=== PATIENT | female | born 1955 | race Caucasian/White ===

== ENCOUNTER → 2017-07-21 | Outpatient (CLI) | payer OTHER ==
--- NOTE | 2017-07-22 08:09 | CT ---
EXAMINATION TYPE: CT chest w con DATE OF EXAM: 07/21/2017 COMPARISON: NONE HISTORY: Abnormal findings (ground glass appearance) on diagnostic imaging. CT DLP: 189.10 mGycm. Automated Exposure Control for Dose Reduction was Utilized. TECHNIQUE: CT scan of the thorax is performed following with IV Contrast, patient injected with 100 mL of Omnipaque 300. FINDINGS: LUNGS: The lungs are grossly clear other than persistent subsegmental lingular atelectasis, there is no concerning parenchymal mass or nodule identified. 2 mm focal pleural thickening is seen along the posterior medial inferior left lower lobe on series 4 image 38. There is no pleural effusion or pneu mothorax seen. The tracheobronchial tree is patent. MEDIASTINUM: There are no greater than 1 cm hilar or mediastinal lymph nodes. No pericardial effusi on is seen. Moderate coronary artery calcifications are seen of the left main coronary artery, right coronary artery and left anterior descending coronary artery. Incidental note of bovine aortic arch, normal variant. OTHER: Unchanged mild degenerative changes of the thoracic spine demonstrated as endplate sclerosis, intervertebral disc space narrowing and small anterior osteophytes. IMPRESSION: 1. No pulmonary nodule or mass. 2. Unchanged subsegmental lingular atelectasis. 3. Redemonstration of moderate burden coronary artery disease.
== END | disposition home or self-care (01) ==
LOC: RADCTMAIN 16:02
PROVIDERS: ATTEND Internal Medicine
DX: J98.11 Atelectasis (principal); I25.10 Atherosclerotic heart disease of native coronary artery without angina pectoris
CPT/HCPCS: 71260; Q9967

== ENCOUNTER 2020-06-07 12:34 | Emergency (ER) | payer OTHER ==
[2020-06-07 12:55] VITALS: TEMP 99.1
[2020-06-07] MEDS ORDERED: KETOROLAC 15 MG/ML 1 ML VIAL IM STA (13:15)
--- NOTE | 2020-06-07 13:18 | ED ---
General Adult HPI - General Chief complaint: Fall Stated complaint: Fall, R Hip Pain Time Seen by Provider: 06/07/20 13:07 Source: patient, family, RN notes reviewed Mode of arrival: wheelchair Limitations: no limitations - History of Present Illness Initial comments: Patient is a pleasant [age]-year-old female presenting to the emergency department following a fall. Incident occurred around 10:00 this morning. Patient tripped over a cord. Patient did land on her right hip. Patient has moderate to severe discomfort of her right hip. Patient also landed on her right ribs and does have moderate discomfort there as well. Patient is only able to ambulate using crutches. Patient denies any difficulty in breathing. No neck or back pain. No head injury or loss of consciousness. No abdominal discomfort. No history of significant discomfort is areas previously. - Related Data Previous Rx's Medication Instructions Recorded Hydrocodone/Acetaminophen [[place] 1 each PO Q4HR PRN #15 tab 06/07/20 5-325] Allergies Allergy/AdvReac Type Severity Reaction Status Date / Time morphine Allergy Unknown Verified 06/07/20 12:55 Penicillins Allergy Unknown Verified 06/07/20 12:55 Sulfa (Sulfonamide Allergy Unknown Verified 06/07/20 12:55 Antibiotics) Review of Systems ROS Statement: Those systems with pertinent positive or pertinent negative responses have been documented in the HPI. ROS Other: All systems not noted in ROS Statement are negative. Constitutional: Denies: fever Eyes: Denies: eye pain ENT: Denies: ear pain Respiratory: Denies: cough, dyspnea Cardiovascular: Reports: as per HPI Endocrine: Denies: fatigue Gastrointestinal: Denies: abdominal pain Genitourinary: Denies: dysuria Musculoskeletal: Reports: as per HPI, arthralgia (Right hip). Denies: back pain Skin: Denies: rash Neurological: Denies: headache, weakness, confusion Past Medical History Past Medical History: Hypertension Additional Past Medical History / Comment(s): Lupus. Sjogorens Disease History of Any Multi-Drug Resistant Organisms: None Reported Past Surgical History: Cholecystectomy, Hysterectomy Past Psychological History: No Psychological Hx Reported Smoking Status: Never smoker Past Alcohol Use History: None Reported Past Drug Use History: None Reported General Exam Limitations: no limitations General appearance: alert, in no apparent distress Head exam: Present: atraumatic, normocephalic Eye exam: Present: normal appearance Neck exam: Present: normal inspection. Absent: tenderness Respiratory exam: Present: normal lung sounds bilaterally, other (Tenderness right lateral mid ribs). Absent: respiratory distress, decreased breath sounds Cardiovascular Exam: Present: regular rate, normal rhythm Expanded Peripheral pulses: 2+: Dorsalis Pedis (R), Dorsalis Pedis (L) GI/Abdominal exam: Present: soft. Absent: tenderness Extremities exam: Present: tenderness (Moderate tenderness diffuse right anterior lateral hip), other (Pain with attempted range of motion right hip limits exam). Absent: calf tenderness Back exam: Present: normal inspection. Absent: vertebral tenderness Neurological exam: Present: alert. Absent: motor sensory deficit Expanded Sensory exam: Lower Extremity Light Touch: Normal Motor strength exam: RLE: 5 Psychiatric exam: Present: normal affect, normal mood Skin exam: Present: normal color Course Vital Signs 06/07/20 12:49 Temperature 99.1 F Pulse Rate 65 Respiratory 16 Rate Blood Pressure 100/63 O2 Sat by Pulse 99 Oximetry - Reevaluation(s) Reevaluation #1: 06/07/20 15:00 Case was discussed with practitioner branch who also discuss case with Dr. Romano and review the films. They do request computed tomography scan. They state this will depend if patient will need surgical repair. 06/07/20 15:54 Case again discussed with practitioner neck branch who did review the films with Dr. Romano and would like patient to be nonsurgical option at this time. They will follow up with Wednesday and recommends walker per patient. Patient is comfortable with discharge if she receives pain medication. Patient will be prescribed walker Medical Decision Making - Radiology Data Radiology results: report reviewed (Computed tomography scan right hip shows greater trochanter fracture.), image reviewed (Chest x-ray shows possible fifth rib nondisplaced fracture. X-ray of right hip and pelvis shows nondisplaced fracture greater trochanter.) Disposition Clinical Impression: Fall, Rib fracture, Hip fracture Disposition: HOME SELF-CARE Condition: Stable Additional Instructions: Please follow-up Wednesday with Dr. Romano with orthopedics, number provided. Please also follow-up primary care physician in the next couple days for recheck. Return for any difficulty breathing, weakness, uncontrolled pain, worsening symptoms or other concerns. Prescription for pain medication has been sent to pharmacy. Please use walker and never used more than 50% of weight onto the right hip. Prescriptions: Hydrocodone/Acetaminophen [[place] 5-325] 1 each PO Q4HR PRN #15 tab PRN Reason: Pain Is patient prescribed a controlled substance at d/c from ED?: Yes When asked, does pt state using other controlled substances?: No If prescribed controlled substance>3 days was MAPS reviewed?: Prescribed <3 Days If opioid is for acute pain is fill amount 7 days or less?: Yes If Rx opioid, was Start Talking consent form obtained?: Yes Referrals: Shashank Gilmore MD [Primary Care Provider] - 1-2 days Abrahan Clifton MD [STAFF PHYSICIAN] - 1-2 days Time of Disposition: 15:56
--- NOTE | 2020-06-07 14:14 | XR ---
EXAMINATION TYPE: AP view pelvis and 2 views right hip DATE OF EXAM: 06/07/2020 COMPARISON: NONE HISTORY: 64-year-old female pain after fall FINDINGS: Unable to fully visualize the left femoral neck due to external rotation hip. On the right, there is a subtle lucency at the greater trochanter. No clear intertrochanteric extensi on. IMPRESSION: Nondisplaced fracture at the right greater trochanter. No definite intertrochanteric extension identi fied radiographically.
--- NOTE | 2020-06-07 14:17 | XR ---
EXAMINATION TYPE: XR ribs RT w pa chest xray DATE OF EXAM: 06/07/2020 COMPARISON: Correlation CT chest 07/21/2017 HISTORY: 64-year-old female with fall and right-sided pain TECHNIQUE: AP and lateral views FINDINGS: Heart upper limits of normal in size. Slight tortuosity of the thoracic aorta. There is opacity at th e cardiac apex, suspected epicardial fat pad, unchanged from the CT of 2017. There is some cortical i rregularity along the lateral right fifth rib. Cholecystectomy clips. IMPRESSION: 1. No acute cardiopulmonary process. 2. Slight cortical irregularity along the lateral right fifth rib. Correlate for point tenderness her e to exclude a subtle nondisplaced fracture.
[2020-06-07] MEDS ORDERED: HYDROmorphone 1 MG/ML 1 ML SYRINGE IM STA (15:03)
--- NOTE | 2020-06-07 15:41 | CT ---
EXAMINATION TYPE: CT hip RT wo con DATE OF EXAM: 06/07/2020 COMPARISON: Radiograph same day HISTORY: 64-year-old female Fall with right hip pain. TECHNIQUE: Contiguous axial scanning of the right hip without IV contrast. Coronal and sagittal recon structions performed. CT DLP: 389.3 mGycm Automated exposure control for dose reduction was used. FINDINGS: Osteopenia. Anteriorly, there is a comminuted transverse component to the fracture of the greater tro chanter with mild displacement. Along the mid to posterior aspect, there appears to be a prominent ve rtical component extending to nearly the level with associated intramedullary hemorrhage. No clear fr acture extension seen to the medial cortex. There is fracture involvement along the posterior cortex at the basicervical level. Some thickening and heterotopic ossification at the hamstrings origin. Fin dings suggest either sequela of old injury or chronic tendinopathy. IMPRESSION: 1. OSTEOPENIA LIMITS THE ASSESSMENT. 2. COMMINUTED FRACTURE OF THE GREATER TROCHANTER. ALONG THE MID TO POSTERIOR ASPECT, THERE SEEMS TO B E VERTICAL EXTENSION OF FRACTURE NEARLY TO THE SUBTROCHANTERIC LEVEL. 3. THERE IS ADDITIONAL EXTENSION TO INVOLVE THE POSTERIOR CORTEX OF THE BASICERVICAL FEMORAL NECK REG ION. NO MEDIAL FRACTURE EXTENSION IS IDENTIFIED. GIVEN OSTEOPENIA, CONSIDER MRI FOR BETTER DELINEATIO N OF FRACTURE EXTEN
[2020-06-07 16:44] VITALS: BP 137/64; PULSE 72; RESP 18
== END 2020-06-07 16:44 | disposition home or self-care (01) ==
LOC: EC 12:34
DX: S72.114A Nondisplaced fracture of greater trochanter of right femur, initial encounter for closed fracture (principal); S22.39XA Fracture of one rib, unspecified side, initial encounter for closed fracture; Z88.5 Allergy status to narcotic agent; Z88.0 Allergy status to penicillin; Z88.2 Allergy status to sulfonamides; W01.0XXA Fall on same level from slipping, tripping and stumbling without subsequent striking against object, initial encounter; Y92.009 Unspecified place in unspecified non-institutional (private) residence as the place of occurrence of the external cause
CPT/HCPCS: 71101; 73502; 73700; 99284; 96372 ×2; J1170; J1885

== ENCOUNTER → 2021-08-04 | Outpatient (CLI) | payer OTHER ==
--- NOTE | 2021-08-05 04:36 | MR ---
EXAMINATION TYPE: MR brain wo con DATE OF EXAM: 08/04/2021 COMPARISON: Prior MRI brain March 10, 2011 HISTORY: Headaches, chronic migraine, and dizziness. TECHNIQUE: Multiplanar, multisequence imaging of the brain and brainstem is performed without IV cont rast. FINDINGS: Diffusion weighted images demonstrate no evidence of a recent infarct or other diffusion abnormality. There is mild ventricular and sulcal prominence identified more prominent from prior study. Scattered foci of T2 hyperintensity are seen throughout the white matter bilaterally. Approximately 60-70 scat tered lesions are seen on current study increased in number from 2011 MRI. Lesions are nonspecific in appearance and distribution Midline structures demonstrate normal morphology. The craniocervical junction appears within normal limits. There is however no grade 1 anterolisthesis C3 on C4 with spinal canal effacement or stenosis sagittal image 14. This can be better evaluated with dedicated cervical spine MRI follow-up. Normal vascular flow voids are present. Dominant right vertebral artery demonstrated. Artifact distorts the level of the globes on current study. Visualized paranasal sinuses are clear. IMPRESSION: Mild diffuse age-related cerebral atrophy and moderate to advanced nonspecific white sofia er changes likely on the basis of altered vascular mechanics related to product of chronic migraine h eadaches and combination of chronic small vessel ischemic change in patient of this age. Interval pro gression from 2011 MRI noted.
== END | disposition home or self-care (01) ==
LOC: RADMRIMAIN 08-02 12:16
PROVIDERS: ATTEND Physician Assistant
DX: G43.909 Migraine, unspecified, not intractable, without status migrainosus (principal); G31.9 Degenerative disease of nervous system, unspecified
CPT/HCPCS: 70551

== ENCOUNTER 2022-05-27 11:03 | Inpatient (IN) | payer MEDICARE ==
--- NOTE | 2022-05-27 15:42 | P.GSCN ---
History of Present Illness Consult date: 05/27/22 Reason for Consult: Coronary artery disease Requesting physician: Suleman Sosa History of present illness: This is a 66-year-old female patient who follows on an outpatient basis with Dr. Snowden for primary care. She has a previous medical history of hypertension, lupus, Sjogren's, asthma (she has seen Dr. Olivas in the past), remote pneumonia, never smoker. She presented to [facility] yesterday with complaints of chest heaviness and shortness of breath. When questioned she states this has really been going on for more than a year and she dismissed it is inconsequential, however her episodes were becoming more frequent and started to include nausea and diaphoresis. At [facility] yesterday she was ruled in for non-STEMI and was recommended to undergo heart catheterization which was completed today by Dr. Sosa and which demonstrated ostial/proximal LAD stenosis 90%, ramus intermedius stenosis 95%, and proximal RCA stenosis 85% with no gradient across the aortic valve. Transthoracic echocardiogram was also completed demonstrating low-normal systolic function with EF 50%, normal diastolic function, focal apical and lateral hypokinesis, trace mitral and tricuspid regurgitation with mild to moderate aortic insufficiency. Due to findings on heart catheterization the patient was transferred to [facility] with consultation placed to cardiothoracic surgery for surgical revascularization recommendations. Review of Systems Review of systems was completed and was negative except as noted - Cardiovascular Reports as per HPI, Reports chest pain, Reports shortness of breath - Gastrointestinal Reports as per HPI, Reports nausea Past Medical History Past Medical History: Asthma, Chest Pain / Angina, Hypertension, Pneumonia Additional Past Medical History / Comment(s): Lupus. Sjogorens Disease History of Any Multi-Drug Resistant Organisms: None Reported Past Surgical History: Appendectomy, Cholecystectomy, Hysterectomy Additional Past Surgical History / Comment(s): Knee scope Past Psychological History: No Psychological Hx Reported Smoking Status: Never smoker Past Alcohol Use History: None Reported Past Drug Use History: None Reported - Past Family History Mother Family Medical History: Cancer Additional Family Medical History / Comment(s): from throat cancer Father Family Medical History: Cancer Additional Family Medical History / Comment(s): from bowel cancer Medications and Allergies Home Medications Medication Instructions Recorded Confirmed Type Amitriptyline HCl [Elavil] 150 mg PO HS 05/27/22 05/27/22 History Ascorbic Acid [Vitamin C] 500 mg PO DAILY 05/27/22 05/27/22 History Budesonide-Formot 160-4.5 Mcg 2 puff INHALATION RT-BID 05/27/22 05/27/22 History [Symbicort 160-4.5 Mcg Inhaler] Butalb/Acetaminophen/Caffeine 1 tab PO Q4H PRN 05/27/22 05/27/22 History [Esgic 50-325-40 mg Tablet] Calcium Carbonate [Calcium] 600 mg PO BID 05/27/22 05/27/22 History Cevimeline [Evoxac] 30 mg PO TID 05/27/22 05/27/22 History Esomeprazole Magnesium [NexIUM 20 mg PO DAILY 05/27/22 05/27/22 History 24Hr] Estradiol Cream [Estrace Cream 2 gm VAGINAL DIRECTED 05/27/22 05/27/22 History 0.01%] Ferrous Sulfate [Slow Fe] 142 mg PO DAILY 05/27/22 05/27/22 History Fremanezumab-Vfrm [Ajovy 225 mg SQ Q30D 05/27/22 05/27/22 History Autoinjector] Furosemide [Lasix] 20 mg PO DAILY 05/27/22 05/27/22 History Hydroxychloroquine Sulfate 200 mg PO BID 05/27/22 05/27/22 History [Plaquenil] L.acidoph,Paracasei, B.lactis 1 cap PO DAILY 05/27/22 05/27/22 History [Probiotic] Labetalol HCl 200 mg PO BID 05/27/22 05/27/22 History Lisdexamfetamine Dimesylate 70 mg PO DAILY 05/27/22 05/27/22 History [Vyvanse] Losartan Potassium 50 mg PO BID 05/27/22 05/27/22 History Magnesium Oxide [Magox 400] 400 mg PO DAILY 05/27/22 05/27/22 History Multivitamins, Thera [Multivitamin 1 tab PO DAILY 05/27/22 05/27/22 History (formulary)] Dexter-3 Fatty Acids [Dexter-3] 1,000 mg PO DAILY 05/27/22 05/27/22 History Turmeric Root Extract [Turmeric] 1,500 mg PO DAILY 05/27/22 05/27/22 History Verapamil HCl [Verapamil Sr] 360 mg PO DAILY 05/27/22 05/27/22 History Vitamin B Complex 1 cap PO DAILY 05/27/22 05/27/22 History Vitamin E 400 unit PO DAILY 05/27/22 05/27/22 History cycloSPORINE 0.05% OPHTH SOLN 1 drop BOTH EYES BID 05/27/22 05/27/22 History [Restasis] Allergies Allergy/AdvReac Type Severity Reaction Status Date / Time morphine Allergy Unknown Verified 05/27/22 16:23 Penicillins Allergy Unknown Verified 05/27/22 16:23 Childhood Sulfa (Sulfonamide Allergy Unknown Verified 05/27/22 16:23 Antibiotics) Surgical - Exam Vital Signs Temp Pulse Resp BP Pulse Ox 98.4 F 59 L 16 149/72 97 05/27/22 14:53 05/27/22 14:53 05/27/22 14:53 05/27/22 14:53 05/27/22 14:53 CONSTITUTIONAL: Awake and alert, appears comfortable, cooperative, well- developed, well-nourished, no pain, no acute distress EYES: Pupils equal, round, reactive to light, normal ocular movement ENT: Moist mucous membranes without oral lesions present NECK: No masses, no bruits, trachea midline RESPIRATORY: Lungs sounds clear to auscultation bilaterally. Respirations even, nonlabored. Currently on room air with oxygen saturation 96%. Strong cough. No chest wall deformities. No clubbing or cyanosis present CARDIOVASCULAR: S1, S2 present. Regular rate and rhythm, sinus rhythm on telemetry. Palpable peripheral pulses bilaterally. No edema present. No calf pain or tenderness noted. No significant lower extremity varicosities noted. Left radial Manjinder's test less than 8 seconds. GASTROINTESTINAL: Abdomen soft, nontender, nondistended without masses or organomegaly noted. There is no rebound or guarding present. Active bowel sounds present 4 quadrants. GENITOURINARY: Deferred INTEGUMENTARY: Skin is warm and dry with evidence of good perfusion. NEUROLOGIC: Cranial nerves II through XII intact, normal coordination, no obvious motor or sensory deficits, speech is normal MUSKULOSKELETAL: Able to move all extremities, strength equal bilaterally, normal posture PSYCHIATRIC: Alert and oriented to person place and time, appropriate affect, intact judgment and insight Results - Imaging Additional studies: Heart catheterization and echocardiogram films from [facility] reviewed Assessment and Plan Assessment: 1. Coronary artery disease, non-STEMI this admission 2. Hypertension 3. Lupus, Sjogren's 4. Remote pneumonia history 5. Never smoker Plan: The patient was seen and examined sitting up in bed on the cardiac stepdown unit in no acute distress. She currently denies any chest pain or shortness of breath. The case was discussed with Dr. Kellogg who will examine the patient today. The usual perioperative course of coronary artery bypass surgery was discussed in detail with the patient, risks and benefits were reviewed, all questions were answered. The patient does consent to surgery. Preoperative testing was initiated, once completed will calculate STS risk score and discuss with the patient. We will complete 5 m walk test. Recommend aspirin, statin, beta rajan therapy. Will consult pulmonology once bedside spirometry has been completed. Medical management of other comorbidities per primary care service. Thank you Dr. Sosa for this consult. More recommendations to follow I have personally seen and examined the patient, performed the documentation and the assessment and plan as written. Number of minutes spent on the visit: 30. SRIKANTH Nunes The patient was seen and examined with the nurse practitioner, I agree with the documentation of assessment and plan as written. We will plan for surgical revascularization early next week pending outcome of all preoperative testing. This was discussed with Dr. Sosa. Number of minutes spent on this consultation 45 min.
[2022-05-27] MEDS ORDERED: HEPARIN SODIUM 1,000 UN/ML (10ML VL) IV PRN (16:37)
--- NOTE | 2022-05-27 16:41 | US ---
EXAMINATION TYPE: US carotid duplex BILAT DATE OF EXAM: 05/27/2022 COMPARISON: NONE CLINICAL HISTORY: preop cardiac surgery. Pre op cardiac surgery TECHNIQUE: Carotid duplex ultrasound examination. Indirect Doppler criteria was utilized. FINDINGS: EXAM MEASUREMENTS: RIGHT: Peak Systolic Velocity (PSV) cm/sec ----- Right CCA: 45.8 ----- Right ICA: 74.5 ----- Right ECA: 58.8 ICA/CCA ratio: 1.6 RIGHT: End Diastole cm/sec ----- Right CCA: 10.9 ----- Right ICA: 26.5 ----- Right ECA: 5.5 LEFT: Peak Systolic Velocity (PSV) cm/sec ----- Left CCA: 53.8 ----- Left ICA: 71.0 ----- Left ECA: 56.3 ICA/CCA ratio: 1.3 LEFT: End Diastole cm/sec ----- Left CCA: 13.4 ----- Left ICA: 24.1 ----- Left ECA: 5.8 VERTEBRALS (direction of flow): Right Vertebral: Antegrade Left Vertebral: Antegrade Rhythm: Normal No significant stenosis IMPRESSION: There is antegrade flow in the vertebral arteries. The images and measurements suggest less than 10% stenosis in both internal carotid arteries. Criteria for Assigning % of Stenosis / Diameter reduction (Estimation based on the indirect measurements of the internal carotid artery velocities (ICA PSV). 1. Normal (no stenosis)=ICA PSV < 125 cm/s: ratio < 2.0: ICA EDV<40 cm/s. 2. Less than 50% stenosis=ICA PSV < 125 cm/s: ratio < 2.0: ICA EDV<40 cm/s. 3. 50 to 69% stenosis=ICA PSV of 125 to 230 cm/s: ration 2.0 ? 4.0: ICA EDV 40-100 cm/s. 4. Greater than 70% stenosis to near occlusion= ICA PSV > 230 cm/s: ratio > 4.0: ICA EDV > 100 cm/s. 5. Near occlusion= ICA PSV velocities may be low or undetectable: variable ratio and ICA EDV. 6. Total occlusion=unable to detect flow.
[2022-05-27] MEDS: SODIUM CHLORIDE 0.9% 1,000 ML IV SCH (17:34)
[2022-05-27 18:07] LABS: Basophils # (A) 0.1 k/uL (0-0.2); Basophils % (A) 1 %; Eosinophils # (A) 0.2 k/uL (0-0.7); Eosinophils % (A) 3 %; HCT 35.9 % (34.0-46.0); Lymphocytes # (A) 1.8 k/uL (1.0-4.8); Lymphocytes % (A) 41 %; MCH 33.2 pg (25.0-35.0); MCHC 33.5 g/dL (31.0-37.0); MCV 99.2 fL (80.0-100.0); Mean Platelet Volume 7.2; Monocytes # (A) 0.3 k/uL (0-1.0); Monocytes % (A) 7 %; Neutrophils % (A) 46 %; Platelet Count 257 k/uL (150-450); RBC 3.62 m/uL (3.80-5.40); RDW 12.3 % (11.5-15.5); WBC 4.5 k/uL (3.8-10.6)
[2022-05-27 18:15] LABS: Prothrombin Time 10.9 sec (9.0-12.0)
[2022-05-27 18:21] LABS: ALT 19 U/L (4-34); AST 31 U/L (14-36); African American GFR (CKD) 84 (>60 ml/min/1.73 sqM); Albumin 3.5 g/dL (3.5-5.0); Alkaline Phosphatase 68 U/L (38-126); Anion Gap 4 mmol/L; Blood Urea Nitrogen 13 mg/dL (7-17); Calcium 8.7 mg/dL (8.4-10.2); Carbon Dioxide 26 mmol/L (22-30); Chloride 100 mmol/L (98-107); Glucose 79 mg/dL (74-99); Magnesium 1.7 mg/dL (1.6-2.3); Non-African American GFR(CKD) 72 (>60 ml/min/1.73 sqM); Potassium 3.9 mmol/L (3.5-5.1); Sodium 130 mmol/L (137-145); Total Bilirubin 0.2 mg/dL (0.2-1.3)
[2022-05-27] MEDS: HEPARIN SOD,PORK IN 0.45% NACL 25,000 UNIT in 0.45% NACL 1 250ML.BAG IV SCH (18:52)
[2022-05-27] MEDS: SYMBICORT 160-4.5 MCG INHALER INHALATION SCH (19:33)
[2022-05-27 19:40] LABS: T4, Free (Free Thyroxine) 1.17 ng/dL (0.78-2.19)
[2022-05-27 20:06] LABS: Appearance,Urine Clear (Clear); Bilirubin,Urine Negative (Negative); Blood,Urine Negative (Negative); Color,Urine Light Yellow; Glucose,Urine (UA) Negative (Negative); Ketones,Urine Negative (Negative); Leukocyte Esterase,Urine Negative (Negative); Nitrite,Urine Negative (Negative); PH, Urine 6.5 (5.0-8.0); Protein,Urine Negative (Negative); Specific Gravity,Urine 1.017 (1.001-1.035); Urobilinogen,Urine <2.0 mg/dL (<2.0)
[2022-05-27] MEDS ORDERED: HYDROXYCHLOROQUINE SULFATE 200 MG TAB PO SCH (21:00)
[2022-05-27] MEDS: cycloSPORINE 0.05% OPHTH 0.4 ML DROPERETTE BOTH EYES SCH (21:13)
[2022-05-27] MEDS: CEVIMELINE 30 MG CAP PO SCH (21:13)
[2022-05-27] MEDS: AMITRIPTYLINE HCL 50 MG TAB PO SCH (21:14)
[2022-05-27] MEDS: METOPROLOL TARTRATE 50 MG TAB PO SCH (21:14)
[2022-05-27] MEDS: BUTALB/APAP/CAFF 50-325-40MG TAB PO PRN (21:14)
[2022-05-27] MEDS: CALCIUM CARBONATE 500 MG CHEWABLE PO SCH (21:16)
[2022-05-28 00:21] LABS: Hepatitis A Antibody IgM Nonreactive (Nonreactive); Hepatitis B Core IgM Nonreactive (Nonreactive); Hepatitis B Surface Antigen Nonreactive (Nonreactive); Hepatitis C IgG Antibody Nonreactive (Nonreactive)
[2022-05-28 02:18] LABS: Chol/HDL Ratio 2.51 Ratio; LDL Cholesterol,Calculated 93.5 mg/dL (0.0-131.0); VLDL Calculation 14.68 mg/dL (5.00-40.00)
[2022-05-28] MEDS: PANTOPRAZOLE 40 MG TABLET PO SCH (07:00)
[2022-05-28] MEDS: SODIUM CHLORIDE 0.9% 1,000 ML IV SCH (07:00)
[2022-05-28] MEDS: SYMBICORT 160-4.5 MCG INHALER INHALATION SCH ×2 (07:25→20:31)
[2022-05-28] MEDS ORDERED: NON FORMULARY DRUG (Vitamin B Complex [Vitamin B Complex] 1 EACH Capsule) PO SCH (09:00)
[2022-05-28] MEDS ORDERED: FUROSEMIDE 20 MG TAB PO SCH (09:00)
[2022-05-28] MEDS: FERROUS SULFATE 325 MG TAB PO SCH (09:07)
[2022-05-28] MEDS: LOSARTAN 50 MG TAB PO SCH (09:07)
[2022-05-28] MEDS: VITAMIN E (DL,TOCOPHERYL ACET) 400 UNIT (180 MG) CAP PO SCH (09:07)
[2022-05-28] MEDS: ATORVASTATIN 80 MG TAB PO SCH (09:07)
[2022-05-28] MEDS: METOPROLOL TARTRATE 50 MG TAB PO SCH ×2 (09:07→20:49)
[2022-05-28] MEDS: MULTIVITAMINS, THERA 1 EACH TAB PO SCH (09:07)
[2022-05-28] MEDS: CALCIUM CARBONATE 500 MG CHEWABLE PO SCH ×2 (09:07→20:48)
[2022-05-28] MEDS: ASCORBIC ACID 500 MG TAB PO SCH (09:07)
[2022-05-28] MEDS: MAGNESIUM OXIDE 400 MG TAB PO SCH (09:07)
[2022-05-28] MEDS: LACTOBACILLUS ACIDOPH & BULGAR 1 EACH PACKET PO SCH (09:07)
[2022-05-28] MEDS: ASPIRIN 81 MG PO SCH (09:07)
[2022-05-28] MEDS: cycloSPORINE 0.05% OPHTH 0.4 ML DROPERETTE BOTH EYES SCH ×2 (09:08→20:49)
[2022-05-28] MEDS: CEVIMELINE 30 MG CAP PO SCH ×3 (09:08→20:50)
--- NOTE | 2022-05-28 09:29 | US ---
EXAMINATION TYPE: US vein mapping BILAT DATE OF EXAM: 05/27/2022 4:29 PM COMPARISON: NONE CLINICAL HISTORY: preop cardiac surgery. Pre op cardiac surgery SIDE PERFORMED: Bilateral TECHNIQUE: Lower extremity saphenous vein is examined and measured utilizing real time linear array sonography. DUPLEX FINDINGS: Greater Saphenous: Color flow seen Measurements in mm: Right Greater Saphenous: Groin: 5.9 x 6.8 mm High Thigh: 4.3 x 4.6 mm Mid Thigh: 3.0 x 3.4 mm Above Knee: 3.3 x 3.8 mm Knee: 3.5 x 4.1 mm Below Knee: 2.9 x 3.3 mm Mid Calf: 2.2 x 2.3 mm At Ankle: 1.8 x 1.7 mm Left Greater Saphenous: Groin: 9.2 x 9.3 mm High Thigh: 4.9 x 5.0 mm Mid Thigh: 3.6 x 3.9 mm Above Knee: 3.1 x 3.8 mm Knee: 2.9 x 3.0 mm Below Knee: 2.5 x 2.8 mm Mid Calf: 2.1 x 2.3 mm At Ankle: 1.4 x 1.6 mm IMPRESSION: 1. Bilateral GSV measurements listed above. 2. Performing surgeon to determine viability as conduit.
--- NOTE | 2022-05-28 09:30 | US ---
EXAMINATION TYPE: Pre-Operative Non-Invasive Evaluation of the hand for Potential Radial Artery Jaelyn colon, Measurements only DATE OF EXAM: 05/27/2022 4:28 PM CLINICAL HISTORY: Pre op cardiac surgery SIDE PERFORMED: Left TECHNIQUE: Radial artery is measured utilizing real time linear array sonography. Duplex Findings: Radial Artery: Color flow seen Measurements in mm, transverse view: Left Radial: Proximal: 3.9 x 4.3 mm Mid: 2.4 x 2.6 mm Distal: 2.1 x 2.6 mm IMPRESSION: 1. Left radial artery measurements listed above. 2. Performing surgeon to determine viability as conduit.
[2022-05-28] MEDS: NON FORMULARY DRUG (Lisdexamfetamine Dimesylate [Vyvanse] 70 MG Capsule) PO SCH (09:39)
[2022-05-28 10:27] LABS: Basophils # (A) 0.1 k/uL (0-0.2); Basophils % (A) 1 %; Eosinophils # (A) 0.2 k/uL (0-0.7); Eosinophils % (A) 5 %; HCT 37.4 % (34.0-46.0); HGB 12.6 gm/dL (11.4-16.0); Lymphocytes # (A) 1.8 k/uL (1.0-4.8); Lymphocytes % (A) 34 %; MCH 34.2 pg (25.0-35.0); MCHC 33.7 g/dL (31.0-37.0); MCV 101.6 fL (80.0-100.0); Mean Platelet Volume 7.2; Monocytes # (A) 0.3 k/uL (0-1.0); Monocytes % (A) 6 %; Neutrophils # (A) 2.6 k/uL (1.3-7.7); Neutrophils % (A) 50 %; Platelet Count 246 k/uL (150-450); RBC 3.68 m/uL (3.80-5.40); RDW 12.8 % (11.5-15.5); WBC 5.2 k/uL (3.8-10.6)
[2022-05-28 10:32] LABS: Partial Thromboplastin Time 77.7 sec (22.0-30.0)
--- NOTE | 2022-05-28 10:35 | P.HPIM ---
History of Present Illness 66-year-old pleasant female was transferred from [facility] after she was found to have three-vessel disease and patient is transferred here for coronary artery bypass grafting which was scheduled for Wednesday. Patient is undergoing workup for that at this time. Patient had non-ST elevation microinfarction and patient had 90% stenosis in LAD ramus intermedius stenosis 95% proximal RCA stenosis 80%. Patient had normal ejection fraction now diastolic function with apical lateral hypokinesis. A she is hyponatremic and patient does take Lasix at home which is being held at this time because of the hyponatremia. History of lupus and Sjogren syndrome. REVIEW OF SYSTEMS: CONSTITUTIONAL: No fever, no malaise, no fatigue. HEENT: No recent visual problems or hearing problems. Denied any sore throat. CARDIOVASCULAR: No chest pain, orthopnea, PND, no palpitations, no syncope. PULMONARY: No shortness of breath, no cough, no hemoptysis. GASTROINTESTINAL: No diarrhea, no nausea, no vomiting, no abdominal pain. NEUROLOGICAL: No headaches, no weakness, no numbness. HEMATOLOGICAL: Denies any bleeding or petechiae. GENITOURINARY: Denies any burning micturition, frequency, or urgency. MUSCULOSKELETAL/RHEUMATOLOGICAL: Denies any joint pain, swelling, or any muscle pain. ENDOCRINE: Denies any polyuria or polydipsia. The rest of the 14-point review of systems is negative. PHYSICAL EXAMINATION: GENERAL: The patient is alert and oriented x3, not in any acute distress. Well developed, well nourished. HEENT: Pupils are round and equally reacting to light. EOMI. No scleral icterus. No conjunctival pallor. Normocephalic, atraumatic. No pharyngeal erythema. No thyromegaly. CARDIOVASCULAR: S1 and S2 present. No murmurs, rubs, or gallops. PULMONARY: Chest is clear to auscultation, no wheezing or crackles. ABDOMEN: Soft, nontender, nondistended, normoactive bowel sounds. No palpable organomegaly. MUSCULOSKELETAL: No joint swelling or deformity. EXTREMITIES: No cyanosis, clubbing, or pedal edema. NEUROLOGICAL: Gross neurological examination did not reveal any focal deficits. SKIN: No rashes. Assessment and plan Acute non-ST elevation microinfarction patient is scheduled for coronary artery bypass grafting, continue with anti-platelet therapy and the statins at this time. -Lupus and Sjogren's disease fairly stable without any acute exacerbation is -hypovolemic hyponatremia hold off on Lasix. -Hypertension DVT prophylaxisAmbulation as tolerated Past Medical History Past Medical History: Asthma, Chest Pain / Angina, Hypertension, Pneumonia Additional Past Medical History / Comment(s): Lupus. Sjogorens Disease History of Any Multi-Drug Resistant Organisms: None Reported Past Surgical History: Appendectomy, Cholecystectomy, Hysterectomy Additional Past Surgical History / Comment(s): Knee scope Past Anesthesia/Blood Transfusion Reactions: No Reported Reaction Past Psychological History: No Psychological Hx Reported Smoking Status: Never smoker Past Alcohol Use History: None Reported Past Drug Use History: None Reported - Past Family History Mother Family Medical History: Cancer Additional Family Medical History / Comment(s): from throat cancer Father Family Medical History: Cancer Additional Family Medical History / Comment(s): from bowel cancer Medications and Allergies Home Medications Medication Instructions Recorded Confirmed Type Amitriptyline HCl [Elavil] 150 mg PO HS 05/27/22 05/27/22 History Ascorbic Acid [Vitamin C] 500 mg PO DAILY 05/27/22 05/27/22 History Budesonide-Formot 160-4.5 Mcg 2 puff INHALATION RT-BID 05/27/22 05/27/22 History [Symbicort 160-4.5 Mcg Inhaler] Butalb/Acetaminophen/Caffeine 1 tab PO Q4H PRN 05/27/22 05/27/22 History [Esgic 50-325-40 mg Tablet] Calcium Carbonate [Calcium] 600 mg PO BID 05/27/22 05/27/22 History Cevimeline [Evoxac] 30 mg PO TID 05/27/22 05/27/22 History Esomeprazole Magnesium [NexIUM 20 mg PO DAILY 05/27/22 05/27/22 History 24Hr] Estradiol Cream [Estrace Cream 2 gm VAGINAL DIRECTED 05/27/22 05/27/22 History 0.01%] Ferrous Sulfate [Slow Fe] 142 mg PO DAILY 05/27/22 05/27/22 History Fremanezumab-Vfrm [Ajovy 225 mg SQ Q30D 05/27/22 05/27/22 History Autoinjector] Furosemide [Lasix] 20 mg PO DAILY 05/27/22 05/27/22 History Hydroxychloroquine Sulfate 200 mg PO BID 05/27/22 05/27/22 History [Plaquenil] L.acidoph,Paracasei, B.lactis 1 cap PO DAILY 05/27/22 05/27/22 History [Probiotic] Labetalol HCl 200 mg PO BID 05/27/22 05/27/22 History Lisdexamfetamine Dimesylate 70 mg PO DAILY 05/27/22 05/27/22 History [Vyvanse] Losartan Potassium 50 mg PO BID 05/27/22 05/27/22 History Magnesium Oxide [Magox 400] 400 mg PO DAILY 05/27/22 05/27/22 History Multivitamins, Thera [Multivitamin 1 tab PO DAILY 05/27/22 05/27/22 History (formulary)] [place]-3 Fatty Acids [[place]-3] 1,000 mg PO DAILY 05/27/22 05/27/22 History Turmeric Root Extract [Turmeric] 1,500 mg PO DAILY 05/27/22 05/27/22 History Verapamil HCl [Verapamil Sr] 360 mg PO DAILY 05/27/22 05/27/22 History Vitamin B Complex 1 cap PO DAILY 05/27/22 05/27/22 History Vitamin E 400 unit PO DAILY 05/27/22 05/27/22 History cycloSPORINE 0.05% OPHTH SOLN 1 drop BOTH EYES BID 05/27/22 05/27/22 History [Restasis] Allergies Allergy/AdvReac Type Severity Reaction Status Date / Time morphine Allergy Unknown Verified 05/27/22 16:23 Penicillins Allergy Unknown Verified 05/27/22 16:23 Childhood Sulfa (Sulfonamide Allergy Unknown Verified 05/27/22 16:23 Antibiotics) Physical Exam Vitals: Vital Signs Temp Pulse Resp BP Pulse Ox 05/28/22 09:01 98.1 F 73 16 160/77 100 05/28/22 04:00 97.9 F 69 18 148/63 97 05/28/22 02:00 16 05/28/22 00:00 98.0 F 63 16 176/64 95 05/27/22 20:00 16 05/27/22 19:48 98.9 F 62 16 162/80 99 05/27/22 14:53 98.4 F 59 L 16 149/72 97 Intake and Output 05/27/22 05/28/22 05/28/22 22:59 06:59 14:59 Intake Total 46.359 118 Output Total 150 Balance -150 46.359 118 Intake: Intake, IV Titration 46.359 Amount Heparin Sod,Pork in 0.45% 46.359 NaCl 25,000 unit In 0.45 % NaCl 1 250ml.bag @ 12 UNITS/KG/HR 6.06 mls/hr IV .Q24H [facility] Rx#: [id number] Oral 118 Output: Urine 150 Other: # Voids 1 Weight 50.5 kg 58.9 kg Results CBC & Chem 7: 05/28/22 09:26 05/27/22 17:40 Labs: Abnormal Lab Results - Last 24 Hours (Table) 05/27/22 05/27/22 05/28/22 Range/Units 17:40 17:40 01:31 RBC 3.62 L (3.80-5.40) m/uL MCV (80.0-100.0) fL APTT 41.0 H (22.0-30.0) sec Sodium 130 L (137-145) mmol/L Total Protein 6.0 L (6.3-8.2) g/dL HDL Cholesterol 71.80 H (40.00-60.00) mg/dL TSH 0.336 L (0.465-4.680) mIU/L 05/28/22 05/28/22 Range/Units 09:26 09:26 RBC 3.68 L (3.80-5.40) m/uL MCV 101.6 H (80.0-100.0) fL APTT 77.7 H (22.0-30.0) sec Sodium (137-145) mmol/L Total Protein (6.3-8.2) g/dL HDL Cholesterol (40.00-60.00) mg/dL TSH (0.465-4.680) mIU/L Microbiology - Last 24 Hours (Table) 05/27/22 17:44 Nasal Screen MRSA/MSSA - Preliminary Nasal Swab Thrombosis Risk Factor Assmnt - Choose All That Apply Each Risk Factor Represents 2 Points: Age 61-74 years Thrombosis Risk Factor Assessment Total Risk Factor Score: 2 Thrombosis Risk Factor Assessment Level: Low Risk
--- NOTE | 2022-05-28 10:39 | P.PN ---
Subjective Progress Note Date: 05/28/22 Principal diagnosis: Coronary artery disease, non-STEMI this admission. Previous medical history of hypertension, lupus, Sjogren's, asthma, remote pneumonia history, and never smo ker The patient was seen and examined sitting up in bed in the cardiac stepdown unit in no acute distress. Denies any chest pain or shortness of breath although she does complain of some back pain. Patient and met with Dr. Kellogg yesterday, all options were answered. We plan to proceed with CABG on Wednesday, this was discussed between Dr. Kellogg and Dr. Sosa. Objective - Vital Signs Vital signs: Vital Signs Temp 98.1 F 05/28/22 09:01 Pulse 73 05/28/22 09:01 Resp 16 05/28/22 09:01 BP 160/77 05/28/22 09:01 Pulse Ox 100 05/28/22 09:01 FiO2 Intake & Output 05/27/22 05/28/22 05/28/22 18:59 06:59 18:59 Intake Total 46.359 118 Output Total 150 Balance -103.641 118 Weight 50.5 kg 58.9 kg Intake: Intake, IV Titration 46.359 Amount Heparin Sod,Pork in 0.45% 46.359 NaCl 25,000 unit In 0.45 % NaCl 1 250ml.bag @ 12 UNITS/KG/HR 6.06 mls/hr IV .Q24H [facility] Rx#: [id number] Oral 118 Output: Urine 150 Other: # Voids 1 - Exam CONSTITUTIONAL: Appears comfortable, cooperative, no acute distress RESPIRATORY: Lungs sounds diminished bilaterally. Respirations even, nonlabored. Currently on room air with oxygen saturation 100%. Able to achieve 1750 mL on incentive spirometry. Strong cough. CARDIOVASCULAR: S1, S2 present. Regular rate and rhythm, sinus rhythm on telemetry. Palpable peripheral pulses bilaterally. No edema present. No calf pain or tenderness noted. GASTROINTESTINAL: Abdomen soft, nontender, nondistended. Active bowel sounds present 4 quadrants. Tolerating diet. GENITOURINARY: Continues to void INTEGUMENTARY: Skin is warm and dry with evidence of good perfusion. NEUROLOGIC: Cranial nerves II through XII intact MUSKULOSKELETAL: Able to move all extremities, strength equal bilaterally, gait normal PSYCHIATRIC: Alert and oriented to person place and time, appropriate affect, intact judgment and insight - Allied health notes Allied health notes reviewed: nursing - Labs CBC & Chem 7: 05/28/22 09:26 05/27/22 17:40 Labs: Abnormal Lab Results - Last 24 Hours (Table) 05/27/22 05/27/22 05/28/22 Range/Units 17:40 17:40 01:31 RBC 3.62 L (3.80-5.40) m/uL MCV (80.0-100.0) fL APTT 41.0 H (22.0-30.0) sec Sodium 130 L (137-145) mmol/L Total Protein 6.0 L (6.3-8.2) g/dL HDL Cholesterol 71.80 H (40.00-60.00) mg/dL TSH 0.336 L (0.465-4.680) mIU/L 05/28/22 Range/Units 09:26 RBC 3.68 L (3.80-5.40) m/uL MCV 101.6 H (80.0-100.0) fL APTT (22.0-30.0) sec Sodium (137-145) mmol/L Total Protein (6.3-8.2) g/dL HDL Cholesterol (40.00-60.00) mg/dL TSH (0.465-4.680) mIU/L Microbiology - Last 24 Hours (Table) 05/27/22 17:44 Nasal Screen MRSA/MSSA - Preliminary Nasal Swab Assessment and Plan Assessment: 1. Coronary artery disease, non-STEMI this admission 2. Hypertension 3. Lupus, Sjogren's 4. History of asthma, current FEV1 101% of predicted 5. Remote pneumonia history 6. Never smoker Plan: 1. Continue aspirin, statin, beta rajan therapy. Recommend discontinuing Cozaar to prevent intra/postoperative vasoplegia 2. Plaquenal discontinued due to its immunosuppressive effect, will restart after surgery 3. Our plan is for surgical myocardial revascularization with left internal mammary artery, left radial artery harvest, endovascular vein harvest, and ligation of the left atrial appendage with Dr. Awad on 06/01/2022 4. Continue preoperative teaching 5. STS risk score was calculated, felt to be low risk, this was discussed with the patient 6. Medical management for comorbidities per primary care service 7. More recommendations to follow
--- NOTE | 2022-05-28 11:44 | P.CNPUL ---
History of Present Illness Consult date: 05/28/22 Requesting physician: Etelvina Pang Reason for consult: other Chief complaint: Preoperative clearance. History of present illness: Pulmonary consultation dated 05/28/2022. 66-year-old female with a history of coronary disease, and non-ST segment elevation myocardial infarction. 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 Her lung function were excellent. She apparently did have a history of asthma, but no longer has the disease. She does carry with her diagnosis of hypertension, lupus, Sjogren's syndrome, and pneumonia. She is a lifelong nonsmoker. She apparently is going to have a bypass grafting on June 01. Laboratory data includes a white count 5.2, hemoglobin 12.6, hematocrit 37.4, with a normal platelet count. PTT is 77.7. The rest of the labs look pretty good. No chest x-ray. She apparently had her cardiac catheterization at [facility]. She was found to have three-vessel coronary disease. Review of Systems REVIEW OF SYSTEMS: CONSTITUTIONAL: [Negative.] NEUROLOGIC: [ Negative.] HEENT: [ Negative.] CARDIAC: Chest pain. PULMONARY: [Negative.] GI: [Negative.] : [Negative.] RHEUMATOLOGIC: [ Negative.] IMMUNOLOGIC: [ Negative.] ENDOCRINE: [Negative. ] DERMATOLOGIC: [Negative.] Past Medical History Past Medical History: Asthma, Chest Pain / Angina, Hypertension, Pneumonia Additional Past Medical History / Comment(s): Lupus. Sjogorens Disease History of Any Multi-Drug Resistant Organisms: None Reported Past Surgical History: Appendectomy, Cholecystectomy, Hysterectomy Additional Past Surgical History / Comment(s): Knee scope Past Anesthesia/Blood Transfusion Reactions: No Reported Reaction Past Psychological History: No Psychological Hx Reported Smoking Status: Never smoker Past Alcohol Use History: None Reported Past Drug Use History: None Reported - Past Family History Mother Family Medical History: Cancer Additional Family Medical History / Comment(s): from throat cancer Father Family Medical History: Cancer Additional Family Medical History / Comment(s): from bowel cancer Medications and Allergies Home Medications Medication Instructions Recorded Confirmed Type Amitriptyline HCl [Elavil] 150 mg PO HS 05/27/22 05/27/22 History Ascorbic Acid [Vitamin C] 500 mg PO DAILY 05/27/22 05/27/22 History Budesonide-Formot 160-4.5 Mcg 2 puff INHALATION RT-BID 05/27/22 05/27/22 History [Symbicort 160-4.5 Mcg Inhaler] Butalb/Acetaminophen/Caffeine 1 tab PO Q4H PRN 05/27/22 05/27/22 History [Esgic 50-325-40 mg Tablet] Calcium Carbonate [Calcium] 600 mg PO BID 05/27/22 05/27/22 History Cevimeline [Evoxac] 30 mg PO TID 05/27/22 05/27/22 History Esomeprazole Magnesium [NexIUM 20 mg PO DAILY 05/27/22 05/27/22 History 24Hr] Estradiol Cream [Estrace Cream 2 gm VAGINAL DIRECTED 05/27/22 05/27/22 History 0.01%] Ferrous Sulfate [Slow Fe] 142 mg PO DAILY 05/27/22 05/27/22 History Fremanezumab-Vfrm [Ajovy 225 mg SQ Q30D 05/27/22 05/27/22 History Autoinjector] Furosemide [Lasix] 20 mg PO DAILY 05/27/22 05/27/22 History Hydroxychloroquine Sulfate 200 mg PO BID 05/27/22 05/27/22 History [Plaquenil] L.acidoph,Paracasei, B.lactis 1 cap PO DAILY 05/27/22 05/27/22 History [Probiotic] Labetalol HCl 200 mg PO BID 05/27/22 05/27/22 History Lisdexamfetamine Dimesylate 70 mg PO DAILY 05/27/22 05/27/22 History [Vyvanse] Losartan Potassium 50 mg PO BID 05/27/22 05/27/22 History Magnesium Oxide [Magox 400] 400 mg PO DAILY 05/27/22 05/27/22 History Multivitamins, Thera [Multivitamin 1 tab PO DAILY 05/27/22 05/27/22 History (formulary)] [place]-3 Fatty Acids [[place]-3] 1,000 mg PO DAILY 05/27/22 05/27/22 History Turmeric Root Extract [Turmeric] 1,500 mg PO DAILY 05/27/22 05/27/22 History Verapamil HCl [Verapamil Sr] 360 mg PO DAILY 05/27/22 05/27/22 History Vitamin B Complex 1 cap PO DAILY 05/27/22 05/27/22 History Vitamin E 400 unit PO DAILY 05/27/22 05/27/22 History cycloSPORINE 0.05% OPHTH SOLN 1 drop BOTH EYES BID 05/27/22 05/27/22 History [Restasis] Allergies Allergy/AdvReac Type Severity Reaction Status Date / Time morphine Allergy Unknown Verified 05/27/22 16:23 Penicillins Allergy Unknown Verified 05/27/22 16:23 Childhood Sulfa (Sulfonamide Allergy Unknown Verified 05/27/22 16:23 Antibiotics) Physical Exam Osteopathic Statement: *. No significant issues noted on an osteopathic structural exam other than those noted in the History and Physical/Consult. Vitals: Vital Signs Temp Pulse Resp BP Pulse Ox 05/28/22 11:32 75 16 175/90 98 05/28/22 09:01 98.1 F 73 16 160/77 100 05/28/22 04:00 97.9 F 69 18 148/63 97 05/28/22 02:00 16 05/28/22 00:00 98.0 F 63 16 176/64 95 05/27/22 20:00 16 05/27/22 19:48 98.9 F 62 16 162/80 99 05/27/22 14:53 98.4 F 59 L 16 149/72 97 Intake and Output 05/27/22 05/28/22 05/28/22 22:59 06:59 14:59 Intake Total 46.359 178.566 Output Total 150 Balance -150 46.359 178.566 Intake: Intake, IV Titration 46.359 60.566 Amount Heparin Sod,Pork in 0.45% 46.359 60.566 NaCl 25,000 unit In 0.45 % NaCl 1 250ml.bag @ 12 UNITS/KG/HR 6.06 mls/hr IV .Q24H [facility] Rx#: [id number] Oral 118 Output: Urine 150 Other: # Voids 1 Weight 50.5 kg 58.9 kg No acute distress, oriented 3. Room air saturation 98%. HEENT examination is grossly unremarkable. Neck supple. Full range of motion. No adenopathy thyromegaly or neck vein distention. Cardiovascular examination reveals regular rhythm rate. S1-S2 normal. No S3 or S4. No discernible murmur noted. Heart rate 75 bpm. Lungs reveal clear breath sounds. Breath sounds are equal bilaterally. No adventitious lung sounds including wheezes rhonchi or crackles. Abdomen soft bowel sounds are heard. No masses or tenderness. Extremities are intact. No cyanosis clubbing or edema. Skin is without rash or lesion. Neurologic examination is brief but nonfocal. Results - Laboratory Findings CBC and BMP: 05/28/22 09:26 05/27/22 17:40 PT/INR, D-dimer PT 11.0 sec (9.0-12.0) 05/28/22 09: INR 1.0 (<1.2) 05/28/22 09:26 Abnormal lab findings: Abnormal Labs 05/27/22 05/27/22 05/28/22 17:40 17:40 01:31 RBC 3.62 L MCV APTT 41.0 H Sodium 130 L Total Protein 6.0 L HDL Cholesterol 71.80 H TSH 0.336 L 05/28/22 05/28/22 09:26 09:26 RBC 3.68 L MCV 101.6 H APTT 77.7 H Sodium Total Protein HDL Cholesterol TSH Assessment and Plan Assessment: Non-ST segment elevation myocardial infarction, with three-vessel coronary artery disease. Patient is to have bypass grafting, June 01. History of asthma, not active at this time. History of lupus. History of Sjogren's syndrome. History of hypertension. Lifelong nonsmoker. Remote history of pneumonia. Plan: Plan dated 05/28/2022. The patient is stable from the pulmonary standpoint. She is a lifelong nonsmoker. She did have a history of remote pneumonia. She also has a previous history of asthma, not currently active. The patient's lung function were excellent. Based on the patient's FEV1, and her MVV, the patient's at no increased operative risk. The patient is currently on IV heparin, and saline at 20 mL an hour. Labs, x-rays, and medications are all reviewed. Time with Patient: Greater than 30
[2022-05-28] MEDS: amLODIPine 5 MG TAB PO SCH (12:26)
[2022-05-28] MEDS ORDERED: IPRATROPIUM-ALBUTEROL 3 ML NEB ONE (15:07)
[2022-05-28] MEDS: BUTALB/APAP/CAFF 50-325-40MG TAB PO PRN ×2 (16:38→23:52)
[2022-05-28] MEDS: HEPARIN SOD,PORK IN 0.45% NACL 25,000 UNIT in 0.45% NACL 1 250ML.BAG IV SCH (17:48)
[2022-05-28] MEDS: AMITRIPTYLINE HCL 50 MG TAB PO SCH (20:49)
[2022-05-29] MEDS: PANTOPRAZOLE 40 MG TABLET PO SCH (06:11)
[2022-05-29] MEDS: SYMBICORT 160-4.5 MCG INHALER INHALATION SCH ×2 (07:29→20:47)
[2022-05-29] MEDS: CEVIMELINE 30 MG CAP PO SCH ×4 (08:55→20:39)
[2022-05-29] MEDS: amLODIPine 5 MG TAB PO SCH (08:55)
[2022-05-29] MEDS: ASPIRIN 81 MG PO SCH (08:55)
[2022-05-29] MEDS: CALCIUM CARBONATE 500 MG CHEWABLE PO SCH ×2 (08:55→20:38)
[2022-05-29] MEDS: VITAMIN E (DL,TOCOPHERYL ACET) 400 UNIT (180 MG) CAP PO SCH (08:56)
[2022-05-29] MEDS: ATORVASTATIN 80 MG TAB PO SCH (08:56)
[2022-05-29] MEDS: ASCORBIC ACID 500 MG TAB PO SCH (08:56)
[2022-05-29] MEDS: LACTOBACILLUS ACIDOPH & BULGAR 1 EACH PACKET PO SCH (08:56)
[2022-05-29] MEDS: FERROUS SULFATE 325 MG TAB PO SCH (08:56)
[2022-05-29] MEDS: MULTIVITAMINS, THERA 1 EACH TAB PO SCH (08:56)
[2022-05-29] MEDS: cycloSPORINE 0.05% OPHTH 0.4 ML DROPERETTE BOTH EYES SCH ×2 (08:56→20:38)
[2022-05-29] MEDS: LOSARTAN 50 MG TAB PO SCH (08:56)
[2022-05-29] MEDS: MAGNESIUM OXIDE 400 MG TAB PO SCH (08:56)
[2022-05-29] MEDS: METOPROLOL TARTRATE 50 MG TAB PO SCH ×2 (08:56→20:38)
[2022-05-29] MEDS: NON FORMULARY DRUG (Lisdexamfetamine Dimesylate [Vyvanse] 70 MG Capsule) PO SCH (09:08)
[2022-05-29] MEDS: HEPARIN SOD,PORK IN 0.45% NACL 25,000 UNIT in 0.45% NACL 1 250ML.BAG IV SCH (11:48)
[2022-05-29 12:19] LABS: Calcium 8.8 mg/dL (8.4-10.2); Potassium 4.2 mmol/L (3.5-5.1)
--- NOTE | 2022-05-29 13:01 | P.PN ---
Subjective Progress Note Date: 05/29/22 Principal diagnosis: Coronary artery disease. Pulmonary consultation dated 05/28/2022. 66-year-old female with a history of coronary disease, and non-ST segment elevation myocardial infarction. 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 Her lung function were excellent. She apparently did have a history of asthma, but no longer has the disease. She does carry with her diagnosis of hypertension, lupus, Sjogren's syndrome, and pneumonia. She is a lifelong nonsmoker. She apparently is going to have a bypass grafting on June 01. Laboratory data includes a white count 5.2, hemoglobin 12.6, hematocrit 37.4, with a normal platelet count. PTT is 77.7. The rest of the labs look pretty good. No chest x-ray. She apparently had her cardiac catheterization at [facility]. She was found to have three-vessel coronary disease. Progress note dated 05/29/2022. 66-year-old female seen in consultation yesterday. She has a history of recently discovered coronary disease, and non-ST segment elevation myocardial infarction. The patient is scheduled to undergo bypass grafting, on May. Clinically, the patient stable. Currently, she is not on any supplemental oxygen. She's getting saline at 20 mL an hour. The patient's getting heparin via protocol. She has no complaints today including chest pain, off, wheezing, shortness of breath, or phlegm production. Labs today include a PTT of 52.7, sodium 131, potassium 4.2, chlorides 100, CO2 26, BUN 13, and creatinine 0.91. Objective - Vital Signs Vital signs: Vital Signs Temp 98.2 F 05/29/22 12:33 Pulse 67 05/29/22 12:33 Resp 16 05/29/22 12:33 BP 161/80 05/29/22 12:33 Pulse Ox 96 05/29/22 12:33 FiO2 Intake & Output 05/28/22 05/29/22 05/29/22 18:59 06:59 18:59 Intake Total 463.566 320 261.075 Balance 463.566 320 261.075 Intake: IV 49 20 Heparin Sod,Pork in 0.45% 49 20 NaCl 25,000 unit In 0.45 % NaCl 1 250ml.bag @ 12 UNITS/KG/HR 6.06 mls/hr IV .Q24H [facility] Rx#: [id number] Intake, IV Titration 60.566 143.075 Amount Heparin Sod,Pork in 0.45% 60.566 143.075 NaCl 25,000 unit In 0.45 % NaCl 1 250ml.bag @ 12 UNITS/KG/HR 6.06 mls/hr IV .Q24H [facility] Rx#: [id number] Oral 354 300 118 Other: Voiding Method Toilet # Voids 1 - Exam No acute distress, oriented 3. Room air saturation 96 %. HEENT examination is grossly unremarkable. Neck supple. Full range of motion. No adenopathy thyromegaly or neck vein distention. Cardiovascular examination reveals regular rhythm rate. S1-S2 normal. No S3 or S4. No discernible murmur noted. Heart rate 67 bpm. Lungs reveal clear breath sounds. Breath sounds are equal bilaterally. No adventitious lung sounds including wheezes rhonchi or crackles. Abdomen soft bowel sounds are heard. No masses or tenderness. Extremities are intact. No cyanosis clubbing or edema. Skin is without rash or lesion. Neurologic examination is brief but nonfocal. - Labs CBC & Chem 7: 05/28/22 09:26 05/29/22 11:09 Labs: Abnormal Lab Results - Last 24 Hours (Table) 05/28/22 05/29/22 05/29/22 Range/Units 16:55 11:09 11:09 APTT 51.3 H 52.7 H (22.0-30.0) sec Sodium 131 L (137-145) mmol/L Microbiology - Last 24 Hours (Table) 05/27/22 17:44 Nasal Screen MRSA/MSSA - Final Nasal Swab Assessment and Plan Assessment: Non-ST segment elevation myocardial infarction, with three-vessel coronary margarette ry disease. Patient is to have bypass grafting, June 01. History of asthma, not active at this time. History of lupus. History of Sjogren's syndrome. History of hypertension. Lifelong nonsmoker. Remote history of pneumonia. Plan: Plan dated 05/28/2022. The patient is stable from the pulmonary standpoint. She is a lifelong nonsmoker. She did have a history of remote pneumonia. She also has a previous history of asthma, not currently active. The patient's lung function were excellent. Based on the patient's FEV1, and her MVV, the patient's at no increased operative risk. The patient is currently on IV heparin, and saline at 20 mL an hour. Labs, x-rays, and medications are all reviewed. Plan dated 05/29/2022. The patient is very stable. She'll stay in the hospital over the weekend, for bypass grafting on June 01. She's on room air. She remains on IV heparin. Her lung function were excellent. She does have a history of mild asthma, not currently active. We will continue to follow make recommendations along the way. Time with Patient: Less than 30
--- NOTE | 2022-05-29 13:50 | P.PN ---
Subjective This is a 66-year-old female with a past medical history of hypertension, lupus, asthma, pneumonia, Sjogren's. 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 We're following the patient for an NSTEMI. She initially presented to [facility] 05/26/2022 with complaints of chest heaviness and shortness of breath. At [facility], workup was concerning for NSTEMI and was recommended to undergo cardiac catheterization. She underwent cardiac catheterization with Dr. Sosa which revealed triple-vessel coronary artery disease with ostial/proximal LAD stenosis 90%, ramus intermedius stenosis 95%, and proximal RCA stenosis 85% with no gradient across the aortic valve. She underwent a Echocardiogram, TTE which revealed EF 50%, normal diastolic function, focal apical and lateral hypokinesis, trace mitral and tricuspid regurgitation with mild to moderate aortic insufficiency. It was recommended patient be transferred to [facility] with consultation placed to CT surgery for surgical revascularization recommendations. 05/29/2022 Patient seen and examined at bedside, no acute distress. She is feeling well, endorses tired. Her BP has improved. She is maintaining sinus mechanism. No c hest pain or shortness of breath. GENERAL: Well-appearing, well-nourished and in no acute distress. NECK: Supple without JVD or thyromegaly. LUNGS: Breath sounds clear to auscultation bilaterally. Respiration equal and unlabored. No wheezes, rales or rhonchi. HEART: Regular rate and rhythm without murmurs, rubs or gallops. S1 and S2 heard. EXTREMITIES: Normal range of motion, no edema. No clubbing or cyanosis. Peripheral pulses intact. ASSESSMENT NSTEMI Coronary artery disease History of lupus History of asthma Hypertension PLAN Continue aspirin, statin, beta rajan therapy Currently on Amlodipine and Losartan, BP has improved Plan for CABG with Dr. Awad on 06/01/2022 We will continue to follow Nurse Practitioner note has been reviewed, I agree with a documented findings and plan of care. Patient was seen and examined. Objective - Vital Signs Vital signs: Vital Signs Temp 98.1 F 05/28/22 09:01 Pulse 75 05/28/22 11:32 Resp 16 05/28/22 11:32 BP 175/90 05/28/22 11:32 Pulse Ox 98 05/28/22 11:32 FiO2 Intake & Output 05/27/22 05/28/22 05/28/22 18:59 06:59 18:59 Intake Total 46.359 178.566 Output Total 150 Balance -103.641 178.566 Weight 50.5 kg 58.9 kg Intake: Intake, IV Titration 46.359 60.566 Amount Heparin Sod,Pork in 0.45% 46.359 60.566 NaCl 25,000 unit In 0.45 % NaCl 1 250ml.bag @ 12 UNITS/KG/HR 6.06 mls/hr IV .Q24H WILL Rx#: [id number] Oral 118 Output: Urine 150 Other: # Voids 1 - Labs CBC & Chem 7: 05/28/22 09:26 05/29/22 11:09 Labs: Abnormal Lab Results - Last 24 Hours (Table) 05/27/22 05/27/22 05/28/22 Range/Units 17:40 17:40 01:31 RBC 3.62 L (3.80-5.40) m/uL MCV (80.0-100.0) fL APTT 41.0 H (22.0-30.0) sec Sodium 130 L (137-145) mmol/L Total Protein 6.0 L (6.3-8.2) g/dL HDL Cholesterol 71.80 H (40.00-60.00) mg/dL TSH 0.336 L (0.465-4.680) mIU/L 05/28/22 05/28/22 Range/Units 09:26 09:26 RBC 3.68 L (3.80-5.40) m/uL MCV 101.6 H (80.0-100.0) fL APTT 77.7 H (22.0-30.0) sec Sodium (137-145) mmol/L Total Protein (6.3-8.2) g/dL HDL Cholesterol (40.00-60.00) mg/dL TSH (0.465-4.680) mIU/L Microbiology - Last 24 Hours (Table) 05/27/22 17:44 Nasal Screen MRSA/MSSA - Preliminary Nasal Swab
--- NOTE | 2022-05-29 16:15 | P.PN ---
Subjective Progress Note Date: 05/29/22 66-year-old pleasant female was transferred from [facility] after she was found to have three-vessel disease and patient is transferred here for coronary artery bypass grafting which was scheduled for Wednesday. Patient is undergoing workup for that at this time. Patient had non-ST elevation microinfarction and patient had 90% stenosis in LAD ramus intermedius stenosis 95% proximal RCA stenosis 80%. Patient had normal ejection fraction now diastolic function with apical lateral hypokinesis. A she is hyponatremic and patient does take Lasix at home which is being held at this time because of the hyponatremia. History of lupus and Sjogren syndrome. 05/29/2022 Patient evaluated on cardiac unit. She has been evaluated by cardiothoracic services and plan is for coronary artery bypass grafting on Wednesday. Metabolic panel today shows sodium level of 131, creatinine stable. She remains afebrile, heart rate 67, blood pressure 161/80, 96% room air. No acute events overnight. She continues on heparin gtt. Continue to hold home lasix. Review of Systems Constitutional: Denied any fatigue denied any fever. Cardio vascular: denied any chest pain, palpitations Gastrointestinal: denied any nausea, vomiting, diarrhea Pulmonary: Denied any shortness of breath cough Neurologic denied any new focal deficits All inpatient medications were reviewed and appropriate changes in these medications as dictated in the interval history and assessment and plan. PHYSICAL EXAMINATION: GENERAL: The patient is alert and oriented x3, not in any acute distress. Well developed, well nourished. HEENT: Pupils are round and equally reacting to light. EOMI. No scleral icterus. No conjunctival pallor. Normocephalic, atraumatic. No pharyngeal erythema. No thyromegaly. CARDIOVASCULAR: S1 and S2 present. No murmurs, rubs, or gallops. PULMONARY: Chest is clear to auscultation, no wheezing or crackles. ABDOMEN: Soft, nontender, nondistended, normoactive bowel sounds. No palpable organomegaly. MUSCULOSKELETAL: No joint swelling or deformity. EXTREMITIES: No cyanosis, clubbing, or pedal edema. NEUROLOGICAL: Gross neurological examination did not reveal any focal deficits. SKIN: No rashes. Assessment and plan Acute non-ST elevation myocardial infarction patient is scheduled for coronary artery bypass grafting on Wednesday -Lupus and Sjogren's disease fairly stable without any acute exacerbation -hypovolemic hyponatremia, sodium 131 today -Hypertension -History asthma, stable -Low TSH, with T4 in normal limits DVT prophylaxis: Patient is on IV heparin GI Prophylaxis:Protonix The impression and plan of care has been dictated by Dary Moser, Nurse Practitioner as directed. Dr. Suresh MD I have performed a history and physical examination and medical decision making of this patient, discussed the same with the dictator, and agree with the dictators assessment and plan as written, documented as a scribe. Based on total visit time, I have performed more than 50% of this visit. Objective - Vital Signs Vital signs: Vital Signs Temp 97.8 F 05/29/22 03:16 Pulse 61 05/29/22 03:16 Resp 16 05/29/22 03:16 BP 158/72 05/29/22 03:16 Pulse Ox 98 05/29/22 03:16 FiO2 Intake & Output 05/28/22 05/29/22 05/29/22 18:59 06:59 18:59 Intake Total 463.566 320 118 Balance 463.566 320 118 Intake: IV 49 20 Heparin Sod,Pork in 0.45% 49 20 NaCl 25,000 unit In 0.45 % NaCl 1 250ml.bag @ 12 UNITS/KG/HR 6.06 mls/hr IV .Q24H WILL Rx#: [id number] Intake, IV Titration 60.566 Amount Heparin Sod,Pork in 0.45% 60.566 NaCl 25,000 unit In 0.45 % NaCl 1 250ml.bag @ 12 UNITS/KG/HR 6.06 mls/hr IV .Q24H WILL Rx#: [id number] Oral 354 300 118 Other: Voiding Method Toilet # Voids 1 - Labs CBC & Chem 7: 05/28/22 09:26 05/29/22 11:09 Labs: Abnormal Lab Results - Last 24 Hours (Table) 05/28/22 05/28/22 05/28/22 Range/Units 09:26 09:26 16:55 RBC 3.68 L (3.80-5.40) m/uL MCV 101.6 H (80.0-100.0) fL APTT 77.7 H 51.3 H (22.0-30.0) sec Microbiology - Last 24 Hours (Table) 05/27/22 17:44 Nasal Screen MRSA/MSSA - Final Nasal Swab Assessment and Plan Time with Patient: Less than 30
[2022-05-29] MEDS: AMITRIPTYLINE HCL 50 MG TAB PO SCH (20:38)
[2022-05-29] MEDS: BUTALB/APAP/CAFF 50-325-40MG TAB PO PRN (23:33)
[2022-05-30] MEDS: PANTOPRAZOLE 40 MG TABLET PO SCH (06:21)
[2022-05-30] MEDS: SYMBICORT 160-4.5 MCG INHALER INHALATION SCH ×2 (08:28→19:43)
--- NOTE | 2022-05-30 08:45 | P.PN ---
Subjective Progress Note Date: 05/30/22 Principal diagnosis: CAD The patient is a 66-year-old female patient with a past medical history significant for hypertension and dyslipidemia was admitted initially to [facility] was chest discomfort which she underwent a heart catheterization which revealed severe triple-vessel CAD. She was seen by the surgical team and the plan is to pursue coronary artery that was grafting in the next 24-48 hours. The patient was seen this morning and she is asymptomatic. She's hemodynamics is stable. She was sitting and resting in bed which is on [facility] tr eatment consistent of aspirin and high intensity statin as well as beta rajan and calcium channel rajan. From the cardiac vascular standpoint of view, we'll continue the current medical regimen and follow-up with the patient. Objective - Vital Signs Vital signs: Vital Signs Temp 97.7 F 05/30/22 03:35 Pulse 64 05/30/22 03:35 Resp 14 05/30/22 03:35 BP 120/71 05/30/22 03:35 Pulse Ox 97 05/30/22 03:35 FiO2 Intake & Output 05/29/22 05/30/22 05/30/22 18:59 06:59 18:59 Intake Total 482.075 Balance 482.075 Intake: Intake, IV Titration 143.075 Amount Heparin Sod,Pork in 0.45% 143.075 NaCl 25,000 unit In 0.45 % NaCl 1 250ml.bag @ 12 UNITS/KG/HR 6.06 mls/hr IV .Q24H WILL Rx#: [id number] Oral 339 Other: Voiding Method Toilet # Voids 1 # Bowel Movements 0 - Constitutional General appearance: Present: no acute distress - Respiratory Respiratory: bilateral: CTA - Cardiovascular Rhythm: regular Heart sounds: normal: S1, S2 - Labs CBC & Chem 7: 05/28/22 09:26 05/29/22 11:09 Labs: Abnormal Lab Results - Last 24 Hours (Table) 05/29/22 05/29/22 Range/Units 11:09 11:09 APTT 52.7 H (22.0-30.0) sec Sodium 131 L (137-145) mmol/L Assessment and Plan Assessment: Assessment #1 acute coronary syndrome #2 severe triple-vessel CAD #3 hypertension #4 dyslipidemia Plan #1 continue the current medical regimen beach she is on [facility] treatment #2 follow-up with the patient
[2022-05-30] MEDS: ASPIRIN 81 MG PO SCH (09:12)
[2022-05-30] MEDS: ATORVASTATIN 80 MG TAB PO SCH (09:13)
[2022-05-30] MEDS: amLODIPine 5 MG TAB PO SCH (09:13)
[2022-05-30] MEDS: ASCORBIC ACID 500 MG TAB PO SCH (09:13)
[2022-05-30] MEDS: METOPROLOL TARTRATE 50 MG TAB PO SCH ×2 (09:13→20:49)
[2022-05-30] MEDS: CEVIMELINE 30 MG CAP PO SCH ×3 (09:13→20:49)
[2022-05-30] MEDS: MULTIVITAMINS, THERA 1 EACH TAB PO SCH (09:13)
[2022-05-30] MEDS: LOSARTAN 50 MG TAB PO SCH (09:13)
[2022-05-30] MEDS: CALCIUM CARBONATE 500 MG CHEWABLE PO SCH ×2 (09:13→20:49)
[2022-05-30] MEDS: LACTOBACILLUS ACIDOPH & BULGAR 1 EACH PACKET PO SCH (09:13)
[2022-05-30] MEDS: MAGNESIUM OXIDE 400 MG TAB PO SCH (09:13)
[2022-05-30] MEDS: FERROUS SULFATE 325 MG TAB PO SCH (09:13)
[2022-05-30] MEDS: VITAMIN E (DL,TOCOPHERYL ACET) 400 UNIT (180 MG) CAP PO SCH (09:14)
[2022-05-30] MEDS: cycloSPORINE 0.05% OPHTH 0.4 ML DROPERETTE BOTH EYES SCH ×2 (09:14→20:49)
--- NOTE | 2022-05-30 11:32 | P.PN ---
Subjective Progress Note Date: 05/30/22 Principal diagnosis: Coronary artery disease, non-STEMI this admission. Previous medical history of hypertension, lupus, Sjogren's, asthma, remote pneumonia history, and never smo ker The patient was seen and examined this morning with Dr. Awad sitting up in bed in the cardiac stepdown unit in no acute distress. Denies any chest pain or shortness of breath. We plan to proceed with CABG on Wednesday, no further questions at this time. Objective - Vital Signs Vital signs: Vital Signs Temp 98.2 F 05/30/22 09:10 Pulse 57 L 05/30/22 09:10 Resp 16 05/30/22 09:10 BP 115/67 05/30/22 09:10 Pulse Ox 100 05/30/22 09:10 FiO2 Intake & Output 05/29/22 05/30/22 05/30/22 18:59 06:59 18:59 Intake Total 482.075 382.006 Balance 482.075 382.006 Intake: Intake, IV Titration 143.075 142.006 Amount Heparin Sod,Pork in 0.45% 143.075 142.006 NaCl 25,000 unit In 0.45 % NaCl 1 250ml.bag @ 12 UNITS/KG/HR 6.06 mls/hr IV .Q24H WILL Rx#: [id number] Oral 339 240 Other: Voiding Method Toilet Toilet # Voids 1 # Bowel Movements 0 - Exam CONSTITUTIONAL: Appears comfortable, cooperative, no acute distress RESPIRATORY: Lungs sounds diminished bilaterally. Respirations even, nonlabored. Currently on room air with oxygen saturation 100%. Able to achieve 2000 mL on incentive spirometry. Strong cough. CARDIOVASCULAR: S1, S2 present. Regular rate and rhythm, sinus rhythm on telemetry. Palpable peripheral pulses bilaterally. No edema present. No calf pain or tenderness noted. GASTROINTESTINAL: Abdomen soft, nontender, nondistended. Active bowel sounds present 4 quadrants. Tolerating diet. GENITOURINARY: Continues to void INTEGUMENTARY: Skin is warm and dry with evidence of good perfusion. NEUROLOGIC: Cranial nerves II through XII intact MUSKULOSKELETAL: Able to move all extremities, strength equal bilaterally, gait normal PSYCHIATRIC: Alert and oriented to person place and time, appropriate affect, intact judgment and insight - Labs CBC & Chem 7: 05/28/22 09:26 05/29/22 11:09 Labs: Abnormal Lab Results - Last 24 Hours (Table) 05/29/22 05/29/22 05/30/22 Range/Units 11:09 11:09 09:14 APTT 52.7 H 45.7 H (22.0-30.0) sec Sodium 131 L (137-145) mmol/L - Imaging and Cardiology Heart catheterization and echocardiogram films as well as all preoperative testing reviewed with Dr. Awad Assessment and Plan Assessment: 1. Coronary artery disease, non-STEMI this admission 2. Hypertension 3. Lupus, Sjogren's 4. History of asthma, current FEV1 101% of predicted 5. Remote pneumonia history 6. Never smoker Plan: 1. Continue aspirin, statin, beta rajan therapy. Recommend discontinuing Cozaar to prevent intra/postoperative vasoplegia 2. Plaquenal discontinued due to its immunosuppressive effect, will restart after surgery 3. Our plan is for surgical myocardial revascularization with left internal mammary artery, left radial artery harvest, endovascular vein harvest, and ligation of the left atrial appendage with Dr. Awad on 06/01/2022 4. Continue to reinforce preoperative teaching 5. STS risk score was calculated, felt to be low risk, this was discussed with the patient 6. Medical management of other comorbidities per primary care service 7. More recommendations to follow
--- NOTE | 2022-05-30 12:19 | P.PN ---
Subjective Progress Note Date: 05/30/22 Principal diagnosis: Coronary artery disease. Pulmonary consultation dated 05/28/2022. 66-year-old female with a history of coronary disease, and non-ST segment elevation myocardial infarction. 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 Her lung function were excellent. She apparently did have a history of asthma, but no longer has the disease. She does carry with her diagnosis of hypertension, lupus, Sjogren's syndrome, and pneumonia. She is a lifelong nonsmoker. She apparently is going to have a bypass grafting on June 01. Laboratory data includes a white count 5.2, hemoglobin 12.6, hematocrit 37.4, with a normal platelet count. PTT is 77.7. The rest of the labs look pretty good. No chest x-ray. She apparently had her cardiac catheterization at [facility]. She was found to have three-vessel coronary disease. Progress note dated 05/29/2022. 66-year-old female seen in consultation yesterday. She has a history of recently discovered coronary disease, and non-ST segment elevation myocardial infarction. The patient is scheduled to undergo bypass grafting, on May. Clinically, the patient stable. Currently, she is not on any supplemental oxygen. She's getting saline at 20 mL an hour. The patient's getting heparin via protocol. She has no complaints today including chest pain, off, wheezing, shortness of breath, or phlegm production. Labs today include a PTT of 52.7, sodium 131, potassium 4.2, chlorides 100, CO2 26, BUN 13, and creatinine 0.91. Progress note dated 05/30/2022. 66-year-old female with anticipated bypass grafting, on June 01Wednesday. The patient's currently on saline IV, and IV heparin. Clinically she stable. Lung function were excellent. She does have a history of mild asthma, which is not currently active. PTT is 45.7. Objective - Vital Signs Vital signs: Vital Signs Temp 98.2 F 05/30/22 09:10 Pulse 57 L 05/30/22 09:10 Resp 16 05/30/22 09:10 BP 115/67 05/30/22 09:10 Pulse Ox 100 05/30/22 09:10 FiO2 Intake & Output 05/29/22 05/30/22 05/30/22 18:59 06:59 18:59 Intake Total 482.075 382.006 Balance 482.075 382.006 Intake: Intake, IV Titration 143.075 142.006 Amount Heparin Sod,Pork in 0.45% 143.075 142.006 NaCl 25,000 unit In 0.45 % NaCl 1 250ml.bag @ 12 UNITS/KG/HR 6.06 mls/hr IV .Q24H WILL Rx#: [id number] Oral 339 240 Other: Voiding Method Toilet Toilet # Voids 1 # Bowel Movements 0 - Exam No acute distress, oriented 3. Room air saturation 97 %. HEENT examination is grossly unremarkable. Neck supple. Full range of motion. No adenopathy thyromegaly or neck vein distention. Cardiovascular examination reveals regular rhythm rate. S1-S2 normal. No S3 or S4. No discernible murmur noted. Heart rate 72 bpm. Lungs reveal clear breath sounds. Breath sounds are equal bilaterally. No adventitious lung sounds including wheezes rhonchi or crackles. Abdomen soft bowel sounds are heard. No masses or tenderness. Extremities are intact. No cyanosis clubbing or edema. Skin is without rash or lesion. Neurologic examination is brief but nonfocal. - Labs CBC & Chem 7: 05/28/22 09:26 05/29/22 11:09 Labs: Abnormal Lab Results - Last 24 Hours (Table) 05/29/22 05/29/22 05/30/22 Range/Units 11:09 11:09 09:14 APTT 52.7 H 45.7 H (22.0-30.0) sec Sodium 131 L (137-145) mmol/L Assessment and Plan Assessment: Non-ST segment elevation myocardial infarction, with three-vessel coronary artery disease. Patient is to have bypass grafting, June 01. History of asthma, not active at this time. History of lupus. History of Sjogren's syndrome. History of hypertension. Lifelong nonsmoker. Remote history of pneumonia. Plan: Plan dated 05/28/2022. The patient is stable from the pulmonary standpoint. She is a lifelong nonsmoker. She did have a history of remote pneumonia. She also has a previous history of asthma, not currently active. The patient's lung function were excellent. Based on the patient's FEV1, and her MVV, the patient's at no increa sed operative risk. The patient is currently on IV heparin, and saline at 20 mL an hour. Labs, x-rays, and medications are all reviewed. Plan dated 05/29/2022. The patient is very stable. She'll stay in the hospital over the weekend, for bypass grafting on June 01. She's on room air. She remains on IV heparin. Her lung function were excellent. She does have a history of mild asthma, not currently active. We will continue to follow make recommendations along the way. Plan dated 05/30/2022. The patient appears to be doing relatively well. She remains on room air. She is on an IV, and IV heparin. The patient is scheduled to have bypass grafting on June 01. She does have a history of asthma, which is not currently active. Her lung function were excellent. Time with Patient: Less than 30
[2022-05-30] MEDS: BUTALB/APAP/CAFF 50-325-40MG TAB PO PRN ×2 (12:56→20:48)
[2022-05-30] MEDS: NON FORMULARY DRUG (Lisdexamfetamine Dimesylate [Vyvanse] 70 MG Capsule) PO SCH (15:48)
[2022-05-30] MEDS: AMITRIPTYLINE HCL 50 MG TAB PO SCH (20:48)
[2022-05-31] MEDS: HEPARIN SOD,PORK IN 0.45% NACL 25,000 UNIT in 0.45% NACL 1 250ML.BAG IV SCH (03:55)
--- NOTE | 2022-05-31 05:01 | P.PN ---
Subjective Progress Note Date: 05/30/22 Subjective Progress Note Date: 05/29/22 66-year-old pleasant female was transferred from [facility] after she was found to have three-vessel disease and patient is transferred here for coronary artery bypass grafting which was scheduled for Wednesday. Patient is undergoing workup for that at this time. Patient had non-ST elevation microinfarction and patient had 90% stenosis in LAD ramus intermedius stenosis 95% proximal RCA stenosis 80%. Patient had normal ejection fraction now diastolic function with apical lateral hypokinesis. A she is hyponatremic and patient does take Lasix at home which is being held at this time because of the hyponatremia. History of lupus and Sjogren syndrome. 05/29/2022 Patient evaluated on cardiac unit. She has been evaluated by cardiothoracic services and plan is for coronary artery bypass grafting on Wednesday. Metabolic panel today shows sodium level of 131, creatinine stable. She remains afebrile, heart rate 67, blood pressure 161/80, 96% room air. No acute events overnight. She continues on heparin gtt. Continue to hold home lasix. 05/30/2022 Patient is seen and evaluated in follow-up this morning with family at the bedside and reports to feeling well. Patient has been up and walking multiple ti mes. Plan is for CABG on Wednesday with CT surgery, cardiology, and pulmonary following closely. No labs available today and recommend am labs. Patient is continued on IV heparin. Patient denies chest pain or shortness of breath. Patient is afebrile and denies any nausea or vomiting. Review of Systems Constitutional: Denied any fatigue denied any fever. Cardio vascular: denied any chest pain, palpitations Gastrointestinal: denied any nausea, vomiting, diarrhea Pulmonary: Denied any shortness of breath cough Neurologic denied any new focal deficits All inpatient medications were reviewed and appropriate changes in these medications as dictated in the interval history and assessment and plan. PHYSICAL EXAMINATION: GENERAL: The patient is alert and oriented x3, not in any acute distress. Well developed, well nourished. HEENT: Pupils are round and equally reacting to light. EOMI. No scleral icterus. No conjunctival pallor. Normocephalic, atraumatic. No pharyngeal erythema. No thyromegaly. CARDIOVASCULAR: S1 and S2 present. No murmurs, rubs, or gallops. PULMONARY: Chest is clear to auscultation, no wheezing or crackles. ABDOMEN: Soft, nontender, nondistended, normoactive bowel sounds. No palpable organomegaly. MUSCULOSKELETAL: No joint swelling or deformity. EXTREMITIES: No cyanosis, clubbing, or pedal edema. NEUROLOGICAL: Gross neurological examination did not reveal any focal deficits. SKIN: No rashes. Assessment and plan: -Acute non-ST elevation myocardial infarction -three-vessel coronary artery disease, patient is scheduled for coronary artery bypass grafting on Wednesday -Lupus and Sjogren's disease fairly stable without any acute exacerbation -hypovolemic hyponatremia -Hypertension -History asthma, stable -Low TSH, with T4 in normal limits -DVT prophylaxis: Patient is on IV heparin -GI Prophylaxis:Protonix The impression and plan of care has been dictated by Ijeoma Woods, Nurse Practitioner as directed. Dr. Suresh MD I have performed a history and examination and MDM of this patient, discussed the same with the dictator, and agree with the dictator's assessment and plan as written ,documented as a scribe. Based on total visit time, I have performed more than 50% of the visit. Objective - Vital Signs Vital signs: Vital Signs Temp 98.2 F 05/30/22 09:10 Pulse 57 L 05/30/22 09:10 Resp 16 05/30/22 09:10 BP 115/67 05/30/22 09:10 Pulse Ox 100 05/30/22 09:10 FiO2 Intake & Output 05/29/22 05/30/22 05/30/22 18:59 06:59 18:59 Intake Total 482.075 Balance 482.075 Intake: Intake, IV Titration 143.075 Amount Heparin Sod,Pork in 0.45% 143.075 NaCl 25,000 unit In 0.45 % NaCl 1 250ml.bag @ 12 UNITS/KG/HR 6.06 mls/hr IV .Q24H WILL Rx#: [id number] Oral 339 Other: Voiding Method Toilet # Voids 1 # Bowel Movements 0 - Labs CBC & Chem 7: 05/28/22 09:26 05/29/22 11:09 Labs: Abnormal Lab Results - Last 24 Hours (Table) 05/29/22 05/29/22 Range/Units 11:09 11:09 APTT 52.7 H (22.0-30.0) sec Sodium 131 L (137-145) mmol/L
[2022-05-31] MEDS: PANTOPRAZOLE 40 MG TABLET PO SCH (06:25)
--- NOTE | 2022-05-31 06:48 | P.PN ---
Subjective Progress Note Date: 05/31/22 Principal diagnosis: CAD The patient is a 66-year-old female patient with a past medical history significant for hypertension and dyslipidemia was admitted initially to [facility] was chest discomfort which she underwent a heart catheterization which revealed severe triple-vessel CAD. She was seen by the surgical team and the plan is to pursue coronary artery that was grafting in the next 24-48 hours. The patient was seen this morning. She is asymptomatic. She is hemodynamically stable as well. She is on maximize medical treatment including aspirin and high intensity statin and beta rajan and ARB. Also she is on heparin IV for now. The surgery is tomorrow morning. Objective - Vital Signs Vital signs: Vital Signs Temp 97.6 F 05/31/22 03:49 Pulse 64 05/31/22 03:49 Resp 14 05/31/22 03:49 BP 128/53 05/31/22 03:49 Pulse Ox 98 05/31/22 03:49 FiO2 Intake & Output 05/30/22 05/30/22 05/31/22 06:59 18:59 06:59 Intake Total 6207.347 3979.101 Balance 4059.751 0395.101 Intake: IV 200 Heparin Sod,Pork in 0.45% 200 NaCl 25,000 unit In 0.45 % NaCl 1 250ml.bag @ 12 UNITS/KG/HR 6.06 mls/hr IV .Q24H WILL Rx#: [id number] Intake, IV Titration 142.006 101.101 Amount Heparin Sod,Pork in 0.45% 142.006 101.101 NaCl 25,000 unit In 0.45 % NaCl 1 250ml.bag @ 12 UNITS/KG/HR 6.06 mls/hr IV .Q24H WILL Rx#: [id number] Oral 942 740 Other: Voiding Method Toilet Toilet Toilet # Voids 1 3 2 - Constitutional General appearance: Present: no acute distress - Respiratory Respiratory: bilateral: CTA - Cardiovascular Rhythm: regular Heart sounds: normal: S1, S2 - Labs CBC & Chem 7: 05/28/22 09:26 05/29/22 11:09 Labs: Abnormal Lab Results - Last 24 Hours (Table) 05/30/22 Range/Units 09:14 APTT 45.7 H (22.0-30.0) sec Assessment and Plan Assessment: Assessment #1 acute coronary syndrome #2 severe triple-vessel CAD #3 hypertension #4 dyslipidemia Plan #1 continue the current medical regimen beach she is on maximize medical treatment #2 the patient is going to undergo an open heart surgery tomorrow morning #3 follow-up with the patient
--- NOTE | 2022-05-31 07:28 | XR ---
EXAMINATION TYPE: XR chest 2V DATE OF EXAM: 05/31/2022 7:10 AM COMPARISON: Chest radiographs from 06/07/2020 TECHNIQUE: XR chest 2V Frontal and lateral views of the chest. CLINICAL INDICATION:Female, 66 years old with history of preop cabg; FINDINGS: Lungs/Pleura: There is no evidence of pleural effusion, focal consolidation, or pneumothorax. Pulmonary vascularity: Unremarkable. Heart/mediastinum: Cardiomediastinal silhouette is unremarkable. Musculoskeletal: No acute osseous pathology. IMPRESSION: No acute cardiopulmonary disease/process.
[2022-05-31] MEDS: SYMBICORT 160-4.5 MCG INHALER INHALATION SCH ×2 (07:51→21:15)
[2022-05-31] MEDS ORDERED: MD COMMUNICATION TO PHARMACY 1 EACH MISC PO ONE (08:27)
--- NOTE | 2022-05-31 09:08 | P.PN ---
Subjective Progress Note Date: 05/31/22 Principal diagnosis: Coronary artery disease, non-STEMI this admission. Previous medical history of hypertension, lupus, Sjogren's, asthma, remote pneumonia history, and never smo ker The patient was seen and examined this morning sitting up in bed on the cardiac stepdown unit in no acute distress. Denies any chest pain or shortness of breath. We plan to proceed with CABG tomorrow, no further questions at this time. Objective - Vital Signs Vital signs: Vital Signs Temp 97.6 F 05/31/22 03:49 Pulse 64 05/31/22 03:49 Resp 14 05/31/22 03:49 BP 128/53 05/31/22 03:49 Pulse Ox 98 05/31/22 03:49 FiO2 Intake & Output 05/30/22 05/31/22 05/31/22 18:59 06:59 18:59 Intake Total 1319.306 0130.101 Balance 0580.936 6250.101 Intake: IV 200 Heparin Sod,Pork in 0.45% 200 NaCl 25,000 unit In 0.45 % NaCl 1 250ml.bag @ 12 UNITS/KG/HR 6.06 mls/hr IV .Q24H WILL Rx#: [id number] Intake, IV Titration 142.006 101.101 Amount Heparin Sod,Pork in 0.45% 142.006 101.101 NaCl 25,000 unit In 0.45 % NaCl 1 250ml.bag @ 12 UNITS/KG/HR 6.06 mls/hr IV .Q24H WILL Rx#: [id number] Oral 942 740 Other: Voiding Method Toilet Toilet # Voids 3 2 - Exam CONSTITUTIONAL: Appears comfortable, cooperative, no acute distress RESPIRATORY: Lungs sounds diminished bilaterally. Respirations even, nonlabored. Currently on room air with oxygen saturation 98%. Able to achieve 2000 mL on incentive spirometry. Strong cough. CARDIOVASCULAR: S1, S2 present. Regular rate and rhythm, sinus rhythm on telemetry. Palpable peripheral pulses bilaterally. No edema present. No calf pain or tenderness noted. GASTROINTESTINAL: Abdomen soft, nontender, nondistended. Active bowel sounds present 4 quadrants. Tolerating diet. GENITOURINARY: Continues to void INTEGUMENTARY: Skin is warm and dry with evidence of good perfusion. NEUROLOGIC: Cranial nerves II through XII intact MUSKULOSKELETAL: Able to move all extremities, strength equal bilaterally, gait normal PSYCHIATRIC: Alert and oriented to person place and time, appropriate affect, intact judgment and insight - Labs CBC & Chem 7: 05/31/22 08:58 05/31/22 08:58 Labs: Abnormal Lab Results - Last 24 Hours (Table) 05/30/22 Range/Units 09:14 APTT 45.7 H (22.0-30.0) sec - Imaging and Cardiology Chest x-ray: report reviewed, image reviewed Assessment and Plan Assessment: 1. Coronary artery disease, non-STEMI this admission 2. Hypertension 3. Lupus, Sjogren's 4. History of asthma, current FEV1 101% of predicted 5. Remote pneumonia history 6. Never smoker Plan: 1. Continue aspirin, statin, beta rajan therapy. Recommend discontinuing Cozaar to prevent intra/postoperative vasoplegia 2. Plaquenal discontinued due to its immunosuppressive effect, will restart after surgery 3. Our plan is for surgical myocardial revascularization with left internal mammary artery, left radial artery harvest, endovascular vein harvest, and ligation of the left atrial appendage with Dr. Awad tomorrow, NPO after midnight 4. Continue to reinforce preoperative teaching 5. STS risk score was calculated, felt to be low risk, this was discussed with the patient 6. Medical management of other comorbidities per primary care service 7. More recommendations to follow
[2022-05-31 09:41] LABS: Basophils # (A) 0.1 k/uL (0-0.2); Basophils % (A) 1 %; Eosinophils # (A) 0.3 k/uL (0-0.7); Eosinophils % (A) 6 %; HCT 35.2 % (34.0-46.0); HGB 11.9 gm/dL (11.4-16.0); Lymphocytes # (A) 1.9 k/uL (1.0-4.8); Lymphocytes % (A) 35 %; MCH 33.3 pg (25.0-35.0); MCHC 33.7 g/dL (31.0-37.0); MCV 98.6 fL (80.0-100.0); Mean Platelet Volume 7.5; Monocytes # (A) 0.4 k/uL (0-1.0); Monocytes % (A) 7 %; Neutrophils # (A) 2.6 k/uL (1.3-7.7); Neutrophils % (A) 48 %; Platelet Count 237 k/uL (150-450); RBC 3.57 m/uL (3.80-5.40); RDW 12.2 % (11.5-15.5); WBC 5.5 k/uL (3.8-10.6)
[2022-05-31] MEDS: MAGNESIUM OXIDE 400 MG TAB PO SCH (09:43)
[2022-05-31] MEDS: CALCIUM CARBONATE 500 MG CHEWABLE PO SCH ×2 (09:43→20:50)
[2022-05-31] MEDS: NON FORMULARY DRUG (Lisdexamfetamine Dimesylate [Vyvanse] 70 MG Capsule) PO SCH (09:43)
[2022-05-31] MEDS: LACTOBACILLUS ACIDOPH & BULGAR 1 EACH PACKET PO SCH (09:43)
[2022-05-31] MEDS: FERROUS SULFATE 325 MG TAB PO SCH (09:43)
[2022-05-31] MEDS: METOPROLOL TARTRATE 50 MG TAB PO SCH ×2 (09:43→20:50)
[2022-05-31] MEDS: ATORVASTATIN 80 MG TAB PO SCH (09:43)
[2022-05-31] MEDS: amLODIPine 5 MG TAB PO SCH (09:43)
[2022-05-31] MEDS: ASPIRIN 81 MG PO SCH (09:43)
[2022-05-31] MEDS: MULTIVITAMINS, THERA 1 EACH TAB PO SCH (09:43)
[2022-05-31] MEDS: ASCORBIC ACID 500 MG TAB PO SCH (09:44)
[2022-05-31] MEDS: CEVIMELINE 30 MG CAP PO SCH ×3 (09:44→22:42)
[2022-05-31] MEDS: cycloSPORINE 0.05% OPHTH 0.4 ML DROPERETTE BOTH EYES SCH ×2 (09:44→22:42)
[2022-05-31] MEDS: VITAMIN E (DL,TOCOPHERYL ACET) 400 UNIT (180 MG) CAP PO SCH (09:45)
[2022-05-31] MEDS: LOSARTAN 50 MG TAB PO SCH (09:46)
[2022-05-31 09:55] LABS: Albumin 3.6 g/dL (3.5-5.0); Calcium 8.9 mg/dL (8.4-10.2); Magnesium 1.7 mg/dL (1.6-2.3); Potassium 4.4 mmol/L (3.5-5.1); Total Bilirubin 0.3 mg/dL (0.2-1.3); Total Protein 6.1 g/dL (6.3-8.2)
[2022-05-31 09:56] LABS: Partial Thromboplastin Time 48.6 sec (22.0-30.0); Prothrombin Time 10.5 sec (9.0-12.0)
--- NOTE | 2022-05-31 10:37 | P.PN ---
Subjective Progress Note Date: 05/31/22 Principal diagnosis: Coronary artery disease. Pulmonary consultation dated 05/28/2022. 66-year-old female with a history of coronary disease, and non-ST segment elevation myocardial infarction. 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 Her lung function were excellent. She apparently did have a history of asthma, but no longer has the disease. She does carry with her diagnosis of hypertension, lupus, Sjogren's syndrome, and pneumonia. She is a lifelong nonsmoker. She apparently is going to have a bypass grafting on June 01. Laboratory data includes a white count 5.2, hemoglobin 12.6, hematocrit 37.4, with a normal platelet count. PTT is 77.7. The rest of the labs look pretty good. No chest x-ray. She apparently had her cardiac catheterization at [facility]. She was found to have three-vessel coronary disease. Progress note dated 05/29/2022. 66-year-old female seen in consultation yesterday. She has a history of recently discovered coronary disease, and non-ST segment elevation myocardial infarction. The patient is scheduled to undergo bypass grafting, on May. Clinically, the patient stable. Currently, she is not on any supplemental oxygen. She's getting saline at 20 mL an hour. The patient's getting heparin via protocol. She has no complaints today including chest pain, off, wheezing, shortness of breath, or phlegm production. Labs today include a PTT of 52.7, sodium 131, potassium 4.2, chlorides 100, CO2 26, BUN 13, and creatinine 0.91. Progress note dated 05/30/2022. 66-year-old female with anticipated bypass grafting, on June 01Wednesday. The patient's currently on saline IV, and IV heparin. Clinically she stable. Lung function were excellent. She does have a history of mild asthma, which is not currently active. PTT is 45.7. Progress note dated 05/31/2022. 66-year-old female who remains on room air, saline at 20 mL an hour, and IV heparin. The patient is scheduled for bypass grafting tomorrow, June 01. She is clinically very stable. Her lung function were excellent. She does have a history of mild asthma, which is not currently active. Lab data includes a white count 5.5, hemoglobin 11.9, hematocrit 35.2, and a normal platelet count. 131, potassium 4.4, chlorides 101, CO2 26, within normal BUN and creatinine. AST is 57 with an ALT of 42. A chest x-ray shows no acute cardiopulmonary disease. Objective - Vital Signs Vital signs: Vital Signs Temp 98.2 F 05/31/22 09:25 Pulse 59 L 05/31/22 09:25 Resp 14 05/31/22 09:25 BP 147/78 05/31/22 09:25 Pulse Ox 96 05/31/22 09:25 FiO2 Intake & Output 05/30/22 05/31/22 05/31/22 18:59 06:59 18:59 Intake Total 7840.091 0590.101 37.774 Balance 4677.924 4833.101 37.774 Intake: IV 200 Heparin Sod,Pork in 0.45% 200 NaCl 25,000 unit In 0.45 % NaCl 1 250ml.bag @ 12 UNITS/KG/HR 6.06 mls/hr IV .Q24H WILL Rx#: [id number] Intake, IV Titration 142.006 101.101 37.774 Amount Heparin Sod,Pork in 0.45% 142.006 101.101 37.774 NaCl 25,000 unit In 0.45 % NaCl 1 250ml.bag @ 12 UNITS/KG/HR 6.06 mls/hr IV .Q24H WILL Rx#: [id number] Oral 942 740 Other: Voiding Method Toilet Toilet Toilet # Voids 3 2 - Exam No acute distress, oriented 3. Room air saturation 96 %. HEENT examination is grossly unremarkable. Neck supple. Full range of motion. No adenopathy thyromegaly or neck vein distention. Cardiovascular examination reveals regular rhythm rate. S1-S2 normal. No S3 or S4. No discernible murmur noted. Heart rate 59 bpm. Lungs reveal clear breath sounds. Breath sounds are equal bilaterally. No adventitious lung sounds including wheezes rhonchi or crackles. Abdomen soft bowel sounds are heard. No masses or tenderness. Extremities are intact. No cyanosis clubbing or edema. Skin is without rash or lesion. Neurologic examination is brief but nonfocal. - Labs CBC & Chem 7: 05/31/22 08:58 08 08:58 Labs: Abnormal Lab Results - Last 24 Hours (Table) 05/31/22 05/31/22 05/31/22 Range/Units 08:58 08:58 08:58 RBC 3.57 L (3.80-5.40) m/uL APTT 48.6 H (22.0-30.0) sec Sodium 131 L (137-145) mmol/L AST 57 H (14-36) U/L ALT 42 H (4-34) U/L Total Protein 6.1 L (6.3-8.2) g/dL Assessment and Plan Assessment: Non-ST segment elevation myocardial infarction, with three-vessel coronary artery disease. Patient is to have bypass grafting, June 01. History of asthma, not active at this time. History of lupus. History of Sjogren's syndrome. History of hypertension. Lifelong nonsmoker. Remote history of pneumonia. Plan: Plan dated 05/28/2022. The patient is stable from the pulmonary standpoint. She is a lifelong nonsmoker. She did have a history of remote pneumonia. She also has a previous history of asthma, not currently active. The patient's lung function were excellent. Based on the patient's FEV1, and her MVV, the patient's at no increased operative risk. The patient is currently on IV heparin, and saline at 20 mL an hour. Labs, x-rays, and medications are all reviewed. Plan dated 05/29/2022. The patient is very stable. She'll stay in the hospital over the weekend, for bypass grafting on June 01. She's on room air. She remains on IV heparin. Her lung function were excellent. She does have a history of mild asthma, not currently active. We will continue to follow make recommendations along the way. Plan dated 05/30/2022. The patient appears to be doing relatively well. She remains on room air. She is on an IV, and IV heparin. The patient is scheduled to have bypass grafting on June 01. She does have a history of asthma, which is not currently active. Her lung function were excellent. Plan dated 05/31/2022. The patient's doing very well. We will continue to follow the patient, and make recommendations. The patient is scheduled for bypass surgery tomorrow, June 01. She does have a history of asthma. It's very mild and not active at this time. Pulmonary function testing were excellent. She should do well with surgery. We will continue to follow. Labs, x-rays, and medications are all reviewed. Time with Patient: Less than 30
--- NOTE | 2022-05-31 13:48 | P.PN ---
Subjective Progress Note Date: 05/31/22 Subjective Progress Note Date: 05/29/22 66-year-old pleasant female was transferred from [facility] after she was found to have three-vessel disease and patient is transferred here for coronary artery bypass grafting which was scheduled for Wednesday. Patient is undergoing workup for that at this time. Patient had non-ST elevation microinfarction and patient had 90% stenosis in LAD ramus intermedius stenosis 95% proximal RCA stenosis 80%. Patient had normal ejection fraction now diastolic function with apical lateral hypokinesis. A she is hyponatremic and patient does take Lasix at home which is being held at this time because of the hyponatremia. History of lupus and Sjogren syndrome. 05/29/2022 Patient evaluated on cardiac unit. She has been evaluated by cardiothoracic services and plan is for coronary artery bypass grafting on Wednesday. Metabolic panel today shows sodium level of 131, creatinine stable. She remains afebrile, heart rate 67, blood pressure 161/80, 96% room air. No acute events overnight. She continues on heparin gtt. Continue to hold home lasix. 05/30/2022 Patient is seen and evaluated in follow-up this morning with family at the bedside and reports to feeling well. Patient has been up and walking multiple ti mes. Plan is for CABG on Wednesday with CT surgery, cardiology, and pulmonary following closely. No labs available today and recommend am labs. Patient is continued on IV heparin. Patient denies chest pain or shortness of breath. Patient is afebrile and denies any nausea or vomiting. 05/31/2022 Patient is seen this morning with cardiothoracic surgery following closely as there is plans for CABG in the a.m. chest x-ray this morning shows no acute cardiopulmonary process. Patient to continue current diet and will be made nothing by mouth at midnight and plan is to proceed with CABG with cardiot horacic surgery and patient is anxious and looking forward to getting this done and working on rehab and going home. Heart rate in the high 50s to low 60s and blood pressure currently controlled and patient is on room air at 96% saturation. Patient denies chest pain or palpitations. Patient is afebrile. Patient is tolerating diet with no reports of nausea or vomiting noted. Labs: WBC is 5.5, hemoglobin is 11.9, platelets are 237 and INR is 1.0, sodium is 131, potassium 4.4, current creatinine is 0.81, magnesium is 1.7, total bili is 0.3, AST 57, ALT 42 Review of Systems Constitutional: Denied any fatigue denied any fever. Cardio vascular: denied any chest pain, palpitations Gastrointestinal: denied any nausea, vomiting, diarrhea Pulmonary: Denied any shortness of breath cough Neurologic denied any new focal deficits All inpatient medications were reviewed and appropriate changes in these medications as dictated in the interval history and assessment and plan. PHYSICAL EXAMINATION: GENERAL: The patient is alert and oriented x3, not in any acute distress. Well developed, well nourished. HEENT: Pupils are round and equally reacting to light. EOMI. No scleral icterus. No conjunctival pallor. Normocephalic, atraumatic. No pharyngeal erythema. No thyromegaly. CARDIOVASCULAR: S1 and S2 present. No murmurs, rubs, or gallops. PULMONARY: Chest is clear to auscultation, no wheezing or crackles. ABDOMEN: Soft, nontender, nondistended, normoactive bowel sounds. No palpable organomegaly. MUSCULOSKELETAL: No joint swelling or deformity. EXTREMITIES: No cyanosis, clubbing, or pedal edema. NEUROLOGICAL: Gross neurological examination did not reveal any focal deficits. SKIN: No rashes. Assessment: -Acute non-ST elevation myocardial infarction -three-vessel coronary artery disease, patient is scheduled for coronary artery bypass grafting on Wednesday -Lupus and Sjogren's disease fairly stable without any acute exacerbation -hypovolemic hyponatremia -Hypertension -History asthma, stable -Low TSH, with T4 in normal limits -DVT prophylaxis: Patient is on IV heparin -GI Prophylaxis:Protonix Plan: Recommend continue with current medications and management with cardio thoracic surgery along with cardiology following closely. Pulmonary shot hole driller following as well as plan is for CABG in the a.m. and will await report. Recommend repeat a.m. labs and close monitoring of vital signs and continue with telemetry monitoring. Sodium remains 131 and will monitor closely as patient continues to have hypovolemic hyponatremia Recommend continue with IV heparin for now Plan is for coronary artery bypass grafting on 06/01/2022 Prognosis is guarded The impression and plan of care has been dictated by Ijeoma Woods, Nurse Practitioner as directed. Dr. Suresh MD I have performed a history and examination and MDM of this patient, discussed the same with the dictator, and agree with the dictator's assessment and plan as written ,documented as a scribe. Based on total visit time, I have performed more than 50% of the visit. Objective - Vital Signs Vital signs: Vital Signs Temp 97.6 F 05/31/22 03:49 Pulse 64 05/31/22 03:49 Resp 14 05/31/22 03:49 BP 128/53 05/31/22 03:49 Pulse Ox 98 05/31/22 03:49 FiO2 Intake & Output 05/30/22 05/31/22 05/31/22 18:59 06:59 18:59 Intake Total 3110.440 7330.101 Balance 6339.848 3667.101 Intake: IV 200 Heparin Sod,Pork in 0.45% 200 NaCl 25,000 unit In 0.45 % NaCl 1 250ml.bag @ 12 UNITS/KG/HR 6.06 mls/hr IV .Q24H WILL Rx#: [id number] Intake, IV Titration 142.006 101.101 Amount Heparin Sod,Pork in 0.45% 142.006 101.101 NaCl 25,000 unit In 0.45 % NaCl 1 250ml.bag @ 12 UNITS/KG/HR 6.06 mls/hr IV .Q24H WILL Rx#: [id number] Oral 942 740 Other: Voiding Method Toilet Toilet # Voids 3 2 - Labs CBC & Chem 7: 05/31/22 08:58 05/31/22 08:58 Labs: Abnormal Lab Results - Last 24 Hours (Table) 05/30/22 Range/Units 09:14 APTT 45.7 H (22.0-30.0) sec
[2022-05-31] MEDS ORDERED: hydrALAZINE HCL 20 MG/ML 1 ML VIAL IVP STA (16:49)
[2022-05-31] MEDS: BUTALB/APAP/CAFF 50-325-40MG TAB PO PRN ×2 (18:01→22:42)
[2022-05-31] MEDS: AMITRIPTYLINE HCL 50 MG TAB PO SCH (20:50)
[2022-06-01] MEDS ORDERED: CALCIUM CHLORIDE 100 MG/ML 10 ML SYRINGE IVP ONE (05:00)
[2022-06-01] MEDS ORDERED: PHENYLEPHRINE 40 MG in SODIUM CHLORIDE 0.9% 250 ML IV ONE (05:00)
[2022-06-01] MEDS ORDERED: METOPROLOL TARTRATE 12.5 MG TAB PO ONE (05:00)
[2022-06-01] MEDS ORDERED: ALBUMIN HUMAN 25% 50 ML in EMPTY BAG 1 BAG IVPB ONE (05:00)
[2022-06-01] MEDS ORDERED: PHENYLEPHRINE 10 MG/ML VIAL IV ONE (05:00)
[2022-06-01] MEDS ORDERED: ELECTROLYTE-A SOLUTION 1,000 ML with POTASSIUM CHLORIDE 40 MEQ, MAGNESIUM SULFATE 16 ME... IV SCH ×5 (05:00)
[2022-06-01] MEDS ORDERED: NITROGLYCERIN-D5W PMX 50 MG in DEXTROSE/WATER 1 250ML.BAG IV SCH ×2 (05:00→13:32)
[2022-06-01] MEDS ORDERED: ELECTROLYTE-A SOLUTION 1,000 ML with POTASSIUM CHLORIDE 100 MEQ, MAGNESIUM SULFATE 16 M... IV SCH ×5 (05:00)
[2022-06-01] MEDS ORDERED: CHLORHEXIDINE GLUCONATE 15 ML CUP MUCOUS MEM ONE (05:00)
[2022-06-01] MEDS ORDERED: MAGNESIUM SULFATE 16.24 MEQ in EMPTY SYRINGE 1 SYR IV ONE (05:00)
[2022-06-01] MEDS ORDERED: NOREPINEPHRINE 4 MG in SODIUM CHLORIDE 0.9% 250 ML IV SCH (05:00)
[2022-06-01] MEDS ORDERED: MANNITOL 25% 12.5 GM/50 ML VIAL IV ONE ×2 (05:00)
[2022-06-01] MEDS ORDERED: HEPARIN SODIUM,PORCINE 5,000 UNIT in SODIUM CHLORIDE 0.9% 500 ML 500 ML IV ONE (05:00)
[2022-06-01] MEDS ORDERED: SODIUM BICARB 8.4% 50 ML SYR (1 MEQ/ML) IV ONE (05:00)
[2022-06-01] MEDS ORDERED: DILTIAZEM 125 MG in SODIUM CHLORIDE 0.9% 100 ML IV SCH (05:00)
[2022-06-01] MEDS ORDERED: HEPARIN SODIUM 1,000 UN/ML (10ML VL) IV ONE (05:00)
[2022-06-01] MEDS ORDERED: ALBUMIN HUMAN 5% 500 ML in EMPTY BAG 1 BAG IVPB ONE ×6 (05:00)
[2022-06-01] MEDS ORDERED: ceFAZolin 1,000 MG in SODIUM CHLORIDE 0.9% IRRIGATIO 1,000 ML IRRIGATION ONE (05:00)
[2022-06-01] MEDS ORDERED: PROTAMINE SULFATE 10 MG/ML 25 ML VIAL IV ONE (05:00)
[2022-06-01] MEDS ORDERED: LACTATED RINGERS 1,000 ML IV SCH (05:00)
[2022-06-01] MEDS ORDERED: PROTAMINE SULFATE 250 MG in EMPTY BAG 1 BAG IV ONE (05:00)
[2022-06-01] MEDS ORDERED: ATORVASTATIN 10 MG TAB PO ONE (05:00)
[2022-06-01] MEDS ORDERED: INSULIN REGULAR 100 UNIT in SODIUM CHLORIDE 0.9% 100 ML IV SCH ×2 (05:00→13:32)
[2022-06-01] MEDS ORDERED: TRANEXAMIC ACID 2,000 MG in SODIUM CHLORIDE 0.9% 80 ML IV ONE (05:00)
[2022-06-01] MEDS ORDERED: PAPAVERINE 360 MG in SODIUM CHLORIDE 0.9% 90 ML IV ONE ×2 (05:00→10:09)
[2022-06-01] MEDS ORDERED: CLEVIDIPINE BUTYRATE 25 MG in EMPTY BAG 1 BAG IV SCH ×2 (05:00→13:32)
[2022-06-01] MEDS ORDERED: ASPIRIN 325 MG TAB PO ONE (05:00)
[2022-06-01] MEDS ORDERED: NITROGLYCERIN-D5W PMX 25 MG/250 ML BTL IV ONE (05:00)
[2022-06-01 06:29] LABS: Glucose,Whole Blood 101 mg/dL (70-110)
[2022-06-01] MEDS ORDERED: LACTATED RINGERS 1,000 ML IV ONE (06:39)
[2022-06-01] MEDS ORDERED: PROPOFOL 10 MG/ML 20 ML VIAL IV ONE (08:03)
[2022-06-01] MEDS ORDERED: VECURONIUM 10 MG VIAL IV ONE (08:03)
[2022-06-01] MEDS ORDERED: SODIUM CHLORIDE 0.9% (PF) 10 ML VIAL ONE (08:03)
[2022-06-01] MEDS ORDERED: SODIUM CHLORIDE 0.9% IRRIG 1,000 ML BTL IRRIGATION ONE (08:03)
[2022-06-01] MEDS ORDERED: fentaNYL (PF) 50 MCG/ML 50 ML VIAL ONE (08:03)
[2022-06-01] MEDS ORDERED: MIDAZOLAM 2 MG/2 ML VIAL ONE (08:03)
[2022-06-01] MEDS ORDERED: MAGNESIUM SULFATE 4 MEQ/ML 10ML VIAL ONE (08:03)
[2022-06-01] MEDS ORDERED: SODIUM CHLORIDE 0.9% 100 ML BAG ONE (08:03)
[2022-06-01] MEDS ORDERED: ELECTROLYTE-R (PH 7.4) 1,000 ML IV.SOLN IV ONE (08:03)
[2022-06-01] MEDS ORDERED: ceFAZolin 1,000 MG VIAL ONE (08:03)
[2022-06-01] MEDS ORDERED: LIDOCAINE 2% SYG (PF) 100 MG/5 ML ONE (08:03)
[2022-06-01] MEDS ORDERED: CALCIUM CHLORIDE 100 MG/ML 10 ML SYRINGE ONE (08:03)
[2022-06-01] MEDS ORDERED: TRANEXAMIC ACID IN NACL,ISO-OS 1,000 MG/100 ML BAG ONE (08:03)
[2022-06-01] MEDS ORDERED: PHENYLEPHRINE-0.9% NACL SYG 1,000 MCG/10 ML SYRINGE ONE (08:03)
[2022-06-01] MEDS ORDERED: HEPARIN SODIUM,PORCINE 10,000 UNIT/ML 1 ML VIAL ONE (08:03)
[2022-06-01] MEDS ORDERED: ePHEDrine 50 MG/ML 1 ML VIAL ONE (08:03)
[2022-06-01] MEDS ORDERED: ALBUMIN HUMAN 5% (25gm) 500 ML VIAL IVPB ONE (08:03)
[2022-06-01] MEDS ORDERED: SODIUM CHLORIDE 0.9% 100 ML with ceFAZolin 2,000 MG IV ONE ×2 (08:30)
[2022-06-01 08:36] LABS: ABG Base Excess -0.2 mmol/L; ABG Glucose Whole Blood 84 mg/dL (75-99); ABG HCO3 24 mmol/L (21-25); ABG Hematocrit 32 % (34.0-46.0); ABG Ionized Calcium 4.8 mg/dL (4.5-5.3); ABG Lactic Acid Whole Blood 1.2 mmol/L (0.5-1.6); ABG PCO2 38 mmHg (35-45); ABG PH 7.42 (7.35-7.45); ABG PO2 323 mmHg (83-108); ABG Potassium Whole Blood 4.1 mmol/L (3.4-4.5); ABG Sodium Whole Blood 130 mmol/L (135-146); ABG TCO2 25 mmol/L (19-24)
[2022-06-01 09:47] LABS: ABG Base Excess -2.2 mmol/L; ABG Glucose Whole Blood 110 mg/dL (75-99); ABG HCO3 24 mmol/L (21-25); ABG Hematocrit 27 % (34.0-46.0); ABG Ionized Calcium 4.7 mg/dL (4.5-5.3); ABG Oxygen Saturation 99.7 % (94-97); ABG PCO2 44 mmHg (35-45); ABG PH 7.34 (7.35-7.45); ABG Potassium Whole Blood 4.1 mmol/L (3.4-4.5); ABG Sodium Whole Blood 130 mmol/L (135-146); ABG TCO2 25 mmol/L (19-24)
[2022-06-01] MEDS ORDERED: SODIUM CHLORIDE 0.9% 500 ML 500 ML with HEPARIN SODIUM,PORCINE 5,000 UNIT IV ONE ×2 (10:09)
[2022-06-01 10:50] LABS: ABG Base Excess -1.1 mmol/L; ABG Glucose Whole Blood 100 mg/dL (75-99); ABG HCO3 23 mmol/L (21-25); ABG Lactic Acid Whole Blood 0.9 mmol/L (0.5-1.6); ABG PCO2 35 mmHg (35-45); ABG PH 7.43 (7.35-7.45); ABG PO2 344 mmHg (83-108); ABG Potassium Whole Blood 5.2 mmol/L (3.4-4.5); ABG Sodium Whole Blood 127 mmol/L (135-146); ABG TCO2 24 mmol/L (19-24)
[2022-06-01 11:21] LABS: ABG Base Excess -0.8 mmol/L; ABG Glucose Whole Blood 104 mg/dL (75-99); ABG HCO3 24 mmol/L (21-25); ABG Ionized Calcium 4.2 mg/dL (4.5-5.3); ABG Lactic Acid Whole Blood 0.8 mmol/L (0.5-1.6); ABG Oxygen Saturation 99.7 % (94-97); ABG PCO2 39 mmHg (35-45); ABG PO2 298 mmHg (83-108); ABG Potassium Whole Blood 5.4 mmol/L (3.4-4.5); ABG Sodium Whole Blood 130 mmol/L (135-146); ABG TCO2 25 mmol/L (19-24)
[2022-06-01 11:52] LABS: ABG Base Excess -0.4 mmol/L; ABG Glucose Whole Blood 108 mg/dL (75-99); ABG HCO3 25 mmol/L (21-25); ABG Ionized Calcium 4.2 mg/dL (4.5-5.3); ABG Lactic Acid Whole Blood 0.9 mmol/L (0.5-1.6); ABG PCO2 41 mmHg (35-45); ABG PH 7.39 (7.35-7.45); ABG PO2 405 mmHg (83-108); ABG Potassium Whole Blood 5.1 mmol/L (3.4-4.5); ABG Sodium Whole Blood 130 mmol/L (135-146); ABG TCO2 26 mmol/L (19-24)
[2022-06-01 12:56] LABS: ABG Base Excess -0.4 mmol/L; ABG Glucose Whole Blood 98 mg/dL (75-99); ABG HCO3 24 mmol/L (21-25); ABG Ionized Calcium 4.4 mg/dL (4.5-5.3); ABG Lactic Acid Whole Blood 1.7 mmol/L (0.5-1.6); ABG Oxygen Saturation 99.9 % (94-97); ABG PCO2 34 mmHg (35-45); ABG PH 7.45 (7.35-7.45); ABG PO2 376 mmHg (83-108); ABG Potassium Whole Blood 4.1 mmol/L (3.4-4.5); ABG Sodium Whole Blood 131 mmol/L (135-146); ABG TCO2 25 mmol/L (19-24)
--- NOTE | 2022-06-01 13:02 | P.PN ---
Subjective Progress Note Date: 06/01/22 66-year-old pleasant female was transferred from [facility] after she was found to have three-vessel disease and patient is transferred here for coronary artery bypass grafting which was scheduled for Wednesday. Patient is undergoing workup for that at this time. Patient had non-ST elevation microinfarction and patient had 90% stenosis in LAD ramus intermedius stenosis 95% proximal RCA stenosis 80%. Patient had normal ejection fraction now diastolic function with apical lateral hypokinesis. A she is hyponatremic and patient does take Lasix at home which is being held at this time because of the hyponatremia. History of lupus and Sjogren syndrome. 05/29/2022 Patient evaluated on cardiac unit. She has been evaluated by cardiothoracic services and plan is for coronary artery bypass grafting on Wednesday. Metabolic panel today shows sodium level of 131, creatinine stable. She remains afebrile, heart rate 67, blood pressure 161/80, 96% room air. No acute events overnight. She continues on heparin gtt. Continue to hold home lasix. 05/30/2022 Patient is seen and evaluated in follow-up this morning with family at the bedside and reports to feeling well. Patient has been up and walking multiple times. Plan is for CABG on Wednesday with CT surgery, cardiology, and pulmonary following closely. No labs available today and recommend am labs. Patient is continued on IV heparin. Patient denies chest pain or shortness of breath. Patient is afebrile and denies any nausea or vomiting. 05/31/2022 Patient is seen this morning with cardiothoracic surgery following closely as there is plans for CABG in the a.m. chest x-ray this morning shows no acute cardiopulmonary process. Patient to continue current diet and will be made nothing by mouth at midnight and plan is to proceed with CABG with cardiothoracic surgery and patient is anxious and looking forward to getting this done and working on rehab and going home. Heart rate in the high 50s to low 60s and blood pressure currently controlled and patient is on room air at 96% saturation. Patient denies chest pain or palpitations. Patient is afebrile. Patient is tolerating diet with no reports of nausea or vomiting noted. Labs: WBC is 5.5, hemoglobin is 11.9, platelets are 237 and INR is 1.0, sodium is 131, potassium 4.4, current creatinine is 0.81, magnesium is 1.7, total bili is 0.3, AST 57, ALT 42 06/01/2022 Patient scheduled for CABG today with cardiothoracic surgery and will be monitored in intensive care unit post procedure. Blood glucose today 101. Preoperative vitals include temperature of 97.5, heart rate 60, blood pressure 158/60, 100% room air. Patient not in room to examine, has gone to the OR to undergo coronary artery bypass grafting. Assessment and plan Acute non-ST elevation myocardial infarction patient is scheduled for coronary artery bypass grafting on 06/01/22 -Lupus and Sjogren's disease fairly stable without any acute exacerbation -hypovolemic hyponatremia, sodium 131 today -Hypertension -History asthma, stable -Low TSH, with T4 in normal limits -Mild elevated transaminases DVT prophylaxis: Patient is on IV heparin GI Prophylaxis:Protonix The impression and plan of care has been dictated by Dary Moser Nurse Practitioner as directed. Dr. Suresh MD I have performed a history and physical examination and medical decision making of this patient, discussed the same with the dictator, and agree with the dictators assessment and plan as written, documented as a scribe. Based on total visit time, I have performed more than 50% of this visit. Objective - Vital Signs Vital signs: Vital Signs Temp 97.5 F L 06/01/22 06:48 Pulse 60 06/01/22 06:48 Resp 16 06/01/22 06:48 BP 158/6 06/01/22 06:48 Pulse Ox 100 06/01/22 06:48 FiO2 Intake & Output 05/31/22 06/01/22 06/01/22 18:59 06:59 18:59 Intake Total 1976.774 359.786 103 Balance 1976.774 359.786 103 Intake: IV 103 Intake, IV Titration 37.774 119.786 Amount Heparin Sod,Pork in 0.45% 37.774 119.786 NaCl 25,000 unit In 0.45 % NaCl 1 250ml.bag @ 12 UNITS/KG/HR 6.06 mls/hr IV .Q24H WILL Rx#: [id number] Oral 1940 240 Other: Voiding Method Toilet Toilet # Voids 3 1 - Labs CBC & Chem 7: 05/31/22 08:58 05/31/22 08:58 Labs: Abnormal Lab Results - Last 24 Hours (Table) 05/31/22 Range/Units 08:58 Crossmatch See Detail Assessment and Plan Time with Patient: Less than 30
[2022-06-01 13:03] LABS: ABG PO2 >420 mmHg (83-108)
[2022-06-01 13:05] LABS: ABG Hematocrit 19 % (34.0-46.0)
[2022-06-01 13:06] LABS: ABG Hematocrit 19 % (34.0-46.0)
[2022-06-01 13:07] LABS: ABG Hematocrit 19 % (34.0-46.0)
[2022-06-01 13:08] LABS: ABG Hematocrit 22 % (34.0-46.0)
[2022-06-01] MEDS ORDERED: Magnesium Replacement Protocol 1 EACH MISC MISCELLANE PRN (13:32)
[2022-06-01] MEDS ORDERED: METOCLOPRAMIDE 5 MG/ML 2 ML VIAL IVP PRN (13:32)
[2022-06-01] MEDS ORDERED: DEXMEDETOMIDINE/0.9% NACL(PMX) 400 MCG in EMPTY BAG 1 BAG IV SCH (13:32)
[2022-06-01] MEDS ORDERED: Potassium Replacement Protocol 1 EACH MISC MISCELLANE PRN (13:32)
[2022-06-01] MEDS ORDERED: DEXTROSE 5% IN WATER 100 ML with AMIODARONE 150 MG IV PRN (13:32)
[2022-06-01] MEDS ORDERED: BENZOCAINE/MENTHOL LOZENG 1 EACH LOZENGE MUCOUS MEM PRN (13:32)
[2022-06-01] MEDS ORDERED: ONDANSETRON 4 MG/2 ML VIAL IVP PRN (13:32)
[2022-06-01] MEDS ORDERED: AMIODARONE 450 MG in DEXTROSE 5% IN WATER 250 ML IV PRN ×2 (13:32)
[2022-06-01] MEDS ORDERED: AMIODARONE 360 MG in DEXTROSE 5% IN WATER 200 ML IV PRN ×2 (13:32)
[2022-06-01] MEDS ORDERED: IPRATROPIUM-ALBUTEROL 3 ML NEB INHALATION PRN (13:32)
[2022-06-01] MEDS ORDERED: hydrALAZINE HCL 20 MG/ML 1 ML VIAL IVP PRN (13:32)
[2022-06-01] MEDS ORDERED: DEXTROSE 50% SYRINGE 50 ML IVP PRN ×2 (13:32)
[2022-06-01] MEDS: SYMBICORT 160-4.5 MCG INHALER INHALATION SCH ×2 (13:42→19:44)
[2022-06-01 13:44] LABS: Glucose,Whole Blood 102 mg/dL (70-110)
--- NOTE | 2022-06-01 14:01 | XR ---
EXAMINATION TYPE: XR chest 1V portable DATE OF EXAM: 06/01/2022 COMPARISON: 05/31/2022 HISTORY: Postop surgical TECHNIQUE: Single frontal view of the chest is obtained. FINDINGS: Postoperative changes seen. ET tube approximately 3.5 cm above diana. NG tube extends in the left upper quadrant. Surgical clips right upper quadrant. Mediastinal drain and left-sided chest tube with no sizable pneumothorax. Left apical pleural thickening. [place]-Jaren catheter with tip overly ing the proximal pulmonary outflow tract. Left-sided consolidation and small pleural effusion. IMPRESSION: 1. Postsurgical changes with left-sided consolidation and small pleural effusion.
[2022-06-01 14:07] LABS: Ionized Calcium 4.9 mg/dL (4.5-5.3)
[2022-06-01 14:09] LABS: Basophils % (A) 0 %; Eosinophils # (A) 0.2 k/uL (0-0.7); Eosinophils % (A) 2 %; HCT 22.6 % (34.0-46.0); Lymphocytes % (A) 11 %; MCH 34.4 pg (25.0-35.0); MCHC 34.8 g/dL (31.0-37.0); MCV 98.8 fL (80.0-100.0); Mean Platelet Volume 7.7; Monocytes # (A) 0.3 k/uL (0-1.0); Monocytes % (A) 4 %; Neutrophils # (A) 7.2 k/uL (1.3-7.7); Neutrophils % (A) 83 %; RBC 2.29 m/uL (3.80-5.40); RDW 12.6 % (11.5-15.5); WBC 8.7 k/uL (3.8-10.6)
[2022-06-01 14:10] LABS: ABG Base Excess -2.1 mmol/L; ABG HCO3 23 mmol/L (21-25); ABG PCO2 37 mmHg (35-45); ABG PO2 299 mmHg (83-108); ABG TCO2 24 mmol/L (19-24); Allen Test Performed? Yes
[2022-06-01 14:20] LABS: HGB 7.9 gm/dL (11.4-16.0)
[2022-06-01 14:21] LABS: ALT 29 U/L (4-34); AST 60 U/L (14-36); African American GFR (CKD) >90 (>60 ml/min/1.73 sqM); Albumin 2.2 g/dL (3.5-5.0); Alkaline Phosphatase 40 U/L (38-126); Anion Gap 1 mmol/L; Blood Urea Nitrogen 11 mg/dL (7-17); Carbon Dioxide 25 mmol/L (22-30); Chloride 104 mmol/L (98-107); Glucose 85 mg/dL (74-99); Magnesium 2.6 mg/dL (1.6-2.3); Non-African American GFR(CKD) >90 (>60 ml/min/1.73 sqM); Potassium 4.2 mmol/L (3.5-5.1); Sodium 130 mmol/L (137-145); Total Bilirubin 0.2 mg/dL (0.2-1.3); Total Protein 3.8 g/dL (6.3-8.2)
[2022-06-01 14:22] LABS: INR 1.2 (<1.2); Partial Thromboplastin Time 33.1 sec (22.0-30.0); Prothrombin Time 12.4 sec (9.0-12.0)
[2022-06-01] MEDS: ASCORBIC ACID 500 MG TAB PO SCH (14:23)
[2022-06-01] MEDS: ATORVASTATIN 80 MG TAB PO SCH (14:23)
[2022-06-01] MEDS: VITAMIN E (DL,TOCOPHERYL ACET) 400 UNIT (180 MG) CAP PO SCH (14:24)
[2022-06-01] MEDS: MULTIVITAMINS, THERA 1 EACH TAB PO SCH (14:24)
[2022-06-01] MEDS: LACTOBACILLUS ACIDOPH & BULGAR 1 EACH PACKET PO SCH (14:24)
[2022-06-01] MEDS: LACTATED RINGERS 1,000 ML IV SCH (14:24)
[2022-06-01] MEDS: FERROUS SULFATE 325 MG TAB PO SCH (14:24)
[2022-06-01] MEDS: cycloSPORINE 0.05% OPHTH 0.4 ML DROPERETTE BOTH EYES SCH ×2 (14:24→21:11)
[2022-06-01] MEDS: DILTIAZEM 125 MG in SODIUM CHLORIDE 0.9% 100 ML IV SCH (14:26)
[2022-06-01 14:44] LABS: Platelet Count 122 k/uL (150-450)
[2022-06-01 15:04] LABS: Glucose,Whole Blood 122 mg/dL (70-110)
[2022-06-01] MEDS ORDERED: IPRATROPIUM-ALBUTEROL 3 ML NEB INHALATION SCH (16:00)
[2022-06-01 16:07] LABS: Glucose,Whole Blood 127 mg/dL (70-110)
--- NOTE | 2022-06-01 16:35 | P.PN ---
Subjective Progress Note Date: 06/01/22 66-year-old male patient is being seen in the intensive care unit following her cardiac surgery. The patient underwent coronary artery bypass surgery and currently she is postop day #0. I saw this patient immediately after she arrived to the intensive care unit and the patient was on propofol running at 35 mcg/kg per minute. The patient underwent three-vessel bypass surgery including SHARMA to LAD and saphenous vein grafts to PDA and radial 2 ramus. The patient is currently comfortable hemodynamically stable. Cardiac output is at 4.0 with an index of 2.5. The patient has a pulmonary artery pressure of 31/16. The patient is currently on no pressors. She is on Cardizem drip at 5 mg an hour. The patient is paced at the rate of 80. Underlying cardiac rhythm is sinus bradycardia at the rate of 50. The patient is currently synchronous with the mechanical ventilator lesions she is an assist-control mode at the rate of 14 with a tidal volume of 400 and FiO2 of 40% with a PEEP of 5. Chest x-ray showed adequate positioning of the ET tube. The patient has some atelectatic changes and small effusion the left lung base. Right lung essentially clear. In terms of tubes, the patient has a mediastinal and left pleural chest tube. Output from the left pleural has been in the order of 50 mL since she had output from the operating room after the mediastinum has been approximately 60 mL. No evidence of any air leak. No evidence of any pneumothorax. The blood gas showed adequate oxygenation. The patient had a pO2 of 376 with a pCO2 of 34 and pH of 7.44. This was on FiO2 of 100% and FiO2 has been drop down to 50% and currently is down to 40%. IV fluids are in the form of lactated Ringer at the rate of 50 mL an hour. The patient is producing adequate amount of urine output. No other significant events otherwise for now. Objective - Vital Signs Vital signs: Vital Signs Temp 95.9 F L 06/01/22 14:00 Pulse 80 06/01/22 15:33 Resp 14 06/01/22 15:00 BP 158/6 06/01/22 06:48 Pulse Ox 98 06/01/22 15:00 FiO2 40 06/01/22 15:45 Intake & Output 05/31/22 06/01/22 06/01/22 18:59 06:59 18:59 Intake Total 1977.774 359.786 123.939 Output Total 2300 Balance 1976.774 359.786 -2176.061 Intake: IV 103 Intake, IV Titration 37.774 119.786 20.939 Amount Heparin Sod,Pork in 0.45% 37.774 119.786 NaCl 25,000 unit In 0.45 % NaCl 1 250ml.bag @ 12 UNITS/KG/HR 6.06 mls/hr IV .Q24H WILL Rx#: [id number] propofoL 1,000 mg In 20.939 Empty Bag 1 bag @ Titrate IV .Q0M WILL Rx#: [id number] Oral 1940 240 Output: Urine 1300 Estimated Blood Loss 1000 Other: Voiding Method Toilet Toilet Indwelling Catheter # Voids 3 1 ABP, PAP, CO, CI - Last Documented Arterial Blood Pressure 112/53 Pulmonary Artery Pressure 23/11 Cardiac Output 3.9 Cardiac Index 2.4 - Exam Patient is currently intubated on a mechanical ventilator. Orotracheal and orogastric tube are both in place. Head exam was generally normal. There was no scleral icterus or corneal arcus. Mucous membranes were moist. The patient has a right IJ Tennyson-Jaren catheter in place. Neck was supple and without jugular venous distension, thyromegaly, or carotid bruits. Carotids were easily palpable bilaterally. There was no adenopathy. Lungs were clear to auscultation and percussion, and with normal diaphragmatic excursion. No wheezes or rales were noted. Breath sounds are slightly diminished in the left lung base. Otherwise equal and symmetrical and the sternum is stable clean and intact. The patient has a left pleural and mediastinal chest tube both of them are in place. Heart is paced at this point at the rate of 80. No significant murmurs appreciated. Abdominal exam revealed normal bowel sounds. The abdomen was soft, non-tender, and without masses, organomegaly, or appreciable enlargement of the abdominal aorta. Examination of the extremities revealed easily palpable radial, femoral and pedal pulses. There was no cyanosis, clubbing or edema. The patient had a left radial artery harvest and the patient is a DIVINA drain in the left upper extremity and output has been in the order of 5-10 mL in the DIVINA drain. Otherwise, the lower extremities are stable with equal and symmetrical pulses. No cyanosis. No clubbing. Neurologically, the patient is still sedated. She is arousable. She is moving all 4 extremities without any limitation. - Labs CBC & Chem 7: 06/01/22 13:40 06/01/22 13:40 Labs: Abnormal Lab Results - Last 24 Hours (Table) 05/31/22 06/01/22 06/01/22 Range/Units 08:58 08:38 09:49 RBC (3.80-5.40) m/uL Hgb (11.4-16.0) gm/dL Hct (34.0-46.0) % Plt Count (150-450) k/uL PT (9.0-12.0) sec INR (<1.2) APTT (22.0-30.0) sec ABG pH 7.34 L (7.35-7.45) ABG pCO2 (35-45) mmHg ABG pO2 323 H >420 H (83-108) mmHg ABG Total CO2 25 H 25 H (19-24) mmol/L ABG O2 Saturation 100.0 H 99.7 H (94-97) % ABG Hematocrit 32 L 27 L (34.0-46.0) % ABG Sodium 130 L 130 L (135-146) mmol/L ABG Potassium (3.4-4.5) mmol/L ABG Ionized Calcium (4.5-5.3) mg/dL ABG Glucose 110 H (75-99) mg/dL ABG Lactic Acid (0.5-1.6) mmol/L Hemoglobin 10.3 L 8.8 L (11.4-16.0) gm/dL Sodium (137-145) mmol/L POC Glucose (mg/dL) (70-110) mg/dL Calcium (8.4-10.2) mg/dL Magnesium (1.6-2.3) mg/dL AST (14-36) U/L Total Protein (6.3-8.2) g/dL Albumin (3.5-5.0) g/dL Arterial Blood Potassium (3.4-4.5) mmol/L Arterial Blood Glucose 110 H (75-99) mg/dL Crossmatch See Detail 06/01/22 06/01/22 06/01/22 Range/Units 10:52 11:24 11:55 RBC (3.80-5.40) m/uL Hgb (11.4-16.0) gm/dL Hct (34.0-46.0) % Plt Count (150-450) k/uL PT (9.0-12.0) sec INR (<1.2) APTT (22.0-30.0) sec ABG pH (7.35-7.45) ABG pCO2 (35-45) mmHg ABG pO2 344 H 298 H 405 H (83-108) mmHg ABG Total CO2 25 H 26 H (19-24) mmol/L ABG O2 Saturation 100.0 H 99.7 H 100.0 H (94-97) % ABG Hematocrit 19 L* 19 L* 19 L* (34.0-46.0) % ABG Sodium 127 L 130 L 130 L (135-146) mmol/L ABG Potassium 5.2 H 5.4 H 5.1 H (3.4-4.5) mmol/L ABG Ionized Calcium 4.0 L 4.2 L 4.2 L (4.5-5.3) mg/dL ABG Glucose 100 H 104 H 108 H (75-99) mg/dL ABG Lactic Acid (0.5-1.6) mmol/L Hemoglobin 6.2 L* 6.3 L* 6.3 L* (11.4-16.0) gm/dL Sodium (137-145) mmol/L POC Glucose (mg/dL) (70-110) mg/dL Calcium (8.4-10.2) mg/dL Magnesium (1.6-2.3) mg/dL AST (14-36) U/L Total Protein (6.3-8.2) g/dL Albumin (3.5-5.0) g/dL Arterial Blood Potassium 5.2 H 5.4 H 5.1 H (3.4-4.5) mmol/L Arterial Blood Glucose 100 H 104 H 108 H (75-99) mg/dL Crossmatch 06/01/22 06/01/22 06/01/22 Range/Units 12:59 13:40 13:40 RBC 2.29 L (3.80-5.40) m/uL Hgb 7.9 L D (11.4-16.0) gm/dL Hct 22.6 L (34.0-46.0) % Plt Count 122 L (150-450) k/uL PT 12.4 H (9.0-12.0) sec INR 1.2 H (<1.2) APTT 33.1 H (22.0-30.0) sec ABG pH (7.35-7.45) ABG pCO2 34 L (35-45) mmHg ABG pO2 376 H (83-108) mmHg ABG Total CO2 25 H (19-24) mmol/L ABG O2 Saturation 99.9 H (94-97) % ABG Hematocrit 22 L (34.0-46.0) % ABG Sodium 131 L (135-146) mmol/L ABG Potassium (3.4-4.5) mmol/L ABG Ionized Calcium 4.4 L (4.5-5.3) mg/dL ABG Glucose (75-99) mg/dL ABG Lactic Acid 1.7 H (0.5-1.6) mmol/L Hemoglobin 7.0 L* (11.4-16.0) gm/dL Sodium (137-145) mmol/L POC Glucose (mg/dL) (70-110) mg/dL Calcium (8.4-10.2) mg/dL Magnesium (1.6-2.3) mg/dL AST (14-36) U/L Total Protein (6.3-8.2) g/dL Albumin (3.5-5.0) g/dL Arterial Blood Potassium (3.4-4.5) mmol/L Arterial Blood Glucose (75-99) mg/dL Crossmatch 06/01/22 06/01/22 06/01/22 Range/Units 13:40 13:42 15:02 RBC (3.80-5.40) m/uL Hgb (11.4-16.0) gm/dL Hct (34.0-46.0) % Plt Count (150-450) k/uL PT (9.0-12.0) sec INR (<1.2) APTT (22.0-30.0) sec ABG pH (7.35-7.45) ABG pCO2 (35-45) mmHg ABG pO2 299 H (83-108) mmHg ABG Total CO2 (19-24) mmol/L ABG O2 Saturation 100.0 H (94-97) % ABG Hematocrit (34.0-46.0) % ABG Sodium (135-146) mmol/L ABG Potassium (3.4-4.5) mmol/L ABG Ionized Calcium (4.5-5.3) mg/dL ABG Glucose (75-99) mg/dL ABG Lactic Acid (0.5-1.6) mmol/L Hemoglobin (11.4-16.0) gm/dL Sodium 130 L (137-145) mmol/L POC Glucose (mg/dL) 122 H (70-110) mg/dL Calcium 8.0 L (8.4-10.2) mg/dL Magnesium 2.6 H (1.6-2.3) mg/dL AST 60 H (14-36) U/L Total Protein 3.8 L (6.3-8.2) g/dL Albumin 2.2 L (3.5-5.0) g/dL Arterial Blood Potassium (3.4-4.5) mmol/L Arterial Blood Glucose (75-99) mg/dL Crossmatch 06/01/22 Range/Units 16:05 RBC (3.80-5.40) m/uL Hgb (11.4-16.0) gm/dL Hct (34.0-46.0) % Plt Count (150-450) k/uL PT (9.0-12.0) sec INR (<1.2) APTT (22.0-30.0) sec ABG pH (7.35-7.45) ABG pCO2 (35-45) mmHg ABG pO2 (83-108) mmHg ABG Total CO2 (19-24) mmol/L ABG O2 Saturation (94-97) % ABG Hematocrit (34.0-46.0) % ABG Sodium (135-146) mmol/L ABG Potassium (3.4-4.5) mmol/L ABG Ionized Calcium (4.5-5.3) mg/dL ABG Glucose (75-99) mg/dL ABG Lactic Acid (0.5-1.6) mmol/L Hemoglobin (11.4-16.0) gm/dL Sodium (137-145) mmol/L POC Glucose (mg/dL) 127 H (70-110) mg/dL Calcium (8.4-10.2) mg/dL Magnesium (1.6-2.3) mg/dL AST (14-36) U/L Total Protein (6.3-8.2) g/dL Albumin (3.5-5.0) g/dL Arterial Blood Potassium (3.4-4.5) mmol/L Arterial Blood Glucose (75-99) mg/dL Crossmatch Assessment and Plan Plan: On a artery bypass surgery/CABG. The patient underwent three-vessel bypass with SHARMA to LAD, radial and saphenous vein grafts also use. The patient is postop day #0. Currently on a Cardizem drip. Hemodynamically stable with adequate cardiac output and index. No pressors at this point in time.The patient is currently paced at the rate of 80 and the underlying cardiac rhythm is sinus bradycardia. Post thoracotomy, currently intubated on a mechanical ventilator. Chest x-ray and blood gases were noted. There is some left basilar atelectatic changes and small effusions PA chest tubes are in good location. No evidence of any air leak. Blood gases are adequate at this point in time and FiO2 is down to 40%. Non-ST segment elevation myocardial infarction, with three-vessel coronary artery disease. History of asthma, not active at this time. History of lupus. History of Sjogren's syndrome. History of hypertension. Lifelong nonsmoker. Remote history of pneumonia. Anemia, expected outcome surgery and the patient's hemoglobin is at 7.9, and the patient has not received any blood products. Plan: Continue vent support Stop sedation Check weaning parameters and assess candidacy for weaning. This will largely depend on her neuro status, ability to give us good weaning parameters and hopefully she'll be able to do a spontaneous breathing trial without any major difficulties Keep Cardizem drip at the same rate Keep the cardiac rhythm is paced at the rate of 80 Monitor hemodynamics Possible extubation within next 2 hours. Critically care evaluation, more than 30 minutes. Time with Patient: Greater than 30
[2022-06-01] MEDS: HEPARIN SODIUM,PORCINE/PF 5,000 UNIT/0.5 ML SYRINGE SQ SCH ×2 (16:58→23:22)
[2022-06-01] MEDS: ACETAMINOPHEN IV (For NPO) 1,000 MG in EMPTY BAG 1 BAG IVPB SCH ×2 (16:59→23:22)
[2022-06-01 17:15] LABS: Glucose,Whole Blood 129 mg/dL (70-110)
[2022-06-01 17:24] LABS: Basophils % (A) 0 %; Eosinophils # (A) 0.1 k/uL (0-0.7); Eosinophils % (A) 1 %; HCT 25.2 % (34.0-46.0); HGB 8.5 gm/dL (11.4-16.0); Lymphocytes # (A) 0.9 k/uL (1.0-4.8); Lymphocytes % (A) 9 %; MCH 33.9 pg (25.0-35.0); MCHC 33.8 g/dL (31.0-37.0); MCV 100.3 fL (80.0-100.0); Mean Platelet Volume 8.4; Monocytes # (A) 0.4 k/uL (0-1.0); Monocytes % (A) 4 %; Neutrophils # (A) 8.7 k/uL (1.3-7.7); Neutrophils % (A) 85 %; Platelet Count 151 k/uL (150-450); RBC 2.51 m/uL (3.80-5.40); RDW 12.7 % (11.5-15.5); WBC 10.1 k/uL (3.8-10.6)
[2022-06-01 17:32] LABS: ABG Base Excess -0.4 mmol/L; ABG HCO3 25 mmol/L (21-25); ABG Oxygen Saturation 97.9 % (94-97); ABG PCO2 44 mmHg (35-45); ABG PH 7.36 (7.35-7.45); ABG PO2 116 mmHg (83-108); ABG TCO2 26 mmol/L (19-24); Allen Test Performed? Yes
[2022-06-01] MEDS: KETOROLAC 15 MG/ML 1 ML VIAL IVP SCH ×2 (18:01→23:23)
[2022-06-01 18:12] LABS: Glucose,Whole Blood 124 mg/dL (70-110)
[2022-06-01 19:01] LABS: Glucose,Whole Blood 123 mg/dL (70-110)
[2022-06-01] MEDS: IPRATROPIUM-ALBUTEROL 3 ML NEB INHALATION SCH (19:25)
[2022-06-01 19:59] LABS: Glucose,Whole Blood 109 mg/dL (70-110)
[2022-06-01 20:09] LABS: Basophils % (A) 0 %; Eosinophils % (A) 0 %; HCT 27.3 % (34.0-46.0); HGB 9.2 gm/dL (11.4-16.0); Lymphocytes # (A) 0.6 k/uL (1.0-4.8); Lymphocytes % (A) 5 %; MCH 33.6 pg (25.0-35.0); MCHC 33.7 g/dL (31.0-37.0); MCV 99.6 fL (80.0-100.0); Mean Platelet Volume 9.4; Monocytes # (A) 0.5 k/uL (0-1.0); Monocytes % (A) 4 %; Neutrophils # (A) 9.8 k/uL (1.3-7.7); Neutrophils % (A) 89 %; Platelet Count 148 k/uL (150-450); RBC 2.74 m/uL (3.80-5.40); RDW 12.5 % (11.5-15.5)
[2022-06-01 20:55] LABS: Glucose,Whole Blood 130 mg/dL (70-110)
--- NOTE | 2022-06-01 21:07 | OP ---
OPERATIVE REPORT PREOPERATIVE DIAGNOSIS: Coronary artery disease. POSTOPERATIVE DIAGNOSIS: Coronary artery disease. PROCEDURES PERFORMED: 1. Coronary artery bypass grafting x 3 vessels (left internal mammary artery to left anterior descending artery, radial artery to ramus artery, saphenous vein graft to posterior descending artery). 2. Endoscopic harvest of right greater saphenous vein. 3. Endoscopic harvest of left radial artery. 4. Ligation of left atrial appendage using 35-mm AtriClip. 5. Epiaortic ultrasound. 6. Transesophageal echocardiogram. ASSISTANTS: 1. Jose Manuel Bertrand NP. 2. RUFINO Crane. ANESTHESIA: General. SPECIMEN: None. COMPLICATION: None. INDICATIONS FOR PROCEDURE: The patient is a 66-year-old female with a past medical history significant for asthma, hypertension, lupus, and Sjogren disease, who presented to [facility] with chest discomfort and shortness of breath. Workup revealed a [id number] myocardial infarction. Cardiac catheterization revealed multivessel coronary artery disease. A coronary artery bypass was recommended. The risks, benefits, and alternatives of the procedure were discussed with the patient. All of her questions were answered. Consent was obtained. FINDINGS: The left internal mammary artery was a good conduit with brisk flow. The saphenous vein was a good conduit. The radial artery was a good conduit. The left anterior descending artery measured 1.5 mm. The ramus artery measured 1.5 mm. The posterior descending artery measured 1.5 mm. DESCRIPTION OF PROCEDURE: The patient was taken to the operating room and placed supine on the operating table. After the induction of general anesthesia, she was prepped and draped in the usual sterile fashion. Preoperative transesophageal echocardiogram confirmed a preserved ejection fraction with mild central aortic insufficiency. A median sternotomy was performed. The left internal mammary artery was harvested in the standard fashion taking care to clip all branches. Intravenous heparin was administered. The vessel was transected distally revealing brisk flow. Simultaneously, greater saphenous vein was harvested from the right lower extremity using endoscopic technique. All branches were tied. The vein was taken from the groin to the thigh. In addition, radial artery was harvested from the left upper extremity using endoscopic technique. All branches were tied. The mammary artery, radial artery, and saphenous vein were all good conduits. Of note, adhesions were noted in the chest after opening the pericardium. These were lysed sharply. A pericardial cradle was created. The ascending aorta was palpated. There was no significant calcific plaque noted. Epiaortic ultrasound was then performed on the ascending aorta. Again, no calcific plaque or atheromatous disease was identified. An arterial cannula was placed in the distal ascending aorta. A venous cannula was placed through the right atrial appendage and directed into the IVC. Both antegrade and retrograde catheters were placed as well. The patient was then placed on cardiopulmonary bypass with good decompression of the heart. The aortic crossclamp was applied. Cold blood potassium cardioplegia was delivered in both antegrade and retrograde fashion to achieve arrest of the heart. Of note, cardioplegia was delivered every 15 to 20 minutes while the patient remained under the crossclamp. I began by identifying the left atrial appendage. A 35-mm AtriClip was placed across its base to ensure ligation. Next, attention was turned to the inferior wall. The posterior descending artery was identified and dissected free. A small arteriotomy was created in a proximal location. This vessel accepted a 1.5-mm probe. Using saphenous vein in a reverse fashion, an end-to-side anastomosis was created. This was performed using a running 7-0 Prolene suture. The graft was hemostatic and had a great flow. Next, attention was turned to the lateral wall. The ramus artery was identified and dissected free. A small arteriotomy was created. This vessel accepted a 1.5-mm probe. Using the radial artery, an end-to-side anastomosis was created. This was performed using a running 7-0 Prolene suture. The graft was hemostatic and had great flow. Finally, attention was turned to the anterior wall. The left anterior descending artery was identified at its midportion. A small arteriotomy was created. This vessel accepted a 1.5-mm probe. Using the left internal mammary artery, an end-to-side anastomosis was created. This was performed using a running 8-0 Prolene suture. The graft was hemostatic. The mammary pedicle was then tacked down to the anterior surface of the heart. Attention was then turned to the proximal anastomoses. These were both were performed in an end-to-side fashion using running 6-0 Prolene suture. One liter of warm blood was delivered in retrograde fashion. Both lidocaine and magnesium were administered as well. The aortic crossclamp was removed. The vein graft was de-aired in the standard fashion. Distal anastomoses were inspected and appeared to be hemostatic. Temporary atrial and ventricular pacing wires were placed and brought through the skin. The patient was then weaned off cardiopulmonary bypass. She without difficulty. Followup transesophageal echocardiogram confirmed good left ventricular ejection fraction and no change in valvular pathology. Protamine was administered. There were no adverse reactions. The remaining cannulas were then removed. The mediastinum was copiously irrigated with warm saline solution. Again, all surgical sites were inspected and appeared to be hemostatic. Soft tissues were reapproximated over the ascending aorta as well as over the apex of the heart. Chest tubes were placed in both the left pleural space and the mediastinum. These were both secured to the skin using sutures. The sternum was then reapproximated using the [place] cable system. The cables were placed in a [id number] fashion. At the completion of closure, the sternum was well aligned. The remainder of the wound was closed in layers. A sterile dressing was applied. The patient appeared to tolerate the procedure well. There were no immediate complications. She returned to the ICU in critical, but stable condition. She did not receive any intraoperative blood products. She did not require any pressor support. MMODL / IJN: [id number] / ADRIENNE
[2022-06-01] MEDS: AMITRIPTYLINE HCL 50 MG TAB PO SCH (21:11)
[2022-06-01 21:51] LABS: Glucose,Whole Blood 128 mg/dL (70-110)
[2022-06-01 22:57] LABS: Glucose,Whole Blood 125 mg/dL (70-110)
[2022-06-01 23:52] LABS: Glucose,Whole Blood 124 mg/dL (70-110)
[2022-06-02] MEDS: HYDROcodone/APAP 5-325MG 1 EACH TAB PO PRN ×4 (00:46→21:29)
[2022-06-02 00:55] LABS: Glucose,Whole Blood 127 mg/dL (70-110)
[2022-06-02 01:56] LABS: Glucose,Whole Blood 121 mg/dL (70-110)
[2022-06-02] MEDS: DILTIAZEM 125 MG in SODIUM CHLORIDE 0.9% 100 ML IV SCH (01:58)
[2022-06-02 02:58] LABS: Glucose,Whole Blood 121 mg/dL (70-110)
[2022-06-02 03:49] LABS: Glucose,Whole Blood 121 mg/dL (70-110)
[2022-06-02 04:08] LABS: Basophils % (A) 0 %; Eosinophils % (A) 0 %; HCT 25.3 % (34.0-46.0); HGB 8.4 gm/dL (11.4-16.0); Lymphocytes # (A) 0.8 k/uL (1.0-4.8); Lymphocytes % (A) 9 %; MCH 33.5 pg (25.0-35.0); MCHC 33.2 g/dL (31.0-37.0); Mean Platelet Volume 8.1; Monocytes # (A) 0.4 k/uL (0-1.0); Monocytes % (A) 5 %; Neutrophils # (A) 7.6 k/uL (1.3-7.7); Neutrophils % (A) 84 %; Platelet Count 146 k/uL (150-450); RDW 12.8 % (11.5-15.5)
[2022-06-02 04:34] LABS: Ionized Calcium 4.8 mg/dL (4.5-5.3)
[2022-06-02 04:44] LABS: ALT 38 U/L (4-34); AST 91 U/L (14-36); African American GFR (CKD) >90 (>60 ml/min/1.73 sqM); Albumin 2.7 g/dL (3.5-5.0); Alkaline Phosphatase 51 U/L (38-126); Anion Gap 7 mmol/L; Blood Urea Nitrogen 14 mg/dL (7-17); Calcium 7.9 mg/dL (8.4-10.2); Carbon Dioxide 23 mmol/L (22-30); Chloride 100 mmol/L (98-107); Glucose 104 mg/dL (74-99); Magnesium 2.1 mg/dL (1.6-2.3); Non-African American GFR(CKD) 83 (>60 ml/min/1.73 sqM); Potassium 4.6 mmol/L (3.5-5.1); Sodium 130 mmol/L (137-145); Total Bilirubin 0.2 mg/dL (0.2-1.3); Total Protein 4.5 g/dL (6.3-8.2)
[2022-06-02 05:00] LABS: Glucose,Whole Blood 120 mg/dL (70-110)
[2022-06-02] MEDS: ALBUMIN HUMAN 5% 250 ML in EMPTY BAG 1 BAG IVPB PRN ×2 (05:34→07:02)
[2022-06-02] MEDS: KETOROLAC 15 MG/ML 1 ML VIAL IVP SCH ×3 (05:49→20:50)
[2022-06-02 05:58] LABS: Glucose,Whole Blood 124 mg/dL (70-110)
[2022-06-02 06:55] LABS: Glucose,Whole Blood 124 mg/dL (70-110)
[2022-06-02] MEDS: IPRATROPIUM-ALBUTEROL 3 ML NEB INHALATION SCH ×4 (07:47→20:11)
[2022-06-02] MEDS: SYMBICORT 160-4.5 MCG INHALER INHALATION SCH ×2 (07:47→20:11)
--- NOTE | 2022-06-02 08:22 | P.PN ---
Subjective Progress Note Date: 06/02/22 PROGRESS NOTE The patient is a 66-year-old female who presented with non-STEMI, and underwent cardiac catheterization that showed evidence of severe triple-vessel disease. She underwent CABG yesterday. She received SHARMA to the LAD and radial to the ramus and SVG to the PDA with closure of the left atrial appendage. She continues to be in sinus mechanism, extubated, sitting up in the chair. She has mild chest soreness. She denies any dizziness or palpitation, no nausea or vomiting. Her [place] is in place. Medications: Aspirin, Lipitor 80 mg daily, IV diltiazem, Plavix 75 mg daily, metoprolol 12- 1/2 mg twice a day PHYSICAL EXAMINATION: Blood pressure 113/43 heart rate 78 PA systolic pressure of 19 and diastolic of 8 LUNGS: Mild decreased breath sounds at the bases HEART: Regular rate and rhythm, S1, S2. No S3. No systolic murmur, plus rub ABDOMEN: Soft, nontender, no organomegaly EXTREMETIES: No edema LAB: Potassium 4.6, BUN 14, creatinine 0.76, hemoglobin 8.4 IMPRESSION: 1. Status post CABG, stable 2. Status post non-STEMI 3. Hyperlipidemia 4. History of Sjogren's syndrome PLAN: 1. Changed to oral Cardizem 2. Continue present therapy 3. Incentive spirometry 4. Depending on her progress further recommendations will be made Objective - Vital Signs Vital signs: Vital Signs Temp 99.0 F 06/02/22 04:00 Pulse 78 06/02/22 08:00 Resp 16 06/02/22 08:00 BP 101/48 06/02/22 08:00 Pulse Ox 96 06/02/22 08:00 FiO2 2 06/02/22 02:00 Intake & Output 06/01/22 06/02/22 06/02/22 18:59 06:59 18:59 Intake Total 589.939 959.154 Output Total 3280 949 Balance -2690.061 10.154 Weight 62.2 kg Intake: IV 219 847 Lactated Ringers 1,000 ml 600 @ 50 mls/hr IV .Q20H [facility] Rx#:[id number] cardiac output 80 130 pressure bag 36 117 Intake, IV Titration 370.939 112.154 Amount ACETAMINOPHEN IV (For NPO 100 ) 1,000 mg In Empty Bag 1 bag @ 400 mls/hr IVPB Q6HR [facility] Rx#:[id number] Diltiazem 125 mg In 57.667 Sodium Chloride 0.9% 100 ml @ 5 MG/HR 5 mls/hr IV .Q24H [facility] Rx#:[id number] Insulin Regular 100 unit 4.487 In Sodium Chloride 0.9% 100 ml @ Per Protocol IV .Q0M [facility] Rx#:[id number] Lactated Ringers 1,000 ml 200 50 @ 50 mls/hr IV .Q20H [facility] Rx#:[id number] ceFAZolin 2 gm In Sodium 50 Chloride 0.9% 50 ml @ 100 mls/hr IVPB ONCE ONE Rx# :[id number] propofoL 1,000 mg In 20.939 Empty Bag 1 bag @ Titrate IV .Q0M [facility] Rx#: [id number] Output: Chest Tube Drainage 155 349 Left pleural 55 159 mediastinal 100 190 Urine 2125 600 Estimated Blood Loss 1000 Other: Voiding Method Indwelling Catheter Indwelling Catheter ABP, PAP, CO, CI - Last Documented Arterial Blood Pressure 113/43 Pulmonary Artery Pressure 19/8 Cardiac Output 4.3 Cardiac Index 2.6 - Labs CBC & Chem 7: 06/02/22 03:49 06/02/22 03:49 Labs: Abnormal Lab Results - Last 24 Hours (Table) 05/31/22 06/01/22 06/01/22 Range/Units 08:58 08:38 09:49 WBC (3.8-10.6) k/uL RBC (3.80-5.40) m/uL Hgb (11.4-16.0) gm/dL Hct (34.0-46.0) % MCV (80.0-100.0) fL Plt Count (150-450) k/uL Neutrophils # (1.3-7.7) k/uL Lymphocytes # (1.0-4.8) k/uL PT (9.0-12.0) sec INR (<1.2) APTT (22.0-30.0) sec ABG pH 7.34 L (7.35-7.45) ABG pCO2 (35-45) mmHg ABG pO2 323 H >420 H (83-108) mmHg ABG Total CO2 25 H 25 H (19-24) mmol/L ABG O2 Saturation 100.0 H 99.7 H (94-97) % ABG Hematocrit 32 L 27 L (34.0-46.0) % ABG Sodium 130 L 130 L (135-146) mmol/L ABG Potassium (3.4-4.5) mmol/L ABG Ionized Calcium (4.5-5.3) mg/dL ABG Glucose 110 H (75-99) mg/dL ABG Lactic Acid (0.5-1.6) mmol/L Hemoglobin 10.3 L 8.8 L (11.4-16.0) gm/dL Sodium (137-145) mmol/L Glucose (74-99) mg/dL POC Glucose (mg/dL) (70-110) mg/dL Calcium (8.4-10.2) mg/dL Magnesium (1.6-2.3) mg/dL AST (14-36) U/L ALT (4-34) U/L Total Protein (6.3-8.2) g/dL Albumin (3.5-5.0) g/dL Arterial Blood Potassium (3.4-4.5) mmol/L Arterial Blood Glucose 110 H (75-99) mg/dL Crossmatch See Detail 06/01/22 06/01/22 06/01/22 Range/Units 10:52 11:24 11:55 WBC (3.8-10.6) k/uL RBC (3.80-5.40) m/uL Hgb (11.4-16.0) gm/dL Hct (34.0-46.0) % MCV (80.0-100.0) fL Plt Count (150-450) k/uL Neutrophils # (1.3-7.7) k/uL Lymphocytes # (1.0-4.8) k/uL PT (9.0-12.0) sec INR (<1.2) APTT (22.0-30.0) sec ABG pH (7.35-7.45) ABG pCO2 (35-45) mmHg ABG pO2 344 H 298 H 405 H (83-108) mmHg ABG Total CO2 25 H 26 H (19-24) mmol/L ABG O2 Saturation 100.0 H 99.7 H 100.0 H (94-97) % ABG Hematocrit 19 L* 19 L* 19 L* (34.0-46.0) % ABG Sodium 127 L 130 L 130 L (135-146) mmol/L ABG Potassium 5.2 H 5.4 H 5.1 H (3.4-4.5) mmol/L ABG Ionized Calcium 4.0 L 4.2 L 4.2 L (4.5-5.3) mg/dL ABG Glucose 100 H 104 H 108 H (75-99) mg/dL ABG Lactic Acid (0.5-1.6) mmol/L Hemoglobin 6.2 L* 6.3 L* 6.3 L* (11.4-16.0) gm/dL Sodium (137-145) mmol/L Glucose (74-99) mg/dL POC Glucose (mg/dL) (70-110) mg/dL Calcium (8.4-10.2) mg/dL Magnesium (1.6-2.3) mg/dL AST (14-36) U/L ALT (4-34) U/L Total Protein (6.3-8.2) g/dL Albumin (3.5-5.0) g/dL Arterial Blood Potassium 5.2 H 5.4 H 5.1 H (3.4-4.5) mmol/L Arterial Blood Glucose 100 H 104 H 108 H (75-99) mg/dL Crossmatch 06/01/22 06/01/22 06/01/22 Range/Units 12:59 13:40 13:40 WBC (3.8-10.6) k/uL RBC 2.29 L (3.80-5.40) m/uL Hgb 7.9 L D (11.4-16.0) gm/dL Hct 22.6 L (34.0-46.0) % MCV (80.0-100.0) fL Plt Count 122 L (150-450) k/uL Neutrophils # (1.3-7.7) k/uL Lymphocytes # (1.0-4.8) k/uL PT 12.4 H (9.0-12.0) sec INR 1.2 H (<1.2) APTT 33.1 H (22.0-30.0) sec ABG pH (7.35-7.45) ABG pCO2 34 L (35-45) mmHg ABG pO2 376 H (83-108) mmHg ABG Total CO2 25 H (19-24) mmol/L ABG O2 Saturation 99.9 H (94-97) % ABG Hematocrit 22 L (34.0-46.0) % ABG Sodium 131 L (135-146) mmol/L ABG Potassium (3.4-4.5) mmol/L ABG Ionized Calcium 4.4 L (4.5-5.3) mg/dL ABG Glucose (75-99) mg/dL ABG Lactic Acid 1.7 H (0.5-1.6) mmol/L Hemoglobin 7.0 L* (11.4-16.0) gm/dL Sodium (137-145) mmol/L Glucose (74-99) mg/dL POC Glucose (mg/dL) (70-110) mg/dL Calcium (8.4-10.2) mg/dL Magnesium (1.6-2.3) mg/dL AST (14-36) U/L ALT (4-34) U/L Total Protein (6.3-8.2) g/dL Albumin (3.5-5.0) g/dL Arterial Blood Potassium (3.4-4.5) mmol/L Arterial Blood Glucose (75-99) mg/dL Crossmatch 06/01/22 06/01/22 06/01/22 Range/Units 13:40 13:42 15:02 WBC (3.8-10.6) k/uL RBC (3.80-5.40) m/uL Hgb (11.4-16.0) gm/dL Hct (34.0-46.0) % MCV (80.0-100.0) fL Plt Count (150-450) k/uL Neutrophils # (1.3-7.7) k/uL Lymphocytes # (1.0-4.8) k/uL PT (9.0-12.0) sec INR (<1.2) APTT (22.0-30.0) sec ABG pH (7.35-7.45) ABG pCO2 (35-45) mmHg ABG pO2 299 H (83-108) mmHg ABG Total CO2 (19-24) mmol/L ABG O2 Saturation 100.0 H (94-97) % ABG Hematocrit (34.0-46.0) % ABG Sodium (135-146) mmol/L ABG Potassium (3.4-4.5) mmol/L ABG Ionized Calcium (4.5-5.3) mg/dL ABG Glucose (75-99) mg/dL ABG Lactic Acid (0.5-1.6) mmol/L Hemoglobin (11.4-16.0) gm/dL Sodium 130 L (137-145) mmol/L Glucose (74-99) mg/dL POC Glucose (mg/dL) 122 H (70-110) mg/dL Calcium 8.0 L (8.4-10.2) mg/dL Magnesium 2.6 H (1.6-2.3) mg/dL AST 60 H (14-36) U/L ALT (4-34) U/L Total Protein 3.8 L (6.3-8.2) g/dL Albumin 2.2 L (3.5-5.0) g/dL Arterial Blood Potassium (3.4-4.5) mmol/L Arterial Blood Glucose (75-99) mg/dL Crossmatch 06/01/22 06/01/22 06/01/22 Range/Units 16:05 16:24 17:14 WBC (3.8-10.6) k/uL RBC 2.51 L (3.80-5.40) m/uL Hgb 8.5 L (11.4-16.0) gm/dL Hct 25.2 L (34.0-46.0) % MCV 100.3 H (80.0-100.0) fL Plt Count (150-450) k/uL Neutrophils # 8.7 H (1.3-7.7) k/uL Lymphocytes # 0.9 L (1.0-4.8) k/uL PT (9.0-12.0) sec INR (<1.2) APTT (22.0-30.0) sec ABG pH (7.35-7.45) ABG pCO2 (35-45) mmHg ABG pO2 (83-108) mmHg ABG Total CO2 (19-24) mmol/L ABG O2 Saturation (94-97) % ABG Hematocrit (34.0-46.0) % ABG Sodium (135-146) mmol/L ABG Potassium (3.4-4.5) mmol/L ABG Ionized Calcium (4.5-5.3) mg/dL ABG Glucose (75-99) mg/dL ABG Lactic Acid (0.5-1.6) mmol/L Hemoglobin (11.4-16.0) gm/dL Sodium (137-145) mmol/L Glucose (74-99) mg/dL POC Glucose (mg/dL) 127 H 129 H (70-110) mg/dL Calcium (8.4-10.2) mg/dL Magnesium (1.6-2.3) mg/dL AST (14-36) U/L ALT (4-34) U/L Total Protein (6.3-8.2) g/dL Albumin (3.5-5.0) g/dL Arterial Blood Potassium (3.4-4.5) mmol/L Arterial Blood Glucose (75-99) mg/dL Crossmatch 06/01/22 06/01/22 06/01/22 Range/Units 17:30 18:11 18:59 WBC (3.8-10.6) k/uL RBC (3.80-5.40) m/uL Hgb (11.4-16.0) gm/dL Hct (34.0-46.0) % MCV (80.0-100.0) fL Plt Count (150-450) k/uL Neutrophils # (1.3-7.7) k/uL Lymphocytes # (1.0-4.8) k/uL PT (9.0-12.0) sec INR (<1.2) APTT (22.0-30.0) sec ABG pH (7.35-7.45) ABG pCO2 (35-45) mmHg ABG pO2 116 H (83-108) mmHg ABG Total CO2 26 H (19-24) mmol/L ABG O2 Saturation 97.9 H (94-97) % ABG Hematocrit (34.0-46.0) % ABG Sodium (135-146) mmol/L ABG Potassium (3.4-4.5) mmol/L ABG Ionized Calcium (4.5-5.3) mg/dL ABG Glucose (75-99) mg/dL ABG Lactic Acid (0.5-1.6) mmol/L Hemoglobin (11.4-16.0) gm/dL Sodium (137-145) mmol/L Glucose (74-99) mg/dL POC Glucose (mg/dL) 124 H 123 H (70-110) mg/dL Calcium (8.4-10.2) mg/dL Magnesium (1.6-2.3) mg/dL AST (14-36) U/L ALT (4-34) U/L Total Protein (6.3-8.2) g/dL Albumin (3.5-5.0) g/dL Arterial Blood Potassium (3.4-4.5) mmol/L Arterial Blood Glucose (75-99) mg/dL Crossmatch 06/01/22 06/01/22 06/01/22 Range/Units 20:05 20:53 21:49 WBC 11.0 H (3.8-10.6) k/uL RBC 2.74 L (3.80-5.40) m/uL Hgb 9.2 L (11.4-16.0) gm/dL Hct 27.3 L (34.0-46.0) % MCV (80.0-100.0) fL Plt Count 148 L (150-450) k/uL Neutrophils # 9.8 H (1.3-7.7) k/uL Lymphocytes # 0.6 L (1.0-4.8) k/uL PT (9.0-12.0) sec INR (<1.2) APTT (22.0-30.0) sec ABG pH (7.35-7.45) ABG pCO2 (35-45) mmHg ABG pO2 (83-108) mmHg ABG Total CO2 (19-24) mmol/L ABG O2 Saturation (94-97) % ABG Hematocrit (34.0-46.0) % ABG Sodium (135-146) mmol/L ABG Potassium (3.4-4.5) mmol/L ABG Ionized Calcium (4.5-5.3) mg/dL ABG Glucose (75-99) mg/dL ABG Lactic Acid (0.5-1.6) mmol/L Hemoglobin (11.4-16.0) gm/dL Sodium (137-145) mmol/L Glucose (74-99) mg/dL POC Glucose (mg/dL) 130 H 128 H (70-110) mg/dL Calcium (8.4-10.2) mg/dL Magnesium (1.6-2.3) mg/dL AST (14-36) U/L ALT (4-34) U/L Total Protein (6.3-8.2) g/dL Albumin (3.5-5.0) g/dL Arterial Blood Potassium (3.4-4.5) mmol/L Arterial Blood Glucose (75-99) mg/dL Crossmatch 06/01/22 06/01/22 06/02/22 Range/Units 22:56 23:51 00:53 WBC (3.8-10.6) k/uL RBC (3.80-5.40) m/uL Hgb (11.4-16.0) gm/dL Hct (34.0-46.0) % MCV (80.0-100.0) fL Plt Count (150-450) k/uL Neutrophils # (1.3-7.7) k/uL Lymphocytes # (1.0-4.8) k/uL PT (9.0-12.0) sec INR (<1.2) APTT (22.0-30.0) sec ABG pH (7.35-7.45) ABG pCO2 (35-45) mmHg ABG pO2 (83-108) mmHg ABG Total CO2 (19-24) mmol/L ABG O2 Saturation (94-97) % ABG Hematocrit (34.0-46.0) % ABG Sodium (135-146) mmol/L ABG Potassium (3.4-4.5) mmol/L ABG Ionized Calcium (4.5-5.3) mg/dL ABG Glucose (75-99) mg/dL ABG Lactic Acid (0.5-1.6) mmol/L Hemoglobin (11.4-16.0) gm/dL Sodium (137-145) mmol/L Glucose (74-99) mg/dL POC Glucose (mg/dL) 125 H 124 H 127 H (70-110) mg/dL Calcium (8.4-10.2) mg/dL Magnesium (1.6-2.3) mg/dL AST (14-36) U/L ALT (4-34) U/L Total Protein (6.3-8.2) g/dL Albumin (3.5-5.0) g/dL Arterial Blood Potassium (3.4-4.5) mmol/L Arterial Blood Glucose (75-99) mg/dL Crossmatch 06/02/22 06/02/22 06/02/22 Range/Units 01:55 02:57 03:48 WBC (3.8-10.6) k/uL RBC (3.80-5.40) m/uL Hgb (11.4-16.0) gm/dL Hct (34.0-46.0) % MCV (80.0-100.0) fL Plt Count (150-450) k/uL Neutrophils # (1.3-7.7) k/uL Lymphocytes # (1.0-4.8) k/uL PT (9.0-12.0) sec INR (<1.2) APTT (22.0-30.0) sec ABG pH (7.35-7.45) ABG pCO2 (35-45) mmHg ABG pO2 (83-108) mmHg ABG Total CO2 (19-24) mmol/L ABG O2 Saturation (94-97) % ABG Hematocrit (34.0-46.0) % ABG Sodium (135-146) mmol/L ABG Potassium (3.4-4.5) mmol/L ABG Ionized Calcium (4.5-5.3) mg/dL ABG Glucose (75-99) mg/dL ABG Lactic Acid (0.5-1.6) mmol/L Hemoglobin (11.4-16.0) gm/dL Sodium (137-145) mmol/L Glucose (74-99) mg/dL POC Glucose (mg/dL) 121 H 121 H 121 H (70-110) mg/dL Calcium (8.4-10.2) mg/dL Magnesium (1.6-2.3) mg/dL AST (14-36) U/L ALT (4-34) U/L Total Protein (6.3-8.2) g/dL Albumin (3.5-5.0) g/dL Arterial Blood Potassium (3.4-4.5) mmol/L Arterial Blood Glucose (75-99) mg/dL Crossmatch 06/02/22 06/02/22 06/02/22 Range/Units 03:49 03:49 04:58 WBC (3.8-10.6) k/uL RBC 2.50 L (3.80-5.40) m/uL Hgb 8.4 L (11.4-16.0) gm/dL Hct 25.3 L (34.0-46.0) % MCV 101.0 H (80.0-100.0) fL Plt Count 146 L (150-450) k/uL Neutrophils # (1.3-7.7) k/uL Lymphocytes # 0.8 L (1.0-4.8) k/uL PT (9.0-12.0) sec INR (<1.2) APTT (22.0-30.0) sec ABG pH (7.35-7.45) ABG pCO2 (35-45) mmHg ABG pO2 (83-108) mmHg ABG Total CO2 (19-24) mmol/L ABG O2 Saturation (94-97) % ABG Hematocrit (34.0-46.0) % ABG Sodium (135-146) mmol/L ABG Potassium (3.4-4.5) mmol/L ABG Ionized Calcium (4.5-5.3) mg/dL ABG Glucose (75-99) mg/dL ABG Lactic Acid (0.5-1.6) mmol/L Hemoglobin (11.4-16.0) gm/dL Sodium 130 L (137-145) mmol/L Glucose 104 H (74-99) mg/dL POC Glucose (mg/dL) 120 H (70-110) mg/dL Calcium 7.9 L (8.4-10.2) mg/dL Magnesium (1.6-2.3) mg/dL AST 91 H (14-36) U/L ALT 38 H (4-34) U/L Total Protein 4.5 L (6.3-8.2) g/dL Albumin 2.7 L (3.5-5.0) g/dL Arterial Blood Potassium (3.4-4.5) mmol/L Arterial Blood Glucose (75-99) mg/dL Crossmatch 06/02/22 06/02/22 Range/Units 05:56 06:54 WBC (3.8-10.6) k/uL RBC (3.80-5.40) m/uL Hgb (11.4-16.0) gm/dL Hct (34.0-46.0) % MCV (80.0-100.0) fL Plt Count (150-450) k/uL Neutrophils # (1.3-7.7) k/uL Lymphocytes # (1.0-4.8) k/uL PT (9.0-12.0) sec INR (<1.2) APTT (22.0-30.0) sec ABG pH (7.35-7.45) ABG pCO2 (35-45) mmHg ABG pO2 (83-108) mmHg ABG Total CO2 (19-24) mmol/L ABG O2 Saturation (94-97) % ABG Hematocrit (34.0-46.0) % ABG Sodium (135-146) mmol/L ABG Potassium (3.4-4.5) mmol/L ABG Ionized Calcium (4.5-5.3) mg/dL ABG Glucose (75-99) mg/dL ABG Lactic Acid (0.5-1.6) mmol/L Hemoglobin (11.4-16.0) gm/dL Sodium (137-145) mmol/L Glucose (74-99) mg/dL POC Glucose (mg/dL) 124 H 124 H (70-110) mg/dL Calcium (8.4-10.2) mg/dL Magnesium (1.6-2.3) mg/dL AST (14-36) U/L ALT (4-34) U/L Total Protein (6.3-8.2) g/dL Albumin (3.5-5.0) g/dL Arterial Blood Potassium (3.4-4.5) mmol/L Arterial Blood Glucose (75-99) mg/dL Crossmatch
--- NOTE | 2022-06-02 08:23 | XR ---
EXAMINATION TYPE: XR chest 1V portable DATE OF EXAM: 06/02/2022 COMPARISON: 06/01/2022 HISTORY: Postop TECHNIQUE: Single frontal view of the chest is obtained. FINDINGS: Postoperative changes seen. ET tube and NG tube have been removed. Surgical clips right up per quadrant. Mediastinal drain and left-sided chest tube with no sizable pneumothorax. Left apical p leural thickening. [place] catheter with tip overlying the proximal pulmonary outflow tract. Left-s ided consolidation and small pleural effusion. Subsegmental changes and tiny right pleural effusion n oted. IMPRESSION: 1. Postsurgical changes with bilateral consolidation and small effusion.
[2022-06-02 08:47] LABS: Glucose,Whole Blood 124 mg/dL (70-110)
[2022-06-02] MEDS ORDERED: MAGNESIUM HYDROXIDE 2,400 MG/10 ML CUP PO PRN (09:00)
[2022-06-02] MEDS ORDERED: bisacodyL 10 MG SUPP RECTAL PRN (09:00)
[2022-06-02] MEDS ORDERED: PANTOPRAZOLE 40 MG/10 ML VIAL IVP SCH (09:00)
[2022-06-02] MEDS: HEPARIN SODIUM,PORCINE/PF 5,000 UNIT/0.5 ML SYRINGE SQ SCH ×2 (09:17→15:12)
[2022-06-02] MEDS: LACTOBACILLUS ACIDOPH & BULGAR 1 EACH PACKET PO SCH (09:18)
[2022-06-02] MEDS: ASPIRIN 325 MG TAB PO SCH (09:18)
[2022-06-02] MEDS: ASCORBIC ACID 500 MG TAB PO SCH (09:18)
[2022-06-02] MEDS: ATORVASTATIN 80 MG TAB PO SCH (09:18)
[2022-06-02] MEDS: FERROUS SULFATE 325 MG TAB PO SCH (09:18)
[2022-06-02] MEDS: CLOPIDOGREL 75 MG TAB PO SCH (09:18)
[2022-06-02] MEDS: VITAMIN E (DL,TOCOPHERYL ACET) 400 UNIT (180 MG) CAP PO SCH (09:19)
[2022-06-02] MEDS: MULTIVITAMINS, THERA 1 EACH TAB PO SCH (09:19)
[2022-06-02] MEDS: cycloSPORINE 0.05% OPHTH 0.4 ML DROPERETTE BOTH EYES SCH ×2 (09:20→21:26)
[2022-06-02] MEDS: METOPROLOL TARTRATE 12.5 MG TAB PO SCH ×2 (09:20→20:53)
[2022-06-02] MEDS ORDERED: DEXTROSE 50% SYRINGE 50 ML IVP PRN ×2 (09:25)
--- NOTE | 2022-06-02 09:50 | P.PN ---
Subjective Progress Note Date: 06/02/22 Principal diagnosis: Coronary artery disease, non-STEMI this admission. Past medical history significant for hypertension, lupus, Sjogren's, asthma, remote history of pneumonia and is a lifetime nonsmoker. POD #1 coronary artery bypass grafting 3 vessels, left internal mammary artery to left anterior descending coronary artery, radial artery to the ramus coronary artery, and a saphenous vein graft to the posterior descending coronary artery. Endoscopic harvesting of the right greater saphenous vein, endoscopic harvest of the left radial artery, ligation of the left atrial appendage using a 35 mm Atriclip, epi-aortic ultrasound and intraoperative transesophageal echoca rdiogram. Postoperative acute blood loss anemia, expected given hemodilution and cardiopulmonary bypass. The patient was seen and examined in follow-up today 06/02/2022 at her bedside in the intensive care unit. Currently she is sitting up to the bedside chair, is awake, alert, oriented 3 and is in no acute distress. The patient was successfully extubated at 5:55 PM last evening, and is currently on 3 L nasal cannula with oxygen saturations 96%. She is achieving 1500 mL on her incentive spirometry with much encouragement. She denies any complaints of shortness of breath at this time, although is complaining of feeling tired and is complaining of surgical type pain to her chest tube insertion sites rate her pain 5 out of 10 on the pain scale. Right IJ Cordis with Hooven-Jaren catheter remains in place with current hemodynamics showing a cardiac output 4.3, cardiac index 2.6, PA pressures 28/8 and a CVP of 4 mmHg. Bedside telemetry showing normal sinus rhythm heart rate 77 BPM. Current blood pressure is 101/48 mmHg. Mediastinal and left pleural chest tubes remain in place to low continuous wall suction -20 cm H2O. No air leak is present. Draining thin serosanguineous drainage with 100 mL output in the last 8 hours from her left pleural chest tube and 210 mL output since surgery. Mediastinal chest tube drained 95 mL output in the last 8 hours and 280 mL output since surgery. Salmon catheter remains in place for accurate I's and O's with 310 mL output in the last 8 hours. Laboratory results this morning show a WBC count 9.0, hemoglobin 8.4, hematocrit 25.3, platelets 146, sodium 130, potassium 4.6, chloride 100, CO2 23, BUN 14, creatinine 0.76, glucose 104, calcium 7.9, ionized calcium 4.8, magnesium 2.1, AST 91, and ALT 38. Objective - Vital Signs Vital signs: Vital Signs Temp 99.0 F 06/02/22 04:00 Pulse 78 06/02/22 08:00 Resp 16 06/02/22 08:00 BP 101/48 06/02/22 08:00 Pulse Ox 96 06/02/22 08:00 FiO2 2 06/02/22 02:00 Intake & Output 06/01/22 06/02/22 06/02/22 18:59 06:59 18:59 Intake Total 589.939 959.154 Output Total 3280 949 Balance -2690.061 10.154 Weight 62.2 kg Intake: IV 219 847 Lactated Ringers 1,000 ml 600 @ 50 mls/hr IV .Q20H [facility] [place] Rx#:[id number] cardiac output 80 130 pressure bag 36 117 Intake, IV Titration 370.939 112.154 Amount ACETAMINOPHEN IV (For NPO 100 ) 1,000 mg In Empty Bag 1 bag @ 400 mls/hr IVPB Q6HR [facility] [place] Rx#:[id number] Diltiazem 125 mg In 57.667 Sodium Chloride 0.9% 100 ml @ 5 MG/HR 5 mls/hr IV .Q24H [facility] [place] Rx#:[id number] Insulin Regular 100 unit 4.487 In Sodium Chloride 0.9% 100 ml @ Per Protocol IV .Q0M [facility] Rx#:[id number] Lactated Ringers 1,000 ml 200 50 @ 50 mls/hr IV .Q20H [facility] [place] Rx#:[id number] ceFAZolin 2 gm In Sodium 50 Chloride 0.9% 50 ml @ 100 mls/hr IVPB ONCE ONE Rx# :[id number] propofoL 1,000 mg In 20.939 Empty Bag 1 bag @ Titrate IV .Q0M [facility] Rx#: [id number] Output: Chest Tube Drainage 155 349 Left pleural 55 159 mediastinal 100 190 Urine 2125 600 Estimated Blood Loss 1000 Other: Voiding Method Indwelling Catheter Indwelling Catheter ABP, PAP, CO, CI - Last Documented Arterial Blood Pressure 113/43 Pulmonary Artery Pressure 19/8 Cardiac Output 4.3 Cardiac Index 2.6 - Exam CONSTITUTIONAL: Sitting up to the bedside chair in the intensive care unit, appears comfortable, cooperative, no apparent acute distress. HEENT: Neck is supple, no JVD, no lymphadenopathy. Right IJ Cordis and Hooven- Jaren catheter in place and functioning. RESPIRATORY: Lungs sounds essentially clear throughout, diminished to his bilateral bases. Respirations are symmetrical and nonlabored. Currently on 3 L nasal cannula with oxygen saturations 96%. Able to achieve 1500 mL on her incentive spirometry. Strong cough. CARDIOVASCULAR: Regular rhythm and rate. S1 and S2 present, negative for S3, gallop or murmur. Sternum is stable. Palpable peripheral pulses bilaterally, no edema to her bilateral lower extremities. +1 edema to her left hand. No calf pain or tenderness noted. Heart hugger in place with patient demonstrating appropriate use. Knee-high CLAIRE hose and sequential compression devices in place to his bilateral lower extremities. GASTROINTESTINAL: Abdomen soft, nontender, nondistended. Hypoactive bowel sounds present 4 quadrants. Tolerating diet. Denies passing flatus. No guarding or rigidity. GENITOURINARY: Salmon present draining clear, yellow urine. Urine output 310 mL in the last 8 hours INTEGUMENTARY: Skin is warm and dry with no evidence of clubbing or cyanosis. Midline sternal incision clean dry and well approximated, covered with dry intact dressing. Right lower extremity EVH site well approximated without redness or drainage. Left arm radial artery harvest sites clean, dry and approximated. No drainage or redness is present. NEUROLOGIC: Cranial nerves II through XII intact. No focal deficits. MUSKULOSKELETAL: Able to move all extremities, strength equal bilaterally, generalized weakness. PSYCHIATRIC: Alert and oriented to person place and time, appropriate affect, intact judgment and insight. INVASIVE LINES AND TUBES: Mediastinal/left pleural chest tubes present and connected to low continuous wall suction, no air leaks present. Mediastinal tube with 95 mL of thin serosanguineous drainage overnight, 280 mL output since surgery. Left pleural chest tube with 100 mL of thin serosanguineous drainage overnight, 210 mL output since surgery. Atrial and ventricular epicardial pacemaker wires present, connected to generator, VVI backup rate 50 bpm. Right internal jugular Hooven/Cordis, right radial arterial line present. Last CO 4.3, CI 2.6, PA 28/8 and CVP 4 mmHg. Left arm DIVINA drain in place with scant thin serosanguineous drainage, 10 mL output in since surgery. - Allied health notes Allied health notes reviewed: nursing - Labs CBC & Chem 7: 06/02/22 03:49 06/02/22 03:49 Labs: Abnormal Lab Results - Last 24 Hours (Table) 05/31/22 06/01/22 06/01/22 Range/Units 08:58 08:38 09:49 WBC (3.8-10.6) k/uL RBC (3.80-5.40) m/uL Hgb (11.4-16.0) gm/dL Hct (34.0-46.0) % MCV (80.0-100.0) fL Plt Count (150-450) k/uL Neutrophils # (1.3-7.7) k/uL Lymphocytes # (1.0-4.8) k/uL PT (9.0-12.0) sec INR (<1.2) APTT (22.0-30.0) sec ABG pH 7.34 L (7.35-7.45) ABG pCO2 (35-45) mmHg ABG pO2 323 H >420 H (83-108) mmHg ABG Total CO2 25 H 25 H (19-24) mmol/L ABG O2 Saturation 100.0 H 99.7 H (94-97) % ABG Hematocrit 32 L 27 L (34.0-46.0) % ABG Sodium 130 L 130 L (135-146) mmol/L ABG Potassium (3.4-4.5) mmol/L ABG Ionized Calcium (4.5-5.3) mg/dL ABG Glucose 110 H (75-99) mg/dL ABG Lactic Acid (0.5-1.6) mmol/L Hemoglobin 10.3 L 8.8 L (11.4-16.0) gm/dL Sodium (137-145) mmol/L Glucose (74-99) mg/dL POC Glucose (mg/dL) (70-110) mg/dL Calcium (8.4-10.2) mg/dL Magnesium (1.6-2.3) mg/dL AST (14-36) U/L ALT (4-34) U/L Total Protein (6.3-8.2) g/dL Albumin (3.5-5.0) g/dL Arterial Blood Potassium (3.4-4.5) mmol/L Arterial Blood Glucose 110 H (75-99) mg/dL Crossmatch See Detail 06/01/22 06/01/22 06/01/22 Range/Units 10:52 11:24 11:55 WBC (3.8-10.6) k/uL RBC (3.80-5.40) m/uL Hgb (11.4-16.0) gm/dL Hct (34.0-46.0) % MCV (80.0-100.0) fL Plt Count (150-450) k/uL Neutrophils # (1.3-7.7) k/uL Lymphocytes # (1.0-4.8) k/uL PT (9.0-12.0) sec INR (<1.2) APTT (22.0-30.0) sec ABG pH (7.35-7.45) ABG pCO2 (35-45) mmHg ABG pO2 344 H 298 H 405 H (83-108) mmHg ABG Total CO2 25 H 26 H (19-24) mmol/L ABG O2 Saturation 100.0 H 99.7 H 100.0 H (94-97) % ABG Hematocrit 19 L* 19 L* 19 L* (34.0-46.0) % ABG Sodium 127 L 130 L 130 L (135-146) mmol/L ABG Potassium 5.2 H 5.4 H 5.1 H (3.4-4.5) mmol/L ABG Ionized Calcium 4.0 L 4.2 L 4.2 L (4.5-5.3) mg/dL ABG Glucose 100 H 104 H 108 H (75-99) mg/dL ABG Lactic Acid (0.5-1.6) mmol/L Hemoglobin 6.2 L* 6.3 L* 6.3 L* (11.4-16.0) gm/dL Sodium (137-145) mmol/L Glucose (74-99) mg/dL POC Glucose (mg/dL) (70-110) mg/dL Calcium (8.4-10.2) mg/dL Magnesium (1.6-2.3) mg/dL AST (14-36) U/L ALT (4-34) U/L Total Protein (6.3-8.2) g/dL Albumin (3.5-5.0) g/dL Arterial Blood Potassium 5.2 H 5.4 H 5.1 H (3.4-4.5) mmol/L Arterial Blood Glucose 100 H 104 H 108 H (75-99) mg/dL Crossmatch 06/01/22 06/01/22 06/01/22 Range/Units 12:59 13:40 13:40 WBC (3.8-10.6) k/uL RBC 2.29 L (3.80-5.40) m/uL Hgb 7.9 L D (11.4-16.0) gm/dL Hct 22.6 L (34.0-46.0) % MCV (80.0-100.0) fL Plt Count 122 L (150-450) k/uL Neutrophils # (1.3-7.7) k/uL Lymphocytes # (1.0-4.8) k/uL PT 12.4 H (9.0-12.0) sec INR 1.2 H (<1.2) APTT 33.1 H (22.0-30.0) sec ABG pH (7.35-7.45) ABG pCO2 34 L (35-45) mmHg ABG pO2 376 H (83-108) mmHg ABG Total CO2 25 H (19-24) mmol/L ABG O2 Saturation 99.9 H (94-97) % ABG Hematocrit 22 L (34.0-46.0) % ABG Sodium 131 L (135-146) mmol/L ABG Potassium (3.4-4.5) mmol/L ABG Ionized Calcium 4.4 L (4.5-5.3) mg/dL ABG Glucose (75-99) mg/dL ABG Lactic Acid 1.7 H (0.5-1.6) mmol/L Hemoglobin 7.0 L* (11.4-16.0) gm/dL Sodium (137-145) mmol/L Glucose (74-99) mg/dL POC Glucose (mg/dL) (70-110) mg/dL Calcium (8.4-10.2) mg/dL Magnesium (1.6-2.3) mg/dL AST (14-36) U/L ALT (4-34) U/L Total Protein (6.3-8.2) g/dL Albumin (3.5-5.0) g/dL Arterial Blood Potassium (3.4-4.5) mmol/L Arterial Blood Glucose (75-99) mg/dL Crossmatch 06/01/22 06/01/22 06/01/22 Range/Units 13:40 13:42 15:02 WBC (3.8-10.6) k/uL RBC (3.80-5.40) m/uL Hgb (11.4-16.0) gm/dL Hct (34.0-46.0) % MCV (80.0-100.0) fL Plt Count (150-450) k/uL Neutrophils # (1.3-7.7) k/uL Lymphocytes # (1.0-4.8) k/uL PT (9.0-12.0) sec INR (<1.2) APTT (22.0-30.0) sec ABG pH (7.35-7.45) ABG pCO2 (35-45) mmHg ABG pO2 299 H (83-108) mmHg ABG Total CO2 (19-24) mmol/L ABG O2 Saturation 100.0 H (94-97) % ABG Hematocrit (34.0-46.0) % ABG Sodium (135-146) mmol/L ABG Potassium (3.4-4.5) mmol/L ABG Ionized Calcium (4.5-5.3) mg/dL ABG Glucose (75-99) mg/dL ABG Lactic Acid (0.5-1.6) mmol/L Hemoglobin (11.4-16.0) gm/dL Sodium 130 L (137-145) mmol/L Glucose (74-99) mg/dL POC Glucose (mg/dL) 122 H (70-110) mg/dL Calcium 8.0 L (8.4-10.2) mg/dL Magnesium 2.6 H (1.6-2.3) mg/dL AST 60 H (14-36) U/L ALT (4-34) U/L Total Protein 3.8 L (6.3-8.2) g/dL Albumin 2.2 L (3.5-5.0) g/dL Arterial Blood Potassium (3.4-4.5) mmol/L Arterial Blood Glucose (75-99) mg/dL Crossmatch 06/01/22 06/01/22 06/01/22 Range/Units 16:05 16:24 17:14 WBC (3.8-10.6) k/uL RBC 2.51 L (3.80-5.40) m/uL Hgb 8.5 L (11.4-16.0) gm/dL Hct 25.2 L (34.0-46.0) % MCV 100.3 H (80.0-100.0) fL Plt Count (150-450) k/uL Neutrophils # 8.7 H (1.3-7.7) k/uL Lymphocytes # 0.9 L (1.0-4.8) k/uL PT (9.0-12.0) sec INR (<1.2) APTT (22.0-30.0) sec ABG pH (7.35-7.45) ABG pCO2 (35-45) mmHg ABG pO2 (83-108) mmHg ABG Total CO2 (19-24) mmol/L ABG O2 Saturation (94-97) % ABG Hematocrit (34.0-46.0) % ABG Sodium (135-146) mmol/L ABG Potassium (3.4-4.5) mmol/L ABG Ionized Calcium (4.5-5.3) mg/dL ABG Glucose (75-99) mg/dL ABG Lactic Acid (0.5-1.6) mmol/L Hemoglobin (11.4-16.0) gm/dL Sodium (137-145) mmol/L Glucose (74-99) mg/dL POC Glucose (mg/dL) 127 H 129 H (70-110) mg/dL Calcium (8.4-10.2) mg/dL Magnesium (1.6-2.3) mg/dL AST (14-36) U/L ALT (4-34) U/L Total Protein (6.3-8.2) g/dL Albumin (3.5-5.0) g/dL Arterial Blood Potassium (3.4-4.5) mmol/L Arterial Blood Glucose (75-99) mg/dL Crossmatch 06/01/22 06/01/22 06/01/22 Range/Units 17:30 18:11 18:59 WBC (3.8-10.6) k/uL RBC (3.80-5.40) m/uL Hgb (11.4-16.0) gm/dL Hct (34.0-46.0) % MCV (80.0-100.0) fL Plt Count (150-450) k/uL Neutrophils # (1.3-7.7) k/uL Lymphocytes # (1.0-4.8) k/uL PT (9.0-12.0) sec INR (<1.2) APTT (22.0-30.0) sec ABG pH (7.35-7.45) ABG pCO2 (35-45) mmHg ABG pO2 116 H (83-108) mmHg ABG Total CO2 26 H (19-24) mmol/L ABG O2 Saturation 97.9 H (94-97) % ABG Hematocrit (34.0-46.0) % ABG Sodium (135-146) mmol/L ABG Potassium (3.4-4.5) mmol/L ABG Ionized Calcium (4.5-5.3) mg/dL ABG Glucose (75-99) mg/dL ABG Lactic Acid (0.5-1.6) mmol/L Hemoglobin (11.4-16.0) gm/dL Sodium (137-145) mmol/L Glucose (74-99) mg/dL POC Glucose (mg/dL) 124 H 123 H (70-110) mg/dL Calcium (8.4-10.2) mg/dL Magnesium (1.6-2.3) mg/dL AST (14-36) U/L ALT (4-34) U/L Total Protein (6.3-8.2) g/dL Albumin (3.5-5.0) g/dL Arterial Blood Potassium (3.4-4.5) mmol/L Arterial Blood Glucose (75-99) mg/dL Crossmatch 06/01/22 06/01/22 06/01/22 Range/Units 20:05 20:53 21:49 WBC 11.0 H (3.8-10.6) k/uL RBC 2.74 L (3.80-5.40) m/uL Hgb 9.2 L (11.4-16.0) gm/dL Hct 27.3 L (34.0-46.0) % MCV (80.0-100.0) fL Plt Count 148 L (150-450) k/uL Neutrophils # 9.8 H (1.3-7.7) k/uL Lymphocytes # 0.6 L (1.0-4.8) k/uL PT (9.0-12.0) sec INR (<1.2) APTT (22.0-30.0) sec ABG pH (7.35-7.45) ABG pCO2 (35-45) mmHg ABG pO2 (83-108) mmHg ABG Total CO2 (19-24) mmol/L ABG O2 Saturation (94-97) % ABG Hematocrit (34.0-46.0) % ABG Sodium (135-146) mmol/L ABG Potassium (3.4-4.5) mmol/L ABG Ionized Calcium (4.5-5.3) mg/dL ABG Glucose (75-99) mg/dL ABG Lactic Acid (0.5-1.6) mmol/L Hemoglobin (11.4-16.0) gm/dL Sodium (137-145) mmol/L Glucose (74-99) mg/dL POC Glucose (mg/dL) 130 H 128 H (70-110) mg/dL Calcium (8.4-10.2) mg/dL Magnesium (1.6-2.3) mg/dL AST (14-36) U/L ALT (4-34) U/L Total Protein (6.3-8.2) g/dL Albumin (3.5-5.0) g/dL Arterial Blood Potassium (3.4-4.5) mmol/L Arterial Blood Glucose (75-99) mg/dL Crossmatch 06/01/22 06/01/22 06/02/22 Range/Units 22:56 23:51 00:53 WBC (3.8-10.6) k/uL RBC (3.80-5.40) m/uL Hgb (11.4-16.0) gm/dL Hct (34.0-46.0) % MCV (80.0-100.0) fL Plt Count (150-450) k/uL Neutrophils # (1.3-7.7) k/uL Lymphocytes # (1.0-4.8) k/uL PT (9.0-12.0) sec INR (<1.2) APTT (22.0-30.0) sec ABG pH (7.35-7.45) ABG pCO2 (35-45) mmHg ABG pO2 (83-108) mmHg ABG Total CO2 (19-24) mmol/L ABG O2 Saturation (94-97) % ABG Hematocrit (34.0-46.0) % ABG Sodium (135-146) mmol/L ABG Potassium (3.4-4.5) mmol/L ABG Ionized Calcium (4.5-5.3) mg/dL ABG Glucose (75-99) mg/dL ABG Lactic Acid (0.5-1.6) mmol/L Hemoglobin (11.4-16.0) gm/dL Sodium (137-145) mmol/L Glucose (74-99) mg/dL POC Glucose (mg/dL) 125 H 124 H 127 H (70-110) mg/dL Calcium (8.4-10.2) mg/dL Magnesium (1.6-2.3) mg/dL AST (14-36) U/L ALT (4-34) U/L Total Protein (6.3-8.2) g/dL Albumin (3.5-5.0) g/dL Arterial Blood Potassium (3.4-4.5) mmol/L Arterial Blood Glucose (75-99) mg/dL Crossmatch 06/02/22 06/02/22 06/02/22 Range/Units 01:55 02:57 03:48 WBC (3.8-10.6) k/uL RBC (3.80-5.40) m/uL Hgb (11.4-16.0) gm/dL Hct (34.0-46.0) % MCV (80.0-100.0) fL Plt Count (150-450) k/uL Neutrophils # (1.3-7.7) k/uL Lymphocytes # (1.0-4.8) k/uL PT (9.0-12.0) sec INR (<1.2) APTT (22.0-30.0) sec ABG pH (7.35-7.45) ABG pCO2 (35-45) mmHg ABG pO2 (83-108) mmHg ABG Total CO2 (19-24) mmol/L ABG O2 Saturation (94-97) % ABG Hematocrit (34.0-46.0) % ABG Sodium (135-146) mmol/L ABG Potassium (3.4-4.5) mmol/L ABG Ionized Calcium (4.5-5.3) mg/dL ABG Glucose (75-99) mg/dL ABG Lactic Acid (0.5-1.6) mmol/L Hemoglobin (11.4-16.0) gm/dL Sodium (137-145) mmol/L Glucose (74-99) mg/dL POC Glucose (mg/dL) 121 H 121 H 121 H (70-110) mg/dL Calcium (8.4-10.2) mg/dL Magnesium (1.6-2.3) mg/dL AST (14-36) U/L ALT (4-34) U/L Total Protein (6.3-8.2) g/dL Albumin (3.5-5.0) g/dL Arterial Blood Potassium (3.4-4.5) mmol/L Arterial Blood Glucose (75-99) mg/dL Crossmatch 06/02/22 06/02/22 06/02/22 Range/Units 03:49 03:49 04:58 WBC (3.8-10.6) k/uL RBC 2.50 L (3.80-5.40) m/uL Hgb 8.4 L (11.4-16.0) gm/dL Hct 25.3 L (34.0-46.0) % MCV 101.0 H (80.0-100.0) fL Plt Count 146 L (150-450) k/uL Neutrophils # (1.3-7.7) k/uL Lymphocytes # 0.8 L (1.0-4.8) k/uL PT (9.0-12.0) sec INR (<1.2) APTT (22.0-30.0) sec ABG pH (7.35-7.45) ABG pCO2 (35-45) mmHg ABG pO2 (83-108) mmHg ABG Total CO2 (19-24) mmol/L ABG O2 Saturation (94-97) % ABG Hematocrit (34.0-46.0) % ABG Sodium (135-146) mmol/L ABG Potassium (3.4-4.5) mmol/L ABG Ionized Calcium (4.5-5.3) mg/dL ABG Glucose (75-99) mg/dL ABG Lactic Acid (0.5-1.6) mmol/L Hemoglobin (11.4-16.0) gm/dL Sodium 130 L (137-145) mmol/L Glucose 104 H (74-99) mg/dL POC Glucose (mg/dL) 120 H (70-110) mg/dL Calcium 7.9 L (8.4-10.2) mg/dL Magnesium (1.6-2.3) mg/dL AST 91 H (14-36) U/L ALT 38 H (4-34) U/L Total Protein 4.5 L (6.3-8.2) g/dL Albumin 2.7 L (3.5-5.0) g/dL Arterial Blood Potassium (3.4-4.5) mmol/L Arterial Blood Glucose (75-99) mg/dL Crossmatch 06/02/22 06/02/22 06/02/22 Range/Units 05:56 06:54 08:46 WBC (3.8-10.6) k/uL RBC (3.80-5.40) m/uL Hgb (11.4-16.0) gm/dL Hct (34.0-46.0) % MCV (80.0-100.0) fL Plt Count (150-450) k/uL Neutrophils # (1.3-7.7) k/uL Lymphocytes # (1.0-4.8) k/uL PT (9.0-12.0) sec INR (<1.2) APTT (22.0-30.0) sec ABG pH (7.35-7.45) ABG pCO2 (35-45) mmHg ABG pO2 (83-108) mmHg ABG Total CO2 (19-24) mmol/L ABG O2 Saturation (94-97) % ABG Hematocrit (34.0-46.0) % ABG Sodium (135-146) mmol/L ABG Potassium (3.4-4.5) mmol/L ABG Ionized Calcium (4.5-5.3) mg/dL ABG Glucose (75-99) mg/dL ABG Lactic Acid (0.5-1.6) mmol/L Hemoglobin (11.4-16.0) gm/dL Sodium (137-145) mmol/L Glucose (74-99) mg/dL POC Glucose (mg/dL) 124 H 124 H 124 H (70-110) mg/dL Calcium (8.4-10.2) mg/dL Magnesium (1.6-2.3) mg/dL AST (14-36) U/L ALT (4-34) U/L Total Protein (6.3-8.2) g/dL Albumin (3.5-5.0) g/dL Arterial Blood Potassium (3.4-4.5) mmol/L Arterial Blood Glucose (75-99) mg/dL Crossmatch - Imaging and Cardiology Chest x-ray: report reviewed, image reviewed Assessment and Plan Assessment: 1. Coronary artery disease, non-STEMI this admission, status post 3 vessel coronary artery bypass grafting surgery 2. Hypertension 3. Lupus, Sjogren's 4. History of asthma, preoperative FEV1 101% of predicted 5. Remote pneumonia history 6. Lifetime non-smoker 7. Postoperative acute blood loss anemia, expected given hemodilution and cardiopulmonary bypass Plan: 1. Continue to maximize medical therapy with aspirin, statin, Plavix, and beta rajan. Will increase metoprolol tartrate as tolerated. 2. Discontinue nitroglycerin drip. 3. Discontinue Cardizem drip and start Norvasc 2.5 mg by mouth daily at noon for radial artery spasm prophylaxis. Hold parameters in place. 4. Encourage incentive spirometry 10 times every hour while awake. Br onchodilators per pulmonology/critical care medicine. 5. Increase activity, ambulate as tolerated. PT/OT/cardiac rehab consulted. 6. Will monitor daily labs and chest x-rays. Electrolyte replacement per protocol. 7. Pain control with current medication regimen. 8. Insulin management per primary care service. Patient is not a diabetic, hemoglobin A1c 5.7%. 9. Discontinue Hooven Balwinder catheter. Connect right IJ Cordis to continuous CVP monitoring. 10. Continue chest tubes for another 24 hours. 11. Continue Salmon catheter for another 24 hours for strict accurate intake and output. Daily weights 12. Remove left arm DIVINA drain. 13. GI and DVT prophylaxis. 14. Patient was restarted on her home dose of Plaquenil and Evoxac. 15. More recommendations to follow based on patient's clinical course. Time with Patient: Greater than 30
[2022-06-02] MEDS: HYDROXYCHLOROQUINE SULFATE 200 MG TAB PO SCH ×2 (10:36→20:53)
[2022-06-02] MEDS: LACTATED RINGERS 1,000 ML IV SCH (11:01)
[2022-06-02 11:24] LABS: Glucose,Whole Blood 119 mg/dL (70-110)
[2022-06-02 11:48] VITALS: BMI 23.5
--- NOTE | 2022-06-02 13:21 | P.PN ---
Subjective Progress Note Date: 06/02/22 66-year-old male patient is being seen in the intensive care unit following her cardiac surgery. The patient underwent coronary artery bypass surgery and currently she is postop day #0. I saw this patient immediately after she arrived to the intensive care unit and the patient was on propofol running at 35 mcg/kg per minute. The patient underwent three-vessel bypass surgery including SHARMA to LAD and saphenous vein grafts to PDA and radial 2 ramus. The patient is currently comfortable hemodynamically stable. Cardiac output is at 4.0 with an index of 2.5. The patient has a pulmonary artery pressure of 31/16. The patient is currently on no pressors. She is on Cardizem drip at 5 mg an hour. The patient is paced at the rate of 80. Underlying cardiac rhythm is sinus bradycardia at the rate of 50. The patient is currently synchronous with the mechanical ventilator lesions she is an assist-control mode at the rate of 14 with a tidal volume of 400 and FiO2 of 40% with a PEEP of 5. Chest x-ray showed adequate positioning of the ET tube. The patient has some atelectatic changes and small effusion the left lung base. Right lung essentially clear. In terms of tubes, the patient has a mediastinal and left pleural chest tube. Output from the left pleural has been in the order of 50 mL since she had output from the operating room after the mediastinum has been approximately 60 mL. No evidence of any air leak. No evidence of any pneumothorax. The blood gas showed adequate oxygenation. The patient had a pO2 of 376 with a pCO2 of 34 and pH of 7.44. This was on FiO2 of 100% and FiO2 has been drop down to 50% and currently is down to 40%. IV fluids are in the form of lactated Ringer at the rate of 50 mL an hour. The patient is producing adequate amount of urine output. No other significant events otherwise for now. On today's evaluation of 06/02/2022, the patient is extubated and the patient is currently doing well on 3 L about 2 by nasal cannula. She is awake and alert. Tranquillity-Jaren catheter removed after confirming cardiac index of 2.3 this morning. The patient is also maintaining her on normal sinus rhythm and her current heart rate is above 80. No sinus bradycardia this point in time. She using incentive spirometer. She is pulling approximately 1000 on dialysis. Urine output is adequate. Output from the mediastinal and left pleural chest tube is minimal in the order of 10 mL an hour. No other significant events. Initial pain. No issues with any focal neurological deficit. The chest x-ray showed adequate expansion of both lungs. Chest tubes are in good location. No nausea. No vomiting. No diarrhea. No abdominal pain. No skin rashes. No other issues for now. The blood work from today shows a white cell count of 9 with a hemoglobin 8.4 and the patient has a sodium level of 1:30 with a mean of 14 and a creatinine of 0.7. Normal LFTs. Objective - Vital Signs Vital signs: Vital Signs Temp 99.0 F 06/02/22 04:00 Pulse 71 06/02/22 11:00 Resp 34 H 06/02/22 11:40 BP 101/48 06/02/22 09:30 Pulse Ox 100 06/02/22 11:40 FiO2 2 06/02/22 02:00 Intake & Output 06/01/22 06/02/22 06/02/22 18:59 06:59 18:59 Intake Total 589.939 959.154 669.533 Output Total 3280 949 245 Balance -2690.061 10.154 424.533 Weight 62.2 kg 62.2 kg Intake: IV 219 847 184 Lactated Ringers 1,000 ml 600 160 @ 20 mls/hr IV .Q24H [facility] Rx#:[id number] cardiac output 80 130 pressure bag 36 117 24 Intake, IV Titration 370.939 112.154 365.533 Amount ACETAMINOPHEN IV (For NPO 100 ) 1,000 mg In Empty Bag 1 bag @ 400 mls/hr IVPB Q6HR [facility] Rx#:[id number] Albumin Human 5% 500 ml 250 In Empty Bag 1 bag @ 250 mls/hr IVPB ONCE ONE Rx#: [id number] Diltiazem 125 mg In 57.667 37.083 Sodium Chloride 0.9% 100 ml @ 5 MG/HR 5 mls/hr IV .Q24H [facility] Rx#:[id number] Insulin Regular 100 unit 4.487 In Sodium Chloride 0.9% 100 ml @ Per Protocol IV .Q0M [facility] Rx#:[id number] Lactated Ringers 1,000 ml 200 50 @ 20 mls/hr IV .Q24H [facility] Rx#:[id number] Nitroglycerin-D5w Pmx 50 28.45 mg In Dextrose/Water 1 250ml.bag @ 5 MCG/MIN 1.5 mls/hr IV .Q24H [facility] Rx#: [id number] ceFAZolin 2 gm In Sodium 50 Chloride 0.9% 50 ml @ 100 mls/hr IVPB ONCE ONE Rx# :[id number] ceFAZolin 2 gm In Sodium 50 Chloride 0.9% 50 ml @ 100 mls/hr IVPB Q8HR [facility] Rx# :[id number] propofoL 1,000 mg In 20.939 Empty Bag 1 bag @ Titrate IV .Q0M [facility] Rx#: [id number] Oral 120 Output: Chest Tube Drainage 155 349 80 Left pleural 55 159 40 mediastinal 100 190 40 Urine 2125 600 165 Estimated Blood Loss 1000 Other: Voiding Method Indwelling Catheter Indwelling Catheter Indwelling Catheter ABP, PAP, CO, CI - Last Documented Arterial Blood Pressure 89/33 Pulmonary Artery Pressure 26/8 Cardiac Output 4.3 Cardiac Index 2.6 - Exam Patient is extubated currently on 3 L of oxygen nasal cannula Head exam was generally normal. There was no scleral icterus or corneal arcus. Mucous membranes were moist. The patient has a right IJ Tranquillity-Jaren catheter has been removed and the cordis is still in place Neck was supple and without jugular venous distension, thyromegaly, or carotid bruits. Carotids were easily palpable bilaterally. There was no adenopathy. Lungs were clear to auscultation and percussion, and with normal diaphragmatic excursion. No wheezes or rales were noted. Breath sounds are slightly diminished in the left lung base. Otherwise equal and symmetrical and the sternum is stable clean and intact. The patient has a left pleural and mediastinal chest tube both of them are in place. Heart is paced at this point at the rate of 80. No significant murmurs appreciated. Abdominal exam revealed normal bowel sounds. The abdomen was soft, non-tender, and without masses, organomegaly, or appreciable enlargement of the abdominal aorta. Examination of the extremities revealed easily palpable radial, femoral and pedal pulses. There was no cyanosis, clubbing or edema. The patient had a left radial artery harvest and the patient is a DIVINA drain in the left upper extremity and output has been in the order of 5-10 mL in the DIVINA drain. Otherwise, the lower extremities are stable with equal and symmetrical pulses. No cyanosis. No clubbing. Neurologically, the patient is in the patient is fully awake and alert and she is sitting up on a chair without any focal neurological deficits. - Labs CBC & Chem 7: 06/02/22 03:49 06/02/22 03:49 Labs: Abnormal Lab Results - Last 24 Hours (Table) 05/31/22 06/01/22 06/01/22 Range/Units 08:58 13:40 13:40 WBC (3.8-10.6) k/uL RBC 2.29 L (3.80-5.40) m/uL Hgb 7.9 L D (11.4-16.0) gm/dL Hct 22.6 L (34.0-46.0) % MCV (80.0-100.0) fL Plt Count 122 L (150-450) k/uL Neutrophils # (1.3-7.7) k/uL Lymphocytes # (1.0-4.8) k/uL PT 12.4 H (9.0-12.0) sec INR 1.2 H (<1.2) APTT 33.1 H (22.0-30.0) sec ABG pO2 (83-108) mmHg ABG Total CO2 (19-24) mmol/L ABG O2 Saturation (94-97) % Sodium (137-145) mmol/L Glucose (74-99) mg/dL POC Glucose (mg/dL) (70-110) mg/dL Calcium (8.4-10.2) mg/dL Magnesium (1.6-2.3) mg/dL AST (14-36) U/L ALT (4-34) U/L Total Protein (6.3-8.2) g/dL Albumin (3.5-5.0) g/dL Crossmatch See Detail 06/01/22 06/01/22 06/01/22 Range/Units 13:40 13:42 15:02 WBC (3.8-10.6) k/uL RBC (3.80-5.40) m/uL Hgb (11.4-16.0) gm/dL Hct (34.0-46.0) % MCV (80.0-100.0) fL Plt Count (150-450) k/uL Neutrophils # (1.3-7.7) k/uL Lymphocytes # (1.0-4.8) k/uL PT (9.0-12.0) sec INR (<1.2) APTT (22.0-30.0) sec ABG pO2 299 H (83-108) mmHg ABG Total CO2 (19-24) mmol/L ABG O2 Saturation 100.0 H (94-97) % Sodium 130 L (137-145) mmol/L Glucose (74-99) mg/dL POC Glucose (mg/dL) 122 H (70-110) mg/dL Calcium 8.0 L (8.4-10.2) mg/dL Magnesium 2.6 H (1.6-2.3) mg/dL AST 60 H (14-36) U/L ALT (4-34) U/L Total Protein 3.8 L (6.3-8.2) g/dL Albumin 2.2 L (3.5-5.0) g/dL Crossmatch 06/01/22 06/01/22 06/01/22 Range/Units 16:05 16:24 17:14 WBC (3.8-10.6) k/uL RBC 2.51 L (3.80-5.40) m/uL Hgb 8.5 L (11.4-16.0) gm/dL Hct 25.2 L (34.0-46.0) % MCV 100.3 H (80.0-100.0) fL Plt Count (150-450) k/uL Neutrophils # 8.7 H (1.3-7.7) k/uL Lymphocytes # 0.9 L (1.0-4.8) k/uL PT (9.0-12.0) sec INR (<1.2) APTT (22.0-30.0) sec ABG pO2 (83-108) mmHg ABG Total CO2 (19-24) mmol/L ABG O2 Saturation (94-97) % Sodium (137-145) mmol/L Glucose (74-99) mg/dL POC Glucose (mg/dL) 127 H 129 H (70-110) mg/dL Calcium (8.4-10.2) mg/dL Magnesium (1.6-2.3) mg/dL AST (14-36) U/L ALT (4-34) U/L Total Protein (6.3-8.2) g/dL Albumin (3.5-5.0) g/dL Crossmatch 06/01/22 06/01/22 06/01/22 Range/Units 17:30 18:11 18:59 WBC (3.8-10.6) k/uL RBC (3.80-5.40) m/uL Hgb (11.4-16.0) gm/dL Hct (34.0-46.0) % MCV (80.0-100.0) fL Plt Count (150-450) k/uL Neutrophils # (1.3-7.7) k/uL Lymphocytes # (1.0-4.8) k/uL PT (9.0-12.0) sec INR (<1.2) APTT (22.0-30.0) sec ABG pO2 116 H (83-108) mmHg ABG Total CO2 26 H (19-24) mmol/L ABG O2 Saturation 97.9 H (94-97) % Sodium (137-145) mmol/L Glucose (74-99) mg/dL POC Glucose (mg/dL) 124 H 123 H (70-110) mg/dL Calcium (8.4-10.2) mg/dL Magnesium (1.6-2.3) mg/dL AST (14-36) U/L ALT (4-34) U/L Total Protein (6.3-8.2) g/dL Albumin (3.5-5.0) g/dL Crossmatch 06/01/22 06/01/22 06/01/22 Range/Units 20:05 20:53 21:49 WBC 11.0 H (3.8-10.6) k/uL RBC 2.74 L (3.80-5.40) m/uL Hgb 9.2 L (11.4-16.0) gm/dL Hct 27.3 L (34.0-46.0) % MCV (80.0-100.0) fL Plt Count 148 L (150-450) k/uL Neutrophils # 9.8 H (1.3-7.7) k/uL Lymphocytes # 0.6 L (1.0-4.8) k/uL PT (9.0-12.0) sec INR (<1.2) APTT (22.0-30.0) sec ABG pO2 (83-108) mmHg ABG Total CO2 (19-24) mmol/L ABG O2 Saturation (94-97) % Sodium (137-145) mmol/L Glucose (74-99) mg/dL POC Glucose (mg/dL) 130 H 128 H (70-110) mg/dL Calcium (8.4-10.2) mg/dL Magnesium (1.6-2.3) mg/dL AST (14-36) U/L ALT (4-34) U/L Total Protein (6.3-8.2) g/dL Albumin (3.5-5.0) g/dL Crossmatch 06/01/22 06/01/22 06/02/22 Range/Units 22:56 23:51 00:53 WBC (3.8-10.6) k/uL RBC (3.80-5.40) m/uL Hgb (11.4-16.0) gm/dL Hct (34.0-46.0) % MCV (80.0-100.0) fL Plt Count (150-450) k/uL Neutrophils # (1.3-7.7) k/uL Lymphocytes # (1.0-4.8) k/uL PT (9.0-12.0) sec INR (<1.2) APTT (22.0-30.0) sec ABG pO2 (83-108) mmHg ABG Total CO2 (19-24) mmol/L ABG O2 Saturation (94-97) % Sodium (137-145) mmol/L Glucose (74-99) mg/dL POC Glucose (mg/dL) 125 H 124 H 127 H (70-110) mg/dL Calcium (8.4-10.2) mg/dL Magnesium (1.6-2.3) mg/dL AST (14-36) U/L ALT (4-34) U/L Total Protein (6.3-8.2) g/dL Albumin (3.5-5.0) g/dL Crossmatch 06/02/22 06/02/22 06/02/22 Range/Units 01:55 02:57 03:48 WBC (3.8-10.6) k/uL RBC (3.80-5.40) m/uL Hgb (11.4-16.0) gm/dL Hct (34.0-46.0) % MCV (80.0-100.0) fL Plt Count (150-450) k/uL Neutrophils # (1.3-7.7) k/uL Lymphocytes # (1.0-4.8) k/uL PT (9.0-12.0) sec INR (<1.2) APTT (22.0-30.0) sec ABG pO2 (83-108) mmHg ABG Total CO2 (19-24) mmol/L ABG O2 Saturation (94-97) % Sodium (137-145) mmol/L Glucose (74-99) mg/dL POC Glucose (mg/dL) 121 H 121 H 121 H (70-110) mg/dL Calcium (8.4-10.2) mg/dL Magnesium (1.6-2.3) mg/dL AST (14-36) U/L ALT (4-34) U/L Total Protein (6.3-8.2) g/dL Albumin (3.5-5.0) g/dL Crossmatch 06/02/22 06/02/22 06/02/22 Range/Units 03:49 03:49 04:58 WBC (3.8-10.6) k/uL RBC 2.50 L (3.80-5.40) m/uL Hgb 8.4 L (11.4-16.0) gm/dL Hct 25.3 L (34.0-46.0) % MCV 101.0 H (80.0-100.0) fL Plt Count 146 L (150-450) k/uL Neutrophils # (1.3-7.7) k/uL Lymphocytes # 0.8 L (1.0-4.8) k/uL PT (9.0-12.0) sec INR (<1.2) APTT (22.0-30.0) sec ABG pO2 (83-108) mmHg ABG Total CO2 (19-24) mmol/L ABG O2 Saturation (94-97) % Sodium 130 L (137-145) mmol/L Glucose 104 H (74-99) mg/dL POC Glucose (mg/dL) 120 H (70-110) mg/dL Calcium 7.9 L (8.4-10.2) mg/dL Magnesium (1.6-2.3) mg/dL AST 91 H (14-36) U/L ALT 38 H (4-34) U/L Total Protein 4.5 L (6.3-8.2) g/dL Albumin 2.7 L (3.5-5.0) g/dL Crossmatch 06/02/22 06/02/22 06/02/22 Range/Units 05:56 06:54 08:46 WBC (3.8-10.6) k/uL RBC (3.80-5.40) m/uL Hgb (11.4-16.0) gm/dL Hct (34.0-46.0) % MCV (80.0-100.0) fL Plt Count (150-450) k/uL Neutrophils # (1.3-7.7) k/uL Lymphocytes # (1.0-4.8) k/uL PT (9.0-12.0) sec INR (<1.2) APTT (22.0-30.0) sec ABG pO2 (83-108) mmHg ABG Total CO2 (19-24) mmol/L ABG O2 Saturation (94-97) % Sodium (137-145) mmol/L Glucose (74-99) mg/dL POC Glucose (mg/dL) 124 H 124 H 124 H (70-110) mg/dL Calcium (8.4-10.2) mg/dL Magnesium (1.6-2.3) mg/dL AST (14-36) U/L ALT (4-34) U/L Total Protein (6.3-8.2) g/dL Albumin (3.5-5.0) g/dL Crossmatch 06/02/22 Range/Units 11:22 WBC (3.8-10.6) k/uL RBC (3.80-5.40) m/uL Hgb (11.4-16.0) gm/dL Hct (34.0-46.0) % MCV (80.0-100.0) fL Plt Count (150-450) k/uL Neutrophils # (1.3-7.7) k/uL Lymphocytes # (1.0-4.8) k/uL PT (9.0-12.0) sec INR (<1.2) APTT (22.0-30.0) sec ABG pO2 (83-108) mmHg ABG Total CO2 (19-24) mmol/L ABG O2 Saturation (94-97) % Sodium (137-145) mmol/L Glucose (74-99) mg/dL POC Glucose (mg/dL) 119 H (70-110) mg/dL Calcium (8.4-10.2) mg/dL Magnesium (1.6-2.3) mg/dL AST (14-36) U/L ALT (4-34) U/L Total Protein (6.3-8.2) g/dL Albumin (3.5-5.0) g/dL Crossmatch Assessment and Plan Plan: On a artery bypass surgery/CABG. The patient underwent three-vessel bypass with SHARMA to LAD, radial and saphenous vein grafts also use. The patient is postop day # 1. Currently on a Cardizem drip. Hemodynamically stable with adequate cardiac output and index. No pressors at this point in time.The patient is maintaining a normal sinus rhythm and the patient has been extubated and his Tranquillity-Jaren catheter removed. Post thoracotomy, currently extubated on 3 L about 2 by nasal cannula. Chest tubes are still in place Non-ST segment elevation myocardial infarction, with three-vessel coronary artery disease. History of asthma, not active at this time. History of lupus. History of Sjogren's syndrome. History of hypertension. Lifelong nonsmoker. Remote history of pneumonia. Anemia, expected outcome surgery and the patient's hemoglobin is stable, about 8 Plan: Monitor the chest tube output for another 24 hours and possibly remove the chest tubes in a.m. Tranquillity-Jaren catheter was removed The patient was extubated today. zoë The patient is hemodynamically stable The patient is currently on 3 L O2 nasal cannula Check weaning parameters and assess candidacy for weaning. This will largely depend on her neuro status, ability to give us good weaning parameters and hopefully she'll be able to do a spontaneous breathing trial without any major d ifficulties Cardizem drip has been discontinued Continue aspirin and Plavix Started patient on metoprolol 12.5 mg by mouth twice a day Backup pacemaker at the rate of 50 Monitor hemodynamics Keep the patient in intensive care. Follow 24 hours. She is tolerating her diet.
[2022-06-02] MEDS: INSULIN ASPART (NovoLOG) 100 UNIT/ML VIAL SQ SCH ×3 (13:54→21:26)
[2022-06-02] MEDS: amLODIPine 2.5 MG TAB PO SCH (15:11)
[2022-06-02] MEDS: CEVIMELINE 30 MG CAP PO SCH ×2 (15:12→21:26)
[2022-06-02 16:30] LABS: Glucose,Whole Blood 150 mg/dL (70-110)
--- NOTE | 2022-06-02 17:36 | P.PN ---
Subjective Progress Note Date: 06/02/22 66-year-old pleasant female was transferred from [facility] after she was found to have three-vessel disease and patient is transferred here for coronary artery bypass grafting which was scheduled for Wednesday. Patient is undergoing workup for that at this time. Patient had non-ST elevation microinfarction and patient had 90% stenosis in LAD ramus intermedius stenosis 95% proximal RCA stenosis 80%. Patient had normal ejection fraction now diastolic function with apical lateral hypokinesis. A she is hyponatremic and patient does take Lasix at home which is being held at this time because of the hyponatremia. History of lupus and Sjogren syndrome. 05/29/2022 Patient evaluated on cardiac unit. She has been evaluated by cardiothoracic services and plan is for coronary artery bypass grafting on Wednesday. Metabolic panel today shows sodium level of 131, creatinine stable. She remains afebrile, heart rate 67, blood pressure 161/80, 96% room air. No acute events overnight. She continues on heparin gtt. Continue to hold home lasix. 05/30/2022 Patient is seen and evaluated in follow-up this morning with family at the bedside and reports to feeling well. Patient has been up and walking multiple times. Plan is for CABG on Wednesday with CT surgery, cardiology, and pulmonary following closely. No labs available today and recommend am labs. Patient is continued on IV heparin. Patient denies chest pain or shortness of breath. Patient is afebrile and denies any nausea or vomiting. 05/31/2022 Patient is seen this morning with cardiothoracic surgery following closely as there is plans for CABG in the a.m. chest x-ray this morning shows no acute cardiopulmonary process. Patient to continue current diet and will be made nothing by mouth at midnight and plan is to proceed with CABG with cardiothoracic surgery and patient is anxious and looking forward to getting this done and working on rehab and going home. Heart rate in the high 50s to low 60s and blood pressure currently controlled and patient is on room air at 96% saturation. Patient denies chest pain or palpitations. Patient is afebrile. Patient is tolerating diet with no reports of nausea or vomiting noted. Labs: WBC is 5.5, hemoglobin is 11.9, platelets are 237 and INR is 1.0, sodium is 131, potassium 4.4, current creatinine is 0.81, magnesium is 1.7, total bili is 0.3, AST 57, ALT 42 06/01/2022 Patient scheduled for CABG today with cardiothoracic surgery and will be monitored in intensive care unit post procedure. Blood glucose today 101. Preoperative vitals include temperature of 97.5, heart rate 60, blood pressure 158/60, 100% room air. Patient not in room to examine, has gone to the OR to undergo coronary artery bypass grafting. 06/02/2022 Patient evaluated this morning in intensive care unit post operative Day #1 coronary artery bypass grafting x 3 vessels with left internal mammary artery to left anterior descending coronary artery, radial artery to the ramus coronary artery, and a saphenous vein graft to the posterior descending coronary artery. Patient has been extubated and is continued on 2L nasal cannula with oxygen saturations 94 to 95%, afebrile, heart rate 90s, blood pressure 103/61. Labs today showing white count 9.0, hgb 8.4, which is expected postoperatively, sod ium 130, potassium 4.6, BUN 14, creatinine 0.76, blood glucose in the 120s, magnesium 2.1, liver enzymes with mild elevation., albumin 2.7 today. Patient did receive IV albumin this morning, has been started on amlodipine, plavix, plaquenil. Patient reports using incentive spirometer and has ambulated in the hallway. Reports generalized chest discomfort for which she is receiving norco. She is on bowel regimen. Mediastinal and left pleural chest tubes in place. Review of Systems Constitutional: Denied any fatigue denied any fever. Cardio vascular: denied any chest pain, palpitations Gastrointestinal: denied any nausea, vomiting, diarrhea Pulmonary: Denied any shortness of breath cough Neurologic denied any new focal deficits All inpatient medications were reviewed and appropriate changes in these medications as dictated in the interval history and assessment and plan. PHYSICAL EXAMINATION: GENERAL: The patient is alert and oriented x3, not in any acute distress. Well developed, well nourished. HEENT: Pupils are round and equally reacting to light. EOMI. No scleral icterus. No conjunctival pallor. Normocephalic, atraumatic. No pharyngeal erythema. No thyromegaly. CARDIOVASCULAR: S1 and S2 present. No murmurs, rubs, or gallops. PULMONARY: Diminished bilateral base greater in left. Post surgical. Chest tubes in place. Indwelling catheter in place. ABDOMEN: Soft, nontender, nondistended, normoactive bowel sounds. No palpable organomegaly. MUSCULOSKELETAL: No joint swelling or deformity. EXTREMITIES: No cyanosis, clubbing, or pedal edema. DIVINA drain presents left upper extremity. NEUROLOGICAL: Gross neurological examination did not reveal any focal deficits. SKIN: No rashes. Assessment and plan -Postoperative day #1 coronary artery bypass grafting x 3 vessel, continues to be monitored in intensive care unit with mediastinal and left pleural chest tubes in place. -Acute non-ST elevation myocardial infarction with triple vessel disease -Postoperative anemia which is expected -Lupus and Sjogren's disease fairly stable without any acute exacerbation -hypovolemic hyponatremia, sodium 130 today -Hypertension -History asthma, stable -Low TSH, with T4 in normal limits -Mild elevated transaminases DVT prophylaxis: Subcutaneous heparin GI Prophylaxis:Protonix Full Code Plan Continue to monitor patient in the intensive care unit Continue to monitor blood glucose, will adjust insulin as needed Patient is being followed by pulmonary green chain operator, cardiology, cardiothoracic surgeon Shaina gtt has been discontinued, patient is in normal sinus rhythm Continue to encourage incentive spirometer, ambulation Pain management Bowel Regimen Repeat labs in AM The impression and plan of care has been dictated by Dary Moser, Nurse Practitioner as directed. Dr. Suresh MD I have performed a history and physical examination and medical decision making of this patient, discussed the same with the dictator, and agree with the dictators assessment and plan as written, documented as a scribe. Based on total visit time, I have performed more than 50% of this visit. Objective - Vital Signs Vital signs: Vital Signs Temp 98.2 F 06/02/22 16:00 Pulse 96 06/02/22 17:00 Resp 18 06/02/22 17:00 BP 103/61 06/02/22 17:00 Pulse Ox 95 06/02/22 17:00 FiO2 2 06/02/22 16:00 Intake & Output 06/01/22 06/02/22 06/02/22 18:59 06:59 18:59 Intake Total 589.939 442.029 0780.533 Output Total 3280 949 560 Balance -2690.061 10.154 865.533 Weight 62.2 kg 62.2 kg Intake: IV 219 847 460 Lactated Ringers 1,000 ml 600 400 @ 20 mls/hr IV .Q24H [facility] Rx#:[id number] cardiac output 80 130 pressure bag 36 117 60 Intake, IV Titration 370.939 112.154 365.533 Amount ACETAMINOPHEN IV (For NPO 100 ) 1,000 mg In Empty Bag 1 bag @ 400 mls/hr IVPB Q6HR [facility] Rx#:[id number] Albumin Human 5% 500 ml 250 In Empty Bag 1 bag @ 250 mls/hr IVPB ONCE ONE Rx#: [id number] Diltiazem 125 mg In 57.667 37.083 Sodium Chloride 0.9% 100 ml @ 5 MG/HR 5 mls/hr IV .Q24H [facility] Rx#:[id number] Insulin Regular 100 unit 4.487 In Sodium Chloride 0.9% 100 ml @ Per Protocol IV .Q0M [facility] Rx#:[id number] Lactated Ringers 1,000 ml 200 50 @ 20 mls/hr IV .Q24H [facility] Rx#:[id number] Nitroglycerin-D5w Pmx 50 28.45 mg In Dextrose/Water 1 250ml.bag @ 5 MCG/MIN 1.5 mls/hr IV .Q24H [facility] Rx#: [id number] ceFAZolin 2 gm In Sodium 50 Chloride 0.9% 50 ml @ 100 mls/hr IVPB ONCE ONE Rx# :[id number] ceFAZolin 2 gm In Sodium 50 Chloride 0.9% 50 ml @ 100 mls/hr IVPB Q8HR [facility] Rx# :[id number] propofoL 1,000 mg In 20.939 Empty Bag 1 bag @ Titrate IV .Q0M [facility] Rx#: [id number] Oral 600 Output: Chest Tube Drainage 155 349 140 Left pleural 55 159 60 mediastinal 100 190 80 Urine 2125 600 420 Estimated Blood Loss 1000 Other: Voiding Method Indwelling Catheter Indwelling Catheter Indwelling Catheter ABP, PAP, CO, CI - Last Documented Arterial Blood Pressure 103/42 Pulmonary Artery Pressure 26/8 Cardiac Output 4.3 Cardiac Index 2.6 - Labs CBC & Chem 7: 06/02/22 03:49 06/02/22 03:49 Labs: Abnormal Lab Results - Last 24 Hours (Table) 05/31/22 06/01/22 06/01/22 Range/Units 08:58 16:24 17:30 WBC (3.8-10.6) k/uL RBC 2.51 L (3.80-5.40) m/uL Hgb 8.5 L (11.4-16.0) gm/dL Hct 25.2 L (34.0-46.0) % MCV 100.3 H (80.0-100.0) fL Plt Count (150-450) k/uL Neutrophils # 8.7 H (1.3-7.7) k/uL Lymphocytes # 0.9 L (1.0-4.8) k/uL ABG pO2 116 H (83-108) mmHg ABG Total CO2 26 H (19-24) mmol/L ABG O2 Saturation 97.9 H (94-97) % Sodium (137-145) mmol/L Glucose (74-99) mg/dL POC Glucose (mg/dL) (70-110) mg/dL Calcium (8.4-10.2) mg/dL AST (14-36) U/L ALT (4-34) U/L Total Protein (6.3-8.2) g/dL Albumin (3.5-5.0) g/dL Crossmatch See Detail 06/01/22 06/01/22 06/01/22 Range/Units 18:11 18:59 20:05 WBC 11.0 H (3.8-10.6) k/uL RBC 2.74 L (3.80-5.40) m/uL Hgb 9.2 L (11.4-16.0) gm/dL Hct 27.3 L (34.0-46.0) % MCV (80.0-100.0) fL Plt Count 148 L (150-450) k/uL Neutrophils # 9.8 H (1.3-7.7) k/uL Lymphocytes # 0.6 L (1.0-4.8) k/uL ABG pO2 (83-108) mmHg ABG Total CO2 (19-24) mmol/L ABG O2 Saturation (94-97) % Sodium (137-145) mmol/L Glucose (74-99) mg/dL POC Glucose (mg/dL) 124 H 123 H (70-110) mg/dL Calcium (8.4-10.2) mg/dL AST (14-36) U/L ALT (4-34) U/L Total Protein (6.3-8.2) g/dL Albumin (3.5-5.0) g/dL Crossmatch 06/01/22 06/01/22 06/01/22 Range/Units 20:53 21:49 22:56 WBC (3.8-10.6) k/uL RBC (3.80-5.40) m/uL Hgb (11.4-16.0) gm/dL Hct (34.0-46.0) % MCV (80.0-100.0) fL Plt Count (150-450) k/uL Neutrophils # (1.3-7.7) k/uL Lymphocytes # (1.0-4.8) k/uL ABG pO2 (83-108) mmHg ABG Total CO2 (19-24) mmol/L ABG O2 Saturation (94-97) % Sodium (137-145) mmol/L Glucose (74-99) mg/dL POC Glucose (mg/dL) 130 H 128 H 125 H (70-110) mg/dL Calcium (8.4-10.2) mg/dL AST (14-36) U/L ALT (4-34) U/L Total Protein (6.3-8.2) g/dL Albumin (3.5-5.0) g/dL Crossmatch 06/01/22 06/02/22 06/02/22 Range/Units 23:51 00:53 01:55 WBC (3.8-10.6) k/uL RBC (3.80-5.40) m/uL Hgb (11.4-16.0) gm/dL Hct (34.0-46.0) % MCV (80.0-100.0) fL Plt Count (150-450) k/uL Neutrophils # (1.3-7.7) k/uL Lymphocytes # (1.0-4.8) k/uL ABG pO2 (83-108) mmHg ABG Total CO2 (19-24) mmol/L ABG O2 Saturation (94-97) % Sodium (137-145) mmol/L Glucose (74-99) mg/dL POC Glucose (mg/dL) 124 H 127 H 121 H (70-110) mg/dL Calcium (8.4-10.2) mg/dL AST (14-36) U/L ALT (4-34) U/L Total Protein (6.3-8.2) g/dL Albumin (3.5-5.0) g/dL Crossmatch 06/02/22 06/02/22 06/02/22 Range/Units 02:57 03:48 03:49 WBC (3.8-10.6) k/uL RBC 2.50 L (3.80-5.40) m/uL Hgb 8.4 L (11.4-16.0) gm/dL Hct 25.3 L (34.0-46.0) % MCV 101.0 H (80.0-100.0) fL Plt Count 146 L (150-450) k/uL Neutrophils # (1.3-7.7) k/uL Lymphocytes # 0.8 L (1.0-4.8) k/uL ABG pO2 (83-108) mmHg ABG Total CO2 (19-24) mmol/L ABG O2 Saturation (94-97) % Sodium (137-145) mmol/L Glucose (74-99) mg/dL POC Glucose (mg/dL) 121 H 121 H (70-110) mg/dL Calcium (8.4-10.2) mg/dL AST (14-36) U/L ALT (4-34) U/L Total Protein (6.3-8.2) g/dL Albumin (3.5-5.0) g/dL Crossmatch 06/02/22 06/02/22 06/02/22 Range/Units 03:49 04:58 05:56 WBC (3.8-10.6) k/uL RBC (3.80-5.40) m/uL Hgb (11.4-16.0) gm/dL Hct (34.0-46.0) % MCV (80.0-100.0) fL Plt Count (150-450) k/uL Neutrophils # (1.3-7.7) k/uL Lymphocytes # (1.0-4.8) k/uL ABG pO2 (83-108) mmHg ABG Total CO2 (19-24) mmol/L ABG O2 Saturation (94-97) % Sodium 130 L (137-145) mmol/L Glucose 104 H (74-99) mg/dL POC Glucose (mg/dL) 120 H 124 H (70-110) mg/dL Calcium 7.9 L (8.4-10.2) mg/dL AST 91 H (14-36) U/L ALT 38 H (4-34) U/L Total Protein 4.5 L (6.3-8.2) g/dL Albumin 2.7 L (3.5-5.0) g/dL Crossmatch 06/02/22 06/02/22 06/02/22 Range/Units 06:54 08:46 11:22 WBC (3.8-10.6) k/uL RBC (3.80-5.40) m/uL Hgb (11.4-16.0) gm/dL Hct (34.0-46.0) % MCV (80.0-100.0) fL Plt Count (150-450) k/uL Neutrophils # (1.3-7.7) k/uL Lymphocytes # (1.0-4.8) k/uL ABG pO2 (83-108) mmHg ABG Total CO2 (19-24) mmol/L ABG O2 Saturation (94-97) % Sodium (137-145) mmol/L Glucose (74-99) mg/dL POC Glucose (mg/dL) 124 H 124 H 119 H (70-110) mg/dL Calcium (8.4-10.2) mg/dL AST (14-36) U/L ALT (4-34) U/L Total Protein (6.3-8.2) g/dL Albumin (3.5-5.0) g/dL Crossmatch 06/02/22 Range/Units 16:27 WBC (3.8-10.6) k/uL RBC (3.80-5.40) m/uL Hgb (11.4-16.0) gm/dL Hct (34.0-46.0) % MCV (80.0-100.0) fL Plt Count (150-450) k/uL Neutrophils # (1.3-7.7) k/uL Lymphocytes # (1.0-4.8) k/uL ABG pO2 (83-108) mmHg ABG Total CO2 (19-24) mmol/L ABG O2 Saturation (94-97) % Sodium (137-145) mmol/L Glucose (74-99) mg/dL POC Glucose (mg/dL) 150 H (70-110) mg/dL Calcium (8.4-10.2) mg/dL AST (14-36) U/L ALT (4-34) U/L Total Protein (6.3-8.2) g/dL Albumin (3.5-5.0) g/dL Crossmatch Assessment and Plan Time with Patient: Less than 30
[2022-06-02 20:21] LABS: Glucose,Whole Blood 169 mg/dL (70-110)
[2022-06-02] MEDS: AMITRIPTYLINE HCL 50 MG TAB PO SCH (20:52)
[2022-06-02] MEDS: SENNOSIDES-DOCUSATE SODIUM 1 EACH TAB PO SCH (20:53)
[2022-06-03] MEDS: KETOROLAC 15 MG/ML 1 ML VIAL IVP SCH ×5 (00:55→23:26)
[2022-06-03] MEDS: HEPARIN SODIUM,PORCINE/PF 5,000 UNIT/0.5 ML SYRINGE SQ SCH ×4 (00:58→23:26)
[2022-06-03 05:46] LABS: Basophils % (A) 0 %; Eosinophils # (A) 0.3 k/uL (0-0.7); Eosinophils % (A) 3 %; HGB 7.2 gm/dL (11.4-16.0); Lymphocytes # (A) 0.9 k/uL (1.0-4.8); Lymphocytes % (A) 11 %; MCH 33.6 pg (25.0-35.0); MCHC 32.6 g/dL (31.0-37.0); MCV 103.2 fL (80.0-100.0); Macrocytosis Slight; Mean Platelet Volume 8.6; Monocytes # (A) 0.4 k/uL (0-1.0); Monocytes % (A) 4 %; Neutrophils # (A) 6.9 k/uL (1.3-7.7); Neutrophils % (A) 79 %; Platelet Count 147 k/uL (150-450); RBC 2.13 m/uL (3.80-5.40); RDW 13.3 % (11.5-15.5); WBC 8.7 k/uL (3.8-10.6)
[2022-06-03 05:58] LABS: Albumin 2.7 g/dL (3.5-5.0); Calcium 7.8 mg/dL (8.4-10.2); Potassium 4.1 mmol/L (3.5-5.1); Total Bilirubin 0.1 mg/dL (0.2-1.3); Total Protein 4.5 g/dL (6.3-8.2)
[2022-06-03 06:33] LABS: Ionized Calcium 4.6 mg/dL (4.5-5.3)
[2022-06-03 06:50] LABS: Glucose,Whole Blood 162 mg/dL (70-110)
[2022-06-03] MEDS: INSULIN ASPART (NovoLOG) 100 UNIT/ML VIAL SQ SCH ×6 (06:52→20:22)
--- NOTE | 2022-06-03 07:47 | P.PN ---
Subjective Progress Note Date: 06/03/22 Principal diagnosis: Coronary artery disease, non-STEMI this admission. Past medical history significant for hypertension, lupus, Sjogren's, asthma, remote history of pneumonia and is a lifetime nonsmoker. POD #2 coronary artery bypass grafting 3 vessels, left internal mammary artery to left anterior descending coronary artery, radial artery to the ramus coronary artery, and a saphenous vein graft to the posterior descending coronary artery. Endoscopic harvesting of the right greater saphenous vein, endoscopic harvest of the left radial artery, ligation of the left atrial appendage using a 35 mm Atriclip, epi-aortic ultrasound and intraoperative transesophageal echoca rdiogram. Postoperative acute blood loss anemia, expected given hemodilution and cardiopulmonary bypass. The patient was seen and examined today 06/03/2022 at her bedside in the intensive care unit. She is sitting up to the bedside chair, is awake, alert, oriented 3 and is in no acute apparent distress. Denies any complaints of shortness of breath this morning, although is complaining of some surgical type pain to her chest tube insertion sites with taking a deep breath. She currently rates her pain 3 out of 10 on the pain scale. Oxygen saturations are 95% on 2 L nasal cannula and she is achieving 1000 mL on her incentive spirometry. Right IJ cordis remains in place with continuous CVP monitoring, current CVP pressure 3 mmHg. She remains hemodynamically stable and is currently on no inotropic pressor support. Bedside telemetry showing normal sinus rhythm heart rate 98 PPM. Mediastinal and left pleural chest tubes remain in place to low continuous wall suction -20 cm H2O. No air leak is present. Draining thin serosanguineous drainage. Left pleural chest tube drained 10 mL output in the last 8 hours and 110 mL output in the last 24 hours. Mediastinal chest tube drained 40 mL output in the last 8 hours and 150 mL output in the last 24 hours. Salmon catheter remains in place for accurate I's and O's and she had 285 mL output in the last 8 hours. She was up ambulating in the intensive care unit hallway with minimal assistance from nursing and therapy staff and tolerated well. Atrial and ventricular epicardial pacemaker wires remain in place and connected to back up to bedside pacemaker generator on a VVI 50 BPM. Objective - Vital Signs Vital signs: Vital Signs Temp 98.5 F 06/03/22 04:00 Pulse 99 06/03/22 07:00 Resp 17 06/03/22 07:00 BP 139/74 06/03/22 07:00 Pulse Ox 96 06/03/22 07:00 FiO2 2 06/02/22 16:00 Intake & Output 06/02/22 06/03/22 06/03/22 18:59 06:59 18:59 Intake Total 1471.533 598 Output Total 590 530 Balance 881.533 68 Weight 62.2 kg 64.8 kg Intake: IV 506 598 Lactated Ringers 1,000 ml 440 520 @ 20 mls/hr IV .Q24H [facility] Rx#:[id number] pressure bag 66 78 Intake, IV Titration 365.533 Amount Albumin Human 5% 500 ml 250 In Empty Bag 1 bag @ 250 mls/hr IVPB ONCE ONE Rx#: [id number] Diltiazem 125 mg In 37.083 Sodium Chloride 0.9% 100 ml @ 5 MG/HR 5 mls/hr IV .Q24H [facility] Rx#:[id number] Nitroglycerin-D5w Pmx 50 28.45 mg In Dextrose/Water 1 250ml.bag @ 5 MCG/MIN 1.5 mls/hr IV .Q24H [facility] Rx#: [id number] ceFAZolin 2 gm In Sodium 50 Chloride 0.9% 50 ml @ 100 mls/hr IVPB Q8HR [facility] Rx# :[id number] Oral 600 Output: Chest Tube Drainage 140 90 Left pleural 60 20 mediastinal 80 70 Urine 450 440 Other: Voiding Method Indwelling Catheter Indwelling Catheter ABP, PAP, CO, CI - Last Documented Arterial Blood Pressure 157/60 Pulmonary Artery Pressure 26/8 Cardiac Output 4.3 Cardiac Index 2.6 - Exam CONSTITUTIONAL: Sitting up to the bedside chair in the intensive care unit, appears comfortable, cooperative, no apparent acute distress. HEENT: Neck is supple, no JVD, no lymphadenopathy. Right IJ Cordis in place and functioning. RESPIRATORY: Lungs sounds essentially clear throughout, diminished to his bilateral bases. Respirations are symmetrical and nonlabored. Currently on 2 L nasal cannula with oxygen saturations 95%. Able to achieve 1000 mL on her incentive spirometry. Strong cough. CARDIOVASCULAR: Regular rhythm and rate. S1 and S2 present, negative for S3, gallop or murmur. Sternum is stable. Palpable peripheral pulses bilaterally, no edema to her bilateral lower extremities. No calf pain or tenderness noted. Heart hugger in place with patient demonstrating appropriate use. Knee-high CLAIRE hose and sequential compression devices in place to his bilateral lower extremities. GASTROINTESTINAL: Abdomen soft, nontender, nondistended. Active bowel sounds present 4 quadrants. Tolerating diet. Passing flatus. No guarding or rigidity. GENITOURINARY: Salmon present draining clear, yellow urine. Urine output 285 mL in the last 8 hours. INTEGUMENTARY: Skin is warm and dry with no evidence of clubbing or cyanosis. Midline sternal incision clean dry and well approximated, covered with dry intact dressing. Right lower extremity EVH site well approximated without redness or drainage. Left arm radial artery harvest sites clean, dry and approximated. No drainage or redness is present. NEUROLOGIC: Cranial nerves II through XII intact. No focal deficits. MUSKULOSKELETAL: Able to move all extremities, strength equal bilaterally. PSYCHIATRIC: Alert and oriented to person place and time, appropriate affect, intact judgment and insight. INVASIVE LINES AND TUBES: Mediastinal/left pleural chest tubes present and connected to low continuous wall suction, no air leaks present. Mediastinal tube with 40 mL of thin serosanguineous drainage overnight, 150 mL output since surgery. Left pleural chest tube with 10 mL of thin serosanguineous drainage overnight, 110 mL output since surgery. Atrial and ventricular epicardial pacemaker wires present, connected to generator, VVI backup rate 50 bpm. Right internal jugular Cordis, right radial arterial line present. Current CVP 3 mmHg. - Allied health notes Allied health notes reviewed: nursing - Labs CBC & Chem 7: 06/03/22 05:11 06/03/22 05:11 Labs: Abnormal Lab Results - Last 24 Hours (Table) 06/02/22 06/02/22 06/02/22 Range/Units 08:46 11:22 16:27 RBC (3.80-5.40) m/uL Hgb (11.4-16.0) gm/dL Hct (34.0-46.0) % MCV (80.0-100.0) fL Plt Count (150-450) k/uL Lymphocytes # (1.0-4.8) k/uL Sodium (137-145) mmol/L BUN (7-17) mg/dL Glucose (74-99) mg/dL POC Glucose (mg/dL) 124 H 119 H 150 H (70-110) mg/dL Calcium (8.4-10.2) mg/dL Total Bilirubin (0.2-1.3) mg/dL AST (14-36) U/L Total Protein (6.3-8.2) g/dL Albumin (3.5-5.0) g/dL 06/02/22 06/03/22 06/03/22 Range/Units 20:20 05:11 05:11 RBC 2.13 L (3.80-5.40) m/uL Hgb 7.2 L (11.4-16.0) gm/dL Hct 22.0 L (34.0-46.0) % MCV 103.2 H (80.0-100.0) fL Plt Count 147 L (150-450) k/uL Lymphocytes # 0.9 L (1.0-4.8) k/uL Sodium 129 L (137-145) mmol/L BUN 18 H (7-17) mg/dL Glucose 118 H (74-99) mg/dL POC Glucose (mg/dL) 169 H (70-110) mg/dL Calcium 7.8 L (8.4-10.2) mg/dL Total Bilirubin 0.1 L (0.2-1.3) mg/dL AST 59 H (14-36) U/L Total Protein 4.5 L (6.3-8.2) g/dL Albumin 2.7 L (3.5-5.0) g/dL 06/03/22 Range/Units 06:48 RBC (3.80-5.40) m/uL Hgb (11.4-16.0) gm/dL Hct (34.0-46.0) % MCV (80.0-100.0) fL Plt Count (150-450) k/uL Lymphocytes # (1.0-4.8) k/uL Sodium (137-145) mmol/L BUN (7-17) mg/dL Glucose (74-99) mg/dL POC Glucose (mg/dL) 162 H (70-110) mg/dL Calcium (8.4-10.2) mg/dL Total Bilirubin (0.2-1.3) mg/dL AST (14-36) U/L Total Protein (6.3-8.2) g/dL Albumin (3.5-5.0) g/dL - Imaging and Cardiology Chest x-ray: report reviewed, image reviewed Assessment and Plan Assessment: 1. Coronary artery disease, non-STEMI this admission, status post 3 vessel coronary artery bypass grafting surgery 2. Hypertension 3. Lupus, Sjogren's 4. History of asthma, preoperative FEV1 101% of predicted 5. Remote pneumonia history 6. Lifetime non-smoker 7. Postoperative acute blood loss anemia, expected given hemodilution and cardiopulmonary bypass Plan: 1. Continue to maximize medical therapy with aspirin, statin, Plavix, and beta rajan. Will increase metoprolol tartrate to 25 mg by mouth twice a day. 2. Continue Norvasc 2.5 mg by mouth daily at noon for radial arteries thousand prophylaxis.. 3. No diuretics today. 4. Encourage incentive spirometry 10 times every hour while awake. Bronchodilators per pulmonology/critical care medicine. 5. Increase activity, ambulate as tolerated. PT/OT/cardiac rehab following. 6. Will monitor daily labs and chest x-rays. Electrolyte replacement per protocol. 7. Pain control with current medication regimen. Discontinue [place]. 8. Insulin management per primary care service. Patient is not a diabetic, hemoglobin A1c 5.7%. 9. Discontinue right IJ Cordis. Remove right radial arterial line. 10. We will remove her mediastinal and left pleural chest tube today. 11. Remove Salmon catheter, continue to record strict accurate intake and output. Daily weights 12. We will place the transfer orders to the cardiac stepdown unit today. 13. GI and DVT prophylaxis. 14. Continue her home dose of Plaquenil and Evoxac. 15. More recommendations to follow based on patient's clinical course. Time with Patient: Greater than 30
--- NOTE | 2022-06-03 07:51 | P.PN ---
Subjective Progress Note Date: 06/03/22 PROGRESS NOTE The patient is a 66-year-old female who presented with non-STEMI, and underwent cardiac catheterization that showed evidence of severe triple-vessel disease. She underwent CABG yesterday. She received SHARMA to the LAD and radial to the ramus and SVG to the PDA with closure of the left atrial appendage. She continues to be in sinus mechanism, extubated, sitting up in the chair. She has mild chest soreness. She denies any dizziness or palpitation, no nausea or vomiting. Her [place]-Jaren is in place. June 03: The patient is sitting up in the chair, continues to be in sinus mechanism. Hemodynamically stable. She denies any chest discomfort, dizziness or palpitations. No nausea or vomiting. She is using her incentive spirometry. She has no evidence of atrial fibrillation or ventricular ectopic activity. Her [place]-Jaren catheter has been removed. She has ambulated yesterday without difficulties. Medications: Aspirin, Lipitor 80 mg daily, IV diltiazem, Plavix 75 mg daily, metoprolol 25 mg twice a day PHYSICAL EXAMINATION: Blood pressure 139/70 heart rate 90 LUNGS: Mild decreased breath sounds at the bases HEART: Regular rate and rhythm, S1, S2. No S3. No systolic murmur, plus rub ABDOMEN: Soft, nontender, no organomegaly EXTREMETIES: No edema LAB: Potassium 4.1, sodium 129, BUN 18, creatinine 0.8. Hemoglobin 7.2 IMPRESSION: 1. Status post CABG, stable 2. Status post non-STEMI 3. Hyperlipidemia 4. History of Sjogren's syndrome 5. Anemia post surgery PLAN: 1. Continue present therapy 2. If blood pressure stable at YOLANDE inhibitor 3. Consent continue incentive spirometry and increase physical activity 4. Depending on her progress further recommendations will be made. Objective - Vital Signs Vital signs: Vital Signs Temp 98.5 F 06/03/22 04:00 Pulse 99 06/03/22 07:00 Resp 17 06/03/22 07:00 BP 139/74 06/03/22 07:00 Pulse Ox 96 06/03/22 07:00 FiO2 2 06/02/22 16:00 Intake & Output 06/02/22 06/03/22 06/03/22 18:59 06:59 18:59 Intake Total 1471.533 598 Output Total 590 530 Balance 881.533 68 Weight 62.2 kg 64.8 kg Intake: IV 506 598 Lactated Ringers 1,000 ml 440 520 @ 20 mls/hr IV .Q24H [facility] Rx#:[id number] pressure bag 66 78 Intake, IV Titration 365.533 Amount Albumin Human 5% 500 ml 250 In Empty Bag 1 bag @ 250 mls/hr IVPB ONCE ONE Rx#: [id number] Diltiazem 125 mg In 37.083 Sodium Chloride 0.9% 100 ml @ 5 MG/HR 5 mls/hr IV .Q24H [facility] Rx#:[id number] Nitroglycerin-D5w Pmx 50 28.45 mg In Dextrose/Water 1 250ml.bag @ 5 MCG/MIN 1.5 mls/hr IV .Q24H [facility] Rx#: [id number] ceFAZolin 2 gm In Sodium 50 Chloride 0.9% 50 ml @ 100 mls/hr IVPB Q8HR [facility] Rx# :[id number] Oral 600 Output: Chest Tube Drainage 140 90 Left pleural 60 20 mediastinal 80 70 Urine 450 440 Other: Voiding Method Indwelling Catheter Indwelling Catheter ABP, PAP, CO, CI - Last Documented Arterial Blood Pressure 157/60 Pulmonary Artery Pressure 26/8 Cardiac Output 4.3 Cardiac Index 2.6 - Labs CBC & Chem 7: 06/03/22 05:11 06/03/22 05:11 Labs: Abnormal Lab Results - Last 24 Hours (Table) 06/02/22 06/02/22 06/02/22 Range/Units 08:46 11:22 16:27 RBC (3.80-5.40) m/uL Hgb (11.4-16.0) gm/dL Hct (34.0-46.0) % MCV (80.0-100.0) fL Plt Count (150-450) k/uL Lymphocytes # (1.0-4.8) k/uL Sodium (137-145) mmol/L BUN (7-17) mg/dL Glucose (74-99) mg/dL POC Glucose (mg/dL) 124 H 119 H 150 H (70-110) mg/dL Calcium (8.4-10.2) mg/dL Total Bilirubin (0.2-1.3) mg/dL AST (14-36) U/L Total Protein (6.3-8.2) g/dL Albumin (3.5-5.0) g/dL 06/02/22 06/03/22 06/03/22 Range/Units 20:20 05:11 05:11 RBC 2.13 L (3.80-5.40) m/uL Hgb 7.2 L (11.4-16.0) gm/dL Hct 22.0 L (34.0-46.0) % MCV 103.2 H (80.0-100.0) fL Plt Count 147 L (150-450) k/uL Lymphocytes # 0.9 L (1.0-4.8) k/uL Sodium 129 L (137-145) mmol/L BUN 18 H (7-17) mg/dL Glucose 118 H (74-99) mg/dL POC Glucose (mg/dL) 169 H (70-110) mg/dL Calcium 7.8 L (8.4-10.2) mg/dL Total Bilirubin 0.1 L (0.2-1.3) mg/dL AST 59 H (14-36) U/L Total Protein 4.5 L (6.3-8.2) g/dL Albumin 2.7 L (3.5-5.0) g/dL 06/03/22 Range/Units 06:48 RBC (3.80-5.40) m/uL Hgb (11.4-16.0) gm/dL Hct (34.0-46.0) % MCV (80.0-100.0) fL Plt Count (150-450) k/uL Lymphocytes # (1.0-4.8) k/uL Sodium (137-145) mmol/L BUN (7-17) mg/dL Glucose (74-99) mg/dL POC Glucose (mg/dL) 162 H (70-110) mg/dL Calcium (8.4-10.2) mg/dL Total Bilirubin (0.2-1.3) mg/dL AST (14-36) U/L Total Protein (6.3-8.2) g/dL Albumin (3.5-5.0) g/dL
--- NOTE | 2022-06-03 07:55 | XR ---
EXAMINATION TYPE: XR chest 1V portable DATE OF EXAM: 06/03/2022 COMPARISON: 06/02/2022 HISTORY: Shortness of breath TECHNIQUE: Single frontal view of the chest is obtained. FINDINGS: Postoperative changes seen. ET tube and NG tube have been removed. Surgical clips right up per quadrant. Mediastinal drain and left-sided chest tube with no sizable pneumothorax. Left apical p leural thickening. [place]-Jaren catheter with tip overlying the proximal pulmonary outflow tract. Left-s ided consolidation and small pleural effusion. Subsegmental changes and tiny right pleural effusion n oted. IMPRESSION: 1. Postsurgical change with persistent bilateral consolidation and pleural effusion. Correlate for in filtrate. Central venous congestion not excluded.
[2022-06-03] MEDS: IPRATROPIUM-ALBUTEROL 3 ML NEB INHALATION SCH ×4 (08:04→18:45)
[2022-06-03] MEDS: SYMBICORT 160-4.5 MCG INHALER INHALATION SCH ×2 (08:04→19:53)
[2022-06-03] MEDS: ATORVASTATIN 80 MG TAB PO SCH (08:44)
[2022-06-03] MEDS: PANTOPRAZOLE 40 MG TABLET PO SCH (08:44)
[2022-06-03] MEDS: FERROUS SULFATE 325 MG TAB PO SCH (08:44)
[2022-06-03] MEDS: MULTIVITAMINS, THERA 1 EACH TAB PO SCH (08:44)
[2022-06-03] MEDS: ASCORBIC ACID 500 MG TAB PO SCH (08:45)
[2022-06-03] MEDS: CLOPIDOGREL 75 MG TAB PO SCH (08:45)
[2022-06-03] MEDS: ASPIRIN 325 MG TAB PO SCH (08:45)
[2022-06-03] MEDS: LACTOBACILLUS ACIDOPH & BULGAR 1 EACH PACKET PO SCH (08:45)
[2022-06-03] MEDS: METOPROLOL TARTRATE 25 MG TAB PO SCH ×2 (08:47→20:22)
[2022-06-03] MEDS: cycloSPORINE 0.05% OPHTH 0.4 ML DROPERETTE BOTH EYES SCH ×2 (08:47→22:14)
[2022-06-03] MEDS: HYDROXYCHLOROQUINE SULFATE 200 MG TAB PO SCH ×2 (08:48→22:14)
[2022-06-03] MEDS: VITAMIN E (DL,TOCOPHERYL ACET) 400 UNIT (180 MG) CAP PO SCH (08:48)
[2022-06-03] MEDS: CEVIMELINE 30 MG CAP PO SCH ×3 (08:48→23:26)
[2022-06-03] MEDS ORDERED: FUROSEMIDE 10 MG/ML 2 ML VIAL IV ONE (09:30)
[2022-06-03 11:42] LABS: Glucose,Whole Blood 131 mg/dL (70-110)
[2022-06-03] MEDS: amLODIPine 2.5 MG TAB PO SCH (12:58)
--- NOTE | 2022-06-03 14:07 | P.PN ---
Subjective Progress Note Date: 06/03/22 66-year-old male patient is being seen in the intensive care unit following her cardiac surgery. The patient underwent coronary artery bypass surgery and currently she is postop day #0. I saw this patient immediately after she arrived to the intensive care unit and the patient was on propofol running at 35 mcg/kg per minute. The patient underwent three-vessel bypass surgery including SHARMA to LAD and saphenous vein grafts to PDA and radial 2 ramus. The patient is currently comfortable hemodynamically stable. Cardiac output is at 4.0 with an index of 2.5. The patient has a pulmonary artery pressure of 31/16. The patient is currently on no pressors. She is on Cardizem drip at 5 mg an hour. The patient is paced at the rate of 80. Underlying cardiac rhythm is sinus bradycardia at the rate of 50. The patient is currently synchronous with the mechanical ventilator lesions she is an assist-control mode at the rate of 14 with a tidal volume of 400 and FiO2 of 40% with a PEEP of 5. Chest x-ray showed adequate positioning of the ET tube. The patient has some atelectatic changes and small effusion the left lung base. Right lung essentially clear. In terms of tubes, the patient has a mediastinal and left pleural chest tube. Output from the left pleural has been in the order of 50 mL since she had output from the operating room after the mediastinum has been approximately 60 mL. No evidence of any air leak. No evidence of any pneumothorax. The blood gas showed adequate oxygenation. The patient had a pO2 of 376 with a pCO2 of 34 and pH of 7.44. This was on FiO2 of 100% and FiO2 has been drop down to 50% and currently is down to 40%. IV fluids are in the form of lactated Ringer at the rate of 50 mL an hour. The patient is producing adequate amount of urine output. No other significant events otherwise for now. On today's evaluation of 06/02/2022, the patient is extubated and the patient is currently doing well on 3 L about 2 by nasal cannula. She is awake and alert. [place]-Jaren catheter removed after confirming cardiac index of 2.3 this morning. The patient is also maintaining her on normal sinus rhythm and her current heart rate is above 80. No sinus bradycardia this point in time. She using incentive spirometer. She is pulling approximately 1000 on dialysis. Urine output is adequate. Output from the mediastinal and left pleural chest tube is minimal in the order of 10 mL an hour. No other significant events. Initial pain. No issues with any focal neurological deficit. The chest x-ray showed adequate expansion of both lungs. Chest tubes are in good location. No nausea. No vomiting. No diarrhea. No abdominal pain. No skin rashes. No other issues for now. The blood work from today shows a white cell count of 9 with a hemoglobin 8.4 and the patient has a sodium level of 1:30 with a mean of 14 and a creatinine of 0.7. Normal LFTs. 06/03/2022, the patient is doing well without any specific complaints. The patient is ambulating. Chest tubes are in place and this involves a right pleural and left pleural chest tube and both of the chest tube be removed today. The patient currently is on 2 L of oxygen nasal cannula and the patient is using incentive spirometer, pulling approximately 2000 on her incentive spirometer. She is ambulating. She has no specific complaints. No nausea vomiting or chest pain. Cardiac rhythm remains sinus. On her blood work, the patient has a hemoglobin of 7.2. Platelet count is at 147. Sodium level started on the 129 with a potassium of 4.1 and a BUN of 18 and a creatinine of 0.8. No other significant events overnight. The white cell count currently is at 8.7. Blood sugars are adequately controlled. The epicardial leads around this. Objective - Vital Signs Vital signs: Vital Signs Temp 98.7 F 06/03/22 13:00 Pulse 92 06/03/22 13:00 Resp 26 H 06/03/22 13:00 BP 124/63 06/03/22 13:00 Pulse Ox 93 L 06/03/22 13:00 FiO2 2 06/02/22 16:00 Intake & Output 06/02/22 06/03/22 06/03/22 18:59 06:59 18:59 Intake Total 1471.533 598 138 Output Total 590 530 75 Balance 881.533 68 63 Weight 62.2 kg 64.8 kg Intake: IV 506 598 138 Lactated Ringers 1,000 ml 440 520 120 @ 20 mls/hr IV .Q24H [facility] Rx#:[id number] pressure bag 66 78 18 Intake, IV Titration 365.533 Amount Albumin Human 5% 500 ml 250 In Empty Bag 1 bag @ 250 mls/hr IVPB ONCE ONE Rx#: [id number] Diltiazem 125 mg In 37.083 Sodium Chloride 0.9% 100 ml @ 5 MG/HR 5 mls/hr IV .Q24H [facility] Rx#:[id number] Nitroglycerin-D5w Pmx 50 28.45 mg In Dextrose/Water 1 250ml.bag @ 5 MCG/MIN 1.5 mls/hr IV .Q24H [facility] Rx#: [id number] ceFAZolin 2 gm In Sodium 50 Chloride 0.9% 50 ml @ 100 mls/hr IVPB Q8HR [facility] Rx# :[id number] Oral 600 Output: Chest Tube Drainage 140 90 20 Left pleural 60 20 20 mediastinal 80 70 0 Urine 450 440 55 Other: Voiding Method Indwelling Catheter Indwelling Catheter ABP, PAP, CO, CI - Last Documented Arterial Blood Pressure 134/54 Pulmonary Artery Pressure 26/8 Cardiac Output 4.3 Cardiac Index 2.6 - Exam Patient is extubated currently on 3 L of oxygen nasal cannula Head exam was generally normal. There was no scleral icterus or corneal arcus. Mucous membranes were moist. The patient has a right IJ [place]Jaren catheter has been removed and the cordis is still in place Neck was supple and without jugular venous distension, thyromegaly, or carotid bruits. Carotids were easily palpable bilaterally. There was no adenopathy. Lungs were clear to auscultation and percussion, and with normal diaphragmatic excursion. No wheezes or rales were noted. Breath sounds are slightly diminished in the left lung base. Otherwise equal and symmetrical and the sternum is stable clean and intact. The patient has a left pleural and medi astinal chest tube both of them are in place. Heart is paced at this point at the rate of 80. No significant murmurs appreciated. Abdominal exam revealed normal bowel sounds. The abdomen was soft, non-tender, and without masses, organomegaly, or appreciable enlargement of the abdominal aorta. Examination of the extremities revealed easily palpable radial, femoral and pedal pulses. There was no cyanosis, clubbing or edema. The patient had a left radial artery harvest and the patient is a DIVINA drain in the left upper extremity and output has been in the order of 5-10 mL in the DIVINA drain. Otherwise, the lower extremities are stable with equal and symmetrical pulses. No cyanosis. No clubbing. Neurologically, the patient is in the patient is fully awake and alert and she is sitting up on a chair without any focal neurological deficits. - Labs CBC & Chem 7: 06/03/22 05:11 06/03/22 05:11 Labs: Abnormal Lab Results - Last 24 Hours (Table) 06/02/22 06/02/22 06/03/22 Range/Units 16:27 20:20 05:11 RBC 2.13 L (3.80-5.40) m/uL Hgb 7.2 L (11.4-16.0) gm/dL Hct 22.0 L (34.0-46.0) % MCV 103.2 H (80.0-100.0) fL Plt Count 147 L (150-450) k/uL Lymphocytes # 0.9 L (1.0-4.8) k/uL Sodium (137-145) mmol/L BUN (7-17) mg/dL Glucose (74-99) mg/dL POC Glucose (mg/dL) 150 H 169 H (70-110) mg/dL Calcium (8.4-10.2) mg/dL Total Bilirubin (0.2-1.3) mg/dL AST (14-36) U/L Total Protein (6.3-8.2) g/dL Albumin (3.5-5.0) g/dL 06/03/22 06/03/22 06/03/22 Range/Units 05:11 06:48 11:30 RBC (3.80-5.40) m/uL Hgb (11.4-16.0) gm/dL Hct (34.0-46.0) % MCV (80.0-100.0) fL Plt Count (150-450) k/uL Lymphocytes # (1.0-4.8) k/uL Sodium 129 L (137-145) mmol/L BUN 18 H (7-17) mg/dL Glucose 118 H (74-99) mg/dL POC Glucose (mg/dL) 162 H 131 H (70-110) mg/dL Calcium 7.8 L (8.4-10.2) mg/dL Total Bilirubin 0.1 L (0.2-1.3) mg/dL AST 59 H (14-36) U/L Total Protein 4.5 L (6.3-8.2) g/dL Albumin 2.7 L (3.5-5.0) g/dL Assessment and Plan Plan: On a artery bypass surgery/CABG. The patient underwent three-vessel bypass with SHARMA to LAD, radial and saphenous vein grafts also use. The patient is postop day # 2. The patient is hemodynamically stable in normal sinus rhythm Post thoracotomy, currently extubated on 3 L about 2 by nasal cannula. Pleural chest tubes are in place Non-ST segment elevation myocardial infarction, with three-vessel coronary artery disease. History of asthma, not active at this time. History of lupus. History of Sjogren's syndrome. History of hypertension. Lifelong nonsmoker. Remote history of pneumonia. Anemia, expected outcome surgery and the patient's hemoglobin is stable, hemoglobin is currently at 7.2 to be monitored Plan: Remove all chest tubes Remove Cordis [place]-Jaren catheter is also minimal Continue using incentive spirometer Dear 20 mg IV Lasix 1 Continue aspirin and Plavix continue metoprolol 12.5 mg by mouth twice a day The epicardial leads are grounded Monitor hemodynamics We'll may be was transferred this patient out of the intensive care unit.
--- NOTE | 2022-06-03 14:26 | P.PN ---
Subjective Progress Note Date: 06/03/22 66-year-old pleasant female was transferred from [facility] after she was found to have three-vessel disease and patient is transferred here for coronary artery bypass grafting which was scheduled for Wednesday. Patient is undergoing workup for that at this time. Patient had non-ST elevation microinfarction and patient had 90% stenosis in LAD ramus intermedius stenosis 95% proximal RCA stenosis 80%. Patient had normal ejection fraction now diastolic function with apical lateral hypokinesis. A she is hyponatremic and patient does take Lasix at home which is being held at this time because of the hyponatremia. History of lupus and Sjogren syndrome. 05/29/2022 Patient evaluated on cardiac unit. She has been evaluated by cardiothoracic services and plan is for coronary artery bypass grafting on Wednesday. Metabolic panel today shows sodium level of 131, creatinine stable. She remains afebrile, heart rate 67, blood pressure 161/80, 96% room air. No acute events overnight. She continues on heparin gtt. Continue to hold home lasix. 05/30/2022 Patient is seen and evaluated in follow-up this morning with family at the bedside and reports to feeling well. Patient has been up and walking multiple times. Plan is for CABG on Wednesday with CT surgery, cardiology, and pulmonary following closely. No labs available today and recommend am labs. Patient is continued on IV heparin. Patient denies chest pain or shortness of breath. Patient is afebrile and denies any nausea or vomiting. 05/31/2022 Patient is seen this morning with cardiothoracic surgery following closely as there is plans for CABG in the a.m. chest x-ray this morning shows no acute cardiopulmonary process. Patient to continue current diet and will be made nothing by mouth at midnight and plan is to proceed with CABG with cardiothoracic surgery and patient is anxious and looking forward to getting this done and working on rehab and going home. Heart rate in the high 50s to low 60s and blood pressure currently controlled and patient is on room air at 96% saturation. Patient denies chest pain or palpitations. Patient is afebrile. Patient is tolerating diet with no reports of nausea or vomiting noted. Labs: WBC is 5.5, hemoglobin is 11.9, platelets are 237 and INR is 1.0, sodium is 131, potassium 4.4, current creatinine is 0.81, magnesium is 1.7, total bili is 0.3, AST 57, ALT 42 06/01/2022 Patient scheduled for CABG today with cardiothoracic surgery and will be monitored in intensive care unit post procedure. Blood glucose today 101. Preoperative vitals include temperature of 97.5, heart rate 60, blood pressure 158/60, 100% room air. Patient not in room to examine, has gone to the OR to undergo coronary artery bypass grafting. 06/02/2022 Patient evaluated this morning in intensive care unit post operative Day #1 coronary artery bypass grafting x 3 vessels with left internal mammary artery to left anterior descending coronary artery, radial artery to the ramus coronary artery, and a saphenous vein graft to the posterior descending coronary artery. Patient has been extubated and is continued on 2L nasal cannula with oxygen saturations 94 to 95%, afebrile, heart rate 90s, blood pressure 103/61. Labs today showing white count 9.0, hgb 8.4, which is expected postoperatively, sod ium 130, potassium 4.6, BUN 14, creatinine 0.76, blood glucose in the 120s, magnesium 2.1, liver enzymes with mild elevation., albumin 2.7 today. Patient did receive IV albumin this morning, has been started on amlodipine, plavix, plaquenil. Patient reports using incentive spirometer and has ambulated in the hallway. Reports generalized chest discomfort for which she is receiving norco. She is on bowel regimen. Mediastinal and left pleural chest tubes in place. 06/03/2022 Patient is postoperative day #2, 3 vessel CABG. She conitnues with close monitoring in intensive care unit with plans for downgrade to step down unit later today. She is ambulating in hallway and using incentive spirometer. Indwelling catheter has been discontinued. Plans for discontinuation of right radial arterial line today as well as removal of mediastinal and left chest tube today per cardiothoracic. Bowels are hypoactive, patient is tolerating diet, states she is passing gas, no BM yet. Chest xray this morning showing persistent bilateral consolidation and pleural effusion. Correlate for infiltrate, central venous congestion not excluded. Patient denies shortness of breath, reports incisional chest discomfort rating a 2/10 and is being controlled with current pain medications. Continues on bowel regimen. Labs today reveal white count 8.7, hgb 7.2, sodium 129, BUN 18, creatinine 0.80, blood glucose 130-160s, calcium 7.8, AST 59, ALT 20, alk phos 46, albumin today 2.7. Review of Systems Constitutional: Denied any fatigue denied any fever. Cardio vascular: denied any chest pain, palpitations Gastrointestinal: denied any nausea, vomiting, diarrhea Pulmonary: Denied any shortness of breath cough Neurologic denied any new focal deficits All inpatient medications were reviewed and appropriate changes in these medications as dictated in the interval history and assessment and plan. PHYSICAL EXAMINATION: GENERAL: The patient is alert and oriented x3, not in any acute distress. Well developed, well nourished. HEENT: Pupils are round and equally reacting to light. EOMI. No scleral icterus. No conjunctival pallor. Normocephalic, atraumatic. No pharyngeal erythema. No thyromegaly. CARDIOVASCULAR: S1 and S2 present. No murmurs, rubs, or gallops. PULMONARY: Diminished bilateral base. Post surgical. Chest tubes in place. ABDOMEN: Soft, nontender, nondistended, normoactive bowel sounds. No palpable organomegaly. MUSCULOSKELETAL: No joint swelling or deformity. EXTREMITIES: No cyanosis, clubbing, or pedal edema. DIVINA drain presents left upper extremity. NEUROLOGICAL: Gross neurological examination did not reveal any focal deficits. SKIN: No rashes. Assessment and plan -Postoperative day #2 coronary artery bypass grafting x 3 vessel, continues to be monitored in intensive care unit with mediastinal and left pleural chest tubes in place. -Acute non-ST elevation myocardial infarction with triple vessel disease -Postoperative anemia which is expected -Lupus and Sjogren's disease fairly stable without any acute exacerbation -hypovolemic hyponatremia, sodium 129 today -Hypertension -History asthma, stable -Low TSH, with T4 in normal limits -Mild elevated transaminases, improving -Hyperglycemia, hgb A1C 5.7 DVT prophylaxis: Subcutaneous heparin GI Prophylaxis:Protonix Full Code Plan Possible downground to stepdown unit today Continue to monitor blood glucose, patient is on sliding scale and scheduled insulin Patient is being followed by pulmonary newborn hearing screener, cardiology, cardiothoracic surgeon Shaina gtt has been discontinued, patient is in normal sinus rhythm Continue to encourage incentive spirometer, ambulation Tentative removal of chest tubes, and art line today Indwelling catheter has been removed Pain management Bowel Regimen Repeat labs in AM The impression and plan of care has been dictated by Dary Moser Nurse Practitioner as directed. Dr. Rizwan MD I have performed a history and physical examination and medical decision making of this patient, discussed the same with the dictator, and agree with the dictators assessment and plan as written, documented as a scribe. Based on total visit time, I have performed more than 50% of this visit. Objective - Vital Signs Vital signs: Vital Signs Temp 98.9 F 06/03/22 13:30 Pulse 92 06/03/22 13:30 Resp 28 H 06/03/22 13:30 BP 127/65 06/03/22 13:30 Pulse Ox 93 L 06/03/22 13:30 FiO2 2 06/02/22 16:00 Intake & Output 06/02/22 06/03/22 06/03/22 18:59 06:59 18:59 Intake Total 1471.533 598 138 Output Total 590 530 75 Balance 881.533 68 63 Weight 62.2 kg 64.8 kg Intake: IV 506 598 138 Lactated Ringers 1,000 ml 440 520 120 @ 20 mls/hr IV .Q24H [facility] Rx#:[id number] pressure bag 66 78 18 Intake, IV Titration 365.533 Amount Albumin Human 5% 500 ml 250 In Empty Bag 1 bag @ 250 mls/hr IVPB ONCE ONE Rx#: [id number] Diltiazem 125 mg In 37.083 Sodium Chloride 0.9% 100 ml @ 5 MG/HR 5 mls/hr IV .Q24H [facility] Rx#:[id number] Nitroglycerin-D5w Pmx 50 28.45 mg In Dextrose/Water 1 250ml.bag @ 5 MCG/MIN 1.5 mls/hr IV .Q24H [facility] Rx#: [id number] ceFAZolin 2 gm In Sodium 50 Chloride 0.9% 50 ml @ 100 mls/hr IVPB Q8HR [facility] Rx# :[id number] Oral 600 Output: Chest Tube Drainage 140 90 20 Left pleural 60 20 20 mediastinal 80 70 0 Urine 450 440 55 Other: Voiding Method Indwelling Catheter Indwelling Catheter ABP, PAP, CO, CI - Last Documented Arterial Blood Pressure 134/54 Pulmonary Artery Pressure 26/8 Cardiac Output 4.3 Cardiac Index 2.6 - Labs CBC & Chem 7: 06/03/22 05:11 06/03/22 05:11 Labs: Abnormal Lab Results - Last 24 Hours (Table) 06/02/22 06/02/22 06/03/22 Range/Units 16:27 20:20 05:11 RBC 2.13 L (3.80-5.40) m/uL Hgb 7.2 L (11.4-16.0) gm/dL Hct 22.0 L (34.0-46.0) % MCV 103.2 H (80.0-100.0) fL Plt Count 147 L (150-450) k/uL Lymphocytes # 0.9 L (1.0-4.8) k/uL Sodium (137-145) mmol/L BUN (7-17) mg/dL Glucose (74-99) mg/dL POC Glucose (mg/dL) 150 H 169 H (70-110) mg/dL Calcium (8.4-10.2) mg/dL Total Bilirubin (0.2-1.3) mg/dL AST (14-36) U/L Total Protein (6.3-8.2) g/dL Albumin (3.5-5.0) g/dL 06/03/22 06/03/22 06/03/22 Range/Units 05:11 06:48 11:30 RBC (3.80-5.40) m/uL Hgb (11.4-16.0) gm/dL Hct (34.0-46.0) % MCV (80.0-100.0) fL Plt Count (150-450) k/uL Lymphocytes # (1.0-4.8) k/uL Sodium 129 L (137-145) mmol/L BUN 18 H (7-17) mg/dL Glucose 118 H (74-99) mg/dL POC Glucose (mg/dL) 162 H 131 H (70-110) mg/dL Calcium 7.8 L (8.4-10.2) mg/dL Total Bilirubin 0.1 L (0.2-1.3) mg/dL AST 59 H (14-36) U/L Total Protein 4.5 L (6.3-8.2) g/dL Albumin 2.7 L (3.5-5.0) g/dL Assessment and Plan Time with Patient: Less than 30
[2022-06-03 16:42] LABS: Glucose,Whole Blood 121 mg/dL (70-110)
[2022-06-03] MEDS: SENNOSIDES-DOCUSATE SODIUM 1 EACH TAB PO SCH (20:21)
[2022-06-03] MEDS: ACETAMINOPHEN TAB 325 MG TAB PO PRN (20:21)
[2022-06-03] MEDS: AMITRIPTYLINE HCL 50 MG TAB PO SCH (20:22)
[2022-06-03 21:47] LABS: Glucose,Whole Blood 129 mg/dL (70-110)
[2022-06-04] MEDS: KETOROLAC 15 MG/ML 1 ML VIAL IVP SCH ×2 (06:08→12:25)
[2022-06-04] MEDS: PANTOPRAZOLE 40 MG TABLET PO SCH (06:08)
[2022-06-04 07:16] LABS: Glucose,Whole Blood 126 mg/dL (70-110)
[2022-06-04 07:35] LABS: HCT 22.8 % (34.0-46.0); HGB 7.7 gm/dL (11.4-16.0); MCH 33.7 pg (25.0-35.0); MCHC 33.6 g/dL (31.0-37.0); MCV 100.3 fL (80.0-100.0); Mean Platelet Volume 8.4; Platelet Count 166 k/uL (150-450); RBC 2.27 m/uL (3.80-5.40); RDW 12.7 % (11.5-15.5); WBC 9.3 k/uL (3.8-10.6)
[2022-06-04] MEDS: INSULIN ASPART (NovoLOG) 100 UNIT/ML VIAL SQ SCH ×6 (08:03→20:31)
[2022-06-04] MEDS: SYMBICORT 160-4.5 MCG INHALER INHALATION SCH ×2 (08:07→19:16)
[2022-06-04] MEDS: IPRATROPIUM-ALBUTEROL 3 ML NEB INHALATION SCH ×4 (08:07→19:13)
[2022-06-04 09:03] LABS: African American GFR (CKD) >90 (>60 ml/min/1.73 sqM); Anion Gap 8 mmol/L; Blood Urea Nitrogen 15 mg/dL (7-17); Calcium 7.9 mg/dL (8.4-10.2); Carbon Dioxide 22 mmol/L (22-30); Chloride 100 mmol/L (98-107); Glucose 106 mg/dL (74-99); Non-African American GFR(CKD) 86 (>60 ml/min/1.73 sqM); Potassium 3.8 mmol/L (3.5-5.1); Sodium 130 mmol/L (137-145)
[2022-06-04] MEDS: HEPARIN SODIUM,PORCINE/PF 5,000 UNIT/0.5 ML SYRINGE SQ SCH ×3 (10:22→23:05)
[2022-06-04] MEDS: FERROUS SULFATE 325 MG TAB PO SCH (10:23)
[2022-06-04] MEDS: ASPIRIN 325 MG TAB PO SCH (10:23)
[2022-06-04] MEDS: cycloSPORINE 0.05% OPHTH 0.4 ML DROPERETTE BOTH EYES SCH ×2 (10:23→20:30)
[2022-06-04] MEDS: HYDROXYCHLOROQUINE SULFATE 200 MG TAB PO SCH ×2 (10:23→20:30)
[2022-06-04] MEDS: VITAMIN E (DL,TOCOPHERYL ACET) 400 UNIT (180 MG) CAP PO SCH (10:23)
[2022-06-04] MEDS: CLOPIDOGREL 75 MG TAB PO SCH (10:23)
[2022-06-04] MEDS: METOPROLOL TARTRATE 50 MG TAB PO SCH ×2 (10:23→20:31)
[2022-06-04] MEDS: ATORVASTATIN 80 MG TAB PO SCH (10:23)
[2022-06-04] MEDS: ASCORBIC ACID 500 MG TAB PO SCH (10:23)
[2022-06-04] MEDS: CEVIMELINE 30 MG CAP PO SCH ×3 (10:23→20:31)
[2022-06-04] MEDS: LACTOBACILLUS ACIDOPH & BULGAR 1 EACH PACKET PO SCH (10:24)
[2022-06-04] MEDS: MULTIVITAMINS, THERA 1 EACH TAB PO SCH (10:29)
[2022-06-04 11:52] LABS: Glucose,Whole Blood 129 mg/dL (70-110)
[2022-06-04] MEDS ORDERED: FUROSEMIDE 10 MG/ML 2 ML VIAL IV ONE (11:55)
[2022-06-04] MEDS ORDERED: POTASSIUM CHLORIDE ER 20 MEQ TAB.ER PO SCH (12:00)
--- NOTE | 2022-06-04 12:02 | P.PN ---
Subjective Progress Note Date: 06/04/22 Principal diagnosis: Coronary artery disease, non-STEMI this admission. Past medical history significant for hypertension, lupus, Sjogren's, asthma, remote history of pneumonia and is a lifetime nonsmoker. POD #3 coronary artery bypass grafting 3 vessels, left internal mammary artery to left anterior descending coronary artery, radial artery to the ramus coronary artery, and a saphenous vein graft to the posterior descending coronary artery. Endoscopic harvesting of the right greater saphenous vein, endoscopic harvest of the left radial artery, ligation of the left atrial appendage using a 35 mm Atriclip, epi-aortic ultrasound and intraoperative transesophageal echoca rdiogram. Postoperative acute blood loss anemia, expected given hemodilution and cardiopulmonary bypass. The patient was seen and examined in follow-up today 06/04/2022 at her bedside on the cardiac stepdown unit. Currently she is sitting up to the bedside chair, is awake, alert, oriented 3 and is in no acute apparent distress. She denies any complaints of shortness of breath or pain at this time. Her chest tubes were removed without incident yesterday. Remote telemetry is showing normal sinus rhythm heart rate 80 ppm. Atrial and ventricular epicardial pacemaker wires remained in place and are grounded. She remains hemodynamically stable and is currently on no inotropic or pressor support. Laboratory results this morning show a WBC count of 9.3, hemoglobin 7.7, hematocrit 22.8, platelets 166, sodium 130, potassium 3.8, BUN 15, creatinine 0.74, calcium 7.9 and magnesium 2.0. She reports she has been up ambulating in the cardiac stepdown unit hallway with minimal assistance from nursing staff and tolerating well. She also reports that she feels somewhat tired today impaired yesterday. Objective - Vital Signs Vital signs: Vital Signs Temp 97.8 F 06/04/22 03:31 Pulse 100 06/04/22 08:20 Resp 16 06/04/22 03:31 BP 150/93 06/04/22 03:31 Pulse Ox 95 06/04/22 08:07 FiO2 2 06/02/22 16:00 Intake & Output 06/03/22 06/04/22 06/04/22 18:59 06:59 18:59 Intake Total 138 400 Output Total 395 Balance -257 400 Weight 64.1 kg Intake: IV 138 Lactated Ringers 1,000 ml 120 @ 20 mls/hr IV .Q24H [facility] Rx#:[id number] pressure bag 18 Oral 400 Output: Chest Tube Drainage 20 Left pleural 20 mediastinal 0 Urine 375 Other: Voiding Method Toilet Toilet # Voids 1 1 ABP, PAP, CO, CI - Last Documented Arterial Blood Pressure 134/54 Pulmonary Artery Pressure 26/8 Cardiac Output 4.3 Cardiac Index 2.6 - Exam CONSTITUTIONAL: Sitting up to the bedside chair on the cardiac stepdown unit, appears comfortable, cooperative, no apparent acute distress. HEENT: Neck is supple, no JVD, no lymphadenopathy. RESPIRATORY: Lungs sounds essentially clear throughout, diminished to his bilateral bases with few scattered crackles. Respirations are symmetrical and nonlabored. Currently on room air with oxygen saturations 95%. Able to achieve 6615-9866 mL on her incentive spirometry. Strong cough. CARDIOVASCULAR: Regular rhythm and rate. S1 and S2 present, negative for S3, gallop or murmur. Sternum is stable. Palpable peripheral pulses bilaterally, no edema to her bilateral lower extremities. No calf pain or tenderness noted. Heart hugger in place with patient demonstrating appropriate use. Knee-high CLAIRE hose and sequential compression devices in place to his bilateral lower extremities. GASTROINTESTINAL: Abdomen soft, nontender, nondistended. Active bowel sounds present 4 quadrants. Tolerating diet. Passing flatus. No guarding or rigidity. Bowel movement today 06/04/2022. GENITOURINARY: Continues to void. INTEGUMENTARY: Skin is warm and dry with no evidence of clubbing or cyanosis. Midline sternal incision clean dry and well approximated, covered with dry intact dressing. Right lower extremity EVH site well approximated without redness or drainage. Left arm radial artery harvest sites clean, dry and approximated. No drainage or redness is present. NEUROLOGIC: Cranial nerves II through XII intact. No focal deficits. MUSKULOSKELETAL: Able to move all extremities, strength equal bilaterally. PSYCHIATRIC: Alert and oriented to person place and time, appropriate affect, intact judgment and insight. INVASIVE LINES AND TUBES: Atrial and ventricular epicardial pacemaker wires are in place and grounded. - Allied health notes Allied health notes reviewed: nursing - Labs CBC & Chem 7: 06/04/22 07:17 06/04/22 07:17 Labs: Abnormal Lab Results - Last 24 Hours (Table) 06/03/22 06/03/22 06/03/22 Range/Units 11:30 16:41 21:45 RBC (3.80-5.40) m/uL Hgb (11.4-16.0) gm/dL Hct (34.0-46.0) % MCV (80.0-100.0) fL Sodium (137-145) mmol/L Glucose (74-99) mg/dL POC Glucose (mg/dL) 131 H 121 H 129 H (70-110) mg/dL Calcium (8.4-10.2) mg/dL 06/04/22 06/04/22 06/04/22 Range/Units 07:14 07:17 07:17 RBC 2.27 L (3.80-5.40) m/uL Hgb 7.7 L (11.4-16.0) gm/dL Hct 22.8 L (34.0-46.0) % MCV 100.3 H (80.0-100.0) fL Sodium 130 L (137-145) mmol/L Glucose 106 H (74-99) mg/dL POC Glucose (mg/dL) 126 H (70-110) mg/dL Calcium 7.9 L (8.4-10.2) mg/dL - Imaging and Cardiology Chest x-ray: report reviewed, image reviewed Assessment and Plan Assessment: 1. Coronary artery disease, non-STEMI this admission, status post 3 vessel coronary artery bypass grafting surgery 2. Hypertension 3. Lupus, Sjogren's 4. History of asthma, preoperative FEV1 101% of predicted 5. Remote pneumonia history 6. Lifetime non-smoker 7. Postoperative acute blood loss anemia, expected given hemodilution and cardiopulmonary bypass Plan: 1. Continue to maximize medical therapy with aspirin, statin, Plavix, and beta rajan. Will increase metoprolol tartrate to 50 mg by mouth twice a day. 2. Continue Norvasc 2.5 mg by mouth daily at noon for radial arteries thousand prophylaxis.. 3. Lasix 20 mg IV 1 now. Potassium replaced per protocol. 4. Encourage incentive spirometry 10 times every hour while awake. Bronchodilators per pulmonology/critical care medicine. 5. Increase activity, ambulate as tolerated. PT/OT/cardiac rehab following. 6. Will monitor daily labs and chest x-rays. Electrolyte replacement per protocol. 7. Pain control with current medication regimen. 8. Insulin management per primary care service. Patient is not a diabetic, hemoglobin A1c 5.7%. 9. Atrial and ventricular epicardial pacemaker wires were removed without incident today at 11:25 AM. She will be on bed rest for 1 hour post pacemaker wire removal. 10. Discharge planning is in place, anticipate discharge home with home health care in the next 24 hours. 11. Continue to record strict accurate intake and output. Daily weights 12. GI and DVT prophylaxis. 13. Continue her home dose of Plaquenil and Evoxac. 14. First postoperative shower today. Shower daily. 15. More recommendations to follow based on patient's clinical course. Time with Patient: Greater than 30
--- NOTE | 2022-06-04 12:12 | P.PN ---
Subjective Progress Note Date: 06/04/22 HISTORY OF PRESENT ILLNESS: Patient is status post 3 vessel CABG. Patient examined this morning at the bedside. Patient denies chest pain or pressure. She denies shortness of breat h. She reports using her incentive spirometer and is pulling about thousand cc. Telemetry reveals sinus mechanism. Patient's blood pressure is slightly elevated this morning. PHYSICAL EXAM: VITAL SIGNS: Reviewed. GENERAL: Well-developed in no acute distress. NECK: Supple. No JVD or thyromegaly LUNGS: Respirations even and unlabored. Lungs diminished to auscultation bilat erally. HEART: Regular rate and rhythm. S1 and S2 heard. Heart hugger present. EXTREMITIES: Normal range of motion. No clubbing or cyanosis. Peripheral pulses intact. No lower extremity edema ASSESSMENT: Non-STEMI, status post 3 vessel CABG Hypertension History of asthma Lupus, Sjogren's PLAN: Continue postoperative management per cardiothoracic surgery Increase activity as tolerated Patient's metoprolol was increased to 50 mg twice a day today. Continue to monitor blood pressure and telemetry monitoring Continue to encourage use of incentive spirometer Further recommendations pending patient's course Nurse practitioner note has been reviewed by physician. Signing provider agrees with the documented findings, assessment, and plan of care. Objective - Vital Signs Vital signs: Vital Signs Temp 97.8 F 06/04/22 03:31 Pulse 85 06/04/22 11:57 Resp 16 06/04/22 03:31 BP 150/93 06/04/22 03:31 Pulse Ox 95 06/04/22 08:07 FiO2 2 06/02/22 16:00 Intake & Output 06/03/22 06/04/22 06/04/22 18:59 06:59 18:59 Intake Total 138 400 Output Total 395 Balance -257 400 Weight 64.1 kg Intake: IV 138 Lactated Ringers 1,000 ml 120 @ 20 mls/hr IV .Q24H [facility] Rx#:[id number] pressure bag 18 Oral 400 Output: Chest Tube Drainage 20 Left pleural 20 mediastinal 0 Urine 375 Other: Voiding Method Toilet Toilet # Voids 1 1 1 ABP, PAP, CO, CI - Last Documented Arterial Blood Pressure 134/54 Pulmonary Artery Pressure 26/8 Cardiac Output 4.3 Cardiac Index 2.6 - Labs CBC & Chem 7: 06/04/22 07:17 06/04/22 07:17 Labs: Abnormal Lab Results - Last 24 Hours (Table) 06/03/22 06/03/22 06/04/22 Range/Units 16:41 21:45 07:14 RBC (3.80-5.40) m/uL Hgb (11.4-16.0) gm/dL Hct (34.0-46.0) % MCV (80.0-100.0) fL Sodium (137-145) mmol/L Glucose (74-99) mg/dL POC Glucose (mg/dL) 121 H 129 H 126 H (70-110) mg/dL Calcium (8.4-10.2) mg/dL 06/04/22 06/04/22 06/04/22 Range/Units 07:17 07:17 11:50 RBC 2.27 L (3.80-5.40) m/uL Hgb 7.7 L (11.4-16.0) gm/dL Hct 22.8 L (34.0-46.0) % MCV 100.3 H (80.0-100.0) fL Sodium 130 L (137-145) mmol/L Glucose 106 H (74-99) mg/dL POC Glucose (mg/dL) 129 H (70-110) mg/dL Calcium 7.9 L (8.4-10.2) mg/dL
[2022-06-04] MEDS: amLODIPine 2.5 MG TAB PO SCH (12:26)
--- NOTE | 2022-06-04 13:30 | XR ---
EXAMINATION TYPE: XR chest 2V DATE OF EXAM: 06/04/2022 COMPARISON: 06/03/2022 TECHNIQUE: PA and lateral views submitted. HISTORY: Postop CABG FINDINGS: Postsurgical changes with bilateral consolidation and small effusion on the left. Heart size is enlar ged. No pneumothorax. Chest tube and mediastinal drain have been removed. IMPRESSION: 1. Postoperative changes with no sizable pneumothorax post chest tube removal. 2. Bibasilar infiltrate or atelectasis with small effusion. Correlate for mild central venous congest ion.
--- NOTE | 2022-06-04 15:49 | P.PN ---
Subjective 66-year-old pleasant female was transferred from [facility] after she was found to have three-vessel disease and patient is transferred here for coronary artery bypass grafting which was scheduled for Wednesday. Patient is undergoing workup for that at this time. Patient had non-ST elevation microinfarction and patient had 90% stenosis in LAD ramus intermedius stenosis 95% proximal RCA stenosis 80%. Patient had normal ejection fraction now diastolic function with apical lateral hypokinesis. A she is hyponatremic and patient does take Lasix at home which is being held at this time because of the hyponatremia. History of lupus and Sjogren syndrome. 05/29/2022 Patient evaluated on cardiac unit. She has been evaluated by cardiothoracic services and plan is for coronary artery bypass grafting on Wednesday. Metabolic panel today shows sodium level of 131, creatinine stable. She remains afebrile, heart rate 67, blood pressure 161/80, 96% room air. No acute events overnight. She continues on heparin gtt. Continue to hold home lasix. 05/30/2022 Patient is seen and evaluated in follow-up this morning with family at the bed side and reports to feeling well. Patient has been up and walking multiple times. Plan is for CABG on Wednesday with CT surgery, cardiology, and pulmonary following closely. No labs available today and recommend am labs. Patient is continued on IV heparin. Patient denies chest pain or shortness of breath. Patient is afebrile and denies any nausea or vomiting. 05/31/2022 Patient is seen this morning with cardiothoracic surgery following closely as there is plans for CABG in the a.m. chest x-ray this morning shows no acute cardiopulmonary process. Patient to continue current diet and will be made nothing by mouth at midnight and plan is to proceed with CABG with cardiothoracic surgery and patient is anxious and looking forward to getting this done and working on rehab and going home. Heart rate in the high 50s to low 60s and blood pressure currently controlled and patient is on room air at 96% saturation. Patient denies chest pain or palpitations. Patient is afebrile. Patient is tolerating diet with no reports of nausea or vomiting noted. Labs: WBC is 5.5, hemoglobin is 11.9, platelets are 237 and INR is 1.0, sodium is 131, potassium 4.4, current creatinine is 0.81, magnesium is 1.7, total bili is 0.3, AST 57, ALT 42 06/01/2022 Patient scheduled for CABG today with cardiothoracic surgery and will be monitored in intensive care unit post procedure. Blood glucose today 101. Preoperative vitals include temperature of 97.5, heart rate 60, blood pressure 158/60, 100% room air. Patient not in room to examine, has gone to the OR to undergo coronary artery bypass grafting. 06/02/2022 Patient evaluated this morning in intensive care unit post operative Day #1 coronary artery bypass grafting x 3 vessels with left internal mammary artery to left anterior descending coronary artery, radial artery to the ramus coronary artery, and a saphenous vein graft to the posterior descending coronary artery. Patient has been extubated and is continued on 2L nasal cannula with oxygen saturations 94 to 95%, afebrile, heart rate 90s, blood pressure 103/61. Labs today showing white count 9.0, hgb 8.4, which is expected postoperatively, sodium 130, potassium 4.6, BUN 14, creatinine 0.76, blood glucose in the 120s, magnesium 2.1, liver enzymes with mild elevation., albumin 2.7 today. Patient did receive IV albumin this morning, has been started on amlodipine, plavix, plaquenil. Patient reports using incentive spirometer and has ambulated in the hallway. Reports generalized chest discomfort for which she is receiving norco. She is on bowel regimen. Mediastinal and left pleural chest tubes in place. 06/03/2022 Patient is postoperative day #2, 3 vessel CABG. She conitnues with close monitoring in intensive care unit with plans for downgrade to step down unit later today. She is ambulating in hallway and using incentive spirometer. Indwelling catheter has been discontinued. Plans for discontinuation of right radial arterial line today as well as removal of mediastinal and left chest tube today per cardiothoracic. Bowels are hypoactive, patient is tolerating diet, sta lucía she is passing gas, no BM yet. Chest xray this morning showing persistent bilateral consolidation and pleural effusion. Correlate for infiltrate, central venous congestion not excluded. Patient denies shortness of breath, reports incisional chest discomfort rating a 2/10 and is being controlled with current pain medications. Continues on bowel regimen. Labs today reveal white count 8.7, hgb 7.2, sodium 129, BUN 18, creatinine 0.80, blood glucose 130-160s, calcium 7.8, AST 59, ALT 20, alk phos 46, albumin today 2.7. Subjective: Resuming the care of the patient today 06/04/2022 patient is a pleasant 66 years old female status post coronary artery bypass surgery for her non-STEMI and significant coronary artery disease. Each may be also related to her history of connective tissue disease, she has history of lupus and stroke. And she is on Plaquenil. Patient currently awake and alert. Denied chest pain or dyspnea. Denies any other specific complaints. She is able to walk. She has poor appetite. No known drug which was stopped. Chest x-ray showing postsurgical changes with bilateral basal atelectasis versus infiltration, no pneumothorax after tube removal. Sodium 1:30, hemoglobin stable 7.7. Patient is on aspirin 325 mg, Plavix, metoprolol 50 mg increased today. Discontinue insulin 3 units with meals, patient was stopped on insulin at home. Hemoglobin A1c 5.7% Objective - Vital Signs Vital signs: Vital Signs Temp 97.8 F 06/04/22 03:31 Pulse 100 06/04/22 08:20 Resp 16 06/04/22 03:31 BP 150/93 06/04/22 03:31 Pulse Ox 95 06/04/22 08:07 FiO2 2 06/02/22 16:00 Intake & Output 06/03/22 06/04/22 06/04/22 18:59 06:59 18:59 Intake Total 138 400 Output Total 395 Balance -257 400 Weight 64.1 kg Intake: IV 138 Lactated Ringers 1,000 ml 120 @ 20 mls/hr IV .Q24H [facility] Rx#:[id number] pressure bag 18 Oral 400 Output: Chest Tube Drainage 20 Left pleural 20 mediastinal 0 Urine 375 Other: Voiding Method Toilet Toilet # Voids 1 1 ABP, PAP, CO, CI - Last Documented Arterial Blood Pressure 134/54 Pulmonary Artery Pressure 26/8 Cardiac Output 4.3 Cardiac Index 2.6 - Exam GENERAL: The patient is alert and oriented x3, not in any acute distress. Well developed, well nourished. HEENT: Pupils are round and equally reacting to light. EOMI. No scleral icterus. No conjunctival pallor. Normocephalic, atraumatic. No pharyngeal erythema. No thyromegaly. -CARDIOVASCULAR: S1 and S2 present. No murmurs, rubs, or gallops. Surgical wound was dressed in a Place PULMONARY: Chest is clear to auscultation, no wheezing or crackles. ABDOMEN: Soft, nontender, nondistended, normoactive bowel sounds. No palpable organomegaly. MUSCULOSKELETAL: No joint swelling or deformity. EXTREMITIES: No cyanosis, clubbing, or pedal edema. NEUROLOGICAL: Gross neurological examination did not reveal any focal deficits. SKIN: No rashes. no petechiae. - Labs CBC & Chem 7: 06/04/22 07:17 06/04/22 07:17 Labs: Abnormal Lab Results - Last 24 Hours (Table) 06/03/22 06/03/22 06/03/22 Range/Units 11:30 16:41 21:45 RBC (3.80-5.40) m/uL Hgb (11.4-16.0) gm/dL Hct (34.0-46.0) % MCV (80.0-100.0) fL Sodium (137-145) mmol/L Glucose (74-99) mg/dL POC Glucose (mg/dL) 131 H 121 H 129 H (70-110) mg/dL Calcium (8.4-10.2) mg/dL 06/04/22 06/04/22 06/04/22 Range/Units 07:14 07:17 07:17 RBC 2.27 L (3.80-5.40) m/uL Hgb 7.7 L (11.4-16.0) gm/dL Hct 22.8 L (34.0-46.0) % MCV 100.3 H (80.0-100.0) fL Sodium 130 L (137-145) mmol/L Glucose 106 H (74-99) mg/dL POC Glucose (mg/dL) 126 H (70-110) mg/dL Calcium 7.9 L (8.4-10.2) mg/dL Assessment and Plan Assessment: -Non-STEMI, status post CABG. -Postoperative anemia which is expected -Lupus and Sjogren's disease fairly stable without any acute exacerbation -hyponatremia -Hypertension -History asthma, stable -Low TSH, with T4 in normal limits -Mild elevated transaminases, improving Plan: This is a pleasant 66 years old female with CAD status post CABG Continue with aspirin and Plavix Continue with metoprolol 50 mg Discontinue insulin Consultants on the case including cardiothoracic surgery team, cardiology and pulmonary/critical care team Labs and medication were reviewed.. Continue same treatment. Continue with symptomatic treatment. Resume home medication. Monitor lytes and vitals. DVT and GI prophylaxis. Further recommendations as per clinical course of the patient DVT prophylaxis: Subcutaneous heparin GI Prophylaxis: Ppi
[2022-06-04] MEDS: BUTALB/APAP/CAFF 50-325-40MG TAB PO PRN ×2 (15:58→21:50)
--- NOTE | 2022-06-04 16:06 | P.PN ---
Subjective Progress Note Date: 06/04/22 66-year-old male patient is being seen in the intensive care unit following her cardiac surgery. The patient underwent coronary artery bypass surgery and currently she is postop day #0. I saw this patient immediately after she arrived to the intensive care unit and the patient was on propofol running at 35 mcg/kg per minute. The patient underwent three-vessel bypass surgery including SHARMA to LAD and saphenous vein grafts to PDA and radial 2 ramus. The patient is currently comfortable hemodynamically stable. Cardiac output is at 4.0 with an index of 2.5. The patient has a pulmonary artery pressure of 31/16. The patient is currently on no pressors. She is on Cardizem drip at 5 mg an hour. The patient is paced at the rate of 80. Underlying cardiac rhythm is sinus bradycardia at the rate of 50. The patient is currently synchronous with the mechanical ventilator lesions she is an assist-control mode at the rate of 14 with a tidal volume of 400 and FiO2 of 40% with a PEEP of 5. Chest x-ray showed adequate positioning of the ET tube. The patient has some atelectatic changes and small effusion the left lung base. Right lung essentially clear. In terms of tubes, the patient has a mediastinal and left pleural chest tube. Output from the left pleural has been in the order of 50 mL since she had output from the operating room after the mediastinum has been approximately 60 mL. No evidence of any air leak. No evidence of any pneumothorax. The blood gas showed adequate oxygenation. The patient had a pO2 of 376 with a pCO2 of 34 and pH of 7.44. This was on FiO2 of 100% and FiO2 has been drop down to 50% and currently is down to 40%. IV fluids are in the form of lactated Ringer at the rate of 50 mL an hour. The patient is producing adequate amount of urine output. No other significant events otherwise for now. On today's evaluation of 06/02/2022, the patient is extubated and the patient is currently doing well on 3 L about 2 by nasal cannula. She is awake and alert. Orient-Jaren catheter removed after confirming cardiac index of 2.3 this morning. The patient is also maintaining her on normal sinus rhythm and her current heart rate is above 80. No sinus bradycardia this point in time. She using incentive spirometer. She is pulling approximately 1000 on dialysis. Urine output is adequate. Output from the mediastinal and left pleural chest tube is minimal in the order of 10 mL an hour. No other significant events. Initial pain. No issues with any focal neurological deficit. The chest x-ray showed adequate expansion of both lungs. Chest tubes are in good location. No nausea. No vomiting. No diarrhea. No abdominal pain. No skin rashes. No other issues for now. The blood work from today shows a white cell count of 9 with a hemoglobin 8.4 and the patient has a sodium level of 1:30 with a mean of 14 and a creatinine of 0.7. Normal LFTs. 06/03/2022, the patient is doing well without any specific complaints. The patient is ambulating. Chest tubes are in place and this involves a right pleural and left pleural chest tube and both of the chest tube be removed today. The patient currently is on 2 L of oxygen nasal cannula and the patient is using incentive spirometer, pulling approximately 2000 on her incentive spirometer. She is ambulating. She has no specific complaints. No nausea vomiting or chest pain. Cardiac rhythm remains sinus. On her blood work, the patient has a hemoglobin of 7.2. Platelet count is at 147. Sodium level started on the 129 with a potassium of 4.1 and a BUN of 18 and a creatinine of 0.8. No other significant events overnight. The white cell count currently is at 8.7. Blood sugars are adequately controlled. The epicardial leads around this. 06/04/2022, the patient is doing well. Chest tubes are removed. Chest x-ray showed adequate expansion of both lungs. No significant abnormalities noted other than some postsurgical changes. The patient is doing well. She is ambulating. She is hemodynamically stable on room air oxygen. The white cell count of 5.3 with a hemoglobin of 7.7. Sodium is at 1:30 and the patient is a BUN of 15 and a creatinine of 0.7. The patient is on having any complaints. She'll be given a dose of Lasix today by the cardiothoracic team. He is going on examination of aspirin, Plavix and beta blockers and statins. The metoprolol dose was increased up to 50 mg twice a day. She is using incentive spirometer. Objective - Vital Signs Vital signs: Vital Signs Temp 98.3 F 06/04/22 12:15 Pulse 82 08/11/22 12:15 Resp 16 06/04/22 12:15 BP 124/70 06/04/22 12:15 Pulse Ox 95 06/04/22 12:15 FiO2 2 06/02/22 16:00 Intake & Output 06/03/22 06/04/22 06/04/22 18:59 06:59 18:59 Intake Total 138 400 Output Total 395 Balance -257 400 Weight 64.1 kg Intake: IV 138 Lactated Ringers 1,000 ml 120 @ 20 mls/hr IV .Q24H [facility] Rx#:[id number] pressure bag 18 Oral 400 Output: Chest Tube Drainage 20 Left pleural 20 mediastinal 0 Urine 375 Other: Voiding Method Toilet Toilet # Voids 1 1 1 ABP, PAP, CO, CI - Last Documented Arterial Blood Pressure 134/54 Pulmonary Artery Pressure 26/8 Cardiac Output 4.3 Cardiac Index 2.6 - Exam CONSTITUTIONAL: Sitting up to the bedside chair on the cardiac stepdown unit, appears comfortable, cooperative, no apparent acute distress. HEENT: Neck is supple, no JVD, no lymphadenopathy. RESPIRATORY: Lungs sounds essentially clear throughout, diminished to his bilateral bases with few scattered crackles. Respirations are symmetrical and nonlabored. Currently on room air with oxygen saturations 95%. Able to achieve 3476-3622 mL on her incentive spirometry. Strong cough. CARDIOVASCULAR: Regular rhythm and rate. S1 and S2 present, negative for S3, g allop or murmur. Sternum is stable. Palpable peripheral pulses bilaterally, no edema to her bilateral lower extremities. No calf pain or tenderness noted. Heart hugger in place with patient demonstrating appropriate use. Knee-high CLAIRE hose and sequential compression devices in place to his bilateral lower extremities. GASTROINTESTINAL: Abdomen soft, nontender, nondistended. Active bowel sounds present 4 quadrants. Tolerating diet. Passing flatus. No guarding or rigidity. Bowel movement today 06/04/2022. GENITOURINARY: Continues to void. INTEGUMENTARY: Skin is warm and dry with no evidence of clubbing or cyanosis. Midline sternal incision clean dry and well approximated, covered with dry intact dressing. Right lower extremity EVH site well approximated without redness or drainage. Left arm radial artery harvest sites clean, dry and approximated. No drainage or redness is present. NEUROLOGIC: Cranial nerves II through XII intact. No focal deficits. MUSKULOSKELETAL: Able to move all extremities, strength equal bilaterally. PSYCHIATRIC: Alert and oriented to person place and time, appropriate affect, intact judgment and insight. INVASIVE LINES AND TUBES: Atrial and ventricular epicardial pacemaker wires are in place and grounded. - Labs CBC & Chem 7: 06/04/22 07:17 06/04/22 07:17 Labs: Abnormal Lab Results - Last 24 Hours (Table) 06/03/22 06/03/22 06/04/22 Range/Units 16:41 21:45 07:14 RBC (3.80-5.40) m/uL Hgb (11.4-16.0) gm/dL Hct (34.0-46.0) % MCV (80.0-100.0) fL Sodium (137-145) mmol/L Glucose (74-99) mg/dL POC Glucose (mg/dL) 121 H 129 H 126 H (70-110) mg/dL Calcium (8.4-10.2) mg/dL 06/04/22 06/04/22 06/04/22 Range/Units 07:17 07:17 11:50 RBC 2.27 L (3.80-5.40) m/uL Hgb 7.7 L (11.4-16.0) gm/dL Hct 22.8 L (34.0-46.0) % MCV 100.3 H (80.0-100.0) fL Sodium 130 L (137-145) mmol/L Glucose 106 H (74-99) mg/dL POC Glucose (mg/dL) 129 H (70-110) mg/dL Calcium 7.9 L (8.4-10.2) mg/dL Assessment and Plan Plan: On a artery bypass surgery/CABG. The patient underwent three-vessel bypass with SHARMA to LAD, radial and saphenous vein grafts also use. The patient is postop day # 3. The patient is hemodynamically stable in normal sinus rhythm Post thoracotomy, currently extubated and the patient is currently on room air oxygen and the vessels of removed Non-ST segment elevation myocardial infarction, with three-vessel coronary artery disease. History of asthma, not active at this time. History of lupus. History of Sjogren's syndrome. History of hypertension. Lifelong nonsmoker. Remote history of pneumonia. Anemia, expected outcome surgery and the patient's hemoglobin is stable, hemogl obin is currently is stable Plan: Chest x-ray findings are stable and showing some anticipated post operative atelectatic changes in lung bases Continue using incentive spirometer Give the patient a dose of 20 mg IV Lasix 1 Continue aspirin and Plavix continue metoprolol 50 mg by mouth twice a day The epicardial leads are grounded and those to be removed today Monitor hemodynamics The patient is ambulating. Sliding scale insulin coverage Possible discharge in a.m.
[2022-06-04 16:45] LABS: Glucose,Whole Blood 108 mg/dL (70-110)
[2022-06-04] MEDS: HYDROcodone/APAP 5-325MG 1 EACH TAB PO PRN (18:44)
[2022-06-04 20:27] LABS: Glucose,Whole Blood 125 mg/dL (70-110)
[2022-06-04] MEDS: AMITRIPTYLINE HCL 50 MG TAB PO SCH (20:30)
[2022-06-04] MEDS: SENNOSIDES-DOCUSATE SODIUM 1 EACH TAB PO SCH (20:31)
[2022-06-05] MEDS: HYDROcodone/APAP 5-325MG 1 EACH TAB PO PRN ×2 (04:02→13:49)
[2022-06-05] MEDS: INSULIN ASPART (NovoLOG) 100 UNIT/ML VIAL SQ SCH ×2 (06:18→11:53)
[2022-06-05] MEDS: PANTOPRAZOLE 40 MG TABLET PO SCH ×2 (06:18→09:59)
[2022-06-05 06:19] LABS: Glucose,Whole Blood 113 mg/dL (70-110)
[2022-06-05] MEDS: ACETAMINOPHEN TAB 325 MG TAB PO PRN (06:20)
[2022-06-05 08:06] LABS: HCT 23.7 % (34.0-46.0); HGB 7.9 gm/dL (11.4-16.0); MCH 33.7 pg (25.0-35.0); MCHC 33.1 g/dL (31.0-37.0); MCV 101.6 fL (80.0-100.0); Macrocytosis Slight; Mean Platelet Volume 7.9; Platelet Count 235 k/uL (150-450); RBC 2.34 m/uL (3.80-5.40); WBC 7.4 k/uL (3.8-10.6)
[2022-06-05] MEDS: SYMBICORT 160-4.5 MCG INHALER INHALATION SCH (08:18)
[2022-06-05] MEDS: IPRATROPIUM-ALBUTEROL 3 ML NEB INHALATION SCH ×2 (08:18→11:20)
[2022-06-05 08:24] LABS: African American GFR (CKD) >90 (>60 ml/min/1.73 sqM); Anion Gap 7 mmol/L; Blood Urea Nitrogen 11 mg/dL (7-17); Carbon Dioxide 25 mmol/L (22-30); Chloride 98 mmol/L (98-107); Glucose 105 mg/dL (74-99); Non-African American GFR(CKD) 83 (>60 ml/min/1.73 sqM); Potassium 3.7 mmol/L (3.5-5.1); Sodium 130 mmol/L (137-145)
[2022-06-05] MEDS ORDERED: FUROSEMIDE 10 MG/ML 2 ML VIAL IV ONE (09:24)
--- NOTE | 2022-06-05 09:30 | XR ---
EXAMINATION TYPE: XR chest 1V portable DATE OF EXAM: 06/05/2022 COMPARISON: NONE HISTORY: Postop CABG TECHNIQUE: Single frontal view of the chest is obtained. FINDINGS: Postsurgical changes with bilateral consolidation and small effusion on the left. Heart si ze is enlarged. No pneumothorax. Chest tube and mediastinal drain have been removed. IMPRESSION: 1. Postoperative changes with no sizable pneumothorax post chest tube removal. 2. Bibasilar infiltrate or atelectasis with small effusion. Correlate for mild central venous congest ion.
[2022-06-05 09:35] VITALS: RESP 18
--- NOTE | 2022-06-05 09:37 | P.PN ---
Subjective Progress Note Date: 06/05/22 Principal diagnosis: Coronary artery disease, non-STEMI this admission. Previous medical history of hypertension, lupus, Sjogren's, asthma, remote pneumonia history, and never smo ker POD #4 coronary artery bypass grafting 3 vessels, left internal mammary artery to left anterior descending coronary artery, radial artery to the ramus coronary artery, and a saphenous vein graft to the posterior descending coronary artery. Endoscopic harvesting of the right greater saphenous vein, endoscopic harvest of the left radial artery, ligation of the left atrial appendage using a 35 mm Atriclip, epi-aortic ultrasound and intraoperative transesophageal echocardiogram. Postoperative acute blood loss anemia, expected given hemodilution and cardiopulmonary bypass. The patient was seen and examined sitting up in a recliner on the cardiac stepdown unit to eating breakfast in no acute distress. She denies any pain or shortness of breath. Remains in sinus rhythm, hemodynamically stable. All lines and tubes have been discontinued. She has been ambulatory without difficulty. Remains on room air with excellent oxygen saturations. Would like to go home today. No other new concerns. Objective - Vital Signs Vital signs: Vital Signs Temp 98.3 F 06/05/22 03:58 Pulse 96 06/05/22 08:29 Resp 16 06/05/22 03:58 BP 150/72 06/05/22 03:58 Pulse Ox 95 06/05/22 08:18 FiO2 2 06/02/22 16:00 Intake & Output 06/04/22 06/05/22 06/05/22 18:59 06:59 18:59 Intake Total 800 Balance 800 Weight 63.5 kg Intake: Oral 800 Other: Voiding Method Toilet # Voids 1 ABP, PAP, CO, CI - Last Documented Arterial Blood Pressure 134/54 Pulmonary Artery Pressure 26/8 Cardiac Output 4.3 Cardiac Index 2.6 - Exam CONSTITUTIONAL: Appears comfortable, cooperative, no acute distress RESPIRATORY: Lungs sounds diminished bilaterally. Respirations even, nonlabored. Currently on room air with oxygen saturation 95%. Able to achieve 750 mL on incentive spirometry. Strong cough. CARDIOVASCULAR: S1, S2 present. Regular rate and rhythm, sinus rhythm on telemetry. Sternum stable. Palpable peripheral pulses bilaterally. No edema present. No calf pain or tenderness noted. Heart hugger in place with patient demonstrating appropriate use. Antiembolism stockings, SCDs present. GASTROINTESTINAL: Abdomen soft, nontender, nondistended. Active bowel sounds present 4 quadrants. Tolerating diet. Positive bowel movement yesterday. GENITOURINARY: Continues to void clear, yellow urine INTEGUMENTARY: Skin is warm and dry with evidence of good perfusion. Anterior chest incision well approximated. Right lower extremity EVH as well as left radial artery harvest sites well approximated without redness or drainage. NEUROLOGIC: Cranial nerves II through XII intact MUSKULOSKELETAL: Able to move all extremities, strength equal bilaterally, gait normal PSYCHIATRIC: Alert and oriented to person place and time, appropriate affect, intact judgment and insight - Allied health notes Allied health notes reviewed: nursing - Labs CBC & Chem 7: 06/05/22 07:41 06/05/22 07:41 Labs: Abnormal Lab Results - Last 24 Hours (Table) 06/04/22 06/04/22 06/05/22 Range/Units 11:50 20:25 06:17 RBC (3.80-5.40) m/uL Hgb (11.4-16.0) gm/dL Hct (34.0-46.0) % MCV (80.0-100.0) fL Sodium (137-145) mmol/L Glucose (74-99) mg/dL POC Glucose (mg/dL) 129 H 125 H 113 H (70-110) mg/dL Calcium (8.4-10.2) mg/dL 06/05/22 06/05/22 Range/Units 07:41 07:41 RBC 2.34 L (3.80-5.40) m/uL Hgb 7.9 L (11.4-16.0) gm/dL Hct 23.7 L (34.0-46.0) % MCV 101.6 H (80.0-100.0) fL Sodium 130 L (137-145) mmol/L Glucose 105 H (74-99) mg/dL POC Glucose (mg/dL) (70-110) mg/dL Calcium 8.0 L (8.4-10.2) mg/dL - Imaging and Cardiology Chest x-ray: image reviewed Assessment and Plan Assessment: 1. Coronary artery disease, non-STEMI this admission, status post three-vessel CABG 2. Hypertension 3. Lupus, Sjogren's 4. History of asthma, current FEV1 101% of predicted 5. Remote pneumonia history 6. Never smoker 7. Postoperative acute blood loss anemia, expected Plan: 1. Continue to maximize medical therapy with aspirin, statin, Plavix, and beta rajan 2. Continue CCB for radial artery spasm prophylaxis, Norvasc increased to 5 mg 3. Encourage incentive spirometry 10 times every hour while awake. Bronchodilators per pulmonology/critical care medicine. Will give 20 mg IV push Lasix today 4. Increase activity, ambulate as tolerated. PT/OT/cardiac rehab following. Shower daily 5. Pain control with current medication regimen. 6. Insulin management per primary care service. Patient is not a diabetic, hemoglobin A1c 5.7%. 7. GI and DVT prophylaxis 8. Strict accurate intake and output. Daily weights 9. Discharge planning is in place, anticipate discharge home with home health care today 10. More recommendations to follow
[2022-06-05] MEDS: LACTOBACILLUS ACIDOPH & BULGAR 1 EACH PACKET PO SCH (09:41)
[2022-06-05] MEDS: MULTIVITAMINS, THERA 1 EACH TAB PO SCH (09:42)
[2022-06-05] MEDS: CLOPIDOGREL 75 MG TAB PO SCH (09:42)
[2022-06-05] MEDS: ASCORBIC ACID 500 MG TAB PO SCH (09:42)
[2022-06-05] MEDS: VITAMIN E (DL,TOCOPHERYL ACET) 400 UNIT (180 MG) CAP PO SCH (09:42)
[2022-06-05] MEDS: ATORVASTATIN 80 MG TAB PO SCH (09:42)
[2022-06-05] MEDS: METOPROLOL TARTRATE 50 MG TAB PO SCH ×2 (09:42→10:00)
[2022-06-05] MEDS: HYDROXYCHLOROQUINE SULFATE 200 MG TAB PO SCH (09:42)
[2022-06-05] MEDS: FERROUS SULFATE 325 MG TAB PO SCH (09:42)
[2022-06-05] MEDS: CEVIMELINE 30 MG CAP PO SCH ×2 (09:42→09:59)
[2022-06-05] MEDS: cycloSPORINE 0.05% OPHTH 0.4 ML DROPERETTE BOTH EYES SCH (09:43)
[2022-06-05] MEDS: ASPIRIN 325 MG TAB PO SCH (09:43)
[2022-06-05] MEDS: HEPARIN SODIUM,PORCINE/PF 5,000 UNIT/0.5 ML SYRINGE SQ SCH (09:43)
[2022-06-05] MEDS: HEPARIN SOD,PORK IN 0.45% NACL 25,000 UNIT in 0.45% NACL 1 250ML.BAG IV SCH (09:54)
[2022-06-05] MEDS: ASPIRIN 81 MG PO SCH (09:59)
[2022-06-05] MEDS: CALCIUM CARBONATE 500 MG CHEWABLE PO SCH (09:59)
[2022-06-05] MEDS: NON FORMULARY DRUG (Lisdexamfetamine Dimesylate [Vyvanse] 70 MG Capsule) PO SCH (09:59)
[2022-06-05] MEDS: MAGNESIUM OXIDE 400 MG TAB PO SCH (10:00)
[2022-06-05] MEDS: LOSARTAN 50 MG TAB PO SCH (10:00)
[2022-06-05] MEDS: amLODIPine 5 MG TAB PO SCH (10:00)
[2022-06-05 11:48] LABS: Glucose,Whole Blood 133 mg/dL (70-110)
[2022-06-05 11:55] VITALS: BP 122/67; PULSE 86; TEMP 98.4
[2022-06-05] MEDS ORDERED: amLODIPine 5 MG TAB PO SCH (12:00)
--- NOTE | 2022-06-05 12:47 | P.PN ---
Subjective Progress Note Date: 06/05/22 HISTORY OF PRESENT ILLNESS: Patient is status post 3 vessel CABG. Patient examined this morning at the bedside. Patient denies chest pain or pressure. She denies shortness of breat h. She reports using her incentive spirometer and is pulling about thousand cc. Telemetry reveals sinus mechanism. Patient's blood pressure is slightly elevated this morning. 06/05/2022 Patient examined this morning at the bedside. Patient denies chest pain or pressure. She denies shortness of breath. She has been of any bleeding in her room. She reports using her incentive spirometer and pulling 1000 mL. Vital signs are stable. PHYSICAL EXAM: VITAL SIGNS: Reviewed. GENERAL: Well-developed in no acute distress. NECK: Supple. No JVD or thyromegaly LUNGS: Respirations even and unlabored. Lungs diminished to auscultation bilaterally. HEART: Regular rate and rhythm. S1 and S2 heard. Heart hugger present. EXTREMITIES: Normal range of motion. No clubbing or cyanosis. Peripheral pulses intact. No lower extremity edema ASSESSMENT: Non-STEMI, status post 3 vessel CABG Hypertension History of asthma Lupus, Sjogren's PLAN: Continue postoperative management per cardiothoracic surgery Increase activity as tolerated Continue to encourage use of incentive spirometer Patient is stable for DC today from a cardiac standpoint Nurse practitioner note has been reviewed by physician. Signing provider agrees with the documented findings, assessment, and plan of care. Objective - Vital Signs Vital signs: Vital Signs Temp 98.4 F 06/05/22 11:53 Pulse 86 06/05/22 11:53 Resp 18 06/05/22 11:53 BP 122/67 06/05/22 11:53 Pulse Ox 95 06/05/22 11:53 FiO2 2 06/02/22 16:00 Intake & Output 06/04/22 06/05/22 06/05/22 18:59 06:59 18:59 Intake Total 800 5 Balance 800 5 Weight 63.5 kg Intake: IV 5 Invasive Line 6 5 Oral 800 Other: Voiding Method Toilet Toilet # Voids 1 2 ABP, PAP, CO, CI - Last Documented Arterial Blood Pressure 134/54 Pulmonary Artery Pressure 26/8 Cardiac Output 4.3 Cardiac Index 2.6 - Labs CBC & Chem 7: 06/05/22 07:41 06/05/22 07:41 Labs: Abnormal Lab Results - Last 24 Hours (Table) 06/04/22 06/05/22 06/05/22 Range/Units 20:25 06:17 07:41 RBC 2.34 L (3.80-5.40) m/uL Hgb 7.9 L (11.4-16.0) gm/dL Hct 23.7 L (34.0-46.0) % MCV 101.6 H (80.0-100.0) fL Sodium (137-145) mmol/L Glucose (74-99) mg/dL POC Glucose (mg/dL) 125 H 113 H (70-110) mg/dL Calcium (8.4-10.2) mg/dL 06/05/22 06/05/22 Range/Units 07:41 11:46 RBC (3.80-5.40) m/uL Hgb (11.4-16.0) gm/dL Hct (34.0-46.0) % MCV (80.0-100.0) fL Sodium 130 L (137-145) mmol/L Glucose 105 H (74-99) mg/dL POC Glucose (mg/dL) 133 H (70-110) mg/dL Calcium 8.0 L (8.4-10.2) mg/dL
--- NOTE | 2022-06-05 14:43 | P.DS ---
Providers Date of admission: 05/27/22 14:49 Expected date of discharge: 06/05/22 Attending physician: Dank Awad Consults: 05/27/22 14:59 Consult Physician Routine Consulting Provider: Jovi Kellogg Consult Reason/Comments: 3V CAD Do you want consulting provider notified?: Already Contacted Placement Type Exists?: Yes 05/28/22 08:49 Consult Physician Routine Consulting Provider: Trever Cortez Consult Reason/Comments: preop cabg Do you want consulting provider notified?: Already Contacted 05/28/22 11:36 Consult Physician Routine Consulting Provider: Suleman Sosa Consult Reason/Comments: CAD Do you want consulting provider notified?: Already Contacted 05/31/22 08:27 Consult to Anesthesia Routine Consulting Provider: Anesthesia,Services Consult Reason/Comments: Cardiac Surgery Pre-Op 06/01/22 13:32 Consult Physician Routine Consulting Provider: Etelvina Pang Consult Reason/Comments: med mgmt Do you want consulting provider notified?: Already Contacted Primary care physician: Lupe Snowden MD Hospital Course: FINAL DIAGNOSIS: 1. Coronary artery disease, non-STEMI this admission 2. Hypertension 3. Lupus, Sjogren's 4. History of asthma, current FEV1 101% of predicted 5. Remote pneumonia history 6. Never smoker 7. Postoperative acute blood loss anemia, expected PRINCIPAL PROCEDURE: 1. Coronary artery bypass grafting 3 vessels, left internal mammary artery to left anterior descending coronary artery, radial artery to the ramus coronary artery, saphenous vein graft to the posterior descending coronary artery 2. Endoscopic harvesting of the right greater saphenous vein 3. Endoscopic harvesting of the left radial artery 4. Ligation of the left atrial appendage using a 35 mm AtriClip 5. Epi-aortic ultrasound and intraoperative transesophageal echocardiogram HISTORY OF PRESENT ILLNESS: This is a 66-year-old active female who use to follow with Dr. Snowden for primary care, now follows with physician assistant Torres at the same office. She presented to [facility] with complaints of chest heaviness and shortness of breath. Troponins were drawn and she was ruled in for non-STEMI. She underwent heart catheterization demonstrating ostial/proximal LAD stenosis 90%, ramus intermedius stenosis 95%, and proximal RCA stenosis 85%. For completeness transthoracic echocardiogram was completed demonstrating low-normal systolic function with EF 50%, normal diastolic function, focal apical and lateral hypokinesis, trace mitral and tricuspid regurgitation with mild to moderate aortic insufficiency. Due to her heart catheterization findings along with non-STEMI diagnosis she was transferred to [facility] with consultation placed to cardiothoracic surgery for recommendations regarding surgical revascularization. She was recommended to undergo coronary artery bypass surgery. The usual perioperative course was discussed in detail with the patient and her family, all risks and benefits were explained, all questions were answered, and consent was obtained to proceed with surgery. The patient was kept inpatient due to the nature of her disease process. HOSPITAL COURSE: The patient was brought to the preoperative area 06/01/22, prepared in the usual fashion, and subsequently taken to the operating room where Dr. Awad performed three-vessel CABG. Upon completion of surgery the patient was transferred to the cardiovascular intensive care unit where she was recovered and monitored hemodynamically. She was extubated, all lines, tubes, and drips were discontinued when appropriate, and she was transferred to 3 S. cardiac stepdown unit for further monitoring and rehabilitation. Her oxygen was titrated down, she continued to work with physical and occupational therapy, she was tolerating oral diet, her pain was controlled, and she was ready to be discharged to home with [facility] on postoperative day #4. She received written and verbal instruction regarding her medications, activity restrictions, signs and symptoms requiring physician notification, and follow-up appointments. Patient Condition at Discharge: Stable Plan - Discharge Summary New Discharge Prescriptions: New Atorvastatin [Lipitor] 80 mg PO DAILY #30 tab Clopidogrel [Plavix] 75 mg PO DAILY #30 tab Aspirin 325 mg PO DAILY #30 tab Metoprolol Tartrate [Lopressor] 50 mg PO BID #60 tab amLODIPine [Norvasc] 5 mg PO DAILY@1200 #30 tab Pantoprazole [Protonix] 40 mg PO AC-BRKFST #30 tab Sennosides-Docusate Sodium [Senokot-S] 2 each PO HS PRN tab PRN Reason: Constipation Acetaminophen Tab [Tylenol] 650 mg PO Q4HR PRN tab PRN Reason: Fever and/ or Mild Pain Continue Lisdexamfetamine Dimesylate [Vyvanse] 70 mg PO DAILY Budesonide-Formot 160-4.5 Mcg [Symbicort 160-4.5 Mcg Inhaler] 2 puff INHALATION RT-BID Hydroxychloroquine Sulfate [Plaquenil] 200 mg PO BID Cevimeline [Evoxac] 30 mg PO TID Butalb/Acetaminophen/Caffeine [Esgic 50-325-40 mg Tablet] 1 tab PO Q4H PRN PRN Reason: Migraine Headache Fremanezumab-Vfrm [Ajovy Autoinjector] 225 mg SQ Q30D Vitamin E 400 unit PO DAILY Turmeric Root Extract [Turmeric] 1,500 mg PO DAILY [place]-3 Fatty Acids [[place]-3] 1,000 mg PO DAILY cycloSPORINE 0.05% OPHTH SOLN [Restasis] 1 drop BOTH EYES BID Amitriptyline HCl [Elavil] 150 mg PO HS Furosemide [Lasix] 20 mg PO DAILY Estradiol Cream [Estrace Cream 0.01%] 2 gm VAGINAL DIRECTED Multivitamins, Thera [Multivitamin (formulary)] 1 tab PO DAILY Ascorbic Acid [Vitamin C] 500 mg PO DAILY Magnesium Oxide [Magox 400] 400 mg PO DAILY L.acidoph,Paracasei, B.lactis [Probiotic] 1 cap PO DAILY Ferrous Sulfate [Slow Fe] 142 mg PO DAILY Calcium Carbonate [Calcium] 600 mg PO BID Vitamin B Complex 1 cap PO DAILY Discontinued Verapamil HCl [Verapamil Sr] 360 mg PO DAILY Losartan Potassium 50 mg PO BID Labetalol HCl 200 mg PO BID Esomeprazole Magnesium [NexIUM 24Hr] 20 mg PO DAILY Discharge Medication List Amitriptyline HCl [Elavil] 150 mg PO HS 05/27/22 [History] Ascorbic Acid [Vitamin C] 500 mg PO DAILY 05/27/22 [History] Budesonide-Formot 160-4.5 Mcg [Symbicort 160-4.5 Mcg Inhaler] 2 puff INHALATION RT-BID 05/27/22 [History] Butalb/Acetaminophen/Caffeine [Esgic 50-325-40 mg Tablet] 1 tab PO Q4H PRN 05/27/22 [History] Calcium Carbonate [Calcium] 600 mg PO BID 05/27/22 [History] Cevimeline [Evoxac] 30 mg PO TID 05/27/22 [History] Estradiol Cream [Estrace Cream 0.01%] 2 gm VAGINAL DIRECTED 05/27/22 [History] Ferrous Sulfate [Slow Fe] 142 mg PO DAILY 05/27/22 [History] Fremanezumab-Vfrm [Ajovy Autoinjector] 225 mg SQ Q30D 05/27/22 [History] Furosemide [Lasix] 20 mg PO DAILY 05/27/22 [History] Hydroxychloroquine Sulfate [Plaquenil] 200 mg PO BID 05/27/22 [History] L.acidoph,Paracasei, B.lactis [Probiotic] 1 cap PO DAILY 05/27/22 [History] Lisdexamfetamine Dimesylate [Vyvanse] 70 mg PO DAILY 05/27/22 [History] Magnesium Oxide [Magox 400] 400 mg PO DAILY 05/27/22 [History] Multivitamins, Thera [Multivitamin (formulary)] 1 tab PO DAILY 05/27/22 [History] [place]-3 Fatty Acids [[place]-3] 1,000 mg PO DAILY 05/27/22 [History] Turmeric Root Extract [Turmeric] 1,500 mg PO DAILY 05/27/22 [History] Vitamin B Complex 1 cap PO DAILY 05/27/22 [History] Vitamin E 400 unit PO DAILY 05/27/22 [History] cycloSPORINE 0.05% OPHTH SOLN [Restasis] 1 drop BOTH EYES BID 05/27/22 [History] Acetaminophen Tab [Tylenol] 650 mg PO Q4HR PRN tab 06/05/22 [Rx] Aspirin 325 mg PO DAILY #30 tab 06/05/22 [Rx] Atorvastatin [Lipitor] 80 mg PO DAILY #30 tab 06/05/22 [Rx] Clopidogrel [Plavix] 75 mg PO DAILY #30 tab 06/05/22 [Rx] Metoprolol Tartrate [Lopressor] 50 mg PO BID #60 tab 06/05/22 [Rx] Pantoprazole [Protonix] 40 mg PO AC-BRKFST #30 tab 06/05/22 [Rx] Sennosides-Docusate Sodium [Senokot-S] 2 each PO HS PRN tab 06/05/22 [Rx] amLODIPine [Norvasc] 5 mg PO DAILY@1200 #30 tab 06/05/22 [Rx] Follow up Appointment(s)/Referral(s): Dulce Moreno, TALAT [Nurse Practitioner] - 06/10/22 12:30 pm (You will be seen in the surgeon's office behind the hospital in [facility], [address] [place] [address] 1. Office phone number is ) Suleman Sosa MD [STAFF PHYSICIAN] - 2 Weeks (Office will call with appointment) Rehab Cullen PH,Cardiac [NON-STAFF] - 4 Weeks (You will receive a phone call in approximately 4-6 weeks for evaluation for cardiac rehab) Adelfo Meza,Home Care [NON-STAFF] - 1-2 Days (To see patient 24 hours after discharge, then 2-3 times per week for 4 weeks) Mariaelena Culver NPC [Nurse Practitioner] - 06/17/22 9:45 am Dank Awad MD [STAFF PHYSICIAN] - 07/02/22 9:30 am Lupe Snowden MD [Primary Care Provider] - 06/23/22 12:45 pm (Appointment is with REBECA Torres) Ambulatory/Diagnostic Orders: Complete Blood Count w/diff [LAB.AMB] Time Frame: 3 Days, Location: None Selected Comprehensive Metabolic Panel [LAB.AMB] Time Frame: 3 Days, Location: None Selected Activity/Diet/Wound Care/Special Instructions: DISCHARGE INSTRUCTIONS: 1. No driving for 4 weeks, or until physician gives their ok. 2. The patient should sleep in their own bed, no medical bed needed. 3. Stairs are not an issue. If the bedroom is upstairs, it is advised that the patient go up at night and down in the morning for the first week. Go slowly, using handrail and take 1 step at a time. 4. CLAIRE hose are to be worn for 30 days or until physician discontinues. 5. Heart hugger is to be worn 100% of the time until physician discontinues.(except when showering) 6. No lifting, pushing, or pulling more than 10 pounds for 12 weeks. The physician will advise of any restriction changes. 7. The patient is expected to continue the prescribed walking program. 8. Continue pain control per as needed orders. 9. Continue with incentive spirometry and splinting/heart hugger until otherwise directed by the physician. 10. Must shower daily using liquid antibacterial soap and a separate white washcloth for each individual incision. 11. Routine sternal incision care. No powders, lotions, ointments on incisions. No dressings are necessary on incisions unless they are draining. Dermabond tape is to remain on sternal incision until surgeon follow-up. 12. Please call surgeon/STRIKER OFF for temp greater than 101 F or purulent drainage from incisions. 13. You should weigh yourself daily, record and bring log with you to follow up appointments. 14. All prescriptions given by surgeon for 30 days. Refills need to be filled through radio division captain/primary care physician. 15. A Red armband has been placed on the patient. It should be worn for 30 days post surgery and will be removed by the cardiac surgeons. If an ER visit is necessary, please make sure the number on the Red armband is called. 16. You have been referred to and are expected to begin Cardiac Rehab in approximately 4-6 weeks. HOME HEALTH SERVICES TO PROVIDE: RN SKILLED HOME CARE SERVICES FOR POST-OP SURGICAL PATIENTS WITH THE FOLLOWING: Coronary Artery Bypass Surgery (CABG), Mitral Valve Replacement/Repair ( MVR), Aortic Valve Replacement/Repair (AVR) RN TO CONTINUE EDUCATION FROM ``ROAD TO A HEALTH HEART PATIENT EDUCATION MANUAL (GIVEN TO PATIENT IN THE HOSPITAL) MEDICATION RECONCILIATION WITH EDUCATION NEEDED ON FIRST HOME VISIT EMPHASIZE IMPORTANCE OF WEARING BREAST SUPPORT/HEART HUGGER ENCOURAGE USE OF INCENTIVE SPIROMETER 10 X EVERY HOUR WHILE AWAKE ENCOURAGE UTILIZATION OF LOWER EXTREMITY COMPRESSION STOCKINGS/CLAIRE HOSE and ELEVATE LEGS ABOVE LEVEL OF HEART WHILE AT REST. ENCOURAGE AMBULATION 3-5x/day INCREASING TOLERATES, WHILE AVOIDING EXTREMES IN TEMPERATURE FREQUENCY: RN TO OPEN THE PATIENT WITHIN 24 HOURS OF DISCHARGE FROM THE HOSPITAL WITH TELEHEALTH INSTALLED AT [facility], RN TO VISIT 2-3 X A WEEK FOR 4 WEEKS ESTABLISHED BY PATIENT NEEDS. LABORATORY: CBC, CMP TO BE DRAWN ON THE THIRD DAY HOME, (RAN STAT) FAX RESULTS TO [phone]. TELEHEALTH PARAMETERS: WEIGHT: NOTIFY MD OF WEIGHT GAIN OF 2 LBS IN 24 HOURS OR 5 LBS IN ONE WEEK HR: NOTIFY MD OF HR <55 BPM OR HR>100 BPM BP: NOTIFY MD IF BP <90/55 OR BP>140/100 O2 SAT: NOTIFY MD IF PO2<93% ON ROOM AIR SEND TELEHEALTH REPORT TO STORE MANAGEMENT TRAINEE AND CARDIOVASCULAR SURGEON THE FIRST WEEK OF CARE AND THEN BI-WEEKLY. PLEASE ADDITIONALLY COMMUNICATE ANY ABNORMALS AND NEW FINDINGS TO THE SURGEONS OFFICE. Discharge Disposition: HOME WITH HOME HEALTH SERVICES
--- NOTE | 2022-06-05 14:47 | P.PN ---
Subjective Progress Note Date: 06/05/22 66-year-old male patient is being seen in the intensive care unit following her cardiac surgery. The patient underwent coronary artery bypass surgery and currently she is postop day #0. I saw this patient immediately after she arrived to the intensive care unit and the patient was on propofol running at 35 mcg/kg per minute. The patient underwent three-vessel bypass surgery including SHARMA to LAD and saphenous vein grafts to PDA and radial 2 ramus. The patient is currently comfortable hemodynamically stable. Cardiac output is at 4.0 with an index of 2.5. The patient has a pulmonary artery pressure of 31/16. The patient is currently on no pressors. She is on Cardizem drip at 5 mg an hour. The patient is paced at the rate of 80. Underlying cardiac rhythm is sinus bradycardia at the rate of 50. The patient is currently synchronous with the mechanical ventilator lesions she is an assist-control mode at the rate of 14 with a tidal volume of 400 and FiO2 of 40% with a PEEP of 5. Chest x-ray showed adequate positioning of the ET tube. The patient has some atelectatic changes and small effusion the left lung base. Right lung essentially clear. In terms of tubes, the patient has a mediastinal and left pleural chest tube. Output from the left pleural has been in the order of 50 mL since she had output from the operating room after the mediastinum has been approximately 60 mL. No evidence of any air leak. No evidence of any pneumothorax. The blood gas showed adequate oxygenation. The patient had a pO2 of 376 with a pCO2 of 34 and pH of 7.44. This was on FiO2 of 100% and FiO2 has been drop down to 50% and currently is down to 40%. IV fluids are in the form of lactated Ringer at the rate of 50 mL an hour. The patient is producing adequate amount of urine output. No other significant events otherwise for now. On today's evaluation of 06/02/2022, the patient is extubated and the patient is currently doing well on 3 L about 2 by nasal cannula. She is awake and alert. Ridgely-Jaren catheter removed after confirming cardiac index of 2.3 this morning. The patient is also maintaining her on normal sinus rhythm and her current heart rate is above 80. No sinus bradycardia this point in time. She using incentive spirometer. She is pulling approximately 1000 on dialysis. Urine output is adequate. Output from the mediastinal and left pleural chest tube is minimal in the order of 10 mL an hour. No other significant events. Initial pain. No issues with any focal neurological deficit. The chest x-ray showed adequate expansion of both lungs. Chest tubes are in good location. No nausea. No vomiting. No diarrhea. No abdominal pain. No skin rashes. No other issues for now. The blood work from today shows a white cell count of 9 with a hemoglobin 8.4 and the patient has a sodium level of 1:30 with a mean of 14 and a creatinine of 0.7. Normal LFTs. 06/03/2022, the patient is doing well without any specific complaints. The patient is ambulating. Chest tubes are in place and this involves a right pleural and left pleural chest tube and both of the chest tube be removed today. The patient currently is on 2 L of oxygen nasal cannula and the patient is using incentive spirometer, pulling approximately 2000 on her incentive spirometer. She is ambulating. She has no specific complaints. No nausea vomiting or chest pain. Cardiac rhythm remains sinus. On her blood work, the patient has a hemoglobin of 7.2. Platelet count is at 147. Sodium level started on the 129 with a potassium of 4.1 and a BUN of 18 and a creatinine of 0.8. No other significant events overnight. The white cell count currently is at 8.7. Blood sugars are adequately controlled. The epicardial leads around this. 06/04/2022, the patient is doing well. Chest tubes are removed. Chest x-ray showed adequate expansion of both lungs. No significant abnormalities noted other than some postsurgical changes. The patient is doing well. She is ambulating. She is hemodynamically stable on room air oxygen. The white cell count of 5.3 with a hemoglobin of 7.7. Sodium is at 1:30 and the patient is a BUN of 15 and a creatinine of 0.7. The patient is on having any complaints. She'll be given a dose of Lasix today by the cardiothoracic team. He is going on examination of aspirin, Plavix and beta blockers and statins. The metoprolol dose was increased up to 50 mg twice a day. She is using incentive spirometer. 06/05/2022, the patient is doing extremely well, ambulating, no signs of any respiratory distress and a chest x-ray showing some limited post operative atelectatic changes and effusion lung bases bilaterally. The blood work from today shows a white cell, 7.4 with a hemoglobin of 7.9 and a BUN of 11 and a creatinine of 0.7 sodium level is at 130. Objective - Vital Signs Vital signs: Vital Signs Temp 98.4 F 06/05/22 11:53 Pulse 86 06/05/22 11:53 Resp 18 06/05/22 11:53 BP 122/67 06/05/22 11:53 Pulse Ox 95 06/05/22 11:53 FiO2 2 06/02/22 16:00 Intake & Output 06/04/22 06/05/22 06/05/22 18:59 06:59 18:59 Intake Total 800 105 Balance 800 105 Weight 63.5 kg Intake: IV 5 Invasive Line 6 5 Oral 800 100 Other: Voiding Method Toilet Toilet # Voids 1 2 ABP, PAP, CO, CI - Last Documented Arterial Blood Pressure 134/54 Pulmonary Artery Pressure 26/8 Cardiac Output 4.3 Cardiac Index 2.6 - Exam CONSTITUTIONAL: Alert and oriented 3 HEENT: Neck is supple, no JVD, no lymphadenopathy. RESPIRATORY: Lungs sounds essentially clear throughout, diminished to his bilateral bases with few scattered crackles. Respirations are symmetrical and nonlabored. Currently on room air with oxygen saturations 95%. CARDIOVASCULAR: Regular rhythm and rate. S1 and S2 present, negative for S3, gallop or murmur. Sternum is stable. Palpable peripheral pulses bilaterally, no edema to her bilateral lower extremities. No calf pain or tenderness noted. Heart hugger in place with patient demonstrating appropriate use. Knee-high CLAIRE hose and sequential compression devices in place to his bilateral lower extremities. GASTROINTESTINAL: Abdomen soft, nontender, nondistended. Active bowel sounds present 4 quadrants. Tolerating diet. Passing flatus. No guarding or rigidity. GENITOURINARY: Continues to void. INTEGUMENTARY: Skin is warm and dry with no evidence of clubbing or cyanosis. Midline sternal incision clean dry and well approximated, covered with dry intact dressing. Right lower extremity EVH site well approximated without redness or drainage. Left arm radial artery harvest sites clean, dry and approximated. No drainage or redness is present. NEUROLOGIC: Cranial nerves II through XII intact. No focal deficits. MUSKULOSKELETAL: Able to move all extremities, strength equal bilaterally. - Labs CBC & Chem 7: 06/05/22 07:41 06/05/22 07:41 Labs: Abnormal Lab Results - Last 24 Hours (Table) 06/04/22 06/05/22 06/05/22 Range/Units 20:25 06:17 07:41 RBC 2.34 L (3.80-5.40) m/uL Hgb 7.9 L (11.4-16.0) gm/dL Hct 23.7 L (34.0-46.0) % MCV 101.6 H (80.0-100.0) fL Sodium (137-145) mmol/L Glucose (74-99) mg/dL POC Glucose (mg/dL) 125 H 113 H (70-110) mg/dL Calcium (8.4-10.2) mg/dL 06/05/22 06/05/22 Range/Units 07:41 11:46 RBC (3.80-5.40) m/uL Hgb (11.4-16.0) gm/dL Hct (34.0-46.0) % MCV (80.0-100.0) fL Sodium 130 L (137-145) mmol/L Glucose 105 H (74-99) mg/dL POC Glucose (mg/dL) 133 H (70-110) mg/dL Calcium 8.0 L (8.4-10.2) mg/dL Assessment and Plan Plan: Coronary artery bypass surgery/CABG. The patient underwent three-vessel bypass with SHARMA to LAD, radial and saphenous vein grafts also use. The patient is postop day # 4. The patient is hemodynamically stable in normal sinus rhythm Post thoracotomy, currently extubated and the patient is currently on room air oxygen and the patient has small atelectatic changes and effusion the lung bases bilaterally. Non-ST segment elevation myocardial infarction, with three-vessel coronary artery disease. History of asthma, not active at this time. History of lupus. History of Sjogren's syndrome. History of hypertension. Lifelong nonsmoker. Remote history of pneumonia. Anemia, expected outcome surgery and the patient's hemoglobin is stable, hemoglobin is currently is stable Plan: Increase mobility Continue using incentive spirometer Continue aspirin and Plavix continue metoprolol 50 mg by mouth twice a day Monitor hemodynamics The patient is ambulating. Sliding scale insulin coverage Possible discharge today
--- NOTE | 2022-06-05 21:53 | P.PN ---
Subjective 66-year-old pleasant female was transferred from [facility] after she was found to have three-vessel disease and patient is transferred here for coronary artery bypass grafting which was scheduled for Wednesday. Patient is undergoing workup for that at this time. Patient had non-ST elevation microinfarction and patient had 90% stenosis in LAD ramus intermedius stenosis 95% proximal RCA stenosis 80%. Patient had normal ejection fraction now diastolic function with apical lateral hypokinesis. A she is hyponatremic and patient does take Lasix at home which is being held at this time because of the hyponatremia. History of lupus and Sjogren syndrome. 05/29/2022 Patient evaluated on cardiac unit. She has been evaluated by cardiothoracic services and plan is for coronary artery bypass grafting on Wednesday. Metabolic panel today shows sodium level of 131, creatinine stable. She remains afebrile, heart rate 67, blood pressure 161/80, 96% room air. No acute events overnight. She continues on heparin gtt. Continue to hold home lasix. 05/30/2022 Patient is seen and evaluated in follow-up this morning with family at the bed side and reports to feeling well. Patient has been up and walking multiple times. Plan is for CABG on Wednesday with CT surgery, cardiology, and pulmonary following closely. No labs available today and recommend am labs. Patient is continued on IV heparin. Patient denies chest pain or shortness of breath. Patient is afebrile and denies any nausea or vomiting. 05/31/2022 Patient is seen this morning with cardiothoracic surgery following closely as there is plans for CABG in the a.m. chest x-ray this morning shows no acute cardiopulmonary process. Patient to continue current diet and will be made nothing by mouth at midnight and plan is to proceed with CABG with cardiothoracic surgery and patient is anxious and looking forward to getting this done and working on rehab and going home. Heart rate in the high 50s to low 60s and blood pressure currently controlled and patient is on room air at 96% saturation. Patient denies chest pain or palpitations. Patient is afebrile. Patient is tolerating diet with no reports of nausea or vomiting noted. Labs: WBC is 5.5, hemoglobin is 11.9, platelets are 237 and INR is 1.0, sodium is 131, potassium 4.4, current creatinine is 0.81, magnesium is 1.7, total bili is 0.3, AST 57, ALT 42 06/01/2022 Patient scheduled for CABG today with cardiothoracic surgery and will be monitored in intensive care unit post procedure. Blood glucose today 101. Preoperative vitals include temperature of 97.5, heart rate 60, blood pressure 158/60, 100% room air. Patient not in room to examine, has gone to the OR to undergo coronary artery bypass grafting. 06/02/2022 Patient evaluated this morning in intensive care unit post operative Day #1 coronary artery bypass grafting x 3 vessels with left internal mammary artery to left anterior descending coronary artery, radial artery to the ramus coronary artery, and a saphenous vein graft to the posterior descending coronary artery. Patient has been extubated and is continued on 2L nasal cannula with oxygen saturations 94 to 95%, afebrile, heart rate 90s, blood pressure 103/61. Labs today showing white count 9.0, hgb 8.4, which is expected postoperatively, sodium 130, potassium 4.6, BUN 14, creatinine 0.76, blood glucose in the 120s, magnesium 2.1, liver enzymes with mild elevation., albumin 2.7 today. Patient did receive IV albumin this morning, has been started on amlodipine, plavix, plaquenil. Patient reports using incentive spirometer and has ambulated in the hallway. Reports generalized chest discomfort for which she is receiving norco. She is on bowel regimen. Mediastinal and left pleural chest tubes in place. 06/03/2022 Patient is postoperative day #2, 3 vessel CABG. She conitnues with close monitoring in intensive care unit with plans for downgrade to step down unit later today. She is ambulating in hallway and using incentive spirometer. Indwelling catheter has been discontinued. Plans for discontinuation of right radial arterial line today as well as removal of mediastinal and left chest tube today per cardiothoracic. Bowels are hypoactive, patient is tolerating diet, sta lucía she is passing gas, no BM yet. Chest xray this morning showing persistent bilateral consolidation and pleural effusion. Correlate for infiltrate, central venous congestion not excluded. Patient denies shortness of breath, reports incisional chest discomfort rating a 2/10 and is being controlled with current pain medications. Continues on bowel regimen. Labs today reveal white count 8.7, hgb 7.2, sodium 129, BUN 18, creatinine 0.80, blood glucose 130-160s, calcium 7.8, AST 59, ALT 20, alk phos 46, albumin today 2.7. Subjective: Resuming the care of the patient today 06/04/2022 patient is a pleasant 66 years old female status post coronary artery bypass surgery for her non-STEMI and significant coronary artery disease. Each may be also related to her history of connective tissue disease, she has history of lupus and stroke. And she is on Plaquenil. Patient currently awake and alert. Denied chest pain or dyspnea. Denies any other specific complaints. She is able to walk. She has poor appetite. No known drug which was stopped. Chest x-ray showing postsurgical changes with bilateral basal atelectasis versus infiltration, no pneumothorax after tube removal. Sodium 1:30, hemoglobin stable 7.7. Patient is on aspirin 325 mg, Plavix, metoprolol 50 mg increased today. Discontinue insulin 3 units with meals, patient was stopped on insulin at home. Hemoglobin A1c 5.7%. 06/05/2022 Patient clinically is doing well, she is asymptomatic. No chest pain or dyspnea. No other complaints. Vitals are stable. Labs are stable. Hemoglobin 7.9. Sodium 1:30. Insulin was discontinued. She is on aspirin Plavix Patient is medically stable Objective - Vital Signs Vital signs: Vital Signs Temp 98.3 F 06/05/22 03:58 Pulse 96 06/05/22 08:29 Resp 16 06/05/22 03:58 BP 150/72 06/05/22 03:58 Pulse Ox 95 06/05/22 08:18 FiO2 2 06/02/22 16:00 Intake & Output 06/04/22 06/05/22 06/05/22 18:59 06:59 18:59 Intake Total 800 Balance 800 Weight 63.5 kg Intake: Oral 800 Other: Voiding Method Toilet # Voids 1 ABP, PAP, CO, CI - Last Documented Arterial Blood Pressure 134/54 Pulmonary Artery Pressure 26/8 Cardiac Output 4.3 Cardiac Index 2.6 - Exam GENERAL: The patient is alert and oriented x3, not in any acute distress. Well developed, well nourished. HEENT: Pupils are round and equally reacting to light. EOMI. No scleral icterus. No conjunctival pallor. Normocephalic, atraumatic. No pharyngeal erythema. No thyromegaly. -CARDIOVASCULAR: S1 and S2 present. No murmurs, rubs, or gallops. Surgical wound was dressed in a Place PULMONARY: Chest is clear to auscultation, no wheezing or crackles. ABDOMEN: Soft, nontender, nondistended, normoactive bowel sounds. No palpable organomegaly. MUSCULOSKELETAL: No joint swelling or deformity. EXTREMITIES: No cyanosis, clubbing, or pedal edema. NEUROLOGICAL: Gross neurological examination did not reveal any focal deficits. SKIN: No rashes. no petechiae. - Labs CBC & Chem 7: 06/05/22 07:41 06/05/22 07:41 Labs: Abnormal Lab Results - Last 24 Hours (Table) 06/04/22 06/04/22 06/05/22 Range/Units 11:50 20:25 06:17 RBC (3.80-5.40) m/uL Hgb (11.4-16.0) gm/dL Hct (34.0-46.0) % MCV (80.0-100.0) fL Sodium (137-145) mmol/L Glucose (74-99) mg/dL POC Glucose (mg/dL) 129 H 125 H 113 H (70-110) mg/dL Calcium (8.4-10.2) mg/dL 06/05/22 06/05/22 Range/Units 07:41 07:41 RBC 2.34 L (3.80-5.40) m/uL Hgb 7.9 L (11.4-16.0) gm/dL Hct 23.7 L (34.0-46.0) % MCV 101.6 H (80.0-100.0) fL Sodium 130 L (137-145) mmol/L Glucose 105 H (74-99) mg/dL POC Glucose (mg/dL) (70-110) mg/dL Calcium 8.0 L (8.4-10.2) mg/dL Assessment and Plan Assessment: -Non-STEMI, status post CABG. -Postoperative anemia which is expected -Lupus and Sjogren's disease fairly stable without any acute exacerbation -hyponatremia -Hypertension -History asthma, stable -Low TSH, with T4 in normal limits -Mild elevated transaminases, improving Plan: This is a pleasant 66 years old female with CAD status post CABG Continue with aspirin and Plavix Continue with metoprolol 50 mg Discontinue insulin Consultants on the case including cardiothoracic surgery team, cardiology and pulmonary/critical care team Labs and medication were reviewed.. Continue same treatment. Continue with symptomatic treatment. Resume home medication. Monitor lytes and vitals. DVT and GI prophylaxis. Further recommendations as per clinical course of the patient DVT prophylaxis: Subcutaneous heparin GI Prophylaxis: Ppi
== END 2022-06-05 14:40 | disposition home health service (06) | DRG 236 ==
LOC: 3SCARD 14:49 → 2SICU 06-01 07:03 → 3SCARD 06-03 18:23
PROVIDERS: ADMIT Surgery; ATTEND Surgery
PROC: 03BC4ZZ Excision of Left Radial Artery, Percutaneous Endoscopic Approach (ICD-10-PCS; principal; 2022-06-01 08:00)
PROC: 021009W Bypass Coronary Artery, One Artery from Aorta with Autologous Venous Tissue, Open Approach (ICD-10-PCS; principal; 2022-06-01 08:00)
PROC: 02100Z9 Bypass Coronary Artery, One Artery from Left Internal Mammary, Open Approach (ICD-10-PCS; principal; 2022-06-01 08:00)
PROC: B24BZZ4 Ultrasonography of Heart with Aorta, Transesophageal (ICD-10-PCS; principal; 2022-06-01 08:00)
PROC: 02100AW Bypass Coronary Artery, One Artery from Aorta with Autologous Arterial Tissue, Open Approach (ICD-10-PCS; principal; 2022-06-01 08:00)
PROC: 02L70CK Occlusion of Left Atrial Appendage with Extraluminal Device, Open Approach (ICD-10-PCS; principal; 2022-06-01 08:00)
PROC: 5A1221Z Performance of Cardiac Output, Continuous (ICD-10-PCS; principal; 2022-06-01 08:00)
PROC: 06BP4ZZ Excision of Right Saphenous Vein, Percutaneous Endoscopic Approach (ICD-10-PCS; principal; 2022-06-01 08:00)
DX: I21.4 Non-ST elevation (NSTEMI) myocardial infarction (principal); D62 Acute posthemorrhagic anemia; E87.1 Hypo-osmolality and hyponatremia; E78.5 Hyperlipidemia, unspecified; E86.1 Hypovolemia; I10 Essential (primary) hypertension; I25.10 Atherosclerotic heart disease of native coronary artery without angina pectoris; I25.2 Old myocardial infarction; Z87.01 Personal history of pneumonia (recurrent); J45.909 Unspecified asthma, uncomplicated; M35.00 Sjogren syndrome, unspecified; Z79.51 Long term (current) use of inhaled steroids; Z79.82 Long term (current) use of aspirin; Z79.899 Other long term (current) drug therapy; Z80.8 Family history of malignant neoplasm of other organs or systems; Z86.73 Personal history of transient ischemic attack (TIA), and cerebral infarction without residual deficits; Z88.1 Allergy status to other antibiotic agents; Z88.0 Allergy status to penicillin; Z88.2 Allergy status to sulfonamides
CPT/HCPCS: 71045; 71046; 80048; 80053; 80061; 80074; 81003; 82330; 82805; 83036; 83735; 84439; 84443; 85025; 85027; 85520; 85610; 85730; 86850; 86891; 86900; 86901; 86920; 87070; 93880; 93970; 94002; 94640; 94760

== ENCOUNTER 2022-06-05 20:11 | Emergency (ER) | payer MEDICARE ==
[2022-06-05 20:17] VITALS: BP 136/80; TEMP 99.1
[2022-06-05] MEDS ORDERED: HYDROcodone/APAP 5-325MG 1 EACH TAB PO STA ×2 (20:47→21:47)
--- NOTE | 2022-06-05 20:49 | ED ---
General Adult HPI - General Chief complaint: Chest Pain Stated complaint: Chest pain Time Seen by Provider: 06/05/22 20:18 Source: patient Mode of arrival: wheelchair Limitations: no limitations - History of Present Illness Initial comments: Dictation was produced using [employer] dictation software. please excuse any grammatical, word or spelling errors. Chief Complaint: Patient is 66-year-old presents emergency department for chest pain History of Present Illness: She is a 66-year-old female presents to the emergency department for chest pain. Patient was just discharged today. She was admitted to the hospital for approximately 8 days. She had coronary artery bypass grafting. Patient denies any post surgical complications. She felt fine at discharge today. Patient started to have recurrence of chest pain. She states that the pain is to her bilateral anterior chest just medial to the shoulders. Patient states that she has been having bouts of this pain wall recovering from this procedure. Patient states that it feels like a dull ache. She states that she was not discharged on any analgesic medications. Denies any fever or chills or night sweats. The ROS documented in this emergency department record has been reviewed and confirmed by me. Those systems with pertinent positive or negative responses have been documented in the HPI. All other systems are other negative and/or noncontributory. PHYSICAL EXAM: General Impression: Alert and oriented x3, not in acute distress HEENT: Normocephalic atraumatic, extra-ocular movements intact, pupils equal and reactive to light bilaterally, mucous membranes moist. Cardiovascular: Heart regular rate and rhythm Chest: Able to complete full sentences, no retractions, no tachypnea, surgical site clean dry and intact, Abdomen: abdomen soft, non-tender, non-distended, no organomegaly Musculoskeletal: Pulses present and equal in all extremities, no peripheral edema Motor: no focal deficits noted Neurological: CN II-XII grossly intact, no focal motor or sensory deficits noted Skin: Intact with no visualized rashes Psych: Normal affect and mood ED course: 66 Year-old female presents to the emergency department for postoperative chest pain. Patient symptoms does not suggest acute coronary syndrome. As upon arrival are within acceptable limits. Patient's well- appearing at the bedside. EKG does not show any signs of ischemia or infarction. Case discussed in detail with Dulce Bernal. She is the mid-level provider who Care for the patient was admitted. She was conducting care on behalf of cardiothoracic surgery patient. States that her symptoms are very typical for postoperative pain due to thoracic cavity manipulation. Dulce evaluated patient earlier today states that she has a non-complicated postoperative course. She understands that patient was discharged today without any opiate analgesics. patient given some Rose. She is observed in emergency Department for approximately 1 hour 30 minutes. Patient reevaluated again at 9:45 PM found to be stable medical condition. She feels improved after having had some Rose. Patient prescription for Rose. She is advised to follow-up with cardiothoracic. Return precautions discussed patient and at the bedside agreeable to plan. EKG interpretation: Ventricular rate 101, sinus tachycardia, PA interval 209, QS 90, QTC 399. No PA prolongation, no QTC prolongation, no ST or T-wave changes noted. Overall, this EKG is unremarkable - Related Data Home Medications Medication Instructions Recorded Confirmed Amitriptyline HCl [Elavil] 150 mg PO HS 05/27/22 05/27/22 Ascorbic Acid [Vitamin C] 500 mg PO DAILY 05/27/22 05/27/22 Budesonide-Formot 160-4.5 Mcg 2 puff INHALATION RT-BID 05/27/22 05/27/22 [Symbicort 160-4.5 Mcg Inhaler] Butalb/Acetaminophen/Caffeine 1 tab PO Q4H PRN 05/27/22 05/27/22 [Esgic 50-325-40 mg Tablet] Calcium Carbonate [Calcium] 600 mg PO BID 05/27/22 05/27/22 Cevimeline [Evoxac] 30 mg PO TID 05/27/22 05/27/22 Estradiol Cream [Estrace Cream 2 gm VAGINAL DIRECTED 05/27/22 05/27/22 0.01%] Ferrous Sulfate [Slow Fe] 142 mg PO DAILY 05/27/22 05/27/22 Fremanezumab-Vfrm [Ajovy 225 mg SQ Q30D 05/27/22 05/27/22 Autoinjector] Furosemide [Lasix] 20 mg PO DAILY 05/27/22 05/27/22 Hydroxychloroquine Sulfate 200 mg PO BID 05/27/22 05/27/22 [Plaquenil] L.acidoph,Paracasei, B.lactis 1 cap PO DAILY 05/27/22 05/27/22 [Probiotic] Lisdexamfetamine Dimesylate 70 mg PO DAILY 05/27/22 05/27/22 [Vyvanse] Magnesium Oxide [Magox 400] 400 mg PO DAILY 05/27/22 05/27/22 Multivitamins, Thera [Multivitamin 1 tab PO DAILY 05/27/22 05/27/22 (formulary)] [place]-3 Fatty Acids [[place]-3] 1,000 mg PO DAILY 05/27/22 05/27/22 Turmeric Root Extract [Turmeric] 1,500 mg PO DAILY 05/27/22 05/27/22 Vitamin B Complex 1 cap PO DAILY 05/27/22 05/27/22 Vitamin E 400 unit PO DAILY 05/27/22 05/27/22 cycloSPORINE 0.05% OPHTH SOLN 1 drop BOTH EYES BID 05/27/22 05/27/22 [Restasis] Previous Rx's Medication Instructions Recorded Acetaminophen Tab [Tylenol] 650 mg PO Q4HR PRN tab 06/05/22 Aspirin 325 mg PO DAILY #30 tab 06/05/22 Atorvastatin [Lipitor] 80 mg PO DAILY #30 tab 06/05/22 Clopidogrel [Plavix] 75 mg PO DAILY #30 tab 06/05/22 HYDROcodone/APAP 5-325MG [Rose 1 tab PO Q6HR PRN 3 Days #12 tab 06/05/22 5-325] Metoprolol Tartrate [Lopressor] 50 mg PO BID #60 tab 06/05/22 Pantoprazole [Protonix] 40 mg PO AC-BRKFST #30 tab 06/05/22 Sennosides-Docusate Sodium 2 each PO HS PRN tab 06/05/22 [Senokot-S] amLODIPine [Norvasc] 5 mg PO DAILY@1200 #30 tab 06/05/22 Allergies Allergy/AdvReac Type Severity Reaction Status Date / Time morphine Allergy Unknown Verified 06/05/22 20:17 Penicillins Allergy Unknown Verified 06/05/22 20:17 Childhood Sulfa (Sulfonamide Allergy Unknown Verified 06/05/22 20:17 Antibiotics) Review of Systems ROS Statement: Those systems with pertinent positive or pertinent negative responses have been documented in the HPI. ROS Other: All systems not noted in ROS Statement are negative. Past Medical History Past Medical History: Asthma, Chest Pain / Angina, Hypertension, Pneumonia Additional Past Medical History / Comment(s): Lupus. Sjogorens Disease History of Any Multi-Drug Resistant Organisms: None Reported Past Surgical History: Appendectomy, Cholecystectomy, Hysterectomy Additional Past Surgical History / Comment(s): Knee scope Past Anesthesia/Blood Transfusion Reactions: No Reported Reaction Past Psychological History: No Psychological Hx Reported Smoking Status: Never smoker Past Alcohol Use History: None Reported Past Drug Use History: None Reported - Past Family History Mother Family Medical History: Cancer Additional Family Medical History / Comment(s): from throat cancer Father Family Medical History: Cancer Additional Family Medical History / Comment(s): from bowel cancer General Exam Limitations: no limitations Course Vital Signs 06/05/22 06/05/22 06/05/22 20:11 20:40 20:49 Temperature 99.1 F Pulse Rate 102 H 99 Pulse Rate [ 100 String Laster ] Respiratory 22 16 Rate Blood Pressure 136/80 O2 Sat by Pulse 95 95 Oximetry Disposition Clinical Impression: Post-operative pain Disposition: HOME SELF-CARE Condition: Good Instructions (If sedation given, give patient instructions): Chest Pain (ED) Prescriptions: HYDROcodone/APAP 5-325MG [Rose 5-325] 1 tab PO Q6HR PRN 3 Days #12 tab PRN Reason: Severe Pain Is patient prescribed a controlled substance at d/c from ED?: Yes If prescribed controlled substance>3 days was MAPS reviewed?: Prescribed <3 Days Referrals: Dulce Moreno NPC [Nurse Practitioner] - 1-2 days Dank Awad MD [STAFF PHYSICIAN] - 1-2 days Time of Disposition: 21:46
[2022-06-05 20:51] VITALS: PULSE 99; RESP 16
== END 2022-06-05 22:09 | disposition home or self-care (01) ==
LOC: EC 20:11
DX: T82.847A Pain due to cardiac prosthetic devices, implants and grafts, initial encounter (principal); J45.909 Unspecified asthma, uncomplicated; I10 Essential (primary) hypertension; Z88.0 Allergy status to penicillin; Z88.2 Allergy status to sulfonamides; Z88.6 Allergy status to analgesic agent; Z79.82 Long term (current) use of aspirin; Z79.899 Other long term (current) drug therapy
CPT/HCPCS: 99284

== ENCOUNTER 2022-07-03 12:20 | Observation (INO) | payer MEDICARE ==
[2022-07-03] MEDS ORDERED: HYDROmorphone 1 MG/ML 1 ML SYRINGE IVP STA (13:47)
[2022-07-03] MEDS ORDERED: ACETAMINOPHEN TAB 500 MG TAB PO STA (13:47)
--- NOTE | 2022-07-03 13:50 | ED ---
General Adult HPI - General Chief complaint: Fever Stated complaint: fever, feet& hands numb Time Seen by Provider: 07/03/22 13:31 Source: patient Mode of arrival: ambulatory Limitations: no limitations - History of Present Illness Initial comments: Dictation was produced using [employer] dictation software. please excuse any grammatical, word or spelling errors. Chief Complaint: 66-year-old female presents emergency department for fever and joint pain History of Present Illness: 66-year-old female she presents emergency department for 1 week and joint pain. Patient went to the urgent care where she was evaluated and told her to come to the emergency department. Patient has history of lupus. She takes lupus medications. States that for the last 7 days she's been having joint pain from her head to her feet. Denies any abdominal pain. No nausea vomiting. No sore throat. No ear pain. No obvious sick contacts. At the urgent care she had a temperature of 101.0. The ROS documented in this emergency department record has been reviewed and confirmed by me. Those systems with pertinent positive or negative responses h ave been documented in the HPI. All other systems are other negative and/or noncontributory. PHYSICAL EXAM: General Impression: Alert and oriented x3, not in acute distress HEENT: Normocephalic atraumatic, extra-ocular movements intact, pupils equal and reactive to light bilaterally, mucous membranes moist. Cardiovascular: Heart regular rate and rhythm Chest: Able to complete full sentences, no retractions, no tachypnea Abdomen: abdomen soft, non-tender, non-distended, no organomegaly Musculoskeletal: Pulses present and equal in all extremities, no peripheral edema Motor: no focal deficits noted Neurological: CN II-XII grossly intact, no focal motor or sensory deficits noted Skin: Intact with no visualized rashes Psych: Normal affect and mood ED course: 66-year-old female presents emergency department for fever and polyarthralgia. She has a history of lupus. Vital signs upon arrival shows temperature 100.1, rest of vital signs within acceptable limits. Patient does not have any symptoms to localize a infection. EKG interpretation: Ventricular rate 74, sinus rhythm,. Interval to 31, QS 104, QTc 442. No NM prolongation, no QTC prolongation. EKG compared to 06/05/2022 showing T-wave inversions in the high lateral and anterior precordial leads. EKG slightly different from most previous EKG and her electronic medical records. Overall this EKG is nonspecific. Laboratory evaluation obtained. Patient is leukocytosis of 18.2. Hemoglobin 8.8. Metabolic panel shows an 125. Rest metabolic panel is unremarkable. No acidosis. Urinalysis negative. 4 panel viral PCR is negative. Chest x-ray is nonacute. Patient reevaluated at bedside at 6:30 PM. Disposition options were discussed with patient and she is agreeable for possible admission for monitoring. There is concern for SIRS/sepsis. She is well-appearing at the bedside. Patient will be admitted to [facility]. We will hold off on any antibiotics at this time. Pending pro calcitonin level. She given IV fluids for hyponatremia treatment. - Related Data Home Medications Medication Instructions Recorded Confirmed Amitriptyline HCl [Elavil] 150 mg PO HS 05/27/22 07/03/22 Ascorbic Acid [Vitamin C] 500 mg PO DAILY 05/27/22 07/03/22 Budesonide-Formot 160-4.5 Mcg 2 puff INHALATION RT-BID 05/27/22 07/03/22 [Symbicort 160-4.5 Mcg Inhaler] Butalb/Acetaminophen/Caffeine 1 tab PO Q4H PRN 05/27/22 07/03/22 [Esgic 50-325-40 mg Tablet] Calcium Carbonate [Calcium] 600 mg PO BID 05/27/22 07/03/22 Cevimeline [Evoxac] 30 mg PO TID 05/27/22 07/03/22 Estradiol Cream [Estrace Cream 2 gm VAGINAL DIRECTED 05/27/22 07/03/22 0.01%] Ferrous Sulfate [Slow Fe] 142 mg PO DAILY 05/27/22 07/03/22 Fremanezumab-Vfrm [Ajovy 225 mg SQ Q30D 05/27/22 07/03/22 Autoinjector] Furosemide [Lasix] 20 mg PO DAILY 05/27/22 07/03/22 Hydroxychloroquine Sulfate 200 mg PO BID 05/27/22 07/03/22 [Plaquenil] L.acidoph,Paracasei, B.lactis 1 cap PO DAILY 05/27/22 07/03/22 [Probiotic] Lisdexamfetamine Dimesylate 70 mg PO DAILY 05/27/22 07/03/22 [Vyvanse] Magnesium Oxide [Magox 400] 400 mg PO DAILY 05/27/22 07/03/22 Multivitamins, Thera [Multivitamin 1 tab PO DAILY 05/27/22 07/03/22 (formulary)] [place]-3 Fatty Acids [[place]-3] 1,000 mg PO DAILY 05/27/22 07/03/22 Turmeric Root Extract [Turmeric] 1,500 mg PO DAILY 05/27/22 07/03/22 Vitamin B Complex 1 cap PO DAILY 05/27/22 07/03/22 Vitamin E 400 unit PO DAILY 05/27/22 07/03/22 cycloSPORINE 0.05% OPHTH SOLN 1 drop BOTH EYES BID 05/27/22 07/03/22 [Restasis] Losartan Potassium [Cozaar] 50 mg PO HS 07/03/22 07/03/22 Sennosides-Docusate Sodium 2 tab PO HS PRN 07/03/22 07/03/22 [Senokot-S] Previous Rx's Medication Instructions Recorded Acetaminophen Tab [Tylenol] 650 mg PO Q4HR PRN tab 06/05/22 Aspirin 325 mg PO DAILY #30 tab 06/05/22 Atorvastatin [Lipitor] 80 mg PO DAILY #30 tab 06/05/22 Clopidogrel [Plavix] 75 mg PO DAILY #30 tab 06/05/22 HYDROcodone/APAP 5-325MG [[place] 1 tab PO Q6HR PRN 3 Days #12 tab 06/05/22 5-325] Metoprolol Tartrate [Lopressor] 50 mg PO BID #60 tab 06/05/22 Pantoprazole [Protonix] 40 mg PO AC-BRKFST #30 tab 06/05/22 amLODIPine [Norvasc] 5 mg PO DAILY@1200 #30 tab 06/05/22 Allergies Allergy/AdvReac Type Severity Reaction Status Date / Time morphine Allergy Unknown Verified 07/03/22 15:01 Penicillins Allergy Unknown Verified 07/03/22 15:01 Childhood Sulfa (Sulfonamide Allergy Unknown Verified 07/03/22 15:01 Antibiotics) Review of Systems ROS Statement: Those systems with pertinent positive or pertinent negative responses have been documented in the HPI. ROS Other: All systems not noted in ROS Statement are negative. Past Medical History Past Medical History: Asthma, Chest Pain / Angina, Hypertension, Pneumonia Additional Past Medical History / Comment(s): Lupus. Sjogorens Disease History of Any Multi-Drug Resistant Organisms: None Reported Past Surgical History: Appendectomy, Cholecystectomy, Hysterectomy Additional Past Surgical History / Comment(s): Knee scope, Bypass surgery. Past Anesthesia/Blood Transfusion Reactions: No Reported Reaction Past Psychological History: No Psychological Hx Reported Smoking Status: Never smoker Past Alcohol Use History: None Reported Past Drug Use History: None Reported - Past Family History Mother Family Medical History: Cancer Additional Family Medical History / Comment(s): from throat cancer Father Family Medical History: Cancer Additional Family Medical History / Comment(s): from bowel cancer General Exam Limitations: no limitations Course Vital Signs 07/03/22 12:44 Temperature 100.1 F H Pulse Rate 99 Respiratory 20 Rate Blood Pressure 146/75 O2 Sat by Pulse 98 Oximetry Medical Decision Making - Lab Data Result diagrams: 07/03/22 14:25 07/03/22 14:25 Lab Results 07/03/22 07/03/22 07/03/22 Range/Units 14:25 14:25 14:25 WBC 18.2 H (3.8-10.6) k/uL RBC 2.77 L (3.80-5.40) m/uL Hgb 8.8 L D (11.4-16.0) gm/dL Hct 26.8 L (34.0-46.0) % MCV 96.7 D (80.0-100.0) fL MCH 31.9 (25.0-35.0) pg MCHC 33.0 (31.0-37.0) g/dL RDW 13.7 (11.5-15.5) % Plt Count 416 (150-450) k/uL MPV 7.3 Neutrophils % 85 % Lymphocytes % 7 % Monocytes % 5 % Eosinophils % 1 % Basophils % 0 % Neutrophils # 15.5 H (1.3-7.7) k/uL Lymphocytes # 1.3 (1.0-4.8) k/uL Monocytes # 0.9 (0-1.0) k/uL Eosinophils # 0.1 (0-0.7) k/uL Basophils # 0.0 (0-0.2) k/uL Sodium 125 L (137-145) mmol/L Potassium 3.6 (3.5-5.1) mmol/L Chloride 90 L (98-107) mmol/L Carbon Dioxide 22 (22-30) mmol/L Anion Gap 13 mmol/L BUN 12 (7-17) mg/dL Creatinine 0.63 (0.52-1.04) mg/dL Est GFR (CKD-EPI)AfAm >90 (>60 ml/min/1.73 sqM) Est GFR (CKD-EPI)NonAf >90 (>60 ml/min/1.73 sqM) Glucose 112 H (74-99) mg/dL Calcium 8.6 (8.4-10.2) mg/dL Urine Color Urine Appearance (Clear) Urine pH (5.0-8.0) Ur Specific [place] (1.001-1.035) Urine Protein (Negative) Urine Glucose (UA) (Negative) Urine Ketones (Negative) Urine Blood (Negative) Urine Nitrite (Negative) Urine Bilirubin (Negative) Urine Urobilinogen (<2.0) mg/dL Ur Leukocyte Esterase (Negative) Urine RBC (0-5) /hpf Urine WBC (0-5) /hpf Ur Squamous Epith Cells (0-4) /hpf Hyaline Casts (0-2) /lpf Urine Mucus (None) /hpf Influenza Type A (PCR) Not Detected (Not Detectd) Influenza Type B (PCR) Not Detected (Not Detectd) RSV (PCR) Not Detected (Not Detectd) SARS-CoV-2 (PCR) Not Detected (Not Detectd) 07/03/22 Range/Units 14:25 WBC (3.8-10.6) k/uL RBC (3.80-5.40) m/uL Hgb (11.4-16.0) gm/dL Hct (34.0-46.0) % MCV (80.0-100.0) fL MCH (25.0-35.0) pg MCHC (31.0-37.0) g/dL RDW (11.5-15.5) % Plt Count (150-450) k/uL MPV Neutrophils % % Lymphocytes % % Monocytes % % Eosinophils % % Basophils % % Neutrophils # (1.3-7.7) k/uL Lymphocytes # (1.0-4.8) k/uL Monocytes # (0-1.0) k/uL Eosinophils # (0-0.7) k/uL Basophils # (0-0.2) k/uL Sodium (137-145) mmol/L Potassium (3.5-5.1) mmol/L Chloride (98-107) mmol/L Carbon Dioxide (22-30) mmol/L Anion Gap mmol/L BUN (7-17) mg/dL Creatinine (0.52-1.04) mg/dL Est GFR (CKD-EPI)AfAm (>60 ml/min/1.73 sqM) Est GFR (CKD-EPI)NonAf (>60 ml/min/1.73 sqM) Glucose (74-99) mg/dL Calcium (8.4-10.2) mg/dL Urine Color Yellow Urine Appearance Clear (Clear) Urine pH 6.5 (5.0-8.0) Ur Specific [place] 1.017 (1.001-1.035) Urine Protein 1+ H (Negative) Urine Glucose (UA) Negative (Negative) Urine Ketones Negative (Negative) Urine Blood Negative (Negative) Urine Nitrite Negative (Negative) Urine Bilirubin Negative (Negative) Urine Urobilinogen <2.0 (<2.0) mg/dL Ur Leukocyte Esterase Negative (Negative) Urine RBC 3 (0-5) /hpf Urine WBC 1 (0-5) /hpf Ur Squamous Epith Cells 2 (0-4) /hpf Hyaline Casts 1 (0-2) /lpf Urine Mucus Rare H (None) /hpf Influenza Type A (PCR) (Not Detectd) Influenza Type B (PCR) (Not Detectd) RSV (PCR) (Not Detectd) SARS-CoV-2 (PCR) (Not Detectd) Disposition Clinical Impression: SIRS (systemic inflammatory response syndrome), Hyponatremia Disposition: ADMITTED IP TO THIS HOSP Condition: Fair Referrals: Solomon Mckinley MD [Primary Care Provider] - 1-2 days Decision Time: 18:35
[2022-07-03 15:02] LABS: Basophils % (A) 0 %; Eosinophils # (A) 0.1 k/uL (0-0.7); Eosinophils % (A) 1 %; HCT 26.8 % (34.0-46.0); Lymphocytes # (A) 1.3 k/uL (1.0-4.8); Lymphocytes % (A) 7 %; MCH 31.9 pg (25.0-35.0); Mean Platelet Volume 7.3; Monocytes # (A) 0.9 k/uL (0-1.0); Monocytes % (A) 5 %; Neutrophils # (A) 15.5 k/uL (1.3-7.7); Neutrophils % (A) 85 %; Platelet Count 416 k/uL (150-450); RBC 2.77 m/uL (3.80-5.40); RDW 13.7 % (11.5-15.5); WBC 18.2 k/uL (3.8-10.6)
[2022-07-03 15:03] LABS: Appearance,Urine Clear (Clear); Bilirubin,Urine Negative (Negative); Blood,Urine Negative (Negative); Color,Urine Yellow; Glucose,Urine (UA) Negative (Negative); Hyaline Casts,Urine 1 /lpf (0-2); Ketones,Urine Negative (Negative); Leukocyte Esterase,Urine Negative (Negative); Mucus,Urine Rare /hpf; Nitrite,Urine Negative (Negative); PH, Urine 6.5 (5.0-8.0); Protein,Urine 1+ (Negative); RBC,Urine 3 /hpf (0-5); Specific Gravity,Urine 1.017 (1.001-1.035); Squamous Epithelial Cell,Urine 2 /hpf (0-4); Urobilinogen,Urine <2.0 mg/dL (<2.0); WBC,Urine 1 /hpf (0-5)
--- NOTE | 2022-07-03 15:04 | XR ---
EXAMINATION TYPE: XR chest 2V DATE OF EXAM: 07/03/2022 COMPARISON: NONE TECHNIQUE: PA and lateral views submitted. HISTORY: pain and fever FINDINGS: Postoperative change with cardiomegaly. No pleural effusion or pneumothorax. Arthropathy of the shoul ders diffuse osteopenia. No overt failure. Hypertrophic and degenerative changes in the spine. IMPRESSION: 1. Cardiomegaly with no definite acute infiltrate.
[2022-07-03 15:09] LABS: HGB 8.8 gm/dL (11.4-16.0); MCV 96.7 fL (80.0-100.0)
[2022-07-03 15:14] LABS: African American GFR (CKD) >90 (>60 ml/min/1.73 sqM); Anion Gap 13 mmol/L; Blood Urea Nitrogen 12 mg/dL (7-17); Calcium 8.6 mg/dL (8.4-10.2); Carbon Dioxide 22 mmol/L (22-30); Chloride 90 mmol/L (98-107); Glucose 112 mg/dL (74-99); Non-African American GFR(CKD) >90 (>60 ml/min/1.73 sqM); Potassium 3.6 mmol/L (3.5-5.1); Sodium 125 mmol/L (137-145)
[2022-07-03] MEDS ORDERED: SODIUM CHLORIDE 0.9% 1,000 ML IV STA (16:30)
[2022-07-03] MEDS ORDERED: ONDANSETRON 4 MG/2 ML VIAL IVP PRN (18:32)
[2022-07-03] MEDS ORDERED: NALOXONE 0.4 MG/ML 1 ML VIAL IV PRN (18:32)
[2022-07-03] MEDS: SODIUM CHLORIDE 0.9% 1,000 ML IV SCH (19:26)
[2022-07-03] MEDS: ACETAMINOPHEN TAB 325 MG TAB PO PRN (21:12)
[2022-07-04] MEDS: HYDROmorphone 0.5 MG/0.5 ML SYRINGE IVP PRN ×2 (02:56→07:04)
[2022-07-04] MEDS: SODIUM CHLORIDE 0.9% 1,000 ML IV SCH ×3 (02:57→16:11)
--- NOTE | 2022-07-04 04:03 | P.HPIM ---
History of Present Illness H&P Date: 07/03/22 The patient is a 66-year-old female with a PMH of SLE and hypertension who presents to the emergency room with complaints of joint pain and fever. The patient reports that her symptoms started earlier today when she woke up with mild bilateral hand joint pain that gradually worsened throughout the day. She reports that this is a 9 with her prior SLE flares, although states that her SLE has been relatively well controlled. She follows with a supervisor water treatment plant from [place]. Reports feeling better at the time of interview. Denies experiencing chest discomfort, shortness of breath, cough, urinary complaints, nausea, vomiting, abdominal pain or diarrhea. In the emergency room, patient's T-max was 100.1F. Laboratory evaluation is remarkable for WBC count 18.2, hemoglobin 8.8, sodium 125. Review of systems: Pertinent positives and negatives as discussed in HPI, a complete review of systems was performed and all other systems are negative. Physical examination: General: non toxic, no distress, appears at stated age, normal weight Derm: no unusual rashes/lesions, warm Head: atraumatic, normocephalic, symmetric Eyes: EOMI, no lid lag, anicteric sclera, pupils equal round reactive to light ENT: Nose and ears atraumatic Neck: No cervical lymphadenopathy, trachea midline, supple Mouth: no lip lesion, mucus membranes moist Cardiovascular: S1S2 reg, no murmur, positive dorsalis pedis pulse bilateral, no edema Lungs: CTA bilateral, no rhonchi, no rales, no accessory muscle use Abdominal: soft, nontender to palpation, no guarding Ext: muscle strength 4 out of 5 in all 4 extremities grossly, no gross muscle atrophy, no contractures, bilateral MCP joints mild tenderness Neuro: CN II-XI grossly intact, no gross focal neuro deficits Psych: Alert, oriented, appropriate affect Assessment/plan SLE flare -Continue with patient's home Plaquenil -Rheumatology consult -Start prednisone for small course -Pain control Anemia, at baseline Leukocytosis, likely secondary to acute SLE flare -No signs of active infection at this time Chronic conditions: Hypertension, hyperlipidemia -Continue with home meds DVT prophylaxis -Heparin subq The patient is admitted with an anticipated greater than 2 midnight stay for evaluation of SLE flare CODE STATUS: Full Code Discussed with: Patient Anticipated discharge date: 2-[address]: Home Past Medical History Past Medical History: Asthma, Chest Pain / Angina, Hypertension, Pneumonia Additional Past Medical History / Comment(s): Lupus. Sjogorens Disease History of Any Multi-Drug Resistant Organisms: None Reported Past Surgical History: Appendectomy, Cholecystectomy, Hysterectomy Additional Past Surgical History / Comment(s): Knee scope, Bypass surgery. Past Anesthesia/Blood Transfusion Reactions: No Reported Reaction Past Psychological History: No Psychological Hx Reported Smoking Status: Never smoker Past Alcohol Use History: None Reported Past Drug Use History: None Reported - Past Family History Mother Family Medical History: Cancer Additional Family Medical History / Comment(s): from throat cancer Father Family Medical History: Cancer Additional Family Medical History / Comment(s): from bowel cancer Medications and Allergies Home Medications Medication Instructions Recorded Confirmed Type Amitriptyline HCl [Elavil] 150 mg PO HS 05/27/22 07/03/22 History Ascorbic Acid [Vitamin C] 500 mg PO DAILY 05/27/22 07/03/22 History Budesonide-Formot 160-4.5 Mcg 2 puff INHALATION RT-BID 05/27/22 07/03/22 History [Symbicort 160-4.5 Mcg Inhaler] Butalb/Acetaminophen/Caffeine 1 tab PO Q4H PRN 05/27/22 07/03/22 History [Esgic 50-325-40 mg Tablet] Calcium Carbonate [Calcium] 600 mg PO BID 05/27/22 07/03/22 History Cevimeline [Evoxac] 30 mg PO TID 05/27/22 07/03/22 History Estradiol Cream [Estrace Cream 2 gm VAGINAL DIRECTED 05/27/22 07/03/22 History 0.01%] Ferrous Sulfate [Slow Fe] 142 mg PO DAILY 05/27/22 07/03/22 History Fremanezumab-Vfrm [Ajovy 225 mg SQ Q30D 05/27/22 07/03/22 History Autoinjector] Furosemide [Lasix] 20 mg PO DAILY 05/27/22 07/03/22 History Hydroxychloroquine Sulfate 200 mg PO BID 05/27/22 07/03/22 History [Plaquenil] L.acidoph,Paracasei, B.lactis 1 cap PO DAILY 05/27/22 07/03/22 History [Probiotic] Lisdexamfetamine Dimesylate 70 mg PO DAILY 05/27/22 07/03/22 History [Vyvanse] Magnesium Oxide [Magox 400] 400 mg PO DAILY 05/27/22 07/03/22 History Multivitamins, Thera [Multivitamin 1 tab PO DAILY 05/27/22 07/03/22 History (formulary)] [place]-3 Fatty Acids [[place]-3] 1,000 mg PO DAILY 05/27/22 07/03/22 History Turmeric Root Extract [Turmeric] 1,500 mg PO DAILY 05/27/22 07/03/22 History Vitamin B Complex 1 cap PO DAILY 05/27/22 07/03/22 History Vitamin E 400 unit PO DAILY 05/27/22 07/03/22 History cycloSPORINE 0.05% OPHTH SOLN 1 drop BOTH EYES BID 05/27/22 07/03/22 History [Restasis] Acetaminophen Tab [Tylenol] 650 mg PO Q4HR PRN tab 06/05/22 07/03/22 Rx Aspirin 325 mg PO DAILY #30 tab 06/05/22 07/03/22 Rx Atorvastatin [Lipitor] 80 mg PO DAILY #30 tab 06/05/22 07/03/22 Rx Clopidogrel [Plavix] 75 mg PO DAILY #30 tab 06/05/22 07/03/22 Rx HYDROcodone/APAP 5-325MG [[place] 1 tab PO Q6HR PRN 3 Days #12 tab 06/05/22 07/03/22 Rx 5-325] Metoprolol Tartrate [Lopressor] 50 mg PO BID #60 tab 06/05/22 07/03/22 Rx Pantoprazole [Protonix] 40 mg PO AC-BRKFST #30 tab 06/05/22 07/03/22 Rx amLODIPine [Norvasc] 5 mg PO DAILY@1200 #30 tab 06/05/22 07/03/22 Rx Losartan Potassium [Cozaar] 50 mg PO HS 07/03/22 07/03/22 History Sennosides-Docusate Sodium 2 tab PO HS PRN 07/03/22 07/03/22 History [Senokot-S] Allergies Allergy/AdvReac Type Severity Reaction Status Date / Time morphine Allergy Unknown Verified 07/03/22 15:01 Penicillins Allergy Unknown Verified 07/03/22 15:01 Childhood Sulfa (Sulfonamide Allergy Unknown Verified 07/03/22 15:01 Antibiotics) Physical Exam Vitals: Vital Signs Temp Pulse Pulse Resp BP BP Pulse Ox 07/03/22 20:03 98.0 F 80 16 154/76 98 07/03/22 18:47 98.9 F 82 18 148/78 96 07/03/22 16:47 99.1 F 83 18 145/78 97 07/03/22 14:47 78 18 155/75 97 07/03/22 12:44 100.1 F H 99 20 146/75 98 Intake and Output 07/03/22 07/03/22 07/04/22 14:59 22:59 06:59 Other: Weight 56.699 kg Results CBC & Chem 7: 07/03/22 14:25 07/03/22 14:25 Labs: Abnormal Lab Results - Last 24 Hours (Table) 07/03/22 07/03/22 07/03/22 Range/Units 14:25 14:25 14:25 WBC 18.2 H (3.8-10.6) k/uL RBC 2.77 L (3.80-5.40) m/uL Hgb 8.8 L D (11.4-16.0) gm/dL Hct 26.8 L (34.0-46.0) % Neutrophils # 15.5 H (1.3-7.7) k/uL Sodium 125 L (137-145) mmol/L Chloride 90 L (98-107) mmol/L Glucose 112 H (74-99) mg/dL Urine Protein 1+ H (Negative) Urine Mucus Rare H (None) /hpf
[2022-07-04] MEDS: ACETAMINOPHEN TAB 325 MG TAB PO PRN ×3 (07:05→21:23)
[2022-07-04] MEDS: HEPARIN SODIUM,PORCINE/PF 5,000 UNIT/0.5 ML SYRINGE SQ SCH ×3 (08:30→21:19)
[2022-07-04] MEDS: predniSONE 20 MG TAB PO SCH (08:30)
[2022-07-04] MEDS ORDERED: HYDROcodone/APAP 5-325MG 1 EACH TAB PO PRN (16:19)
[2022-07-04] MEDS ORDERED: SENNOSIDES-DOCUSATE SODIUM 1 EACH TAB PO PRN (16:19)
--- NOTE | 2022-07-04 17:21 | P.PN ---
Subjective Progress Note Date: 07/04/22 Hospital course: Patient is a very pleasant 66-year-old female with a past medical history of SLE and hypertension. She presented to the emergency department with the chief complaints of joint pain and fever. Patient reports pain in bilateral hands, left knee, ankles, and feet. Patient reports this pain began the morning of 07/03/22 and progressively worsened throughout the day. She states these symptoms are consistent with previous SLE flares, but stated she had not had a flare in quite some time. Patient does report following with a nuclear weapons custodian from [place]. Patient underwent full evaluation in the emergency department. She was found to have an elevated temp of 100.1F, episodes of tachycardia with heart rate of 103, elevated WBC count of 18.2, hemoglobin of 8.8, and sodium of 125. Pro-calcitonin was elevated at 0.17. Urinalysis negative for infection. Influenza A, influenza B, RSV, and Covid PCR were all negative. An EKG was completed revealing normal sinus rhythm at 74 bpm with a first-degree AV block with HI interval of 231 ms. Chest x-ray completed revealing cardiomegaly and negative for acute cardiopulmonary process. Blood cultures obtained and sent to lab for analysis. Patient was admitted under our services with consultation to nuclear weapons custodian. Physical exam: Patient seen and fully evaluated at bedside this morning. She reports continued pain in her joints mostly hands, left knee, and bilateral feet and ankles. So reporting now having difficulty with ambulation due to swelling and pain of feet and joints. PT/OT consult placed and fall precautions initiated. Patient denies having any other complaints at this time including headache, lightheadedness, dizziness, chest pain, palpitations, shortness of breath, abdominal pain, nausea, vomiting, difficulties in or changes in her urinary or bowel function. She patient has had no further episodes of fever since arrival to our facility. She remains on IV fluid hydration with 0.9% normal saline and prednisone 40 mg daily. We will continue to closely monitor with repeat a.m. labs. Vital signs reviewed and stable. General: Nontoxic, no distress and appears stated age. Derm: Skin warm and dry, normal coloration for ethnicity. Head: Atraumatic, normocephalic and symmetric. Eyes: EOMs intact, no lid lag, and anicteric sclera Mouth: no lip lesions, mucus membranes moist Cardiovascular: regular rate and rhythm with normal S1S2, no murmur, positive posterior tibial pulses bilaterally, and cap refill < 2 seconds. Lungs: Respirations even, regular, and unlabored on room air. Lungs CTA bilaterally, no rhonchi, no rales, no wheezing, and no accessory muscle usage. Abdominal: soft, nontender to palpation, no guarding, no appreciable organomegaly Ext: ROM intact. No gross muscle atrophy, no edema, no contractures Neuro: Speech clear, face symmetrical and CN II-XII grossly intact with no noted focal neuro deficits Psych: Alert and oriented to person, place, time, and situation. Appropriate and pleasant affect. Assessment and Plan of Care: SLE flare -Continue with patient's home Plaquenil -Rheumatology consulted -Continue prednisone -Symptomatic care and Pain control -PT/OT consult secondary to patient's reports that she is having difficulty with ambulation. Iron deficiency Anemia -Stable at baseline. -Continue daily ferrous sulfate supplements. Hyponatremia -Patient has chronic hyponatremia likely secondary to daily diuretic use with furosemide. We will hold Lasix at this time and place patient on gentle IV fluid hydration and repeat a.m. labs labs to follow closely. Leukocytosis, likely secondary to acute SLE flare -No signs of active infection at this time Hypertension -Monitor vital signs and continue daily medication regimen with amlodipine, losartan, and metoprolol. Hyperlipidemia -Continue daily medication regimen with atorvastatin. Chronic conditions: Hypertension, hyperlipidemia -Continue with home meds CODE STATUS: Full code DVT prophylaxis: Heparin Discussed with: Patient and RN Anticipated discharge date: 2-[address]: Home A total of 36 minutes was spent on the care of this complex patient more than 50% of the time was spent in counseling and care coordination. I reviewed the documentation as provided by the ASHA above, who is the original author of this note. I agree with the documented assessment and plan, with the following changes: none Objective - Vital Signs Vital signs: Vital Signs Temp 98.5 F 07/04/22 08:27 Pulse 103 H 07/04/22 08:27 Resp 17 07/04/22 08:27 BP 145/77 07/04/22 08:27 Pulse Ox 96 07/04/22 08:27 FiO2 Intake & Output 07/03/22 07/04/22 07/04/22 18:59 06:59 18:59 Weight 56.699 kg 56.699 kg Other: Voiding Method Toilet # Voids 2 - Labs CBC & Chem 7: 07/05/22 06:59 07/05/22 06:59 Labs: Abnormal Lab Results - Last 24 Hours (Table) 07/03/22 07/03/22 07/03/22 Range/Units 14:25 14:25 14:25 WBC 18.2 H (3.8-10.6) k/uL RBC 2.77 L (3.80-5.40) m/uL Hgb 8.8 L D (11.4-16.0) gm/dL Hct 26.8 L (34.0-46.0) % Neutrophils # 15.5 H (1.3-7.7) k/uL Sodium 125 L (137-145) mmol/L Chloride 90 L (98-107) mmol/L Glucose 112 H (74-99) mg/dL Procalcitonin (0.02-0.09) ng/mL Urine Protein 1+ H (Negative) Urine Mucus Rare H (None) /hpf 07/03/22 Range/Units 17:38 WBC (3.8-10.6) k/uL RBC (3.80-5.40) m/uL Hgb (11.4-16.0) gm/dL Hct (34.0-46.0) % Neutrophils # (1.3-7.7) k/uL Sodium (137-145) mmol/L Chloride (98-107) mmol/L Glucose (74-99) mg/dL Procalcitonin 0.17 H (0.02-0.09) ng/mL Urine Protein (Negative) Urine Mucus (None) /hpf
[2022-07-04] MEDS: SYMBICORT 160-4.5 MCG INHALER INHALATION SCH (19:58)
[2022-07-04] MEDS ORDERED: LOSARTAN 50 MG TAB PO SCH (21:00)
[2022-07-04] MEDS ORDERED: AMITRIPTYLINE HCL 50 MG TAB PO SCH (21:00)
[2022-07-04] MEDS: HYDROXYCHLOROQUINE SULFATE 200 MG TAB PO SCH (21:20)
[2022-07-04] MEDS: METOPROLOL TARTRATE 50 MG TAB PO SCH (21:20)
[2022-07-04] MEDS: CEVIMELINE 30 MG CAP PO SCH (21:20)
[2022-07-04] MEDS: cycloSPORINE 0.05% OPHTH 0.4 ML DROPERETTE BOTH EYES SCH (21:21)
[2022-07-05] MEDS: SODIUM CHLORIDE 0.9% 1,000 ML IV SCH ×2 (05:07→11:07)
[2022-07-05 07:20] VITALS: PULSE 85; RESP 17
[2022-07-05] MEDS ORDERED: PANTOPRAZOLE 40 MG TABLET PO SCH (07:30)
[2022-07-05] MEDS: SYMBICORT 160-4.5 MCG INHALER INHALATION SCH (08:29)
[2022-07-05] MEDS ORDERED: NON FORMULARY DRUG (Lisdexamfetamine Dimesylate [Vyvanse] 70 MG Capsule) PO SCH (09:00)
[2022-07-05] MEDS ORDERED: FERROUS SULFATE 325 MG TAB PO SCH (09:00)
[2022-07-05] MEDS ORDERED: MAGNESIUM OXIDE 400 MG TAB PO SCH (09:00)
[2022-07-05] MEDS ORDERED: MULTIVITAMINS, THERA 1 EACH TAB PO SCH (09:00)
[2022-07-05] MEDS ORDERED: ATORVASTATIN 80 MG TAB PO SCH (09:00)
[2022-07-05] MEDS ORDERED: NON FORMULARY DRUG (Vitamin B Complex [Vitamin B Complex] 1 EACH Capsule) PO SCH (09:00)
[2022-07-05] MEDS ORDERED: VITAMIN E (DL,TOCOPHERYL ACET) 400 UNIT (180 MG) CAP PO SCH (09:00)
[2022-07-05] MEDS ORDERED: ASCORBIC ACID 500 MG TAB PO SCH (09:00)
[2022-07-05] MEDS ORDERED: CLOPIDOGREL 75 MG TAB PO SCH (09:00)
[2022-07-05] MEDS ORDERED: NON FORMULARY DRUG (Omega-3 Fatty Acids [Omega-3] 1,000 MG Capsule) PO SCH (09:00)
[2022-07-05] MEDS ORDERED: NON FORMULARY DRUG (Turmeric Root Extract [Turmeric] 500 MG Tablet) PO SCH (09:00)
[2022-07-05] MEDS ORDERED: ASPIRIN 325 MG TAB PO SCH (09:00)
[2022-07-05] MEDS ORDERED: LACTOBACILLUS ACIDOPH & BULGAR 1 EACH PACKET PO SCH (09:00)
[2022-07-05] MEDS: METOPROLOL TARTRATE 50 MG TAB PO SCH (09:37)
[2022-07-05] MEDS: CEVIMELINE 30 MG CAP PO SCH ×2 (09:37→15:54)
[2022-07-05] MEDS: HYDROXYCHLOROQUINE SULFATE 200 MG TAB PO SCH (09:37)
[2022-07-05] MEDS: predniSONE 20 MG TAB PO SCH (09:37)
[2022-07-05] MEDS: cycloSPORINE 0.05% OPHTH 0.4 ML DROPERETTE BOTH EYES SCH (09:38)
[2022-07-05] MEDS: ACETAMINOPHEN TAB 325 MG TAB PO PRN ×2 (09:38→15:53)
[2022-07-05] MEDS: HEPARIN SODIUM,PORCINE/PF 5,000 UNIT/0.5 ML SYRINGE SQ SCH ×2 (09:38→15:55)
[2022-07-05 11:38] LABS: HGB 7.3 g/dL (12.0-15.0); MCH 31.2 pg (27.0-32.0); MCHC 33.2 g/dL (32.0-37.0); Mean Platelet Volume 9.6 fL (9.5-12.2); NRBC Per 100 WBC 0 /100 WBCS (0.0-0.0); Platelet Count 356 X 10*3/uL (140-440); RBC 2.34 X 10*6/uL (4.10-5.20); RDW 13.2 % (11.5-14.5); WBC 10.67 X 10*3/uL (4.50-10.00)
[2022-07-05 11:46] LABS: ALT 32 U/L (8-44); AST 46 U/L (13-35); African American GFR (CKD) 114.8 (60.0-200.0); Albumin/Globulin Ratio 1.32 (1.60-3.17); Alkaline Phosphatase 100 U/L (41-126); BUN/Creat Ratio 12.97 Ratio (12.00-20.00); Calcium 8.4 mg/dL (8.7-10.3); Carbon Dioxide 21.5 mmol/L (20.0-27.5); Chloride 100 mmol/L (96-109); Globulin 2.3 g/dL (1.6-3.3); Glucose 87 mg/dL (70-110); Magnesium 1.9 mg/dL (1.5-2.4); Non-African American GFR(CKD) 99.1 (60.0-200.0); Potassium 3.5 mmol/L (3.5-5.5); Sodium 130 mmol/L (135-145); Total Bilirubin <0.15 mg/dL (0.30-1.20); Total Protein 5.3 g/dL (6.2-8.2)
[2022-07-05] MEDS ORDERED: amLODIPine 5 MG TAB PO SCH (12:00)
[2022-07-05 14:22] VITALS: BP 168/77; TEMP 98.2
--- NOTE | 2022-07-05 15:15 | P.DS ---
Providers Date of admission: 07/03/22 18:33 Expected date of discharge: 07/05/22 Attending physician: Gi Og MD Consults: 07/04/22 17:10 Consult Physician Routine Consulting Provider: Cornelia Tan Consult Reason/Comments: SLE flair Do you want consulting provider notified?: Yes Primary care physician: [facility] Course: Discharge Diagnosis: SLE flare. Continue with patient's home Plaquenil and patient started on prednisone 40 mg daily. Patient had significant improvement after 2 day course of prednisone and is being discharged home on an additional 5 day course of prednisone 40 mg daily. Patient instructed to continue her Plaquenil and follow-up with her hog cutter this week. Iron deficiency Anemia . Stable at baseline. Continue daily ferrous sulfate supplements.Pt instructed she will need to follow up with PCP this week as her sodium and hgb are chronically low and she will require close monitoring of these levels. Hyponatremia, improved -Patient has chronic hyponatremia likely secondary to daily diuretic use with furosemide. Pt instructed she will need to follow up with PCP this week as her sodium and hgb are chronically low and she will require close monitoring of these levels. Leukocytosis, likely secondary to acute SLE flare. Improved after initiation of prednisone for treatment of SLE flair, Hypertension. Monitor vital signs and continue daily medication regimen with amlodipine, losartan, and metoprolol. Hyperlipidemia. Continue daily medication regimen with atorvastatin. Hospital Course: Patient is a very pleasant 66-year-old female with a past medical history of SLE and hypertension. She presented to the emergency department with the chief complaints of joint pain and fever. Patient reports pain in bilateral hands, left knee, ankles, and feet. Patient reports this pain began the morning of 07/03/22 and progressively worsened throughout the day. She states these symptoms are consistent with previous SLE flares, but stated she had not had a flare in quite some time. Patient does report following with a hog cutter from [place]. Patient underwent full evaluation in the emergency department. She was found to have an elevated temp of 100.1F, episodes of tachycardia with heart rate of 103, elevated WBC count of 18.2, hemoglobin of 8.8, and sodium of 125. Pro-calcitonin was elevated at 0.17. Urinalysis negative for infection. Influenza A, influenza B, RSV, and Covid PCR were all negative. An EKG was completed revealing normal sinus rhythm at 74 bpm with a first-degree AV block with MT interval of 231 ms. Chest x-ray completed revealing cardiomegaly and negative for acute cardiopulmonary process. Blood cultures obtained and sent to lab for analysis. Patient was admitted under our services with consultation to hog cutter. Patient has had significant improvement and requesting discharge home at this time. WBC count down to 10.67 from previous 18.2. Hemoglobin 7.3, which remains the patient's baseline. Sodium has improved to 130. Blood cultures showing no growth after 24 hours. Yesterday upon arrival to our facility patient had difficulty with ambulation using a walker and having significant pain in her joints. Patient now ambulating in room without difficulties independently and reports joint pain significantly improved. Patient has remained afebrile since initiation of prednisone and denies having any complaints. Patient medically stable at this time and instructed she will need to follow up with her PCP and hog cutter this week. Patient's at bedside states he will call first thing in the morning to schedule her appointment. Physical exam: Vital signs reviewed and stable. General: Nontoxic, no distress and appears stated age. Derm: Skin warm and dry, normal coloration for ethnicity. Head: Atraumatic, normocephalic and symmetric. Eyes: EOMs intact, no lid lag, and anicteric sclera Mouth: no lip lesions, mucus membranes moist Cardiovascular: regular rate and rhythm with normal S1S2, no murmur, positive posterior tibial pulses bilaterally, and cap refill < 2 seconds. Lungs: Respirations even, regular, and unlabored on room air. Lungs CTA bilaterally, no rhonchi, no rales, no wheezing, and no accessory muscle usage. Abdominal: soft, nontender to palpation, no guarding, no appreciable organomegaly Ext: ROM intact. No gross muscle atrophy, no edema, no contractures Neuro: Speech clear, face symmetrical and CN II-XII grossly intact with no noted focal neuro deficits Psych: Alert and oriented to person, place, time, and situation. Appropriate and pleasant affect. A total of 35 minutes of time were spent preparing this complex discharge summary. Pt was discharged on 07/05/22 at 3:01 PM. I reviewed the above documentation as written by our ASHA who is the original author of this note, and I agree with the assessment and plan with no changes. Patient Condition at Discharge: Stable Plan - Discharge Summary Discharge Rx Participant: Yes New Discharge Prescriptions: New predniSONE [Deltasone] 40 mg PO DAILY 5 Days #5 tab Continue Lisdexamfetamine Dimesylate [Vyvanse] 70 mg PO DAILY Budesonide-Formot 160-4.5 Mcg [Symbicort 160-4.5 Mcg Inhaler] 2 puff INHALATION RT-BID Hydroxychloroquine Sulfate [Plaquenil] 200 mg PO BID Cevimeline [Evoxac] 30 mg PO TID Butalb/Acetaminophen/Caffeine [Esgic 50-325-40 mg Tablet] 1 tab PO Q4H PRN PRN Reason: Migraine Headache Fremanezumab-Vfrm [Ajovy Autoinjector] 225 mg SQ Q30D Vitamin E 400 unit PO DAILY Turmeric Root Extract [Turmeric] 1,500 mg PO DAILY [place]-3 Fatty Acids [[place]-3] 1,000 mg PO DAILY Atorvastatin [Lipitor] 80 mg PO DAILY #30 tab Clopidogrel [Plavix] 75 mg PO DAILY #30 tab HYDROcodone/APAP 5-325MG [[place] 5-325] 1 tab PO Q6HR PRN 3 Days #12 tab PRN Reason: Severe Pain Sennosides-Docusate Sodium [Senokot-S] 2 tab PO HS PRN PRN Reason: Constipation cycloSPORINE 0.05% OPHTH SOLN [Restasis] 1 drop BOTH EYES BID Amitriptyline HCl [Elavil] 150 mg PO HS Furosemide [Lasix] 20 mg PO DAILY Estradiol Cream [Estrace Cream 0.01%] 2 gm VAGINAL DIRECTED Multivitamins, Thera [Multivitamin (formulary)] 1 tab PO DAILY Ascorbic Acid [Vitamin C] 500 mg PO DAILY Magnesium Oxide [Magox 400] 400 mg PO DAILY L.acidoph,Paracasei, B.lactis [Probiotic] 1 cap PO DAILY Ferrous Sulfate [Slow Fe] 142 mg PO DAILY Calcium Carbonate [Calcium] 600 mg PO BID Vitamin B Complex 1 cap PO DAILY Aspirin 325 mg PO DAILY #30 tab Metoprolol Tartrate [Lopressor] 50 mg PO BID #60 tab amLODIPine [Norvasc] 5 mg PO DAILY@1200 #30 tab Pantoprazole [Protonix] 40 mg PO AC-BRKFST #30 tab Acetaminophen Tab [Tylenol] 650 mg PO Q4HR PRN tab PRN Reason: Fever and/ or Mild Pain Losartan Potassium [Cozaar] 50 mg PO HS Discharge Medication List Amitriptyline HCl [Elavil] 150 mg PO HS 05/27/22 [History] Ascorbic Acid [Vitamin C] 500 mg PO DAILY 05/27/22 [History] Budesonide-Formot 160-4.5 Mcg [Symbicort 160-4.5 Mcg Inhaler] 2 puff INHALATION RT-BID 05/27/22 [History] Butalb/Acetaminophen/Caffeine [Esgic 50-325-40 mg Tablet] 1 tab PO Q4H PRN 05/27/22 [History] Calcium Carbonate [Calcium] 600 mg PO BID 05/27/22 [History] Cevimeline [Evoxac] 30 mg PO TID 05/27/22 [History] Estradiol Cream [Estrace Cream 0.01%] 2 gm VAGINAL DIRECTED 05/27/22 [History] Ferrous Sulfate [Slow Fe] 142 mg PO DAILY 05/27/22 [History] Fremanezumab-Vfrm [Ajovy Autoinjector] 225 mg SQ Q30D 05/27/22 [History] Furosemide [Lasix] 20 mg PO DAILY 05/27/22 [History] Hydroxychloroquine Sulfate [Plaquenil] 200 mg PO BID 05/27/22 [History] L.acidoph,Paracasei, B.lactis [Probiotic] 1 cap PO DAILY 05/27/22 [History] Lisdexamfetamine Dimesylate [Vyvanse] 70 mg PO DAILY 05/27/22 [History] Magnesium Oxide [Magox 400] 400 mg PO DAILY 05/27/22 [History] Multivitamins, Thera [Multivitamin (formulary)] 1 tab PO DAILY 05/27/22 [History] [place]-3 Fatty Acids [[place]-3] 1,000 mg PO DAILY 05/27/22 [History] Turmeric Root Extract [Turmeric] 1,500 mg PO DAILY 05/27/22 [History] Vitamin B Complex 1 cap PO DAILY 05/27/22 [History] Vitamin E 400 unit PO DAILY 05/27/22 [History] cycloSPORINE 0.05% OPHTH SOLN [Restasis] 1 drop BOTH EYES BID 05/27/22 [History] Acetaminophen Tab [Tylenol] 650 mg PO Q4HR PRN tab 06/05/22 [Rx] Aspirin 325 mg PO DAILY #30 tab 06/05/22 [Rx] Atorvastatin [Lipitor] 80 mg PO DAILY #30 tab 06/05/22 [Rx] Clopidogrel [Plavix] 75 mg PO DAILY #30 tab 06/05/22 [Rx] HYDROcodone/APAP 5-325MG [[place] 5-325] 1 tab PO Q6HR PRN 3 Days #12 tab 06/05/22 [Rx] Metoprolol Tartrate [Lopressor] 50 mg PO BID #60 tab 06/05/22 [Rx] Pantoprazole [Protonix] 40 mg PO AC-BRKFST #30 tab 06/05/22 [Rx] amLODIPine [Norvasc] 5 mg PO DAILY@1200 #30 tab 06/05/22 [Rx] Losartan Potassium [Cozaar] 50 mg PO HS 07/03/22 [History] Sennosides-Docusate Sodium [Senokot-S] 2 tab PO HS PRN 07/03/22 [History] predniSONE [Deltasone] 40 mg PO DAILY 5 Days #5 tab 07/05/22 [Rx] Follow up Appointment(s)/Referral(s): Solomon Mckinley MD [Primary Care Provider] - 1-2 days Tyrone Brown [STAFF PHYSICIAN] - 1 Week (information on a new PCP) Activity/Diet/Wound Care/Special Instructions: Activity: As tolerated. Take breaks as needed. Diet: Heart healthy and carb consistent diet. Avoid salts, or foods with hidden salts such as canned or boxed foods and frozen dinners. Extra salt makes your heart work harder and traps the fluid in your body for longer. Special Instructions: Take all of your medications as directed and remember to keep all of your doctor's appointments and follow-up as needed. Please call first thing tomorrow morning and schedule appointment with your hog cutter this week as well as with your primary care provider for continued close monitoring of your hemoglobin and sodium levels as both are chronically low.. Thank you for allowing us to participate in your care, it was truly a pleasure having you for our patient!!! Discharge Disposition: HOME SELF-CARE
== END 2022-07-05 17:10 | disposition home or self-care (01) ==
LOC: EC 12:20 → SUPCPDRO 12:20 → INTOOBSV 18:33 → 4SSUR 18:33 → UNDODISIN 07-05 17:10
PROVIDERS: ADMIT Internal Medicine; ATTEND Internal Medicine
DX: M32.9 Systemic lupus erythematosus, unspecified (principal); E87.1 Hypo-osmolality and hyponatremia; R65.10 Systemic inflammatory response syndrome (SIRS) of non-infectious origin without acute organ dysfunction; I11.9 Hypertensive heart disease without heart failure; I44.0 Atrioventricular block, first degree; D50.9 Iron deficiency anemia, unspecified; M35.00 Sjogren syndrome, unspecified; E78.5 Hyperlipidemia, unspecified; D72.829 Elevated white blood cell count, unspecified; J45.909 Unspecified asthma, uncomplicated; Z79.51 Long term (current) use of inhaled steroids; Z79.02 Long term (current) use of antithrombotics/antiplatelets; Z79.82 Long term (current) use of aspirin; Z79.899 Other long term (current) drug therapy; Z88.0 Allergy status to penicillin; Z88.5 Allergy status to narcotic agent; Z88.2 Allergy status to sulfonamides; Z87.01 Personal history of pneumonia (recurrent); Z90.49 Acquired absence of other specified parts of digestive tract; Z90.710 Acquired absence of both cervix and uterus; Z98.890 Other specified postprocedural states; Z80.0 Family history of malignant neoplasm of digestive organs
CPT/HCPCS: 96376; 96361 ×2; 96372; 96374; 99284; 36415; 94640; 93005; 80053; 80048; 83735; 85025; 85027; 81001; 87040; 84145; 87636; 71046; G0378 ×3; J1170 ×2; J7512 ×2; J1644 ×2

== ENCOUNTER → 2023-03-03 | Outpatient (CLI) | payer MEDICARE ==
--- NOTE | 2023-03-03 15:18 | US ---
EXAMINATION TYPE: US kidneys/renal and bladder DATE OF EXAM: 03/03/2023 COMPARISON: NONE CLINICAL INDICATION: Female, 67 years old with history of R31.1 MICRO HEMATURIA; Microhematuria. EXAM MEASUREMENTS: Right Kidney: 9.9 x 5.4 x 4.0 cm Left Kidney: 10.2 x 4.4 x 5.0 cm Multiple grayscale and color Doppler ultrasound images of the kidneys and urinary bladder are obtaine d. Right Kidney: No hydronephrosis or masses seen Left Kidney: No hydronephrosis or masses seen Bladder: Appears wnl Bilateral Jets seen: Yes No hydronephrosis, mass, or nephrolithiasis involving both kidneys. Cortical medullary junction is ma intained bilaterally. Urinary bladder is unremarkable with both ureteral jets identified. IMPRESSION: No hydronephrosis or nephrolithiasis.
== END | disposition home or self-care (01) ==
LOC: RADUSWWP 13:57
PROVIDERS: ATTEND Urology
DX: R31.1 Benign essential microscopic hematuria (principal)
CPT/HCPCS: 76770

== ENCOUNTER → 2023-11-04 | Outpatient (CLI) | payer MEDICARE ==
--- NOTE | 2023-11-04 19:30 | CT ---
EXAMINATION TYPE: CT hip LT wo con CT DLP: 316 mGycm, Automated exposure control for dose reduction was used. DATE OF EXAM: 11/04/2023 1:07 PM COMPARISON: . Extremity radiograph same day. CLINICAL INDICATION:Female, 68 years old with history of S72.101A FEMUR FX; PHH, Femur fx TECHNIQUE: Axial images were obtained of the left hip without contrast . Additional coronal and sagi ttal reformatted images and soft tissue and bone window were obtained for review. 3-D reconstruction was created on a separate workstation. IV Contrast used: None. Oral contrast used: None FINDINGS: Osseous mineralization appears appropriate. The visualized pelvis appears intact. Left hip is intact with mild osteoarthropathy. Preserved spherical shape of the femoral head. There is a somewhat unusua l appearing fracture of the proximal femur. Laterally the fracture lucency extends from the superior posterior aspect of the greater trochanter and going medially extends through the cortical surface of the proximal femoral shaft, intertrochanteric region, just posterior to the base of the femoral neck . There is mild distraction at the fracture site, maximally 2 mm, without otherwise significant displ acement. The lesser trochanter and the femoral neck appear intact. Femoral head is intact. There is soft tissue swelling about the hip, and there seems to be a small hip joint effusion. IMPRESSION: 1. Left proximal femoral fracture involving the greater trochanter as described. 2. Mild distraction at the fracture site without otherwise significant displacement.
== END | disposition home or self-care (01) ==
LOC: RADCTMAIN 12:26
PROVIDERS: ATTEND Orthopaedic Surgery
DX: S72.101A Unspecified trochanteric fracture of right femur, initial encounter for closed fracture (principal)

== ENCOUNTER → 2024-04-04 | Outpatient (CLI) | payer MEDICARE ==
--- NOTE | 2024-04-05 07:41 | XR ---
EXAMINATION TYPE: XR chest 2V DATE OF EXAM: 04/04/2024 COMPARISON: 07/13/2022 TECHNIQUE: PA and lateral views submitted. HISTORY: Chest pain FINDINGS: The lungs are clear and there is no pneumothorax, pleural effusion, or focal pneumonia. Heart size normal and no overt failure. Osseous structures demonstrate hypertrophic and degenerative changes of the spine. Sternotomy wires and clips. They do extend anterior to the sternum on the lateral view. Pr evious cardiac surgery suggested. Surgical clips in the gallbladder fossa. Elevated left hemidiaphrag m. Vague nodular density right lower lobe likely nipple shadow. Correlate for COPD. IMPRESSION: 1. No acute process. Chest wires do extend anterior to the sternum within the anterior margin of the subcutaneous tissues correlate clinically.
== END | disposition home or self-care (01) ==
LOC: RADXRMAIN 14:38
PROVIDERS: ATTEND Surgery
DX: R07.9 Chest pain, unspecified (principal)
CPT/HCPCS: 71046

== ENCOUNTER → 2024-04-20 | Outpatient (CLI) | payer MEDICARE ==
[2024-04-20 14:41] LABS: Basophils # (A) 0.08 X 10*3/uL (0.00-0.10); Basophils % (A) 1.1 %; Eosinophils # (A) 0.38 X 10*3/uL (0.04-0.35); Eosinophils % (A) 5.2 %; HCT 34.7 % (37.2-46.3); HGB 12.2 g/dL (12.0-15.0); Lymphocytes # (A) 1.85 X 10*3/uL (0.90-5.00); Lymphocytes % (A) 25.1 %; MCH 33.7 pg (27.0-32.0); MCHC 35.2 g/dL (32.0-37.0); MCV 95.9 FL (80.0-97.0); Mean Platelet Volume 9.2 FL (9.5-12.2); Monocytes # (A) 0.69 X 10*3/uL (0.20-1.00); Monocytes % (A) 9.4 %; NRBC Per 100 WBC 0 X 10*3/uL (0.00-0.01); Neutrophils # (A) 4.33 X 10*3/uL (1.80-7.70); Neutrophils % (A) 58.7 %; Platelet Count 305 X 10*3/uL (140-440); RBC 3.62 X 10*6/uL (4.10-5.20); RDW 11.8 % (11.5-14.5); WBC 7.37 X 10*3/uL (4.50-10.00)
[2024-04-20 14:56] LABS: Blood Urea Nitrogen 17.2 mg/dL (9.0-27.0); Carbon Dioxide 20.8 mmol/L (21.6-31.8); Chloride 100 mmol/L (96-109); Glucose 109 mg/dL (70-110); Potassium 4.3 mmol/L (3.5-5.5); Sodium 134 mmol/L (135-145)
[2024-04-20 15:35] LABS: INR 1.02 sec (0.93-1.11)
[2024-04-21 09:27] LABS: Appearance,Urine Clear (Clear); Bilirubin,Urine Negative (Negative); Blood,Urine Negative (Negative); Color,Urine Yellow (Yellow); Ketones,Urine Negative (Negative); Nitrite,Urine Negative (Negative); PH, Urine 6.5; Specific Gravity,Urine 1.016 (1.001-1.030); Urobilinogen,Urine 0.2 E.U./DL
== END | disposition home or self-care (01) ==
LOC: LABPAT 11:11
PROVIDERS: ATTEND Surgery
DX: T84.84XA Pain due to internal orthopedic prosthetic devices, implants and grafts, initial encounter (principal)
CPT/HCPCS: 36415; 80051; 81003; 82565; 82947; 84520; 85025; 85610; 85730; 86850; 86900; 86901; 87086

== ENCOUNTER 2024-04-25 12:18 | Day surgery (SDC) | payer MEDICARE ==
[2024-04-25] MEDS ORDERED: fentaNYL (PF) 50 MCG/ML 2 ML AMP IV PRN (12:47)
[2024-04-25] MEDS ORDERED: MIDAZOLAM 2 MG/2 ML VIAL IV PRN (12:47)
[2024-04-25] MEDS: IV FLUID CONTINUATION 1,000 ML IV ONE (13:20)
[2024-04-25] MEDS: DEXAMETHASONE SOD PHOSPHATE 4 MG/ML 1 ML VIAL IV ONE (13:29)
[2024-04-25] MEDS: ONDANSETRON 4 MG/2 ML VIAL IVP ONE (13:29)
[2024-04-25] MEDS: LACTATED RINGERS 1,000 ML IV SCH (13:30)
[2024-04-25] MEDS ORDERED: MIDAZOLAM 2 MG/2 ML VIAL ONE (14:02)
[2024-04-25] MEDS ORDERED: fentaNYL (PF) 50 MCG/ML 2 ML AMP ONE (14:02)
[2024-04-25] MEDS ORDERED: KETAMINE HCL IN 0.9 % NACL 50 MG/5 ML SYRINGE ONE (14:02)
[2024-04-25] MEDS ORDERED: HYDROmorphone (PF) 1 MG/ML ONE (14:02)
[2024-04-25] MEDS ORDERED: PROPOFOL 10 MG/ML 20 ML VIAL IV ONE (14:02)
[2024-04-25] MEDS ORDERED: LIDOCAINE 1% INJ 10MG/ML (20 ML MDV) ONE (14:02)
[2024-04-25] MEDS ORDERED: PHENYLEPHRINE-0.9% NACL SYG 1,000 MCG/10 ML SYRINGE ONE (14:02)
[2024-04-25 15:22] VITALS: TEMP 97.1
[2024-04-25] MEDS: HYDROmorphone 0.5 MG/0.5 ML SYRINGE IVP PRN (15:40)
[2024-04-25] MEDS: ACETAMINOPHEN TAB 500 MG TAB PO STA (16:07)
[2024-04-25 16:20] VITALS: BP 134/63; PULSE 71; RESP 14
--- NOTE | 2024-04-25 22:06 | OP ---
OPERATIVE REPORT DATE OF SERVICE : 04/25/2024 PREOPERATIVE DIAGNOSIS: Protruding sternal wire. POSTOPERATIVE DIAGNOSIS: Protruding sternal wire. PROCEDURE: Removal of sternal wires. BEER COOLER: None. SPECIMEN: None. COMPLICATIONS: None. ESTIMATED BLOOD LOSS: Less than 5 mL. INDICATIONS: The patient is a 68-year-old female, who underwent coronary artery bypass surgery nearly 2 years ago. For the past several months, she has noticed a raised area over her sternal wound. She was seen in the office and it was felt that her sternal wire was starting to migrate and was nearly protruding through her skin. It was starting to cause her discomfort and therefore removal of her sternal wires was recommended. The risks, benefits, and alternatives of procedure were discussed with the patient. All of her questions were answered. Consent was obtained. Of note, a preoperative CT scan of the chest was performed and did not reveal any evidence of a superficial infection or substernal infection. The wires all appeared to be intact and the bone was healed. FINDINGS: There was an area of inflammation surrounding the inferior-most sternal wire. There was no evidence of infection. DESCRIPTION OF PROCEDURE: The patient was taken to the operating room, placed supine on the operating table. General anesthesia was induced using an LMA. The patient was then prepped and draped in the usual sterile fashion. An elliptical incision was made to excise the previous sternal scar. Upon examination, the sternum itself was stable and had no movement. The inferior-most sternal wire was migrating and caused inflammation of the surrounding subcutaneous tissue. There was no evidence of erythema on the skin or superficial infection. There was no fluid collection. There was no pus. All 5 sternal wires were then dissected free and removed without difficulty. The sternum itself remained stable after removal of the wires. The wound was copiously irrigated with warm saline solution. Hemostasis was achieved. The wound was then closed in multiple layers. Sterile dressing was applied. The patient appeared to tolerate the procedure well. There were no immediate complications. She returned to recovery room in stable condition. MMODL / IJN: [id number] /
== END 2024-04-25 16:37 | disposition home or self-care (01) ==
LOC: OR 12:18
PROVIDERS: ATTEND Surgery
DX: T84.84XA Pain due to internal orthopedic prosthetic devices, implants and grafts, initial encounter (principal); I25.10 Atherosclerotic heart disease of native coronary artery without angina pectoris; I10 Essential (primary) hypertension; I25.2 Old myocardial infarction; J45.909 Unspecified asthma, uncomplicated; M32.9 Systemic lupus erythematosus, unspecified; Z88.5 Allergy status to narcotic agent; Z88.0 Allergy status to penicillin; Z95.5 Presence of coronary angioplasty implant and graft; Z90.710 Acquired absence of both cervix and uterus; Z88.2 Allergy status to sulfonamides; Z79.899 Other long term (current) drug therapy; Y83.8 Other surgical procedures as the cause of abnormal reaction of the patient, or of later complication, without mention of misadventure at the time of the procedure
CPT/HCPCS: 20680; C1729; J2250; J1100; J0690; J2405; J2001; J3010; J1170 ×2; J2704; J2371

== ENCOUNTER → 2025-05-17 | Outpatient (CLI) | payer MEDICARE ==
--- NOTE | 2025-05-17 22:37 | CT ---
EXAMINATION TYPE: CT chest wo con DATE OF EXAM: 05/17/2025 12:47 PM COMPARISON: r CLINICAL INDICATION: Female, 69 years old with history of I25.10 Coronary artery disease, recent imelda saqib of sternal wiring TECHNIQUE: Axial images were obtained at 5 mm thick sections. Reconstructed images are reviewed on [employer] computer in the coronal plane. Contrast used: mL of , (none if empty) Oral contrast used: (none if empty) CT DLP: 163.2 mGycm, Automated exposure control for dose reduction was used. FINDINGS: Portion of the thyroid visualized is normal. No suspicious lung nodules or focal infiltrates are present. No enlarged mediastinal or hilar adenopathy is evident. The ascending aorta diameter at the level o f the main pulmonary artery is 3.7 cm. The main pulmonary artery diameter at the bifurcation is 3.2 cm. Moderate coronary artery calcifications present. Limited CT sections are obtained through the upper abdomen. Abdomen is essentially unremarkable. 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 IMPRESSION: 1. No acute pulmonary process. 2. Nonunion of the sternotomy line. [facility], , 05/17/2025 10:35 PM
== END | disposition home or self-care (01) ==
LOC: RADCTMAIN 12:12
PROVIDERS: ATTEND Surgery
DX: I25.10 Atherosclerotic heart disease of native coronary artery without angina pectoris (principal)
CPT/HCPCS: 71250